=== PATIENT | female | born 1965 | race Caucasian/White ===

== ENCOUNTER → 2020-07-25 15:30 | Outpatient (BNVA) | payer OTHER, SELFPAY | PROVIDERS: PCP Internal Medicine Medical Oncology; Visit Provider Surgery | DX: Z76.89 Persons encountering health services in other specified circumstances (principal) ==

== ENCOUNTER → 2020-09-28 11:22 | Outpatient (BNVA) | payer OTHER, SELFPAY | PROVIDERS: PCP Internal Medicine Medical Oncology; Visit Provider Surgery | DX: Z76.89 Persons encountering health services in other specified circumstances (principal) ==

== ENCOUNTER 2020-09-30 13:28 | Outpatient (REF) | payer OTHER, SELFPAY ==
--- NOTE | 2020-09-30 13:32 | MM_ITS ---
EXAMINATION: MM SCREENING DIGITAL BREAST TOMOSYNTHESIS, LEFT CLINICAL INFORMATION: History contralateral breast cancer status post lumpectomy 03/15/2020. Request for imaging limited to left side. COMPARISON: Mammography: 04/16/2019, 03/27/2018, 02/24/2017 TECHNIQUE: Digital breast tomosynthesis is performed in both the craniocaudal and mediolateral oblique views along with computer-aided detection (CAD). Synthesized 2D images are generated from the tomosynthesis. FINDINGS: There are scattered areas of fibroglandular density (ACR BI-RADS breast composition Category b). There are no significant masses, abnormal calcifications, or other abnormalities. There is a stable intramammary node mid 3:00 position. The axilla and skin contours are unremarkable. MM/MM tomosynthesis screening LT IMPRESSION: No mammographic evidence of malignancy. ASSESSMENT: BI-RADS 2: Benign RECOMMENDATION: Routine annual mammography screening. This patient's information was entered into a reminder system with a target due date for their next mammogram.
== END 2020-09-30 13:29 | disposition home or self-care (01) ==
LOC: HO.MAMMO 13:28
PROVIDERS: PCP Internal Medicine Medical Oncology; Visit Provider Surgery
DX: Z12.31 Encounter for screening mammogram for malignant neoplasm of breast (principal)
CPT/HCPCS: 77063; 77067

== ENCOUNTER → 2020-12-25 08:43 | Outpatient (BNVA) | payer OTHER, SELFPAY | PROVIDERS: PCP Internal Medicine Medical Oncology; Visit Provider Surgery ==

== ENCOUNTER 2021-04-18 12:11 | Outpatient (REF) | payer BC, SELFPAY ==
--- NOTE | ~2021-04-18 | MM_ITS ---
EXAMINATION: MM DIAGNOSTIC DIGITAL BREAST TOMOSYNTHESIS, BILATERAL CLINICAL INFORMATION: Status post lumpectomy right breast March 15, 2020 COMPARISON: Mammography: September 30, 2020 and studies dating back to January 03, 2014 TECHNIQUE: Digital breast tomosynthesis is performed in both the craniocaudal and mediolateral oblique views along with computer-aided detection (CAD). Synthesized 2D images are generated from the tomosynthesis. Spot magnification views of the right breast in craniocaudal and 90 degree mediolateral views. FINDINGS: The breasts are almost entirely fatty (ACR BI-RADS breast composition Category a). Postsurgical and postradiation change is again seen within the right breast. No suspicious abnormality of the left breast is identified. Results are provided to the patient at time of visit by the technologist. MM/MM tomosynthesis diagnostic BI IMPRESSION: There are no significant changes from prior study. ASSESSMENT: BI-RADS 2: Benign RECOMMENDATION: Diagnostic mammography at time of next annual exam, due in 12 months. This patient's information was entered into a reminder system with a target due date for their next mammogram.
== END 2021-04-18 12:12 | disposition home or self-care (01) ==
LOC: HO.MAMMO 12:11
PROVIDERS: PCP Internal Medicine Medical Oncology; Visit Provider Surgery
DX: C50.919 Malignant neoplasm of unspecified site of unspecified female breast (principal)
CPT/HCPCS: 77062; 77066

== ENCOUNTER → 2021-05-24 10:34 | Outpatient (BNVA) | payer BC, SELFPAY | PROVIDERS: PCP Internal Medicine Medical Oncology; Visit Provider Surgery ==

== ENCOUNTER → 2021-11-21 09:45 | Outpatient (BNVA) | payer BC, SELFPAY | PROVIDERS: PCP Internal Medicine Medical Oncology; Visit Provider Surgery ==

== ENCOUNTER 2022-04-19 12:18 | Outpatient (REF) | payer OTHER, SELFPAY ==
--- NOTE | ~2022-04-19 | MM_ITS ---
EXAMINATION: MM DIAGNOSTIC DIGITAL BREAST TOMOSYNTHESIS, BILATERAL CLINICAL INFORMATION: Status post right breast lumpectomy March 15, 2020 COMPARISON: Mammography: April 18, 2021 and studies dating back to January 03, 2014 TECHNIQUE: Digital breast tomosynthesis is performed in both the craniocaudal and mediolateral oblique views along with computer-aided detection (CAD). Synthesized 2D images are generated from the tomosynthesis. Additional spot magnification views of the right breast in craniocaudal and 90 degree mediolateral views performed. FINDINGS: The breasts are almost entirely fatty (ACR BI-RADS breast composition Category a). There are no significant masses, abnormal calcifications, or other abnormalities. Postsurgical change again seen within the right breast. Results are provided to the patient at time of visit by the technologist. MM/MM tomosynthesis diagnostic BI IMPRESSION: There are no significant changes from prior study. ASSESSMENT: BI-RADS 2: Benign RECOMMENDATION: Routine annual mammography screening due in 12 months. This patient's information was entered into a reminder system with a target due date for their next mammogram.
== END 2022-04-19 12:19 | disposition home or self-care (01) ==
LOC: HO.MAMMO 12:18
PROVIDERS: Absent Provider Obstetrics & Gynecology; PCP Internal Medicine Medical Oncology; Visit Provider Surgery
DX: C50.911 Malignant neoplasm of unspecified site of right female breast (principal)
CPT/HCPCS: 77062; 77066

== ENCOUNTER → 2022-10-30 09:44 | Outpatient (BNVA) | payer OTHER, SELFPAY | PROVIDERS: PCP Internal Medicine Medical Oncology; Visit Provider Surgery | DX: Z85.3 Personal history of malignant neoplasm of breast (principal) ==

== ENCOUNTER 2023-04-24 12:41 | Outpatient (REF) | payer OTHER, SELFPAY ==
--- NOTE | ~2023-04-24 | MM_ITS ---
EXAMINATION: MM DIAGNOSTIC DIGITAL BREAST TOMOSYNTHESIS, BILATERAL CLINICAL INFORMATION: Year 3 follow-up status post right breast lumpectomy 03/15/2020. COMPARISON: Mammography: 04/19/2022, and dating back to 2014. TECHNIQUE: Digital breast tomosynthesis is performed in both the craniocaudal and mediolateral oblique views along with computer-aided detection (CAD). Synthesized 2D images are generated from the tomosynthesis. In addition, right CC and MLO spot magnification views were also performed. FINDINGS: There are scattered areas of fibroglandular density (ACR BI-RADS breast composition Category b). There are no significant masses, abnormal calcifications, or other abnormalities. Incidental intramammary node again seen 3:00 mid left breast. There are no significant changes from prior study. Results are provided to the patient at time of visit by the technologist. MM/MM tomosynthesis diagnostic BI IMPRESSION: No mammographic evidence of malignancy. ASSESSMENT: BI-RADS BI-RADS 2 - Benign Findings RECOMMENDATION: 1 year F/U This patient's information was entered into a reminder system with a target due date for their next mammogram.
== END 2023-04-24 12:42 | disposition home or self-care (01) ==
LOC: HO.MAMMO 12:41
PROVIDERS: PCP Internal Medicine Medical Oncology; Visit Provider Surgery
DX: Z85.3 Personal history of malignant neoplasm of breast (principal)
CPT/HCPCS: 77062; 77066

== ENCOUNTER → 2023-04-24 13:00 | Outpatient (BNV) | payer OTHER, SELFPAY | PROVIDERS: PCP Internal Medicine Medical Oncology; Visit Provider Radiology Diagnostic Radiology | DX: Z85.3 Personal history of malignant neoplasm of breast (principal) | CPT/HCPCS: 77062; 77066 ==

== ENCOUNTER 2023-05-07 09:39 | Outpatient (AMB) | payer OTHER, SELFPAY ==
[2023-05-07 09:40] VITALS: BMI 29.2
--- NOTE | 2023-05-07 09:40 | A.OFFVIS_ITS ---
Intake Vital Signs 05/07/23 09:40 Height 5 ft 8 in Weight 192 lb BMI 29.2 Intake Visit Reasons: 6 month follow up, breast exam Intake Note: This patient presents for a six month follow-up breast examination assessment. Patient c/o; reports no breast complaints at this time. [facility] Registered Nurse Rn Required: No Accompanied by: Self / Same As Patient Allergies codeine [CODEINE] Allergy (Severe, Verified 05/07/23 09:46) AGITATION, mentally unstable amoxicillin [AMOXICILLIN] Allergy (Intermediate, Verified 05/07/23 09:46) RASH latex [LATEX] Allergy (Intermediate, Verified 05/07/23 09:46) RASH latex Allergy (Unknown, Uncoded 05/07/23 09:46) rash seasonal Allergy (Unknown, Uncoded 05/07/23 09:46) Unknown SEASONAL ALLERGIES Allergy (Unknown, Uncoded 05/07/23 09:46) WHEEZING Codeine Phosphate Adverse Reaction (Unknown, Uncoded 05/07/23 09:46) mentally unstable Medication List - Last Reconciled 05/07/23 by Kyrie Doyle MD anastrozole 1 mg PO DAILY antiarthritic combination no.2 (glucosamine-chondroitin) 750 mg PO PRN atorvastatin 10 mg PO DAILY calcium carbonate-vitamin D3 600 mg-12.5 mcg (500 unit) (Calcium 600 with Vitamin D3) caps PO citalopram 10 mg PO DAILY loratadine (Claritin) 10 mg PO DAILY melatonin 10 mg PO BEDTIME PRN multivitamin 1 tab PO DAILY naproxen sodium (Aleve) 220 mg PO BID PRN omeprazole 20 mg PO DAILY ocdzquk-wsrq-mzolo-oreg-capryl 100 mg-150 mg- 50 mg-150 mg caps PO HPI 6 month follow up, breast exam HPI Details She is here for follow-up for her history of right breast invasive ductal carcinoma. The had a T2 N0 cancer in 2019 treated with lumpectomy and radiation. She is currently on anastrozole She denies any palpable masses. She says she feels well overall. She does state that she still has pain on the lumpectomy site as well as the sentinel node biopsy site. [facility] Medical History Depression History of breast cancer Hypercholesterolemia Mitral valve prolapse Surgical History History of colonoscopy History of lumpectomy of right breast Family History Mother Breast cancer, Onset Age: 75 Maternal Grandmother Breast cancer Father Throat cancer Mouth cancer Social History Alcohol intake: current Review of Systems Const Denies chills and Denies fever(s) Card Denies chest pain, Denies dyspnea and Denies dyspnea on exertion Resp Denies cough, Denies dyspnea and Denies dyspnea on exertion GI Denies hematochezia and Denies change in bowel habits Denies hematuria Musc Denies back pain and Denies limited range of motion Neuro Details: Vertigo Denies focal weakness and Denies convulsions Psych Denies depression and Denies mood swings Physical Exam Vital Signs: BMI result Body Mass Index 29.2 Const General: comfortable and no acute distress Orientation/consciousness: patient oriented x3 Neck Neck: Yes no lymphadenopathy Chest Other: No palpable breast masses, no nipple or skin changes, no axillary lymphadenopathy Resp Auscultation: clear to auscultation bilaterally Cardio Rhythm: regular rhythm GI Palpation (GI): Soft to palpation, nontender and no guarding Neuro General: patient oriented x3 Assessment & Plan Assessment & Plan (1) History of breast cancer: Code(s): Z85.3 - Personal history of malignant neoplasm of breast Plan: I have reviewed her mammogram from 2 weeks ago. This shows very benign findings. She is recommended to undergo another mammogram in 1 year. I do not appreciate any palpable breast masses or axillary lymphadenopathy. I therefore told her that I will see her again in the office next year after her mammogram. I did advise her to do self breast exam and to see him in the office if he has any concerns. She is comfortable with the plan. She also continues to follow-up with Dr. Willingham of Oncology Coding Level of Care Code Est Pt Level 3 (42096) Diagnoses History of breast cancer Z85.3
== END 2023-05-07 09:58 | disposition home or self-care (01) ==
PROVIDERS: PCP Internal Medicine Medical Oncology; Visit Provider Surgery
DX: Z85.3 Personal history of malignant neoplasm of breast (principal)
CPT/HCPCS: 99213

== ENCOUNTER → 2023-05-07 09:39 | Outpatient (BNVA) | payer OTHER, SELFPAY | PROVIDERS: PCP Internal Medicine Medical Oncology; Visit Provider Surgery | DX: Z85.3 Personal history of malignant neoplasm of breast (principal) ==

== ENCOUNTER 2024-01-16 09:10 | Outpatient (AMB) | payer BC, SELFPAY ==
--- NOTE | 2024-01-16 07:45 | MHC.OFFVIS ---
Intake Visit Reasons: Current Smoker Allergies codeine [CODEINE] Allergy (Severe, Verified 05/07/23 09:46) AGITATION, mentally unstable amoxicillin [AMOXICILLIN] Allergy (Intermediate, Verified 05/07/23 09:46) RASH latex [LATEX] Allergy (Intermediate, Verified 05/07/23 09:46) RASH latex Allergy (Unknown, Uncoded 05/07/23 09:46) rash seasonal Allergy (Unknown, Uncoded 05/07/23 09:46) Unknown SEASONAL ALLERGIES Allergy (Unknown, Uncoded 05/07/23 09:46) WHEEZING Codeine Phosphate Adverse Reaction (Unknown, Uncoded 05/07/23 09:46) mentally unstable HPI HPI Current Smoker: Details: Initial visit for this 58yo smoker with a 20PYH. Patient has been smoking since age 17 for 41 years at 1/2ppd. . Denies marijuana use. Notes social second hand smoke exposure. Father growing up. Denies exposure to chemicals or substances like asbestos. . Denies known family history of lung cancer. Reportspersonal history of cancers right Breast cancer in 2019 Invasive ductal carcinoma - s/p lumpectomy and radiation. In remission. Denies chest CT in last year. . Denies recent travel outside the [place]. Gone to [place] several times. Denies recent respiratory illness or recent hospitalization for respiratory issues. Denies testing positive for COVID. Admits receiving COVID Vaccine. . Denies fever, chills, new/worsening cough, hemoptysis, hoarseness or dysphagia. Denies significant chest pain, significant dyspnea or unintentional weight loss. Patient Lung Cancer Screening Questionnaire reviewed with patient by provider. . Shared Decision Making Completed. Patient meets criteria. Discussed in detail with patient, the risk vs benefit of LDCT screening. Patient consents to proceed with scan. Discussed smoking cessation. [facility] Medical History (Updated 01/16/24 @ 09:39 by Nimco Dickerson PA-C) History of breast cancer (~2019) Mitral valve prolapse Hypercholesterolemia GERD (gastroesophageal reflux disease) Nicotine dependence, cigarettes, uncomplicated Depression Surgical History (Updated 01/06/24 @ 07:56 by Nimco Dickerson PA-C) History of lumpectomy of right breast History of colonoscopy Family History Mother Breast cancer, Onset Age: 75 Maternal Grandmother Breast cancer Father Throat cancer Mouth cancer Social History (Updated 01/16/24 @ 09:40 by Nimco Dickerson PA-C) Alcohol intake: current Alcohol intake frequency: 0-2 drinks per day Alcohol type: wine Patient Tobacco Use Status: Current everyday Tobacco user Years Smoked: onset 17yo, 1/2ppd x 41yrs - 20PYH Assessment & Plan Assessment & Plan (1) Nicotine dependence, cigarettes, uncomplicated: Comment: (current smoker, onset 17yo, 1/2ppd x 41yrs - 20PYH) Code(s): F17.210 - Nicotine dependence, cigarettes, uncomplicated Category: Medical Plan: - SDM visit completed today in office. - Patient meets criteria for LDCT for lung cancer screening purposes and is asymptomatic. - Smoking cessation counseling offered. Patients can always call [phone]. - Will arrange for a LDCT scan of the chest for screening purposes at [facility]. - Risks, benefits, and alternatives were discussed in detail and the patient agrees to proceed. - Risks discussed include but are not limited to: radiation exposure, anxiety during testing and while awaiting results, false negatives, false positives and possibility of additional intervention such as further imaging or surgical procedures for benign disease. - Benefits are obviously detection of lung cancer at an early stage which can lead to improved outcomes. - Discussed the importance of screening program compliance with adherence to yearly LDCT scan as scheduled - or sooner interval scans for personalized screening regimen. - Discussed follow up plan. Our office will send a letter discussing results and if needed set up phone call and office visit based on CT findings. - Patient educated on results categorization and the management decisions for suspicious findings potentially found on the screening LDCT scan. Any patient with a Lung RADS score of 3 or 4 will be reviewed by a multidisciplinary team at [facility] to form a plan of action in regards to scan findings. - If further work up is warranted for a suspicious lung finding this will be followed by the Lung Cancer Screening program in conjunction with the Thoracic Surgery Department at [facility]. - A copy of the office note and LDCT will be sent to the patient's PCP - as well as documentation on any associated further plans of care. - Incidental findings on LDCT are the PCP's responsibility. These findings are indicated with an S finding on the LDCT Assessment. A note discussing the findings will be sent to the PCP who is then responsible for further management. - All questions answered.? Coding Level of Care Code Lung Cancer Screening G0296 Diagnoses Nicotine dependence, cigarettes, uncomplicated F17.210
== END 2024-01-16 10:07 | disposition home or self-care (01) ==
PROVIDERS: PCP Internal Medicine Medical Oncology; Referring Provider Internal Medicine Medical Oncology; Visit Provider Physician Assistant Medical
DX: F17.210 Nicotine dependence, cigarettes, uncomplicated (principal)
CPT/HCPCS: G0296

== ENCOUNTER 2024-01-16 09:39 | Outpatient (REF) | payer BC, SELFPAY ==
--- NOTE | ~2024-01-16 | CT_ITS ---
EXAMINATION: CT CHEST SCREENING CLINICAL INFORMATION: Nicotine dependence, cigarettes, uncomplicated. COMPARISON: X-ray chest 12/14/2014. TECHNIQUE: Multidetector volumetric CT imaging of the chest is performed on a Siemens SOMATOM Definition scanner without contrast using low dose technique. Additional 2D coronal and sagittal reformatted images and axial 3D maximum intensity projection (MIP) images are generated on the CT workstation. This CT examination was performed using dose optimization techniques as appropriate, variously including the following: *Automated exposure control. *Adjustment of mA and/or kV according to patient size (this includes techniques or standardized protocols for targeted exams where dose is matched to indication/reason for exam; i.e. extremities or head). *Use of iterative reconstruction technique. DLP: 51 mGy-cm FINDINGS: PULMONARY NODULES: There is a lobular 9.0 x 7.0 x 6.0 mm right lower lobe pulmonary nodule (5:282). There is a 6 x 3 x 3 mm density seen in the right upper lobe (5:165). LUNGS: Mild emphysematous changes are present. Bronchial thickening is noted. MEDIASTINUM: Heart size normal. There is a preaortic 1 cm lymph node present. No gross mediastinal or hilar lymphadenopathy. CORONARY ARTERY CALCIFICATION: Mild. PLEURA: There is no pleural effusion. No pleural mass or thickening. AXILLA: No lymphadenopathy. UPPER ABDOMEN: Unremarkable. OSSEOUS STRUCTURES: Unremarkable. CT/CT lung screening IMPRESSION: There is a 9 mm and 6 mm pulmonary nodule present. ASSESSMENT: Lung-RADS category 4A: Suspicious. RECOMMENDATION: Short interval 3 month follow up low-dose CT chest. Immediate chest CT could also be considered.
== END 2024-01-16 09:40 | disposition home or self-care (01) ==
LOC: HO.CT 09:39
PROVIDERS: PCP Internal Medicine Medical Oncology; Visit Provider Physician Assistant Medical
DX: Z12.2 Encounter for screening for malignant neoplasm of respiratory organs (principal); F17.210 Nicotine dependence, cigarettes, uncomplicated
CPT/HCPCS: 71271; G0296

== ENCOUNTER 2024-04-21 08:45 | Outpatient (REF) | payer BC, SELFPAY ==
--- NOTE | ~2024-04-21 | CT_ITS ---
EXAMINATION: CT LOW-DOSE SCREENING CHEST WITHOUT CONTRAST CLINICAL INFORMATION: Solitary pulmonary nodule. Three-month repeat moderate underlying emphysema.. Nicotine dependence. The patient is a current smoker with a 41 pack-year history of smoking. COMPARISON: CT chest January 16, 2024. X-ray chest December 14, 2014. TECHNIQUE: Multidetector volumetric CT imaging of the chest is performed on a Siemens SOMATOM Definition scanner without contrast using low dose technique. Additional 2D coronal and sagittal reformatted images and axial 3D maximum intensity projection (MIP) images are generated on the CT workstation. This CT examination was performed using dose optimization techniques as appropriate, variously including the following: *Automated exposure control *Adjustment of mA and/or kV according to patient size (this includes techniques or standardized protocols for targeted exams where dose is matched to indication/reason for exam; i.e. extremities or head) *Use of iterative reconstruction technique TOTAL EXAM DLP: 50 mGy-cm. CTDIvol: 1.53 mGy. FINDINGS: PULMONARY NODULES: 8 mm well-defined right lower lobe pulmonary nodule noncalcified. Stable. The right upper lobe lesion is not reproducible and may be a summation of normal structures. LUNGS: Mild to moderate emphysematous changes again noted consistent with COPD. MEDIASTINUM: No mediastinal, hilar or axillary adenopathy or free fluid collection. CORONARY ARTERY CALCIFICATION: None visualized on this study. THYROID GLAND: Unremarkable to the extent seen. CARDIOVASCULAR STRUCTURES: Aortic and heart size normal. No pericardial effusion. CHEST WALL/AXILLA: Unremarkable. UPPER ABDOMEN: Included portions of the solid organs in the upper abdomen unremarkable on noncontrast imaging. OSSEOUS STRUCTURES: No suspicious focal findings. CT/CT lung screen follow up IMPRESSION: Stable 8 mm right lower lobe pulmonary nodule. ASSESSMENT: 1. Lung-RADS Category 4A: Suspicious findings. 2. Lung-RADS Category S: Positive. There are clinically significant or potentially clinically significant findings not related to the lungs requiring further workup. RECOMMENDATION: A 3-month follow up low-dose lung CT scan is recommended. An order for CT LUNG CANCER SCREENING SHORT INTERVAL FOLLOWUP ([id number]) can be placed. Electronically signed by: Joe Nam MD 05/28/2024 03:07 PM EDT
== END 2024-04-21 08:46 | disposition home or self-care (01) ==
LOC: HO.CT 08:45
PROVIDERS: PCP Internal Medicine Medical Oncology; Visit Provider Physician Assistant Medical
DX: R91.1 Solitary pulmonary nodule (principal); F17.210 Nicotine dependence, cigarettes, uncomplicated
CPT/HCPCS: 71250

== ENCOUNTER 2024-06-01 15:42 | Outpatient (REF) | payer BC, SELFPAY ==
--- NOTE | ~2024-06-01 | MM_ITS ---
EXAMINATION: MM SCREENING DIGITAL BREAST TOMOSYNTHESIS, BILATERAL CLINICAL INFORMATION: Screening. Asymptomatic. COMPARISON: Mammography: Comparison is made with available prior examinations. TECHNIQUE: Digital breast tomosynthesis is performed in both the craniocaudal and mediolateral oblique views along with computer-aided detection (CAD). Synthesized 2D images are generated from the tomosynthesis. FINDINGS: There are scattered areas of fibroglandular density (ACR BI-RADS breast composition Category b). There are no significant masses, abnormal calcifications, or other abnormalities. MM/MM tomosynthesis screening BI IMPRESSION: No mammographic evidence of malignancy. ASSESSMENT: BI-RADS BI-RADS 1 - Negative RECOMMENDATION: Routine annual mammography screening. 1 year F/U This examination should not preclude the clinical evaluation of a suspicious palpable abnormality. This patient's information was entered into a reminder system with a target due date for their next mammogram. Electronically signed by: Lara Fritz DO 06/03/2024 06:09 PM EDT
== END 2024-06-01 15:43 | disposition home or self-care (01) ==
LOC: HO.MAMMO 15:42
PROVIDERS: PCP Internal Medicine Medical Oncology; Visit Provider Internal Medicine Medical Oncology
DX: Z12.31 Encounter for screening mammogram for malignant neoplasm of breast (principal)
CPT/HCPCS: 77063; 77067

== ENCOUNTER → 2024-06-01 16:15 | Outpatient (BNV) | payer BC, SELFPAY | PROVIDERS: PCP Internal Medicine Medical Oncology; Visit Provider Internal Medicine | DX: Z12.31 Encounter for screening mammogram for malignant neoplasm of breast (principal) | CPT/HCPCS: 77063; 77067 ==

== ENCOUNTER 2024-06-14 15:22 | Outpatient (AMB) | payer BC, SELFPAY ==
--- NOTE | 2024-06-14 15:33 | A.OFFVIS_ITS ---
Vital Signs 06/14/24 15:40 Height 5 ft 8 in Weight 181 lb BMI 27.5 BP 164/109 H Blood Pressure Location Lt radial Position Sitting Pulse 87 Intake Visit Reasons: Breast exam, 1 year follow up Intake Note: This patient presents for yearly breast examination assessment. Pt c/o; reports no breast complaints at this time. 06/01/2024-MM Screening Student Development Specialist Required: No Accompanied by: Self / Same As Patient Allergies codeine [CODEINE] Allergy (Severe, Verified 06/14/24 15:41) AGITATION, mentally unstable amoxicillin [AMOXICILLIN] Allergy (Intermediate, Verified 06/14/24 15:41) RASH latex [LATEX] Allergy (Intermediate, Verified 06/14/24 15:41) RASH latex Allergy (Unknown, Uncoded 06/14/24 15:41) rash seasonal Allergy (Unknown, Uncoded 06/14/24 15:41) Unknown SEASONAL ALLERGIES Allergy (Unknown, Uncoded 06/14/24 15:41) WHEEZING Codeine Phosphate Adverse Reaction (Unknown, Uncoded 06/14/24 15:41) mentally unstable Medication List - Last Reconciled 06/14/24 by Kyrie Doyle MD anastrozole 1 mg PO DAILY antiarthritic combination no.2 (glucosamine-chondroitin) 750 mg PO PRN atorvastatin 10 mg PO DAILY calcium carbonate-vitamin D3 600 mg-12.5 mcg (500 unit) (Calcium 600 with Vitamin D3) caps PO citalopram 10 mg PO DAILY loratadine (Claritin) 10 mg PO DAILY melatonin 10 mg PO BEDTIME PRN multivitamin 1 tab PO DAILY naproxen sodium (Aleve) 220 mg PO BID PRN omeprazole 20 mg PO DAILY prlpeviy-tlli-yktit-oreg-capry 100 mg-150 mg- 50 mg-150 mg caps PO HPI HPI Breast exam, 1 year follow up: Details: She is here for follow-up for her history of right breast invasive ductal carcinoma. The had a T2 N0 cancer in 2019 treated with lumpectomy and radiation. She is currently on anastrozole. She had her mammogram 2 weeks ago and this was unremarkable She had left humeral fracture in 04/03/2024. She was on an immobilizing splint at that for several weeks. She denies any palpable masses. She says she feels well overall. She does complain of pain on the fracture site on the left humerus. [facility] Medical History History of breast cancer (~2019) Mitral valve prolapse Hypercholesterolemia GERD (gastroesophageal reflux disease) Nicotine dependence, cigarettes, uncomplicated Depression Surgical History History of lumpectomy of right breast History of colonoscopy Family History Mother Breast cancer, Onset Age: 75 Maternal Grandmother Breast cancer Father Throat cancer Mouth cancer Social History Alcohol intake: current Alcohol intake frequency: 0-2 drinks per day Alcohol type: wine Patient Tobacco Use Status: Current everyday Tobacco user Years Smoked: onset 17yo, 1/2ppd x 41yrs - 20PYH Review of Systems Const Denies chills and Denies fever(s) Card Denies chest pain, Denies dyspnea and Denies dyspnea on exertion Resp Denies cough, Denies dyspnea and Denies dyspnea on exertion GI Denies hematochezia and Denies change in bowel habits Denies hematuria Musc Denies back pain and Denies limited range of motion Neuro Denies focal weakness and Denies convulsions Psych Denies depression and Denies mood swings Physical Exam Vital Signs: Last Vital Signs Pulse 87 06/14/24 15:40 BP 164/109 H 06/14/24 15:40 BMI result Body Mass Index 27.5 Const General: comfortable and no acute distress Orientation/consciousness: patient oriented x3 Neck Neck: Yes no lymphadenopathy Resp Other: No palpable breast masses, lymphadenopathy, nipple or skin changes, Auscultation: clear to auscultation bilaterally Cardio Rhythm: regular rhythm GI Palpation (GI): Soft to palpation, nontender and no guarding Neuro General: patient oriented x3 Assessment & Plan Assessment & Plan (1) History of breast cancer: Onset Date: ~2019 Comment: (Invasive Ductal Carcinoma of Right Breast - T2N0 - s/p Lumpectomy - 03/2020 + Radiation 06/2020) Code(s): Z85.3 - Personal history of malignant neoplasm of breast Category: Medical Plan: She continues to do well. Her mammogram from 2 weeks ago was unremarkable. She was reminded any with her regular screening mammograms. Current physical exam does not reveal any suggestion of any breast mass or any axillary lymphadenopathy She is to continue to follow-up with oncologist as she remains on anastrozole. I will see her in the office in about 6 months. Coding Level of Care Code Est Pt Level 3 (23279) Diagnoses History of breast cancer Z85.3
[2024-06-14 15:40] VITALS: BP 164/109; PULSE 87; BMI 27.5
== END 2024-06-14 16:06 | disposition home or self-care (01) ==
PROVIDERS: PCP Internal Medicine Medical Oncology; Visit Provider Surgery
DX: Z85.3 Personal history of malignant neoplasm of breast (principal)
CPT/HCPCS: 99213

== ENCOUNTER → 2024-06-14 15:22 | Outpatient (BNVA) | payer BC, SELFPAY | PROVIDERS: PCP Internal Medicine Medical Oncology; Visit Provider Surgery ==

== ENCOUNTER 2024-09-08 08:31 | Emergency (ER) | payer BC, SELFPAY ==
--- NOTE | ~2024-09-08 | XR_ITS ---
EXAMINATION: XR HAND, RIGHT CLINICAL INFORMATION: injury middle finger COMPARISON: None available. TECHNIQUE: PA, lateral, and oblique views of the right hand. FINDINGS: There is a comminuted, oblique fracture involving the diaphysis of the right third proximal phalanx. Fracture fragments override approximately 0.2 cm. The distal fragment is displaced medially approximately 1/5 bone shaft's width relative to the main proximal fragment. No significant angulation is appreciated. Fracture planes do not appear to extend to the joint spaces. Associated soft tissue swelling. No other fracture or dislocation is appreciated. Bony mineralization appears preserved. No lytic or sclerotic bony lesion is noted. No radiopaque foreign body is identified. XR/XR hand RT min 3V IMPRESSION: Fracture of the right third proximal phalanx. Electronically signed by: Jed East MD 09/08/2024 08:55 AM SCOTT LEMON
[2024-09-08 08:33] VITALS: BP 155/107; PULSE 87; RESP 20; TEMP 36.6; O2SAT 98; BMI 26.1
--- NOTE | 2024-09-08 09:18 | ED.EXTPRO ---
HPI - Extremity Problem General Chief complaint: Extremity Problem Stated complaint: finger inj Time Seen by Provider: 09/08/24 09:02 Source: patient, RN notes reviewed and old records reviewed Mode of arrival: ambulatory History of Present Illness ED Provider: Nighat Aaron PA-C HPI Narrative: 59-year-old female with a past medical history breast CA, MVP, HLD, GERD, depression, presenting to the ED complaining of right middle finger injury/ pain and swelling s/p dog pulling on leash this morning and yanking finger in wrong direction. Denies fall to ground, head trauma or LOC. Reports associated paresthesias. Right-hand dominant. Denies injury to other area Related Data Home Medications ?Medication ?Instructions ?Recorded ?Confirmed anastrozole 1 mg tablet 1 mg PO DAILY 07/25/20 06/14/24 calcium 600 mg (as cap PO 07/25/20 06/14/24 carbonate)-vitamin D3 12.5 mcg (500 unit) capsule (Calcium with Vit D3) loratadine 10 mg tablet (Claritin) 10 mg PO DAILY 07/25/20 06/14/24 multivitamin 1 tab PO DAILY 07/25/20 06/14/24 omeprazole 20 mg capsule,delayed 20 mg PO DAILY 09/28/20 06/14/24 release melatonin 10 mg tablet 10 mg PO BEDTIME PRN 12/25/20 06/14/24 antiarthritic combination no.2 900 750 mg PO PRN 05/24/21 06/14/24 mg tablet (glucosamine-chondroitin) citalopram 10 mg tablet 10 mg PO DAILY 05/24/21 06/14/24 naproxen sodium 220 mg tablet 220 mg PO BID PRN 05/24/21 06/14/24 (Aleve) turmeric 100 mg-dixie 150 cap PO 05/24/21 06/14/24 mg-olive 50 mg-oreg 150 mg-capryl capsule atorvastatin 10 mg tablet 10 mg PO DAILY 10/30/22 06/14/24 Allergies Allergy/AdvReac Type Severity Reaction Status Date / Time codeine [CODEINE] Allergy Severe AGITATION, Verified 09/08/24 08:35 mentally unstable amoxicillin [AMOXICILLIN] Allergy Intermediate RASH Verified 09/08/24 08:35 latex [LATEX] Allergy Intermediate RASH Verified 09/08/24 08:35 latex Allergy Unknown rash Uncoded 09/08/24 08:35 seasonal Allergy Unknown Unknown Uncoded 09/08/24 08:35 SEASONAL ALLERGIES Allergy Unknown WHEEZING Uncoded 09/08/24 08:35 Codeine Phosphate AdvReac Unknown mentally Uncoded 09/08/24 08:35 unstable Review of Systems Review of Systems: Yes all other systems are reviewed and are negative Constitutional: Constitutional: Reports as per [facility] Past Medical History Attestation statement: The following information was validated with the patient. Source: old records reviewed Medical History History of breast cancer (~2019) Mitral valve prolapse Hypercholesterolemia GERD (gastroesophageal reflux disease) Nicotine dependence, cigarettes, uncomplicated Depression Surgical History History of lumpectomy of right breast History of colonoscopy Family History Family History Mother Breast cancer, Onset Age: 75 Maternal Grandmother Breast cancer Father Throat cancer Mouth cancer Social History Social History Alcohol intake: current Alcohol intake frequency: 0-2 drinks per day Alcohol type: wine Patient Tobacco Use Status: Current everyday Tobacco user Years Smoked: onset 17yo, 1/2ppd x 42yrs - 20PYH Advance Directives: No Advance Directives Information Provided: Yes Do you have a plan to hurt others: No Plan Physical Exam Vital Signs: Vital Signs: Last Vital Signs Temp 97.9 F 09/08/24 08:33 Pulse 87 09/08/24 08:33 Resp 20 09/08/24 08:33 BP 155/107 H 09/08/24 08:33 Pulse Ox 98 09/08/24 08:33 O2 Del Method Room Air 09/08/24 08:33 BMI result Body Mass Index 26.1 Const: General: cooperative, healthy appearing and no acute distress Orientation/consciousness: patient oriented x3 Limitations: no limitations HEENT: Head: Yes normal to inspection and Yes atraumatic Ears: hearing grossly normal bilaterally General nose exam: Normal external nose present Face and sinus: Yes normal facial exam Eyes: General: appearance normal, both eyes and all related structures EOM: EOMs intact bilaterally Neck: Neck: Yes normal visual inspection and Yes no meningeal signs Resp: Effort & Inspection: normal respiratory effort and no respiratory distress Cardio: Rate: regular rate Skin: Rashes: no rashes Wounds: no wounds Neuro: General: patient oriented x3, tone normal and no meningeal signs Cranial nerves: Yes CN's II-XII intact bilaterally Gait exam (Neuro): Normal gait present Extrem: Other: right 3rd digit with appreciable swelling and slight angulation. Diffusely tender to palpation. Limited ROM. Sensation intact to light touch. Neurovascularly intact. Course Course Course Narrative: XR hand RT min 3V IMPRESSION: Fracture of the right third proximal phalanx. >Finger splint and derek tape applied. Orthopedic RICHIE Quiroz contacted to ensure patient follow-up Results discussed with patient including worrisome signs and symptoms and strict return precautions, and when to return to the emergency department. They verbalized understanding and feel safe for discharge at this time. Medical Decision Making Medical Decision Making MDM Narrative: 59-year-old female with a past medical history breast CA, MVP, HLD, GERD, depression, presenting to the ED complaining of right middle finger injury/ pain and swelling s/p dog pulling on leash this morning and yanking finger in wrong direction. On exam hypertensive likely from pain, NAD, nontoxic appearing, physical exam as noted above. Concern for fracture vs dislocation. No evidence of septic joint / arthritis Plan: X-rays. Offered pain control however patient declined Please refer to course for remaining clinical decision making, interpretation of labs/imaging results, and discussions with consultants and/or family members. Differential Diagnosis Differential Diagnoses: The differential diagnosis associated with the presentation includes As above Independent Interpretation I performed an independent interpretation of an: Plain X-Ray ( my interpretation: agree with radiologist reading of proximal 3rd phalanx fracture) Radiology Impression Discussion of test interpretation with radiology: I have reviewed the radiologist's reading. External Record Review External record reviewed: Inpatient record, Office record, Outpatient record, Prior outpatient labs, Prior outpatient radiology, Primary care record and Outside ED record Tests considered The following testing was considered but not selected: As above Prescription Management I considered prescription management with: Pain Medication Chronic Conditions Patient?s care impacted by: Cancer and Other Procedures Orthopedic Splinting/Casting Injury #1: Side: right Upper Extremity Immobilizer: finger (other) Discharge Plan Discharge Clinical Impression: Fracture of proximal phalanx of digit of right hand Patient Disposition: Home, Self-Care Instructions: Finger Fracture (ED) Additional Instructions: you have a fracture of her middle finger. Please keep splint on, dry and clean Take Tylenol and ibuprofen for pain Ice Call payroll specialist tomorrow to make neck soonest appointment If pain becomes unbearable, finger becomes numb/discolored return to the emergency department Prescriptions: No Action anastrozole 1 mg tablet 1 mg PO DAILY loratadine [Claritin] 10 mg tablet 10 mg PO DAILY multivitamin Tablet 1 tab PO DAILY calcium carbonate-vitamin D3 [Calcium 600 with Vitamin D3] 600 mg(1,500mg) -500 unit capsule PO melatonin 10 mg tablet 10 mg PO BEDTIME PRN naproxen sodium [Aleve] 220 mg tablet 220 mg PO BID PRN citalopram 10 mg tablet 10 mg PO DAILY holujkdm-abmh-jrdfc-oreg-capry 100 mg-150 mg- 50 mg-150 mg capsule PO glucosamine-chondroitin 900 mg tablet 750 mg PO PRN omeprazole 20 mg capsule,delayed release(DR/EC) 20 mg PO DAILY atorvastatin 10 mg tablet 10 mg PO DAILY Referrals: [facility] [place] Orthopedic Surgeons [Provider Group] - 5 days Print Language: Portuguese
--- NOTE | 2024-09-08 09:42 | PC.NURSE ---
leandro performed, provider splinted rt finger
[2024-09-08 09:43] VITALS: BP 195/98; PULSE 88; RESP 18; TEMP 36.2; O2SAT 98
== END 2024-09-08 09:44 | disposition home or self-care (01) ==
PROVIDERS: Emergency Provider Emergency Medicine; PCP Internal Medicine Medical Oncology
DX: S62.612A Displaced fracture of proximal phalanx of right middle finger, initial encounter for closed fracture (principal); M79.641 Pain in right hand; X50.9XXA Other and unspecified overexertion or strenuous movements or postures, initial encounter; Y93.K1 Activity, walking an animal; Y92.480 Sidewalk as the place of occurrence of the external cause; Y99.8 Other external cause status; F17.210 Nicotine dependence, cigarettes, uncomplicated
CPT/HCPCS: 29130; 73130; 99282; 99283; 99284

== ENCOUNTER 2024-09-10 12:56 | Outpatient (AMB) | payer BC, SELFPAY ==
--- OUTSIDE RECORDS SUMMARY | 2024-09-10 12:59 | XMS_ITS ---
Author Organization Natalio Willingham III, MD Address [address] [place] [address] Care Team Providers Care Outbound Sales Executive Name Role Phone Natalio Willingham Primary Care Provider [phone] REASON FOR VISIT Needs call back from Social History Sex Assigned At : Social History Observation Description Sex Assigned At Female Encounters Encounter Location Date Provider Diagnosis Natalio Willingham III, MD [address] [place] [address] [place] [address] 09/01/2024 Natalio Willingham Plan Of Treatment Next Appt Details Provider Name:Natalio Willingham, 10/08/2024 04:00:00 PM, [address] [place] [address] [place], [address], Provider Name:Natalio Willingham, 05/10/2025 03:00:00 PM, [address] [place] [address] [place], [address], Progress Notes * Zackary ESPINO EDOB:[birth year] (59 yo F)Acc No.[id number]:09/01/2024 Patient:HowieZackary ESPINO :1965???Age:59 Y???Sex:Female Address:[address], [place] [address] * true * Date:? Generated for Tati ennis/So/Waqaritting on:?09/10/2024 12:59 PM EST
--- OUTSIDE RECORDS SUMMARY | 2024-09-10 13:00 | XMS_ITS | Patient Health Record ---
Author Organization Natalio Willingham III, MD Address [address] [place] [address] Care Team Providers Care Title Vehicle Service Attendant Name Role Phone Natalio Willingham Primary Care Provider [phone] Allergies Allergen (clinical drug ingredient) Drug/Non Drug [...] date:06/14/2024 05:59:01 AM Interpretation: Performing Lab: Notes/Report: [address] [address] [address] Scan Report Signed Patient: Ayah Tillman MR#: [id number] 8 : 1965 Acct:[id number] Age/Sex: 58 / F ADM Date: 01/16/24 Loc: HO.CT Attending Dr: Nimco Dickerson PA-C Ordering Physician: Nimco Dickerson PA-C Date of Service: 01/16/24 Procedure(s): CT lung screening Accession Number(s): [id number] cc: Natalio Willingham MD; Nimco Dickerson PA-C [...] in OV> 01/21/24 0103 DD/ 1005 TD/TT: Nutrition Aide: [address] [address] [address] Scan Report Signed Patient: Cristhian Tillman MR#: [id number] 8 : 1965 Acct:[id number] Age/Sex: 58 / F ADM Date: 01/16/24 Loc: HO.CT Attending Dr: Nimco Dickerson PA-C Ordering Physician: Nimco Dickerson PA-C Date of Service: 01/16/24 Procedure(s): CT lung screening Accession Number(s): [id number] cc: Natalio Willingham MD; Nimco Dickerson PA-C [...] in OV> 01/21/24 0103 DD/ 1005 TD/TT: Nutrition Aide: TERRY CT lung screen follow up Reviewed date:06/14/2024 05:59:01 AM Interpretation: Performing Lab: Notes/Report: [address] [address] [address] Scan Report Signed Patient: Ayah Tillman MR#: [id number] 8 : 1965 Acct:[id number] Age/Sex: 59 / F ADM Date: 04/21/24 Loc: HO.CT Attending Dr: Nimco Dickerson PA-C Ordering Physician: Nimco Dickerson PA-C Date of Service: 04/21/24 Procedure(s): CT lung screen follow up Accession Number(s): [id number] cc: Natalio Willingham MD; Nimco Dickerson PA-C [...] CT LUNG CANCER SCREENING SHORT INTERVAL FOLLOWUP ([id number]) can be placed. Electronically signed by: Joe Nam MD 05/28/2024 03:07 PM EDT RP Dictated By: Joe Nam MD Signed By: <Electronically signed by Joe Nam MD in OV> 05/28/24 1507 DD/ 0853 TD/TT: 04/21/24 0900 Nutrition Aide: [place] [address] [address] Scan Report Signed Patient: Cristhian Tillman MR#: [id number] 8 : 1965 Acct:[id number] Age/Sex: 59 / F ADM Date: 04/21/24 Loc: .CT Attending Dr: Nimco Dickerson PA-C Ordering Physician: Nimco Dickerson PA-C Date of Service: 04/21/24 Procedure(s): CT olegario g screen follow up Accession Number(s): [id number] cc: Natalio Willingham MD; Nimco Dickerson PA-C [...] LUNG CANCER JEANNE ROSSG SHORT INTERVAL FOLLOWUP ([id number]) can be placed. Electronically rios d by: Joe Nam MD 05/28/2024 03:07 PM EDT Dictated By: Joe Nam MD Signed By: <Electron ically signed by Joe Nam MD in OV> 05/28/24 1507 DD/ 0853 TD/TT: 04/21/24 0900 Nutrition Aide: WERO MM tomosynthesis screening B I Reviewed date:06/14/2024 05:59:01 AM Interpretation: Performing Lab: Notes/Report: [address] [place] [address] Mammography Report Signed Patient: Ayah Tillman MR#: [id number] 8 : 1965 Acct:[id number] Age/Sex: 59 / F ADM Date: 06/01/24 Loc: HO.MAMMO Attending Dr: Natalio Willingham MD Ordering Physician: Natalio Willingham MD Results: 1Negativ e Date of Service: 06/01/24 Follow Up: 1 Year From Orig inal Mammogram Procedure(s): MM tomosynthesis screening BI Accession Number(s): [id number] cc: Natalio Willingham MD EXAMINATION: MM SCREENING [...] 06/03/24 1809 DD/ 1545 TD/TT: 06/01/24 1600 Nutrition Aide: [address] [place] [address] Mammography Report Signed Patient: Cristhian Tillman MR#: [id number] 8 : 1965 Acct:[id number] Age/Sex: 59 / F ADM Date: 06/01/24 Loc: HO.MAMMO Attending Dr: Natalio Willingham MD Ordering Physician: Natalio Willingham MD Results: 1Negativ e Date of Service: Follow Up: 1 Year From Orig inal Mammogram Procedure(s): MM eliana osynthesis screening BI Accession Number(s): [id number] cc: Natalio Willingham MD EXAMINATION: MM SCREENING [...] 06/03/24 1809 DD/ 1545 TD/TT: 06/01/24 1600 Nutrition Aide: BOUCHRA ho RT min 3V Reviewed date:09/08/2024 09:49:44 AM Interpretation: Performing Lab: Notes/Report: [address] [address] XRay Report Signed Patient: Ayah Tillman MR#: [id number] 8 : 1965 Acct:[id number] Age/Sex: 59 / F ADM Date: 09/08/24 Loc: HO.ED Attending Dr: Ordering Physician: Generic ED Physician Date of Service: 09/08/24 Procedure(s): XR hand RT min 3V Accession Number(s): [id number] cc: Natalio Willingham MD; Generic ED Physician [...] by: Jed East MD 09/08/2024 08:55 AM [facility] Dictated By: Jed East Signed By: <Electronically signed by Jed East in OV> 09/08/24 0855 DD/ 0840 TD/TT: 09/08/24 0845 Nutrition Aide: [place] [address] XRay Report Signed Patient: Cristhian Tillman MR#: [id number] 8 : 1965 Acct:[id number] Age/Sex: 59 / F ADM Date: 09/08/24 Loc: HO.ED Attending Dr: Ordering Physician: Generic ED Physician Date of Service: 09/08/24 Procedure(s): XR hand RT min 3V Accession Number(s): [id number] cc: Natalio iWllingham MD; Generic ED Physician EXAMINATION: XR HAND, [...] MD 09/08/2024 08:55 AM EST RP Workstation: [employer] TV Dictated By: Jed East Signed By: <Electron ically signed by Jed East in OV> 09/08/24 0855 DD/ 0840 TD/TT: 09/08/24 0845 Nutrition Aide: Reason For Referral Reason Consult and Treat Diagnosis 1 Tobacco use disorder (Z72.0) Diagnosis 2 Tobacco dependence ( F17.200) Referral Organization Natalio Willingham III, MD Referring Provider First Name Natalio Referring Provider Last Name Tarsha Referring Provider Speciality Internal M edicine Referred Provider [facility] er, Thoracic Surgeons Referred Provider Specialty Thoracic [...] Problem Status W/U Status Risk Notes Problem 781704694 Overweight (BMI 25.0-29.9) (E66.3) Active confirmed Her body mass index is 28 and her weight is stable. We have discussed diet and nutrition. We reviewed [facility] weight loss strategy. Problem 34243501 Hyperlipidemia (E78.5) Active confirmed Comprehensive blood work with a fasting lipid profile was ordered prior to her next visit. She continues her efforts at weight loss and consumption of a healthy diet. Problem 909807180 Pulmonary nodules (R91.8) Active confirmed The 2 nodule s in the right lung are large enough to be worrisome. A repeat CT scan has been scheduled for April 2024. Problem 829802557 Malignant neoplasm of lower-outer quadrant of right [...] the left which is not tender. Problem 857120016 Gastro-esophage al reflux disease without esophagitis (K21.9) Active confirmed Her esophageal reflux is well controlled with dptt-whx-immzk er medications. Problem 38169222 Tobacco dependence (F17.200) Active confirmed We have had another discussion of all the health consequences of smoking. She wants very much to stop smoking, but is concerned about gaining weight. I recommended she try the nicotine patches. She did not want to try anything else. Problem 411175991 Pulmonary nodule (R91.1) Active confirmed The right [...] diagnosis of early breast cancer. Problem Osteoporosis (61906387) Osteoporosis (M81.0) Active confirmed She is going to consider the use of alendronate. She will continue on vitamin D and calcium tablets. A repeat bone density will be done. She has 12 more months to go on her adjuvant endocrine anastrozole. Problem 74366236 Depressive disorder, not elsewhere classified (F32.9) Active confirmed She has slowly been tapering the citalopram. Her depression is in remission and was not evident today. Problem 51828242318808077 Cellulitis of left leg (L03.116) Active confirmed Problem 293783321 BRCA1 negative (Z13.71) Active confirmed Vital Signs Heart Rate 79 /min 07/07/2024 Temperature 97.2 degrees Fahrenheit 07/07/2024 Blood pressure diastolic 78 mm Hg 07/07/2024 Height 68 in 07/07/2024 Blood pressure systolic 135 mm Hg 07/07/2024 Weight 182 lbs 07/07/2024 BMI 27.67 kg/m2 07/07/2024 Encounters Encounter Location Date Provider Diagnosis Natalio Willingham III, MD [address] [place] [address] [place] [address] 11/05/2023 Natalio Willingham Hyperlipidemia E78.5 ; Overweight (BMI 25.0-29.9) E66.3 ; Depressive disorder, not elsewhere classified F32.9 ; Gastro-esophageal reflux disease without esophagitis K21.9 ; Tobacco dependence F17.200 ; Osteoporosis M81.0 and Malignant neoplasm of lower-outer quadrant of right female breast C50.511 Natalio Willingham III, MD [address] [place] [address] [place] [address] 03/05/2024 Natalio Willingham Depressive disorder, not elsewhere classified F32.9 ; Tobacco dependence F17.200 ; Gastro-esophageal reflux disease without esophagitis K21.9 ; Hyperlipidemia E78.5 ; Overweight E66.3 ; Malignant neoplasm of lower-outer quadrant of right female breast C50.511 ; Osteoporosis M81.0 and Pulmonary nodules R91.8 Natalio Willingham III, MD [address] [place] [address] [place] [address] 2024 Natalio Willingham Insect bite without infection W57.XXXA ; Depressive disorder, not elsewhere classified F32.9 ; Gastro-esophageal reflux disease without esophagitis K21.9 ; Hyperlipidemia E78.5 ; Tobacco dependence F17.200 and Osteoporosis M81.0 Natalio Willingham III, MD [address] [place] [address] [place] [address] 05/07/2024 Natalio Willingham Osteoporosis M81.0 ; Depressive disorder, not elsewhere classified F32.9 ; Gastro-esophageal reflux disease without esophagitis K21.9 ; Hyperlipidemia E78.5 ; Tobacco dependence F17.200 ; Malignant neoplasm of lower-outer quadrant of right female breast C50.511 and Labyrinthitis of both ears H83.03 Natalio Willingham III, MD [address] [place] [address] [place] [address] 06/11/2024 Natalio Willingham Encounter for immunization Z23 ; Depressive disorder, not elsewhere classified F32.9 ; Gastro-esophageal reflux disease without esophagitis K21.9 ; Hyperlipidemia E78.5 ; Tobacco dependence F17.200 ; Overweight (BMI 25.0-29.9) E66.3 and Pulmonary nodule R91.1 Natalio Willingham III, MD [address] [place] [address] [place] [address] 07/07/2024 Natalio Willingham Hyperlipidemia E78.5 ; Malignant neoplasm of lower-outer quadrant of right female breast C50.511 ; Overweight (BMI 25.0-29.9) E66.3 ; Depressive disorder, not elsewhere classified F32.9 ; Gastro-esophageal reflux disease without esophagitis K21.9 ; Tobacco dependence F17.200 ; Osteoporosis M81.0 and Pulmonary nodule R91.1 Natalio Willingham III, MD [address] [place] [address] [place] [address] 03/22/2024 Natalio Willingham III, MD [address] [place] [address] [place] [address] 03/26/2024 Natalio Willingham III, MD [address] [place] [address] [place] [address] 03/26/2024 Natalio Willingham III, MD [address] [place] [address] [place] [address] 08/24/2024 Natalio Willingham III, MD [address] [place] [address] [place] [address] 09/01/2024 Natalio Willingham Assessments Encounter Date Diagnosis [...] Her esophageal reflux is well controlled with fbwx-qkl-zcokgtv medications. 2024 Gastro-esophageal reflux disease without esophagitis (ICD-10 - K21.9) Her esophageal reflux is well controlled with wohw-hfr-vjkejgq medications. 05/07/2024 Gastro-esophageal reflux disease without esophagitis (ICD-10 - K21.9) Her esophageal reflux is well controlled with ehbu-wbo-uvvcvkm medications. 06/11/2024 Gastro-esophageal reflux disease without esophagitis (ICD-10 - K21.9) Her esophageal reflux is well controlled with ttbt-dwu-jvpvlhl medications. 07/07/2024 Overweight (BMI 25.0-29.9) (ICD-10 - E66.3) Her body mass index is 28 and her weight is stable. We have discussed diet and nutrition. We reviewed [facility] weight loss strategy. 11/05/2023 Gastro-esophageal reflux disease without esophagitis (ICD-10 - K21.9) Her esophageal reflux is well controlled with wjle-jbg-hvimupe medications. 03/05/2024 Hyperlipidemia (ICD-10 - E78.5) Her [...] Her esophageal reflux is well controlled with wlcd-vaj-sxuegqv medications. 11/05/2023 Osteoporosis (ICD-10 - M81.0) She [...] Details Provider Name:Natalio Willingham, 10/08/2024 04:00:00 PM, [address] [place] [address] [address], [place], [address], Provider Name:Natalio Willingham, 05/10/2025 03:00:00 PM, [address] [place] [address] [address], [place], [address], Insurance Providers Payer Name Payer Address Payer Phone Subscriber Number Group Number Insured Name Patient Relationship to Insured Coverage Start Date Coverage End Date [facility] [address] [place], [place] [id number] [phone] [id number] Ayah Tillman Self - patient is the insured Medical (General) History Medical History History ICD Code anxiety/depression/PTSD lumbar spine disc disease 1995 overweight gerd occasional right uper extremities tremor s ? mitral valve prolapse abnormal mammograms tobacco dependence disorder 3 cm ER + CA+ Her2 - invasive right sina st cancer February 2020 Surgical History Surgery Date(Month/Year) Right breast Lumpectomy 2020-03-15 Start of radiation 06/06/20 No history Hospitalization History Reason Date(Month/Year) No history
--- OUTSIDE RECORDS SUMMARY | 2024-09-10 13:00 | XMS_ITS ---
Author Organization Natalio Willingham III, MD Address [address] [place] [address] Care Team Providers Care Class C Driver Name Role Phone Natalio Willingham Primary Care [...] Date Provider Diagnosis Natalio Willingham III, MD [address] [place] [address] [place] [address] 07/07/2024 Natalio Willingham Hyperlipidemia E78.5 ; Malignant [...] have discussed diet and nutrition. We reviewed [facility] weight loss strategy. 07/07/2024 Depressive disorder, not elsewhere classified (ICD-10 - F32.9) She has slowly been tapering the citalopram. Her depression is in remission and was not evident today. 07/07/2024 Gastro-esophageal reflux disease without esophagitis (ICD-10 - K21.9) Her esophageal reflux is well controlled with pmhf-mpb-ptwpcdg medications. 07/07/2024 Tobacco dependence (ICD-10 - F17.200) [...] Provider Name:Natalio Willingham, 10/08/2024 04:00:00 PM, [address] [address], [place], [address], Provider Name:Natalio Willingham, 05/10/2025 03:00:00 PM, [address] [place] [address] [address], [place], [address], Progress Notes * Zackary ESPINO EDOB:[birth year] (59 yo F)Acc No.[id number]:07/07/2024 Progress Notes Patient:?Zackary ESPINO Provider:?Natalio Willingham MD :1965???Age:59 Y???Sex:Female D ate:07/07/2024 Address:[address] [place] [place] [address], [address], [facility] Subjective: * Chief Complaints: * ???Hypertension. Breast [...] History:? * Surgical History:?Right sina st Lumpectomy 3867-21-90Akntf of radiation 06/06/20No history * Hospitalization/Major Diagno [...] and raising children. She was born in [place], [place]. She has been to [place] for [...] :Her esophageal reflux is well controlled with wvbw-lfg-wqfuodw medications.???6.?Tobacco dependence - F17.200???Notes :We have had [...] Willingham MD Date:?06/16 Generated for Printi ng/So/eTransmitting on:?09/10/2024 12:59 PM EST History and Physical Notes * HPI (History of Present Illness) Category Sub-Category Detail Notes COVID-19 Screening Questions Have you had any new onset fever, chills, cough, congestion, sore throat, shortness of breath, muscle aches?: No Have you been exposed to the virus withi n the last 10 days?: No Have you travelled internationally in [facility] last 10 days?: No Have you [...]
--- OUTSIDE RECORDS SUMMARY | 2024-09-10 13:00 | XMS_ITS ---
Author Organization Natalio Willingham III, MD Address [address] [place] [address] Care Team Providers Care Small Arms Repairer Name Role Phone Natalio Willingham Primary Care Provider [phone] REASON FOR VISIT COVID Positive Social History Sex Assigned At : Social History Observation Description Sex Assigned At Female Encounters Encounter Location Date Provider Diagnosis Natalio Willingham III, MD [address] [place] [address] [place] [address] 08/24/2024 Natalio Willingham Plan Of Treatment Next Appt Details Provider Name:Natalio Willingham, 10/08/2024 04:00:00 PM, [address] [place] [address] [place], [address], Provider Name:Natalio Willingham, 05/10/2025 03:00:00 PM, [address] [place] [address] [place], [address], Progress Notes * Zackary ESPINO EDOB:[birth year] (59 yo F)Acc No.[id number]:08/24/2024 Patient:?Zackary ESPINO :1965???Age:59 Y???Sex:Female Address:[address], [place] [address] * true * Date:? Generated for Tati ennis/So/Waqaritting on:?09/10/2024 12:59 PM EST
--- NOTE | 2024-09-10 13:08 | A.OFFVIS_ITS ---
Vital Signs 09/10/24 13:09 Height 5 ft 8 in Weight 172 lb BMI 26.1 Intake Visit Reasons: FC-proximal phalanx of MF of RT hand-DOI 09/08/24 Intake Note: Ayah 59 yr old right hand dominant female, presents today for a new patient visit s/p ED visit on 09/08/24 for her right middle finger injury. States her dog was pulling on his leash and yanking finger in wrong direction. Seen in ED where xrays were taken and finger was splinted. States her pain is 3/10 and worse if she bumps it. Reports she has little tingling in her middle finger. Allergies codeine [CODEINE] Allergy (Severe, Verified 09/10/24 13:49) AGITATION, mentally unstable amoxicillin [AMOXICILLIN] Allergy (Intermediate, Verified 09/10/24 13:49) RASH latex [LATEX] Allergy (Intermediate, Verified 09/10/24 13:49) RASH latex Allergy (Unknown, Uncoded 09/10/24 13:49) rash seasonal Allergy (Unknown, Uncoded 09/10/24 13:49) Unknown SEASONAL ALLERGIES Allergy (Unknown, Uncoded 09/10/24 13:49) WHEEZING Codeine Phosphate Adverse Reaction (Unknown, Uncoded 09/10/24 13:49) mentally unstable HPI HPI FC-proximal phalanx of MF of RT hand-DOI 09/08/24: Details: Patient is a 59-year-old female who presents for fracture care visit for fracture proximal phalanx of the right middle finger, date of injury 09/08/2024 on that date, the patient reports that she was attempting to grab her dog's harness when her finger got caught and was yanked in the opposite direction with the rest of her hand wound she began to experience immediate discomfort. Patient was evaluated in the emergency department, where x-rays revealed oblique, comminuted fracture of the proximal phalanx of the right middle finger. Today, the patient she has been wearing her splint since previous evaluation, although it was quite uncomfortable. Patient states that she has noticed her pain improved slightly from evaluation in the ED. Denies any numbness or tingling in the right hand. No other acute complaints or concerns at this time. [facility] Medical History History of breast cancer (~2019) Mitral valve prolapse Hypercholesterolemia GERD (gastroesophageal reflux disease) Nicotine dependence, cigarettes, uncomplicated Depression Surgical History History of lumpectomy of right breast History of colonoscopy Family History Mother Breast cancer, Onset Age: 75 Maternal Grandmother Breast cancer Father Throat cancer Mouth cancer Social History (Updated 09/10/24 @ 13:50 by ENRIQUE Aopdaca) Alcohol intake: current Alcohol intake frequency: 0-2 drinks per day Alcohol type: wine Patient Tobacco Use Status: Current everyday Tobacco user Years Smoked: onset 17yo, 1/2ppd x 41yrs - 20PYH Current occupational status: employed 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 Neuro: Normal sensation of the tips of all digits of the right hand at this time Vascular: Cap refill brisk Pain: Tenderness to palpation of the proximal phalanx of the right middle finger ROM: Patient is able to make a closed fist and extend all other digits of the right hand Skin: No lacerations or abrasions. General: No ecchymosis, erythema, or evidence of infection. Psych: Appears grossly normal Affect normal Attitude cooperative Results Reviewed Results Reviewed: X-rays obtained in the office today and independently reviewed by me, Calvin Shelton PA-C, demonstrate displaced, comminuted, oblique fracture of the proximal phalanx of the right middle finger. Assessment & Plan Assessment & Plan (1) Fracture of proximal phalanx of right middle finger: Code(s): S62.612A - Displaced fracture of proximal phalanx of right middle finger, initial encounter for closed fracture Category: Medical Plan One fracture proximal phalanx of right middle finger Date of injury 09/07/2024 I educated the patient about the condition. I discussed both operative and nonoperative treatment options. The patient would like to proceed with surgery. The risks and benefits of operative treatment were discussed with the patient and the patient wishes to proceed with surgery. These risks include, but are not limited to, risk of damage to blood vessels, nerves, tendons, infection, recurrence, incomplete relief of preoperative symptoms, persistent pain, possible need for further surgery, and the risks associated with regional blocks and/or anesthesia. Plan is to take the patient to the operating room at some point in the next few weeks for the following procedures: 1. CRPP versus ORIF of right middle finger under general anesthesia All of the preoperative paperwork including the consent was discussed today. All of the patient's questions were answered in the clinic today. The patient understands that they will be in contact with our office bookkeeper to discuss scheduling their procedure. Patient denies diabetes, blood thinners, asthma, heart issues, lung issues, kidney issues, or current smoking. Orders: Orders XR hand RT min 3V Today M79.641 - Pain in right hand Coding Level of Care Code New Pt Level 4 (99768) Diagnoses Fracture of proximal phalanx of right middle finger S62.614W
[2024-09-10 13:09] VITALS: BMI 26.1
== END 2024-09-10 14:44 | disposition home or self-care (01) ==
PROVIDERS: PCP Internal Medicine Medical Oncology
DX: S62.612A Displaced fracture of proximal phalanx of right middle finger, initial encounter for closed fracture (principal)
CPT/HCPCS: 99204

== ENCOUNTER 2024-09-10 12:56 | Outpatient (REF) | payer BC, SELFPAY ==
--- NOTE | ~2024-09-10 | XR_ITS ---
CLINICAL HISTORY: M79.641 - Pain in right hand Exam: AP, lateral, and oblique views of the right hand. Comparison: None. Findings: Fracture involving the mid to distal diaphysis of the proximal phalanx of the long finger. The dominant fracture line is an obliquely oriented fracture. However, there is some comminution of this fracture. There is 3 mm of ulnar displacement and 2 mm of dorsal displacement of the distal fracture fragment. Fracture does not extend to the articular surfaces. No other fractures identified. Impression: Proximal phalanx long finger fracture as above. This document has been electronically signed by: Orville Ardon MD on 09/14/2024 07:29:42
== END 2024-09-10 12:57 | disposition home or self-care (01) ==
LOC: HO.HOSX 12:56
PROVIDERS: PCP Internal Medicine Medical Oncology
DX: M79.641 Pain in right hand (principal)
CPT/HCPCS: 73130

== ENCOUNTER → 2024-09-10 13:40 | Outpatient (BNV) | payer BC, SELFPAY | PROVIDERS: PCP Internal Medicine Medical Oncology; Visit Provider Radiology Diagnostic Radiology | DX: S62.612A Displaced fracture of proximal phalanx of right middle finger, initial encounter for closed fracture (principal); M79.641 Pain in right hand | CPT/HCPCS: 73130 ==

== ENCOUNTER 2024-09-13 11:42 | Day surgery (SDC) | payer BC, SELFPAY ==
--- OUTSIDE RECORDS SUMMARY | 2024-09-09 13:43 | XMS_ITS ---
Author Organization Natalio Willingham III, MD Address [address] [place] [address] Care Team Providers Care Director Student Union Name Role Phone Natalio Willingham Primary Care Provider REASON FOR VISIT Needs call back from Social History Sex Assigned At : Social History Observation Description Sex Assigned At Female Encounters Encounter Location Date Provider Diagnosis Natalio Willingham III, MD [address] [place] [address] [place] [address] 09/01/2024 Natalio Willingham Plan Of Treatment Next Appt Details Provider Name:Natalio Willingham, 10/08/2024 04:00:00 PM, [address] [place] [address] [place], [address], Provider Name:Natalio Willingham, 05/10/2025 03:00:00 PM, [address] [place] [address] [place], [address], Progress Notes * Zackary ESPINO EDOB:[birth year] (59 yo F)Acc No.[id number]:09/01/2024 Patient:HowieZackary ESPINO :1965???Age:59 Y???Sex:Female Address:[address], [place] [address] * true * Date:? Generated for Tati ennis/So/Waqaritting on:?09/09/2024 01:43 PM EST
--- OUTSIDE RECORDS SUMMARY | 2024-09-09 13:44 | XMS_ITS | Patient Health Record ---
Author Organization Natalio Willingham III, MD Address [address] [place] [address] Care Team Providers Care Parent Educator Name Role Phone Natalio Willingham Primary Care Provider [phone] Allergies Allergen (clinical drug ingredient) Drug/Non Drug Allergy documented on EMR Reaction Allergy Type Onset Date Status Penicillin Unknown Drug Allergy Active Latex Latex Unknown Allergy Active Codeine Phosphate Unknown Drug Allergy Active amoxicillin Amoxicillin Unknown Drug Allergy Act melisa Results Component Value Reference Range Notes URINE DIP STICK Reviewed date:05/07/2024 04:33:15 PM Interpretation: Performing Lab: Notes/Report: SG 1.025 1.005 - 1.025 pH 5.0 5.0 - 9.0 PINO Negative Negative - NIT Negative Negative - PRO 15 Negative - Trace GLU Negative Negative - KET Negative Negative - UBG 0.2 0.1 - 1.8 SHAHRZAD Negative 0.2 - 1.3 BLD ++ Negative - CT lung screening Reviewed date:06/14/2024 05:59:01 AM Interpretation: Performing Lab: Notes/Report: [address] [address] [address] Scan Report Signed Patient: Ayah Tillman MR#: [id number] 8 : 1965 Acct:[id number] Age/Sex: 58 / F ADM Date: 01/16/24 Loc: HO.CT Attending Dr: Nimco Dickerson PA-C Ordering Physician: Nimco Dickerson PA-C Date of Service: 01/16/24 Procedure(s): CT lung screening Accession Number(s): [id number] cc: Natalio Willingham MD; Nimco Dickerson PA-C EXAMINATION: CT CHEST SCREENING CLINICAL INFORMATION: Nicotine dependence, cigarettes, uncomplicated. COMPARISON: X-ray chest 12/14/2014. TECHNIQUE: Multidetector volumetric CT imaging of the chest is performed on a Siemens SOMATOM Definition scanner without contrast using low dose technique. Additional 2D coronal and sagittal reformatted images and axial 3D maximum intensity projection (MIP) images are generated on the CT workstation. This CT examination was performed using dose optimization techniques as appropriate, variously including the following: *Automated exposure control. *Adjustment of mA and/or kV according to patient size (this includes techniques or standardized protocols for targeted exams where dose is matched to indication/reason for exam; i.e. extremities or head). *Use of iterative reconstruction technique. DLP: 51 mGy-cm FINDINGS: PULMONARY NODULES: There is a lobular 9.0 x 7.0 x 6.0 mm right lower lobe pulmonary nodule (5:282). There is a 6 x 3 x 3 mm density seen in the right upper lobe (5:165). LUNGS: Mild emphysematous changes are present. Bronchial thickening is noted. MEDIASTINUM: Heart size normal. There is a preaortic 1 cm lymph node present. No gross mediastinal or hilar lymphadenopathy. CORONARY ARTERY CALCIFICATION: Mild. PLEURA: There is no pleural effusion. No pleural mass or thickening. AXILLA: No lymphadenopathy. UPPER ABDOMEN: Unremarkable. OSSEOUS STRUCTURES: Unremarkable. CT/CT lung screening IMPRESSION: There is a 9 mm and 6 mm pulmonary nodule present. ASSESSMENT: Lung-RADS category 4A: Suspicious. RECOMMENDATION: Short interval 3 month follow up low-dose CT chest. Immediate chest CT could also be considered. Dictated By: Lance Corado MD Signed By: <Electronically signed by Lance Corado MD in OV> 01/21/24 0103 DD/ 1005 TD/TT: Junior Financial Analyst: [address] [address] [address] Scan Report Signed Patient: Cristhian Tillman MR#: [id number] 8 : 1965 Acct:[id number] Age/Sex: 58 / F ADM Date: 01/16/24 Loc: HO.CT Attending Dr: Nimco Dickerson PA-C Ordering Physician: Nimco Dickerson PA-C Date of Service: 01/16/24 Procedure(s): CT lung screening Accession Number(s): [id number] cc: Natalio Willingham MD; Nimco Dickerson PA-C EXAMINATION: CT CHEST SCREENING CLINICAL INFORMATION: Nicotine dependence, cigarettes, uncomplicated. COMPARISON: X-ray chest 12/14/2014. TECHNIQUE: Multidetector volume tric CT imaging of the chest is performed on a Siemens SOMATOM Defi nition scanner without contrast using low dose technique. Additiona l 2D coronal and sagittal reformatted images and axial 3D maximum int ensity projection (MIP) images are generated on the CT workstation. This CT examination was performed using dose optimization techniques as appropriate, various ly including the following: *Automated exposure control. *Adjustment of mA an d/or kV according to patient size (this includes techniques or standa rdized protocols for targeted exams where dose is matched to indicatio n/reason for exam; i.e. extremities or head). *Use of iterative reconstruction technique. DLP: 51 mGy-cm FINDINGS: PULMONARY NODULES: T here is a lobular 9.0 x 7.0 x 6.0 mm right lower lobe pulmonary nodul e (5:282). There is a 6 x 3 x 3 mm density seen in the right upper lobe (5:165). LUNGS: Mild emphysem atous changes are present. Bronchial thickening is noted. MEDIASTINUM: Heart s ize normal. There is a preaortic 1 cm lymph node present. No gross me diastinal or hilar lymphadenopathy. CORONARY ARTERY CALC IFICATION: Mild. PLEURA: There is no pleural effusion. No pleural mass or thickening. AXILLA: No lymphadenopathy. UPPER ABDOMEN: Unremarkable. OSSEOUS STRUCTURES: Unremarkable. C T/CT lung screening IMPRESSION: There is a 9 mm and 6 mm pulmonary nodule present. ASSESSMENT: Lung-RADS category 4 A: Suspicious. RECOMMENDATION: Short interval 3 mon th follow up low-dose CT chest. Immediate chest CT could also be considered. Dictated By: Lance Corado MD Signed By: <Electron vicki signed by Lance Corado MD in OV> 01/21/24 0103 DD/ 1005 TD/TT: Junior Financial Analyst: TERRY CT lung screen follow up Reviewed date:06/14/2024 05:59:01 AM Interpretation: Performing Lab: Notes/Report: [address] [address] [address] Scan Report Signed Patient: Ayah Tillman MR#: [id number] 8 : 1965 Acct:[id number] Age/Sex: 59 / F ADM Date: 04/21/24 Loc: HO.CT Attending Dr: Nimco Dickerson PA-C Ordering Physician: Nimco Dickerson PA-C Date of Service: 04/21/24 Procedure(s): CT lung screen follow up Accession Number(s): [id number] cc: Natalio Willingham MD; Nimco Dickerson PA-C EXAMINATION: CT LOW-DOSE SCREENING CHEST WITHOUT CONTRAST CLINICAL INFORMATION: Solitary pulmonary nodule. Three-month repeat moderate underlying emphysema.. Nicotine dependence. The patient is a current smoker with a 41 pack-year history of smoking. COMPARISON: CT chest January 16, 2024. X-ray chest December 14, 2014. TECHNIQUE: Multidetector volumetric CT imaging of the chest is performed on a Siemens SOMATOM Definition scanner without contrast using low dose technique. Additional 2D coronal and sagittal reformatted images and axial 3D maximum intensity projection (MIP) images are generated on the CT workstation. This CT examination was performed using dose optimization techniques as appropriate, variously including the following: *Automated exposure control *Adjustment of mA and/or kV according to patient size (this includes techniques or standardized protocols for targeted exams where dose is matched to indication/reason for exam; i.e. extremities or head) *Use of iterative reconstruction technique TOTAL EXAM DLP: 50 mGy-cm. CTDIvol: 1.53 mGy. FINDINGS: PULMONARY NODULES: 8 mm well-defined right lower lobe pulmonary nodule noncalcified. Stable. The right upper lobe lesion is not reproducible and may be a summation of normal structures. LUNGS: Mild to moderate emphysematous changes again noted consistent with COPD. MEDIASTINUM: No mediastinal, hilar or axillary adenopathy or free fluid collection. CORONARY ARTERY CALCIFICATION: None visualized on this study. THYROID GLAND: Unremarkable to the extent seen. CARDIOVASCULAR STRUCTURES: Aortic and heart size normal. No pericardial effusion. CHEST WALL/AXILLA: Unremarkable. UPPER ABDOMEN: Included portions of the solid organs in the upper abdomen unremarkable on noncontrast imaging. OSSEOUS STRUCTURES: No suspicious focal findings. CT/CT lung screen follow up IMPRESSION: Stable 8 mm right lower lobe pulmonary nodule. ASSESSMENT: 1. Lung-RADS Category 4A: Suspicious findings. 2. Lung-RADS Category S: Positive. There are clinically significant or potentially clinically significant findings not related to the lungs requiring further workup. RECOMMENDATION: A 3-month follow up low-dose lung CT scan is recommended. An order for CT LUNG CANCER SCREENING SHORT INTERVAL FOLLOWUP ([id number]) can be placed. Electronically signed by: Joe Nam MD 05/28/2024 03:07 PM EDT RP Dictated By: Joe Nam MD Signed By: <Electronically signed by Joe Nam MD in OV> 05/28/24 1507 DD/ 0853 TD/TT: 04/21/24 0900 Junior Financial Analyst: [place] [address] CT Scan Report Signed Patient: Cristhian Tillman MR#: [id number] 8 : 1965 Acct:[id number] Age/Sex: 59 / F ADM Date: 04/21/24 Loc: .CT Attending Dr: Nimco Dickerson PA-C Ordering Physician: Nimco Dickerson PA-C Date of Service: 04/21/24 Procedure(s): CT olegario g screen follow up Accession Number(s): [id number] cc: Natalio Willingham MD; Nimco Dickerson PA-C EXAMINATION: CT LOW-DOSE SCREENIN G CHEST WITHOUT CONTRAST CLINICAL INFORMATION: Solitary pulmonary n odule. Three-month repeat moderate underlying emphysema.. Nicotine dependence. The patient is a current smoker with a 41 pack-year history of smoking. COMPARISON: CT chest January 16, 2024 . X-ray chest December 14, 2014. TECHNIQUE: Multidetector volume tric CT imaging of the chest is performed on a Siemens SOMATOM Defi nition scanner without contrast using low dose technique. Additiona l 2D coronal and sagittal reformatted images and axial 3D maximum int ensity projection (MIP) images are generated on the CT workstation. This CT examination was performed using dose optimization techniques as appropriate, various ly including the following: *Automated exposure control *Adjustment of mA an d/or kV according to patient size (this includes techniques or standa rdized protocols for targeted exams where dose is matched to indicatio n/reason for exam; i.e. extremities or head) *Use of iterative reconstruction technique TOTAL EXAM DLP: 50 mGy-cm. CTDIvol: 1.53 mGy. FINDINGS: PULMONARY NODULES: 8 mm well-defined right lower lobe pulmonary nodule noncalcified. Stable . The right upper lobe lesion is not reproducible and may be a summati on of normal structures. LUNGS: Mild to moder ate emphysematous changes again noted consistent with COPD. MEDIASTINUM: No medi astinal, hilar or axillary adenopathy or free fluid collection. CORONARY ARTERY CALC IFICATION: None visualized on this study. THYROID GLAND: Unrem arkable to the extent seen. CARDIOVASCULAR STRUC TURES: Aortic and heart size normal. No pericardial effusion. CHEST WALL/AXILLA: Unremarkable. UPPER ABDOMEN: Inclu ded portions of the solid organs in the upper abdomen unremarkable on noncontrast imaging. OSSEOUS STRUCTURES: No suspicious focal findings. C T/CT lung screen follow up IMPRESSION: Stable 8 mm right lo wer lobe pulmonary nodule. ASSESSMENT: 1. Lung-RADS Categor y 4A: Suspicious findings. 2. Lung-RADS Categor y S: Positive. There are clinically significant or potentially clinical ly significant findings not related to the lungs requiring further workup. RECOMMENDATION: A 3-month follow up low-dose lung CT scan is recommended. An order for CT LUNG CANCER JEANNE ROSSG SHORT INTERVAL FOLLOWUP ([id number]) can be placed. Electronically rios d by: Joe Nam MD 05/28/2024 03:07 PM EDT Dictated By: Joe Nam MD Signed By: <Electron ically signed by Joe Nam MD in OV> 05/28/24 1507 DD/ 0853 TD/TT: 04/21/24 0900 Junior Financial Analyst: WERO MM tomosynthesis screening B I Reviewed date:06/14/2024 05:59:01 AM Interpretation: Performing Lab: Notes/Report: [address] [place] [address] Mammography Report Signed Patient: Ayah Tillman MR#: [id number] 8 : 1965 Acct:[id number] Age/Sex: 59 / F ADM Date: 06/01/24 Loc: HO.MAMMO Attending Dr: Natalio Willingham MD Ordering Physician: Natalio Willingham MD Results: 1Negativ e Date of Service: 06/01/24 Follow Up: 1 Year From Orig inal Mammogram Procedure(s): MM tomosynthesis screening BI Accession Number(s): [id number] cc: Natalio Willingham MD EXAMINATION: MM SCREENING DIGITAL BREAST TOMOSYNTHESIS, BILATERAL CLINICAL INFORMATION: Screening. Asymptomatic. COMPARISON: Mammography: Comparison is made with available prior examinations. TECHNIQUE: Digital breast tomosynthesis is performed in both the craniocaudal and mediolateral oblique views along with computer-aided detection (CAD). Synthesized 2D images are generated from the tomosynthesis. FINDINGS: There are scattered areas of fibroglandular density (ACR BI-RADS breast composition Category b). There are no significant masses, abnormal calcifications, or other abnormalities. MM/MM tomosynthesis screening BI IMPRESSION: No mammographic evidence of malignancy. ASSESSMENT: BI-RADS BI-RADS 1 - Negative RECOMMENDATION: Routine annual mammography screening. 1 year F/U This examination should not preclude the clinical evaluation of a suspicious palpable abnormality. This patient's information was entered into a reminder system with a target due date for their next mammogram. Electronically signed by: Lara Fritz DO 06/03/2024 06:09 PM EDT Dictated By: Lara Fritz DO Signed By: <Electronically signed by Lara Fritz DO in OV> 06/03/24 1809 DD/ 1545 TD/TT: 06/01/24 1600 Junior Financial Analyst: [address] [place] [address] Mammography Report Signed Patient: Cristhian Tillman MR#: [id number] 8 : 1965 Acct:[id number] Age/Sex: 59 / F ADM Date: 06/01/24 Loc: HO.MAMMO Attending Dr: Natalio Willingham MD Ordering Physician: Natalio Willingham MD Results: 1Negativ e Date of Service: Follow Up: 1 Year From Orig inal Mammogram Procedure(s): MM eliana osynthesis screening BI Accession Number(s): [id number] cc: Natalio Willingham MD EXAMINATION: MM SCREENING DIGITAL BREAST TOMOSYNTHESIS, BILATERAL CLINICAL INFORMATION: Screening. Asymptomatic. COMPARISON: Mammography: Compari son is made with available prior examinations. TECHNIQUE: Digital breast tomos ynthesis is performed in both the craniocaudal and mediolateral oblique views along with computer-aided detection (CAD). Synthesized 2D image s are generated from the tomosynthesis. FINDINGS: There are scattered areas of fibroglandular density (ACR BI-RADS breast composition Category b). There are no signifi cant masses, abnormal calcifications, or other abnormalities. M M/MM tomosynthesis screening BI IMPRESSION: No mammographic evid ence of malignancy. ASSESSMENT: BI-RADS BI-RADS 1 - Negative RECOMMENDATION: Routine annual mammo graphy screening. 1 year F/U This examination radha uld not preclude the clinical evaluation of a suspicious palpable abnormality. This patient's infor mation was entered into a reminder system with a target due date for their next mammogram. Electronically rios d by: Lara Fritz DO 06/03/2024 06:09 PM EDT Dictated By: Lara Davalos i, DO Signed By: <Electron ically signed by Lara Fritz DO in OV> 06/03/24 1809 DD/ 1545 TD/TT: 06/01/24 1600 Junior Financial Analyst: BOUCHRA ho RT min 3V Reviewed date:09/08/2024 09:49:44 AM Interpretation: Performing Lab: Notes/Report: [address] [address] XRay Report Signed Patient: Aayh Tillman MR#: [id number] 8 : 1965 Acct:[id number] Age/Sex: 59 / F ADM Date: 09/08/24 Loc: HO.ED Attending Dr: Ordering Physician: Generic ED Physician Date of Service: 09/08/24 Procedure(s): XR hand RT min 3V Accession Number(s): [id number] cc: Natalio Willingham MD; Generic ED Physician EXAMINATION: XR HAND, RIGHT CLINICAL INFORMATION: injury middle finger COMPARISON: None available. TECHNIQUE: PA, lateral, and oblique views of the right hand. FINDINGS: There is a comminuted, oblique fracture involving the diaphysis of the right third proximal phalanx. Fracture fragments override approximately 0.2 cm. The distal fragment is displaced medially approximately 1/5 bone shaft's width relative to the main proximal fragment. No significant angulation is appreciated. Fracture planes do not appear to extend to the joint spaces. Associated soft tissue swelling. No other fracture or dislocation is appreciated. Bony mineralization appears preserved. No lytic or sclerotic bony lesion is noted. No radiopaque foreign body is identified. XR/XR hand RT min 3V IMPRESSION: Fracture of the right third proximal phalanx. Electronically signed by: Jed East MD 09/08/2024 08:55 AM [facility] Dictated By: Jed East Signed By: <Electronically signed by Jed East in OV> 09/08/24 0855 DD/ 0840 TD/TT: 09/08/24 0845 Junior Financial Analyst: [place] [address] XRay Report Signed Patient: Cristhian Tillman MR#: [id number] 8 : 1965 Acct:[id number] Age/Sex: 59 / F ADM Date: 09/08/24 Loc: HO.ED Attending Dr: Ordering Physician: Generic ED Physician Date of Service: 09/08/24 Procedure(s): XR hand RT min 3V Accession Number(s): [id number] cc: Natalio Willingham MD; Generic ED Physician EXAMINATION: XR HAND, RIGHT CLINICAL INFORMATION: injury middle finger COMPARISON: None available. TECHNIQUE: PA, lateral, and obl ique views of the right hand. FINDINGS: There is a comminute d, oblique fracture involving the diaphysis of the right third proximal phalanx. Fracture fragments override approximately 0.2 cm. The distal f ragment is displaced medially approximately 1/5 bone shaft's width r elative to the main proximal fragment. No significant angulati on is appreciated. Fracture planes do not appear to extend to the joint spaces. Associated soft tissue swelling. No other fracture or dislocation is appreciated. Bony mineralization appears preserved. N o lytic or sclerotic bony lesion is noted. No radiopaque foreign b maria victoria is identified. X R/XR hand RT min 3V IMPRESSION: Fracture of the righ t third proximal phalanx. Electronically rios d by: Jed East MD 09/08/2024 08:55 AM EST RP Workstation: [id number] Dictated By: Jed East Signed By: <Electron ically signed by Jed East in OV> 09/08/24 0855 DD/ 0840 TD/TT: 09/08/24 0845 Junior Financial Analyst: Reason For Referral Reason Consult and Treat Diagnosis 1 Tobacco use disorder (Z72.0) Diagnosis 2 Tobacco dependence ( F17.200) Referral Organization Natalio Willingham III, MD Referring Provider First Name Natalio Referring Provider Last Name Tarsha Referring Provider Speciality Internal M edicine Referred Provider [facility], Thoracic Surgeons Referred Provider Specialty Thoracic Diane jez General Notes Livier Kiser 2023 03:09:11 PM EST > faxed with cover sheet, referral and progress notesRashel Amber 11/18/2023 11:01:14 AM EST > Office has the referral patient is not scheduled at this time.Office will be contacting patient Referral Priority Routine Referral Appointment Date 01/16/2024 Medications Medication SIG (Take, Route, Frequency, Duration) Notes Start Date End Date Status Atorvastatin Calcium 10 MG TAKE 1 TABLET BY MOUTH EVERY DAY for 90 Active Citalopram Hydrobromide 10 MG TAKE 1 TABLET BY MOUTH EVERY DAY for 90 Active Loratadine 10 MG TAKE 1 TABLET BY BRANDIE TH EVERY DAY Active Clindamycin Phosphate 1 % External Active Anastrozole 1 MG TAKE 1 TABLET BY BRANDIE TH EVERY DAY for 90 Active ProAir HFA 108 (90 Base) MCG/ACT 2 puffs as needed Inhalation every 4 hrs 03/16/2021 Active Immunizations Vaccine Route Administration Date Status Comme nts Influenza Unknown 05/31/2014 Administered Influenza Unknown 07/29/2015 Administered Influenza Unknown 07/17/2016 Administered Td (adult) IM Intramuscular 02/26/2017 Administered Influenza no Preserv 3 and > Unknown 07/03/2019 Administered COVID- 19 Vaccine Unknown 10/06/2020 Administered COVID- 19 Vaccine Unknown 10/27/2020 Administered COVID- 19 Vaccine Unknown 06/30/2021 Administered BOOST ER Influenza, quad Unknown 06/23/2021 Administered COVID PFIZER Unknown 03/08/2022 Administered COVID 19 Pfizer Unknown 09/03/2022 Administered SHINGRIX Unknown 05/12/2023 Administered PCV20 Unknown 06/25/2023 Administered COVID-19 Moderna SPIKEVAX Unknown 07/26/2023 Administer ed Influenza, quad Unknown 07/26/2023 Administered SHINGRIX Unknown 11/01/2023 Administered Influenza Vaccine Afluria IM Intramuscular 06/11/2024 Admi nistered COVID-19 Moderna SPIKEVAX Unknown 07/26/2023 Administer ed COVID PFIZER Unknown 06/30/2021 Administered COVID PFIZER Unknown 10/27/2020 Administered COVID PFIZER Unknown 10/06/2020 Administered COVID Pfizer Bivalent Unknown 09/03/2022 Administered Influenza, quad Unknown 07/03/2019 Administered Influenza, quad Unknown 08/02/2022 Administered Social History Tobacco Use: Social History Observation Description Date Details (start date - stop date) Current Smoker NA - NA Sex Assigned At : Social History Observation Description Sex Assigned At Female Tobacco Use/Smoking Question Answer Notes Patient is a current smoker Alcohol Screen Question Answer Notes Did you have a drink contain ing alcohol in the past year? Yes How often did you have a dri nk containing alcohol in the past year? 4 or more times a week (4 points) How many drinks did you have on a typical day when you were drinking in the past year? 1 or 2 drinks (0 point) How often did you have 6 or more drinks on one occasion in the past year? Never (0 point) Points 4 Interpretation Positive Problems Problem Type SNOMED Code ICD Code Onset Dates Problem Status W/U Status Risk Notes Problem 699771681 Overweight (BMI 25.0-29.9) (E66.3) Active confirmed Her body mass index is 28 and her weight is stable. We have discussed diet and nutrition. We reviewed [facility] weight loss strategy. Problem 85002711 Hyperlipidemia (E78.5) Active confirmed Comprehensive blood work with a fasting lipid profile was ordered prior to her next visit. She continues her efforts at weight loss and consumption of a healthy diet. Problem 804361342 Pulmonary nodules (R91.8) Active confirmed The 2 nodule s in the right lung are large enough to be worrisome. A repeat CT scan has been scheduled for April 2024. Problem 046345293 Malignant neoplasm of lower-outer quadrant of right female breast (C50.511) Active confirmed There is no sign of breast cancer in either breast at this time. There is no sign of a new primary or recurrence. Right axillas. Appearance is unchanged. There is a palpable muscle mass in the center of the axilla, but it is symmetrical with the left which is not tender. Problem 622861254 Gastro-esophage al reflux disease without esophagitis (K21.9) Active confirmed Her esophageal reflux is well controlled with ocim-cwy-ljboy er medications. Problem 18480000 Tobacco dependence (F17.200) Active confirmed We have had another discussion of all the health consequences of smoking. She wants very much to stop smoking, but is concerned about gaining weight. I recommended she try the nicotine patches. She did not want to try anything else. Problem 905891526 Pulmonary nodule (R91.1) Active confirmed The right lower lobe pulmonary nodule is thought to be stable and noncalcified measuring [address] scan of the chest has been ordered for July of this year. It has been stable since that was detected in January 2024. She has a long history of cigarette smoking as well as a recent diagnosis of early breast cancer. Problem Osteoporosis (16025453) Osteoporosis (M81.0) Active confirmed She is going to consider the use of alendronate. She will continue on vitamin D and calcium tablets. A repeat bone density will be done. She has 12 more months to go on her adjuvant endocrine anastrozole. Problem 74717084 Depressive disorder, not elsewhere classified (F32.9) Active confirmed She has slowly been tapering the citalopram. Her depression is in remission and was not evident today. Problem 06187230807271937 Cellulitis of left leg (L03.116) Active confirmed Problem 916517241 BRCA1 negative (Z13.71) Active confirmed Vital Signs Heart Rate 79 /min 07/07/2024 Temperature 97.2 degrees Fahrenheit 07/07/2024 Blood pressure diastolic 78 mm Hg 07/07/2024 Height 68 in 07/07/2024 Blood pressure systolic 135 mm Hg 07/07/2024 Weight 182 lbs 07/07/2024 BMI 27.67 kg/m2 07/07/2024 Encounters Encounter Location Date Provider Diagnosis Natalio Willingham III, MD [address] [place] [address] [place] [id number] 11/05/2023 Natalio Willingham Hyperlipidemia E78.5 ; Overweight (BMI 25.0-29.9) E66.3 ; Depressive disorder, not elsewhere classified F32.9 ; Gastro-esophageal reflux disease without esophagitis K21.9 ; Tobacco dependence F17.200 ; Osteoporosis M81.0 and Malignant neoplasm of lower-outer quadrant of right female breast C50.511 Natalio Willingham III, MD [address] [place] [address] [place] [id number] 03/05/2024 Natalio Willingham Depressive disorder, not elsewhere classified F32.9 ; Tobacco dependence F17.200 ; Gastro-esophageal reflux disease without esophagitis K21.9 ; Hyperlipidemia E78.5 ; Overweight E66.3 ; Malignant neoplasm of lower-outer quadrant of right female breast C50.511 ; Osteoporosis M81.0 and Pulmonary nodules R91.8 Natalio Willingham III, MD [address] [place] [address] [place] [id number] 2024 Natalio Willingham Insect bite without infection W57.XXXA ; Depressive disorder, not elsewhere classified F32.9 ; Gastro-esophageal reflux disease without esophagitis K21.9 ; Hyperlipidemia E78.5 ; Tobacco dependence F17.200 and Osteoporosis M81.0 Natalio Willingham III, MD [address] [place] [address] [place] [phone] 05/07/2024 Natalio Willingham Osteoporosis M81.0 ; Depressive disorder, not elsewhere classified F32.9 ; Gastro-esophageal reflux disease without esophagitis K21.9 ; Hyperlipidemia E78.5 ; Tobacco dependence F17.200 ; Malignant neoplasm of lower-outer quadrant of right female breast C50.511 and Labyrinthitis of both ears H83.03 Natalio Willingham III, MD [address] [place] [address] [place] [phone] 06/11/2024 Natalio Willingham Encounter for immunization Z23 ; Depressive disorder, not elsewhere classified F32.9 ; Gastro-esophageal reflux disease without esophagitis K21.9 ; Hyperlipidemia E78.5 ; Tobacco dependence F17.200 ; Overweight (BMI 25.0-29.9) E66.3 and Pulmonary nodule R91.1 Natalio Willingham III, MD [address] [place] [address] [place] [id number] 07/07/2024 Natalio Willingham Hyperlipidemia E78.5 ; Malignant neoplasm of lower-outer quadrant of right female breast C50.511 ; Overweight (BMI 25.0-29.9) E66.3 ; Depressive disorder, not elsewhere classified F32.9 ; Gastro-esophageal reflux disease without esophagitis K21.9 ; Tobacco dependence F17.200 ; Osteoporosis M81.0 and Pulmonary nodule R91.1 Natalio Willingham III, MD [address] [place] [address] [place] [phone] 03/22/2024 Natalio Willingham III, MD [address] [place] [address] [place] [id number] 03/26/2024 Natalio Willingham III, MD [address] [place] [address] [place] [phone] 03/26/2024 Natalio Willingham III, MD [address] [place] [address] [place] [id number] 08/24/2024 Natalio Willingham III, MD [address] [place] [address] [place] [phone] 09/01/2024 Natalio Willingham Assessments Encounter Date Diagnosis (ICD Code) Assessment Notes Treat ment Notes Treatment Clinical Notes 11/05/2023 Overweight (BMI 25.0-29.9) (ICD-10 - E66.3) Her body mass index has been stable at 28. We have discussed diet and nutrition. We made a plan to lose weight at a rate of one half of a pound per week. 11/05/2023 Hyperlipidemia (ICD-10 - E78.5) Her lipids have been stable. Comprehensive blood work with a fasting lipid profile has been ordered. 03/05/2024 Tobacco dependence (ICD-10 - F17.200) We have had another discussion of all the health consequences of smoking. She wants very much to stop smoking, but is concerned about gaining weight. I recommended she try the nicotine patches. She did not want to try anything else. 03/05/2024 Depressive disorder, not elsewhere classified (ICD-10 - F32.9) She has slowly been tapering the citalopram. Her depression is in remission and was not evident today. 2024 Depressive disorder, not elsewhere classified (ICD-10 - F32.9) She has slowly been tapering the citalopram. Her depression is in remission and was not evident today. 2024 Insect bite without infection (ICD-10 - W57.XXXA) Will be observed closely without an antibiotic. She will use topical hydrocortisone. 05/07/2024 Osteoporosis (ICD-10 - M81.0) She is going to consider the use of alendronate. She will continue on vitamin D and calcium tablets. A repeat bone density will be done. She has 12 more months to go on her adjuvant endocrine anastrozole. 05/07/2024 Depressive disorder, not elsewhere classified (ICD-10 - F32.9) She has slowly been tapering the citalopram. Her depression is in remission and was not evident today. 06/11/2024 Encounter for immunization (ICD-10 - Z23) She was given her annual influenza vaccine today. 06/11/2024 Depressive disorder, not elsewhere classified (ICD-10 - F32.9) She has slowly been tapering the citalopram. Her depression is in remission and was not evident today. 07/07/2024 Hyperlipidemia (ICD-10 - E78.5) Comprehensive blood work with a fasting lipid profile was ordered prior to her next visit. She continues her efforts at weight loss and consumption of a healthy diet. 07/07/2024 Malignant neoplasm o f lower-outer quadrant of right female breast (ICD-10 - C50.511) There is no sign of breast cancer in either breast at this time. There is no sign of a new primary or recurrence. Right axillas. Appearance is unchanged. There is a palpable muscle mass in the center of the axilla, but it is symmetrical with the left which is not tender. 11/05/2023 Depressive disorder, not elsewhere classified (ICD-10 - F32.9) She has slowly been tapering the citalopram. Her depression is in remission and was not evident today. 03/05/2024 Gastro-esophageal reflux disease without esophagitis (ICD-10 - K21.9) Her esophageal reflux is well controlled with yipc-jwk-blwfkly medications. 2024 Gastro-esophageal reflux disease without esophagitis (ICD-10 - K21.9) Her esophageal reflux is well controlled with mfls-bki-alianzj medications. 05/07/2024 Gastro-esophageal reflux disease without esophagitis (ICD-10 - K21.9) Her esophageal reflux is well controlled with qsxr-sal-warxpof medications. 06/11/2024 Gastro-esophageal reflux disease without esophagitis (ICD-10 - K21.9) Her esophageal reflux is well controlled with ahcv-nlo-vjwwxfh medications. 07/07/2024 Overweight (BMI 25.0-29.9) (ICD-10 - E66.3) Her body mass index is 28 and her weight is stable. We have discussed diet and nutrition. We reviewed [facility] weight loss strategy. 11/05/2023 Gastro-esophageal reflux disease without esophagitis (ICD-10 - K21.9) Her esophageal reflux is well controlled with zjry-zqm-sodrebl medications. 03/05/2024 Hyperlipidemia (ICD-10 - E78.5) Her lipids have been stable. Comprehensive blood work with a fasting lipid profile has been ordered. 2024 Hyperlipidemia (ICD-10 - E78.5) Her lipids have been stable. Comprehensive blood work with a fasting lipid profile has been ordered. 05/07/2024 Hyperlipidemia (ICD-10 - E78.5) Her lipids have been stable. Comprehensive blood work with a fasting lipid profile has been ordered. 06/11/2024 Hyperlipidemia (ICD-10 - E78.5) Her lipids have been stable. Comprehensive blood work with a fasting lipid profile has been ordered. 07/07/2024 Depressive disorder, not elsewhere classified (ICD-10 - F32.9) She has slowly been tapering the citalopram. Her depression is in remission and was not evident today. 11/05/2023 Tobacco dependence (ICD-10 - F17.200) We have had another discussion of all the health consequences of smoking. She wants very much to stop smoking, but is concerned about gaining weight. I recommended she try the nicotine patches. She did not want to try anything else. 03/05/2024 Overweight (ICD-10 - E66.3) Her body mass index is 29 and she has lost weight. I've encouraged her to continue exercising and eating a healthy diet. 2024 Tobacco dependence (ICD-10 - F17.200) We have had another discussion of all the health consequences of smoking. She wants very much to stop smoking, but is concerned about gaining weight. I recommended she try the nicotine patches. She did not want to try anything else. 05/07/2024 Tobacco dependence (ICD-10 - F17.200) We have had another discussion of all the health consequences of smoking. She wants very much to stop smoking, but is concerned about gaining weight. I recommended she try the nicotine patches. She did not want to try anything else. 06/11/2024 Tobacco dependence (ICD-10 - F17.200) We have had another discussion of all the health consequences of smoking. She wants very much to stop smoking, but is concerned about gaining weight. I recommended she try the nicotine patches. She did not want to try anything else. 07/07/2024 Gastro-esophageal reflux disease without esophagitis (ICD-10 - K21.9) Her esophageal reflux is well controlled with pfub-nns-chwxgrg medications. 11/05/2023 Osteoporosis (ICD-10 - M81.0) She was continued on her vitamin D and calcium and referred back to gynecology for definitive treatment. 03/05/2024 Malignant neoplasm o f lower-outer quadrant of right female breast (ICD-10 - C50.511) There is no sign of breast cancer in either breast at this time. There is no sign of a new primary or recurrence. Right axillas. Appearance is unchanged. There is a palpable muscle mass in the center of the axilla, but it is symmetrical with the left which is not tender. 2024 Osteoporosis (ICD-10 - M81.0) She was continued on her vitamin D and calcium and referred back to gynecology for definitive treatment. 05/07/2024 Malignant neoplasm o f lower-outer quadrant of right female breast (ICD-10 - C50.511) There is no sign of breast cancer in either breast at this time. There is no sign of a new primary or recurrence. Right axillas. Appearance is unchanged. There is a palpable muscle mass in the center of the axilla, but it is symmetrical with the left which is not tender. 06/11/2024 Overweight (BMI 25.0-29.9) (ICD-10 - E66.3) Her body mass index has been stable at 28. We have discussed diet and nutrition. We made a plan to lose weight at a rate of one half of a pound per week. 07/07/2024 Tobacco dependence (ICD-10 - F17.200) We have had another discussion of all the health consequences of smoking. She wants very much to stop smoking, but is concerned about gaining weight. I recommended she try the nicotine patches. She did not want to try anything else. 11/05/2023 Malignant neoplasm o f lower-outer quadrant of right female breast (ICD-10 - C50.511) There is no sign of breast cancer in either breast at this time. There is no sign of a new primary or recurrence. Right axillas. Appearance is unchanged. There is a palpable muscle mass in the center of the axilla, but it is symmetrical with the left which is not tender. 03/05/2024 Osteoporosis (ICD-10 - M81.0) She was continued on her vitamin D and calcium and referred back to gynecology for definitive treatment. 05/07/2024 Labyrinthitis of bot h ears (ICD-10 - H83.03) I explained the nature of the abnormality, and showed her images of the anatomy. Her symptoms are not severe enough for meclizine. She is going to keep me informed as to her progress. 06/11/2024 Pulmonary nodule (ICD-10 - R91.1) The right lower lobe pulmonary nodule is thought to be stable and noncalcified measuring [address] scan of the chest has been ordered for July of this year. It has been stable since that was detected in January 2024. She has a long history of cigarette smoking as well as a recent diagnosis of early breast cancer. 07/07/2024 Osteoporosis (ICD-10 - M81.0) She is going to consider the use of alendronate. She will continue on vitamin D and calcium tablets. A repeat bone density will be done. She has 12 more months to go on her adjuvant endocrine anastrozole. 03/05/2024 Pulmonary nodules (ICD-10 - R91.8) The 2 nodules in the right lung are large enough to be worrisome. A repeat CT scan has been scheduled for April 2024. 07/07/2024 Pulmonary nodule (ICD-10 - R91.1) The right lower lobe pulmonary nodule is thought to be stable and noncalcified measuring [address] scan of the chest has been ordered for July of this year. It has been stable since that was detected in January 2024. She has a long history of cigarette smoking as well as a recent diagnosis of early breast cancer. Plan Of Treatment Pending Test Test Name Order Date PROFILE, FASTING (COMPREHENSIVE METABOLI C) 05/05/2023 PROFILE, FASTING (COMPREHENSIVE METABOLI C) 07/07/2024 PROFILE, FASTING (COMPREHENSIVE METABOLI C) 02/03/2023 PROFILE, FASTING (COMPREHENSIVE METABOLI C) 11/05/2023 LIPID PANEL 05/05/2023 LIPID PANEL 02/03/2023 CBC w DIFF 05/05/2023 CBC w DIFF 02/03/2023 BONE DENSITY DEXA 05/07/2024 CBC WITH AUTO DIFF 07/07/2024 CBC WITH AUTO DIFF 11/05/2023 Lipid Panel 11/05/2023 Lipid Panel 07/07/2024 XR wrist RT min 3V 05/03/2022 Next Appt Details Provider Name:Natalio Willingham, 10/08/2024 04:00:00 PM, [address] [place] [address] [address], [place], [phone], Provider Name:Natalio Willingham, 05/10/2025 03:00:00 PM, [address] [place] [address] [address], [place], [id number], Insurance Providers Payer Name Payer Address Payer Phone Subscriber Number Group Number Insured Name Patient Relationship to Insured Coverage Start Date Coverage End Date [facility] [address] [place], [place] [id number] Ayah Tillman Self - patient is the insured Medical (General) History Medical History History ICD Code anxiety/depression/PTSD lumbar spine disc disease 1995 overweight gerd occasional right uper extremities tremor s ? mitral valve prolapse abnormal mammograms tobacco dependence disorder 3 cm ER + SD+ Her2 - invasive right [facility] cancer February 2020 Surgical History Surgery Date(Month/Year) Right breast Lumpectomy 2020-03-15 Start of radiation 06/06/20 No history Hospitalization History Reason Date(Month/Year) No history
--- OUTSIDE RECORDS SUMMARY | 2024-09-09 13:44 | XMS_ITS ---
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 Breast cancer in remission, Depression, GERD, Hyperlipidemia, Tobacco dependence, Osteoporosis, Pulmonary nodule Medications Medication SIG (Take, Route, Frequency, Duration) Notes Start Date End Date Status Atorvastatin Calcium 10 MG TAKE 1 TABLET BY MOUTH EVERY DAY FOR 90 DAYS Active Citalopram Hydrobromide 10 MG TAKE 1 TABLET BY MOUTH EVERY DAY Active Loratadine 10 MG TAKE 1 TABLET BY BRANDIE TH EVERY DAY Active Clindamycin Phosphate 1 % External Active ProAir HFA 108 (90 Base) MCG/ACT 2 puffs as needed Inhalation every 4 hrs 03/16/2021 Active Anastrozole 1 MG TAKE 1 TABLET BY BRANDIE TH EVERY DAY Active Social History Tobacco Use: Social History Observation [...] Never (0 point) Points 4 Interpretation Positive Vital Signs Temperature 97.2 degrees Fahrenheit 07/07/20 24 Blood pressure systolic 135 mm Hg 07/07/20 24 Blood pressure diastolic 78 mm Hg 024 Heart Rate 79 /min 07/07/2024 Height 68 in 07/07/2024 Weight 182 lbs 07/07/2024 BMI 27.67 kg/m2 07/07/2024 Encounters Encounter Location Date Provider Diagnosis Natalio Willingham III, MD [address] [place] [address] [place] [address] 07/07/2024 Natalio Willingham Hyperlipidemia E78.5 ; Malignant neoplasm of lower-outer quadrant of right female breast C50.511 ; Overweight (BMI 25.0-29.9) E66.3 ; Depressive disorder, not elsewhere classified F32.9 ; Gastro-esophageal reflux disease without esophagitis K21.9 ; Tobacco dependence F17.200 ; Osteoporosis M81.0 and Pulmonary nodule R91.1 Assessments Encounter Date Diagnosis (ICD Code) Assessment Notes Treat ment Notes Treatment Clinical Notes 07/07/2024 Hyperlipidemia (ICD-10 - E78.5) Comprehensive blood [...] with the left which is not tender. 07/07/2024 Overweight (BMI 25.0-29.9) (ICD-10 - E66.3) Her body mass index is 28 and her weight is stable. We have discussed diet and nutrition. We reviewed [facility] weight loss strategy. 07/07/2024 Depressive disorder, not elsewhere classified (ICD-10 - F32.9) She has slowly been tapering the citalopram. Her depression is in remission and was not evident today. 07/07/2024 Gastro-esophageal reflux disease without esophagitis (ICD-10 - K21.9) Her esophageal reflux is well controlled with [id number] medications. 07/07/2024 Tobacco dependence (ICD-10 - F17.200) We have had another discussion of all the health consequences of smoking. She wants very much to stop smoking, but is concerned about gaining weight. I recommended she try the nicotine patches. She did not want to try anything else. 07/07/2024 Osteoporosis (ICD-10 - M81.0) She is going to consider the use of alendronate. She will continue on vitamin D and calcium tablets. A repeat bone density will be done. She has 12 more months to go on her adjuvant endocrine anastrozole. 07/07/2024 Pulmonary nodule (ICD-10 - R91.1) The [...] of early breast cancer. Plan Of Treatment Medication Medication Name Sig Start Date Stop Date Notes Atorvastatin Calcium 10 MG TAKE 1 TABLET BY MOUTH EVERY DAY FOR 90 DAYS Citalopram Hydrobromide 10 MG TAKE 1 TAB LET BY MOUTH EVERY DAY Loratadine 10 MG TAKE 1 TABLET BY BRANDIE TH EVERY DAY Clindamycin Phosphate 1 % External ProAir HFA 108 (90 Base) MCG/ACT 2 puffs as needed Inhalation every 4 hrs 03/16/2021 Anastrozole 1 MG TAKE 1 TABLET BY BRANDIE TH EVERY DAY Pending Test Test Name Order Date PROFILE, FASTING (COMPREHENSIVE METABOLI C) 07/07/2024 CBC WITH AUTO DIFF 07/07/2024 Lipid Panel 07/07/2024 Next Appt Details Follow Up: 3 MonthsSeptember , Reason: OV, Routine Checkup Provider Name:Natalio Willingham, 10/08/2024 04:00:00 PM, [address] [place] [address], [place], [address], Provider Name:Natalio Willingham, 05/10/2025 03:00:00 PM, [address] [place] [address] [address], [place], [address], Progress Notes * Zackary ESPINO EDOB:[birth year] (59 yo F)Acc No.[id number]:07/07/2024 Progress Notes Patient:?Zackary ESPINO Provider:?Natalio Willingham MD :1965???Age:59 Y???Sex:Female D ate:07/07/2024 Address:[address] [place] [address], [address], [facility] Subjective: * Chief Complaints: * ???Hypertension. Breast canc er in remissionDepressionGERDHyperlipidemiaTobacco dependenceOsteoporosisPulmonary nodule * HPI: ???COVID-19 Screening:?Questions?Have you experienced fever, chills, cough, sore throat, shortness of breath, difficulty breathing, muscle aches, loss of taste or smell??No ?Have you been exposed to the virus within the last 10 days??No ?Have you travelled internationally in the last 10 days??No ?Have you been exposed to COVID-19 in the past??No ???:?The patient, Zackary Sheth, a 59-year-old female, presented with a complaint of high blood pressure. She reported a reading of 156/64 taken the previous day. However, the doctor found her blood pressure to be 136/84 during the visit. The patient also reported feeling dizzy after a recent bone density test, which the doctor attributed to vertigo rather than blood pressure. The patient also mentioned a recent mammogram and a CT scan of her lung due to an 8mm right lower lobe nodule. The mammogram showed no evidence of malignancy, and the CT scan is scheduled to be repeated in three months. The patient also reported having heartburn, for which she is taking omeprazole. She is a smoker, currently smoking around 12 cigarettes a day. Upon examination today the dizziness was reproduce faithfully by movement of the head, a positive Barany maneuver.There was no hypotension on today's examination with a change in posture.? This is likely continued vertigo and labyrinthitis.? She was continued on meclizine. * ROS:?General/Constitutional:?pain?only normal aches and pains.?Chills?denies.?Fatigue?admits.?Fever?denies.?ENT:?Decreased hearing?denies.?Respiratory:?Cough?denies.?Cardiovascular:?Chest pain with exertion?denies.?Dyspnea on exertion?denies.?Shortness of breath?denies.?Gastrointestinal:?Constipation?occasional.?Decreased appetite?denies.?Diarrhea?denies.?Admits?Heartburn,?denies.?Nausea?denies.?Recta l bleeding?denies.?Vomiting?denies.?Hematology:?bruising?denies.?petechiae?denies.?Swollen glands?none have been noted.?Genitourinary:?Frequent urination?at night.?Musculoskeletal:?Muscle aches?denies.?Painful joints?denies.?Sciatica?denies.?Weakness?denies.?Skin:?Itching?denies.?Rash?denies.?Skin lesion(s)?denies.?Neurologic:?Difficulty speaking?denies.?Dizziness?denies.?Headache?denies.?Low back pain?denies.?Psychiatric:?Depressed mood?which is mild.? * Medical History:? * Surgical History:?Right sina st Lumpectomy [id number] of radiation 06/06/20No history * Hospitalization/Major Diagno stic Procedure:?No history * Family History:?Father: dece ased 60 yrs, mouth cancer, diagnosed with Cancer.?Mother: alive 67 yrs, type II diabetes, hypertension, hyperlipidemia, arthritis, diagnosed with HTN, Hyperlipidemia.?Spouse: alive.?1 sister(s) . 1 son(s) , 1 daughter(s) - healthy. .? Her maternal grandmother has a history of breast cancer. She is not aware of any family history of mental illness, substance use disorder or addiction. She has a personal history of depression and tobacco use disorder. * Social History:?Tobacco Use:?Tobacco Use/Smoking?Patient is a?current smoker ???Drugs/Alcohol:?Drugs?Have you used drugs other than those for medical reasons in the past 12 months??No ?Alcohol Screen?Did you have a drink containing alcohol in the past year??Yes ?How often did you have a drink containing alcohol in the past year??4 or more times a week (4 points) ?How many drinks did you have on a typical day when you were drinking in the past year??1 or 2 drinks (0 point) ?How often did you have 6 or more drinks on one occasion in the past year??Never (0 point) ?Points?4 ?Interpretation?Positive ???She is and working and raising children. She was born in [place], [place]. She has been to [place] for 20 years. Thery have 2 children. Smoking: The patient is a smoker, currently smoking around 12 cigarettes a day. * Medications:?TakingAtorvasta tin Calcium 10 MG Tablet TAKE 1 TABLET BY MOUTH EVERY DAY FOR 90 DAYS Citalopram Hydrobromide 10 MG Tablet TAKE 1 TABLET BY MOUTH EVERY DAY Anastrozole 1 MG Tablet TAKE 1 TABLET BY MOUTH EVERY DAY ProAir HFA 108 (90 Base) MCG/ACT Aerosol Solution 2 puffs as needed Inhalation every 4 hrs Loratadine 10 MG Tablet TAKE 1 TABLET BY MOUTH EVERY DAY Clindamycin Phosphate 1 % Gel External Medication List reviewed and reconciled with the patientTaking Atorvastatin Calcium 10 MG Tablet TAKE 1 TABLET BY MOUTH EVERY DAY FOR 90 DAYS Taking Citalopram Hydrobromide 10 MG Tablet TAKE 1 TABLET BY MOUTH EVERY DAY Taking Anastrozole 1 MG Tablet TAKE 1 TABLET BY MOUTH EVERY DAY Taking ProAir HFA 108 (90 Base) MCG/ACT Aerosol Solution 2 puffs as needed Inhalation every 4 hrs Taking Loratadine 10 MG Tablet TAKE 1 TABLET BY MOUTH EVERY DAY Taking Clindamycin Phosphate 1 % Gel External Medication List reviewed and reconciled with the patient * Allergies:?AmoxicillinCodein e PhosphateLatexPenicillinno[Allergies Verified] Objective: * Vitals:?Ht: 68, Wt: 182, BMI :27.67, BP: 135/78, HR: 79, Temp: 97.2, Wt-k.55. * ???Past Orders: ???Imaging:CT lung screen fo llow up (Order Date - 04/21/2024) (Performed Date - 04/21/2024) ???Imaging:MM tomosynthesis screening BI (Order Date - 06/01/2024) (Performed Date - 06/01/2024) Lab:URINE DIP STICK * Collection Date 05/07/2024 05/05/2023 05/03/2022 Order Date 05/07/2024 05/05/2023 05/03/2022 SG 1.025 (Ref Range: 1.005 - 1.025) 1.020 (Ref Range: 1.005 - 1.025) 1.030 pH 5.0 (Ref Range: 5.0 - 9.0) 6.0 (Ref Range: 5.0 - 9.0) 5 PINO Negative (Ref Range: Negative -) Negative (Ref Range: Negative -) neg NIT Negative (Ref Range: Negative -) Negative (Ref Range: Negative -) neg PRO 15 (Ref Range: Negative - Trace) 15 (Ref Range: Negative - Trace) trace GLU Negative (Ref Range: Negative -) Negative (Ref Range: Negative -) normal KET Negative (Ref Range: Negative -) Negative (Ref Range: Negative -) neg UBG 0.2 (Ref Range: 0.1 - 1.8) 0.2 (Ref Range: 0.1 - 1.8) normal SHAHRZAD Negative (Ref Range: 0.2 - 1.3) Negative (Ref Range: 0.2 - 1.3) neg BLD ++ (Ref Range: Negative -) Positive (Ref Range: Negative -) neg Menstrating NR NR no * Examination: ???General Examination: ?GENERAL APPEARANCE:?pleasant, well nourished, well developed, in no acute distress, calm and relaxed, overweight, woman, overweight, woman.?HEAD:?atraumatic, normocephalic.?EYES:?eomi, perrla, anicteric, conjugate.?EARS:?normal.?NOSE:?septum intact.?ORAL CAVITY:?normal, unremarkable.?NECK/THYROID:?no jugular venous distention, no carotid bruit, thyroid normal.?LYMPH NODES:?no enlarged lymph nodes,spleen normal.?SKIN:?no suspicious lesions, anicteric.?HEART:?no clicks, gallops, murmurs, or rubs, regular rhythm, S1, S2 normal, no s3, or vascular bruits.?LUNGS:?clear to auscultation .?BREASTS:??no masses palpable bilaterally, All scars he'll, radiation tattoos.?ABDOMEN:?bowel sounds normal, no ascites, no organomegaly, no mass, overweight, overweight.?RECTAL EXAM:?not examined.?MUSCULOSKELETAL:?extremities unremarkable, no clubbing, cyanosis or edema.?PERIPHERAL PULSES:?normal.?NEUROLOGIC:?alert and oriented, cranial nerves 2-12 grossly intact, deep tendon reflexes 2+ symmetrical, motor strength normal upper and lower extremities, sensory exam intact.?PSYCH:?alert, oriented, mood depressed, mood depressed.? Assessment: * Assessment: 1.?Malignant neoplasm of low er-outer quadrant of right female breast - C50.511 (Primary)???Notes :There is no sign of breast cancer in either breast at this time. There is no sign of a new primary or recurrence. Right axillas. Appearance is unchanged. There is a palpable muscle mass in the center of the axilla, but it is symmetrical with the left which is not tender.???2.?Hyperlipidemia - E78.5???Notes :Comprehensive blood work with a fasting lipid profile was ordered prior to her next visit.? She continues her efforts at weight loss and consumption of a healthy diet.???3.?Overweight (BMI 25.0-29.9) - E66.3???Notes :Her body mass index is 28 and her weight is stable.? We have discussed diet and nutrition.? We reviewed hh weight loss strategy.???4.?Depressive disorder, not elsewhere classified - F32.9???Notes :She has slowly been tapering the citalopram. Her depression is in remission and was not evident today.???5.?Gastro-esophageal reflux disease without esophagitis - K21.9???Notes :Her esophageal reflux is well controlled with [id number] medications.???6.?Tobacco dependence - F17.200???Notes :We have had another discussion of all the health consequences of smoking. She wants very much to stop smoking, but is concerned about gaining weight. I recommended she try the nicotine patches. She did not want to try anything else.???7.?Osteoporosis - M81.0???Notes :She is going to consider the use of alendronate. She will continue on vitamin D and calcium tablets. A repeat bone density will be done. She has 12 more months to go on her adjuvant endocrine anastrozole.???8.?Pulmonary nodule - R91.1???Notes :The right lower lobe pulmonary nodule is thought to be stable and noncalcified measuring [address] scan of the chest has been ordered for July of this year. It has been stable since that was detected in January 2024. She has a long history of cigarette smoking as well as a recent diagnosis of early breast cancer.??? Plan: * Treatment: 2.?Overweight (BMI 25.0-29.9 )?LAB: PROFILE, FASTING (COMPREHENSIVE METABOLIC) ?LAB: CBC WITH AUTO DIFF ?LAB: Lipid Panel 3.?Others? Continue Atorvastatin Calcium Tablet, 10 MG, TAKE 1 TABLET BY MOUTH EVERY DAY FOR 90 DAYS;?Continue Citalopram Hydrobromide Tablet, 10 MG, TAKE 1 TABLET BY MOUTH EVERY DAY;?Continue Anastrozole Tablet, 1 MG, TAKE 1 TABLET BY MOUTH EVERY DAY;?Continue ProAir HFA Aerosol Solution, 108 (90 Base) MCG/ACT, 2 puffs as needed, Inhalation, every 4 hrs;?Continue Loratadine Tablet, 10 MG, TAKE 1 TABLET BY MOUTH EVERY DAY;?Continue Clindamycin Phosphate Gel, 1 %, External.?? * Procedure Codes:? * Preventive Medicine:? ??Counseling:?Care goal follow-up plan:?Counseling for abnormal BMI given?Yes ?Above Normal BMI Follow-up?Dietary management education, guidance, and counseling, Dietary needs education, Exercise promotion: strength training, Exercise promotion: stretching, Feeding regime, Giving encouragement to exercise, Lifestyle education regarding diet, Nutrition / feeding management, Nutrition therapy, Prescribed activity/exercise education, Prescribed diet education, Prescribed dietary intake, Special diet education, Weight monitoring , Intervention, Order not done: Medical or Other reason not done ?Smoking/Tobacco Use?Patient counseled on the dangers of tobacco use and urged to quit.?07/07/2024 ?Patient Lifestyle Goals?Patient wants to quit ?Treatment Goals?Set a quit date, Cut down by 1 cigarette a week ?Barriers?Stress ?Self-Management Plan?Make a plan to cut down number of cigarettes over time and set a date to work towards quitting * Follow Up:?3 Months, September (Reason: OV, Routine Checkup) * Images: * Sign off status: Completed true * Provider:?Natalio Willingham MD Date:?06/16 Generated for Printi ng/So/eTransmitting on:?09/09/2024 01:43 PM EST History and Physical Notes * HPI (History of Present Illness) Category Sub-Category Detail Notes COVID-19 Screening Questions Have you had any new onset fever, chills, cough, congestion, sore throat, shortness of breath, muscle aches?: No Have you been exposed to the virus withi n the last 10 days?: No Have you travelled internationally in [facility] last 10 days?: No Have you been exposed to COVID-19 in the past?: No Examination Category Sub-Category Detail Notes General Examination GENERAL APPEARANCE: pleasant , well nourished, well developed, in no acute distress, calm and relaxed, overweight, woman, overweight, woman HEAD: atraumatic, normocep halic EYES: eomi, perrla, anicte william, conjugate EARS: normal NOSE: septum intact NECK/THYROID: no jugular venous di stention, no carotid bruit, thyroid normal HEART: no clicks, gallops, murmurs, or rubs, regular rhythm, S1, S2 normal, no s3, or vascular bruits LUNGS: clear to auscultatio n ABDOMEN: bowel sounds normal, no ascites, no organomegaly, no mass, overweight, overweight NEUROLOGIC: alert and oriented, cranial nerves 2-12 grossly intact, deep tendon reflexes 2+ symmetrical, motor strength normal upper and lower extremities, sensory exam intact SKIN: no suspicious lesion s, anicteric PERIPHERAL PULSES: normal BREASTS: no masses palpable b ilaterally, All scars he'll, radiation tattoos MUSCULOSKELETAL: extremities unremark able, no clubbing, cyanosis or edema LYMPH NODES: no enlarged lymph no shelby,spleen normal RECTAL EXAM: not examined PSYCH: alert, oriented, moo d depressed, mood depressed ORAL CAVITY: normal, unremarkable
--- OUTSIDE RECORDS SUMMARY | 2024-09-09 13:44 | XMS_ITS ---
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 Name Role Phone aNtalio Willingham Primary Care Provider [phone] REASON FOR VISIT COVID Positive Social History Sex Assigned At : Social History Observation Description Sex Assigned At Female Encounters Encounter Location Date Provider Diagnosis Natalio Willingham III, MD [address] [place] [address] [place] [address] 08/24/2024 Natalio Willingham Plan Of Treatment Next Appt Details Provider Name:Natalio Willingham, 10/08/2024 04:00:00 PM, [address] [place] [address] [place], [address], Provider Name:Natalio Willingham, 05/10/2025 03:00:00 PM, [address] [place] [address] [place], [address], Progress Notes * Zackary ESPINO EDOB:[birth year] (59 yo F)Acc No.[id number]:08/24/2024 Patient:?Zackary ESPINO :1965???Age:59 Y???Sex:Female Address:[address], [place] [address] * true * Date:? Generated for Tati ennis/So/Waqaritting on:?09/09/2024 01:43 PM EST
--- NOTE | 2024-09-13 11:14 | W.PM.OPN ---
Operative Note Operative Note Date of Service: 09/13/24 Narrative: Operative Note Narrative: Preop diagnosis: 1. Right middle finger proximal phalanx shaft fracture Postop diagnosis: Same Procedure: 1. Right middle finger proximal phalanx closed reduction percutaneous pinning Surgeon: Li Olson MD Electric Fork Operator: None Anesthesia: General Anesthesia Findings: Right middle finger proximal phalanx fracture Implants: 0.045 K-wires x2, 0.035 K-wires x2 Tourniquet time: 0 minutes EBL: 5.0 ml Specimen: None Drains: None Complications: None Disposition: Brought to the recovery room in stable condition Plan: Follow-up in 10-14 days for wound check, and pre clinic radiographs. Anticipate placement in a short-arm finger spica cast, and K-wire removal at between 4 and 5 weeks postop depending on radiographic healing. Indications: The patient is a 59 year old woman with a right middle finger proximal phalanx shaft fracture that occurred after her finger got caught in her dog's collar. . The risks and benefits of operative treatment, including but not limited to risk of damage to blood vessels, nerves, tendons, infection, recurrence, persistent pain or numbness, incomplete resolution of preoperative symptoms, or need for further surgery were discussed with the patient and they wished to proceed with surgery. Procedure: Once consent was obtained patient was brought back to the operating suite and placed in the operating table in a supine position. . Perioperative antibiotics and anesthesia was administered by the anesthesia team. A tourniquet was applied to the proximal aspect of the right upper extremity and the limb was prepped and draped in a standard surgical fashion. The tourniquet was not inflated during the case. The mini C-arm was used throughout the case to assess our fracture reduction and placement of all implants. I performed a gentle closed reduction of our right middle finger proximal phalanx fracture. I then placed 2 X 0.045 K-wires across the fracture site. I then placed 2 X 0.035 K-wires across the fracture site. I was very satisfied with our fracture reduction and placement of all implants. Clinical alignment also appeared to be satisfactory. The pins were cut bent and had pin caps applied. Final radiographs were applied. A digital block was performed with some 1% lidocaine with epinephrine for postop pain control and a sterile dressing and volar splint was applied. The patient appears to have tolerated the procedure well and with no complications. All digits were well vascularized conclusion of the case.
--- OUTSIDE RECORDS SUMMARY | 2024-09-13 11:45 | XMS_ITS ---
Author Organization Natalio Willingham III, MD Address [address] [place] [address] Care Team Providers Care Lineworker Name Role Phone Natalio Willingham Primary Care Provider [phone] Allergies Allergen (clinical drug ingredient) Drug/Non Drug Allergy documented on EMR Reaction Allergy Type Onset Date Status Penicillin Unknown Drug Allergy Active Latex Latex Unknown Allergy Active Codeine Phosphate Unknown Drug Allergy Active amoxicillin Amoxicillin Unknown Drug Allergy Act melisa REASON FOR VISIT Hypertension Medications Medication SIG (Take, Route, Frequency, Duration) [...] Answer Notes Patient is a current smoker Vital Signs Temperature 96.9 degrees Fahrenheit 09/13/20 24 Blood pressure systolic 144 mm Hg 09/13/20 24 Blood pressure diastolic 99 mm Hg 024 Heart Rate 91 /min 09/13/2024 Height 68 in 09/13/2024 Weight 179 lbs 09/13/2024 BMI 27.21 kg/m2 09/13/2024 Encounters Encounter Location Date Provider Diagnosis Natalio Willingham III, MD [address] [place] [address] [place] [address] 09/13/2024 Natalio Willingham Plan Of Treatment Medication Medication Name Sig [...] every 4 hrs 03/16/2021 Next Appt Details Provider Name:Natalio Willingham, 10/08/2024 04:00:00 PM, [address] [place] [address] [address], [place], [address], Provider Name:Natalio Willingham, 05/10/2025 03:00:00 PM, [address] [place] [address] [address], [place], [address], Progress Notes * Zackary ESPINO EDOB:[birth year] (59 yo F)Acc No.[id number]:09/13/2024 Progress Notes Patient:?Zackary ESPINO Provider:?Natalio Willingham MD :1965???Age:59 Y???Sex:Female D ate:09/13/2024 Address:[address] [place], [place] [address], [place] Subjective: * Chief Complaints: * ???1. Hypertension. * HPI: ???COVID-19 Screening:?Questions?Have you had any new onset fever, chills, cough, congestion, sore throat, shortness of breath, muscle aches??No * ROS:?General/Constitutional:?pain?only normal aches and pains.?Chills?denies.?Fatigue?admits.?Fever?denies.?ENT:?Decreased hearing?denies.?Respiratory:?Cough?denies.?Cardiovascular:?Chest pain with exertion?denies.?Dyspnea on exertion?denies.?Shortness of breath?denies.?Gastrointestinal:?Constipation?denies.?Decreased appetite?denies.?Diarrhea?denies.?Heartburn?denies.?Nausea?denies.?Rectal bleeding?denies.?Vomiting?denies.?Hematology:?bruising?denies.?petechiae?denies.?Swollen glands?none have been noted.?Genitourinary:?Frequent urination?denies.?Musculoskeletal:?Muscle aches?denies.?Painful joints?denies.?Sciatica?denies.?Weakness?denies.?Skin:?Itching?denies.?Rash?denies.?Skin lesion(s)?denies.?Neurologic:?Difficulty speaking?denies.?Dizziness?denies.?Headache?denies.?Low back pain?denies.?Psychiatric:?Depressed mood?denies.? * Medical History:?anxiety/dep ression/PTSD, Lumbar spine disc disease 1995, Overweight, Gerd, Occasional right uper extremities tremors, ? mitral valve prolapse, Abnormal mammograms, Tobacco dependence disorder, 3 cm ER + AL+ Her2 - invasive right breast cancer February 2020. * Surgical History:?Right sina st Lumpectomy 2020-03-15, Start of radiation 06/06/20, No history . * Hospitalization/Major Diagno stic Procedure:?No history . * Family History:?Father: dece ased 60 yrs, [...] Social History:?Tobacco Use:?Tobacco Use/Smoking?Patient is a?current smoker ???She is and working and raising children. She was born in [place], [place]. She has been to [place] for 20 years. Thery have 2 children. Smoking: The patient is a smoker, currently smoking around 12 cigarettes a day. * Medications:?Taking ProAir H FA 108 (90 Base) MCG/ACT Aerosol Solution 2 puffs as needed Inhalation every 4 hrs , Taking Loratadine 10 MG Tablet TAKE 1 TABLET BY MOUTH EVERY DAY , Taking Clindamycin Phosphate 1 % Gel External , Taking Anastrozole 1 MG Tablet TAKE 1 TABLET BY MOUTH EVERY DAY , Taking Citalopram Hydrobromide 10 MG Tablet TAKE 1 TABLET BY MOUTH EVERY DAY , Taking Atorvastatin Calcium 10 MG Tablet TAKE 1 TABLET BY MOUTH EVERY DAY , Medication List reviewed and reconciled with the patient * Allergies:?Amoxicillin, Code ine Phosphate, Latex, Penicillin. Objective: * Vitals:?Ht: 68, Wt: 179, BMI :27.21, BP: 144/99, HR: 91, Temp: 96.9, Wt-k.19. * ???Past Orders: ???Imaging:XR hand RT min 3V (Order Date - 09/08/2024) (Performed Date - 09/08/2024) * Examination: ???General Examination: ?GENERAL APPEARANCE:?pleasant, well nourished, well developed, in no acute distress, calm and relaxed.?HEAD:?atraumatic, normocephalic.?EYES:?eomi, perrla, anicteric, conjugate.?EARS:?normal.?NOSE:?septum intact.?ORAL CAVITY:?normal, unremarkable.?NECK/THYROID:?no jugular venous distention, no carotid bruit, thyroid normal.?LYMPH NODES:?no enlarged lymph nodes,spleen normal.?SKIN:?no suspicious lesions, anicteric.?HEART:?no clicks, gallops, murmurs, or rubs, regular rhythm, S1, S2 normal, no s3, or vascular bruits.?LUNGS:?clear to auscultation .?BREASTS:??no masses palpable bilaterally.?ABDOMEN:?bowel sounds normal, no ascites, no organomegaly, no mass.?RECTAL EXAM:?not examined.?MUSCULOSKELETAL:?extremities unremarkable, no clubbing, cyanosis or edema.?PERIPHERAL PULSES:?normal.?NEUROLOGIC:?alert and oriented, cranial nerves 2-12 grossly intact, deep tendon reflexes 2+ symmetrical, motor strength normal upper and lower extremities, sensory exam intact.?PSYCH:?alert, oriented.? Assessment: Plan: * Treatment: * Images: * The named appointment provid er may or may not be the originator of this progress note, and it is not deemed complete until electronically signed by the appointment provider. Sign off status: Pending * Provider:?Natalio Willingham MD Date:?08/17 Generated for Tati ennis/So/eTransmitting on:?09/13/2024 11:45 AM EST History and Physical Notes * HPI (History of Present Illness) Category Sub-Category Detail Notes COVID-19 Screening Questions Have you had any new onset fever, chills, cough, congestion, sore throat, shortness of breath, muscle aches?: No Examination Category Sub-Category Detail Notes General Examination GENERAL APPEARANCE: pleasant , well nourished, well developed, in no acute distress, calm and relaxed HEAD: atraumatic, normocep halic EYES: eomi, perrla, anicte william, conjugate EARS: normal NOSE: septum intact NECK/THYROID: no jugular venous di stention, no carotid bruit, thyroid normal HEART: no clicks, gallops, murmurs, or rubs, regular rhythm, S1, S2 normal, no s3, or vascular bruits LUNGS: clear to auscultatio n ABDOMEN: bowel sounds normal, no ascites, no organomegaly, no mass NEUROLOGIC: alert and oriented, cranial nerves 2-12 grossly intact, deep tendon reflexes 2+ symmetrical, motor strength normal upper and lower extremities, sensory exam intact SKIN: no suspicious lesion s, anicteric PERIPHERAL PULSES: normal BREASTS: no masses palpable b ilaterally MUSCULOSKELETAL: extremities unremark able, no clubbing, cyanosis or edema LYMPH NODES: no enlarged lymph no shelby,spleen normal RECTAL EXAM: not examined PSYCH: alert, oriented ORAL CAVITY: normal, unremarkable
--- OUTSIDE RECORDS SUMMARY | 2024-09-13 11:46 | XMS_ITS ---
Author Organization Natalio Willingahm III, MD Address [address] [place] [address] Care Team Providers Care Build And Release Manager Name Role Phone Natalio Willingham Primary Care Provider REASON FOR VISIT Needs call back from Social History Sex Assigned At : Social History Observation Description Sex Assigned At Female Encounters Encounter Location Date Provider Diagnosis Natlaio Willingham III, MD [address] [place] [address] [place] [address] 09/01/2024 Natalio Willingham Plan Of Treatment Next Appt Details Provider Name:Natalio Willingham, 10/08/2024 04:00:00 PM, [address] [place] [address] [place], [address], Provider Name:Natalio Willingham, 05/10/2025 03:00:00 PM, [address] [place] [address] [place], [address], Progress Notes * Zackary ESPINO EDOB:[birth year] (59 yo F)Acc No.[id number]:09/01/2024 Patient:HowieZackary ESPINO :1965???Age:59 Y???Sex:Female Address:[address], [place] [address] * true * Date:? Generated for Tati ennis/So/Waqaritting on:?09/13/2024 11:45 AM EST
--- OUTSIDE RECORDS SUMMARY | 2024-09-13 11:46 | XMS_ITS | Patient Health Record ---
Author Organization Natalio Willingham III, MD Address [address] [place] [address] Care Team Providers Care Towel Sewer Name Role Phone Natalio Willingham Primary Care [...] date:06/14/2024 05:59:01 AM Interpretation: Performing Lab: Notes/Report: [address] [address] [address] Scan Report Signed Patient: Ayah Tillman MR#: [id number] 8 : 1965 Acct:[id number] Age/Sex: 58 / F ADM Date: 01/16/24 Loc: HO.CT Attending Dr: Nimco Dickerson PA-C Ordering Physician: Nimco Dickerson PA-C Date of Service: 01/16/24 Procedure(s): CT lung screening Accession Number(s): [id number] cc: Natalio Willingham MD; Nimco Dickerson PA-C [...] in OV> 01/21/24 0103 DD/ 1005 TD/TT: Petroleum Refinery Operator: [address] [address] [address] Scan Report Signed Patient: Cristhian Tillman MR#: [id number] 8 : 1965 Acct:[id number] Age/Sex: 58 / F ADM Date: 01/16/24 Loc: HO.CT Attending Dr: Nimco Dickerson PA-C Ordering Physician: Nimco Dickerson PA-C Date of Service: 01/16/24 Procedure(s): CT lung screening Accession Number(s): [id number] cc: Natalio Willingham MD; Nimco Dickerson PA-C [...] in OV> 01/21/24 0103 DD/ 1005 TD/TT: Petroleum Refinery Operator: TERRY CT lung screen follow up Reviewed date:06/14/2024 05:59:01 AM Interpretation: Performing Lab: Notes/Report: [address] [address] [address] Scan Report Signed Patient: Ayah Tillman MR#: [id number] 8 : 1965 Acct:[id number] Age/Sex: 59 / F ADM Date: 04/21/24 Loc: HO.CT Attending Dr: Nimco Dickerson PA-C Ordering Physician: Nimco Dickerson PA-C Date of Service: 04/21/24 Procedure(s): CT lung screen follow up Accession Number(s): [id number] cc: Natalio Willingham MD; Nimco Dickerson PA-C [...] CT LUNG CANCER SCREENING SHORT INTERVAL FOLLOWUP ([id number]) can be placed. Electronically signed by: Joe Nam MD 05/28/2024 03:07 PM EDT RP Dictated By: Joe Nam MD Signed By: <Electronically signed by Joe Nam MD in OV> 05/28/24 1507 DD/ 0853 TD/TT: 04/21/24 0900 Petroleum Refinery Operator: [place] [address] CT Scan Report Signed Patient: Cristhian Tillman MR#: [id number] 8 : 1965 Acct:[id number] Age/Sex: 59 / F ADM Date: 04/21/24 Loc: .CT Attending Dr: Nimco Dickerson PA-C Ordering Physician: Nimco Dickerson PA-C Date of Service: 04/21/24 Procedure(s): CT olegario g screen follow up Accession Number(s): [id number] cc: Natalio Willingham MD; Nimco Dickerson PA-C [...] LUNG CANCER JEANNE ROSSG SHORT INTERVAL FOLLOWUP ([id number]) can be placed. Electronically rios d by: Joe Nam MD 05/28/2024 03:07 PM EDT Dictated By: Joe Nam MD Signed By: <Electron ically signed by Joe Nam MD in OV> 05/28/24 1507 DD/ 0853 TD/TT: 04/21/24 0900 Petroleum Refinery Operator: WERO MM tomosynthesis screening B I Reviewed date:06/14/2024 05:59:01 AM Interpretation: Performing Lab: Notes/Report: [address] [place] [address] Mammography Report Signed Patient: Ayah Tillman MR#: [id number] 8 : 1965 Acct:[id number] Age/Sex: 59 / F ADM Date: 06/01/24 Loc: HO.MAMMO Attending Dr: Natalio Willingham MD Ordering Physician: Natalio Willingham MD Results: 1Negativ e Date of Service: 06/01/24 Follow Up: 1 Year From Orig inal Mammogram Procedure(s): MM tomosynthesis screening BI Accession Number(s): [id number] cc: Natalio Willingham MD EXAMINATION: MM SCREENING [...] 06/03/24 1809 DD/ 1545 TD/TT: 06/01/24 1600 Petroleum Refinery Operator: [address] [place] [address] Mammography Report Signed Patient: Cristhian Tillman MR#: [id number] 8 : 1965 Acct:[id number] Age/Sex: 59 / F ADM Date: 06/01/24 Loc: HO.MAMMO Attending Dr: Natalio Willingham MD Ordering Physician: Natalio Willingham MD Results: 1Negativ e Date of Service: Follow Up: 1 Year From Orig inal Mammogram Procedure(s): MM elaina osynthesis screening BI Accession Number(s): [id number] cc: Natalio Willingham MD EXAMINATION: MM SCREENING [...] DO Signed By: <Electron ically signed by Laar Fritz DO in OV> 06/03/24 1809 DD/ 1545 TD/TT: 06/01/24 1600 Petroleum Refinery Operator: BOUCHRA ho RT min 3V Reviewed date:09/08/2024 09:49:44 AM Interpretation: Performing Lab: Notes/Report: [address] [address] XRay Report Signed Patient: Ayah Tillman MR#: [id number] 8 : 1965 Acct:[id number] Age/Sex: 59 / F ADM Date: 09/08/24 Loc: HO.ED Attending Dr: Ordering Physician: Generic ED Physician Date of Service: 09/08/24 Procedure(s): XR hand RT min 3V Accession Number(s): [id number] cc: Natalio Willingham MD; Generic ED Physician [...] by: Jed East MD 09/08/2024 08:55 AM [facility] [place] [place] Dictated By: Jed East Signed By: <Electronically signed by Jed East in OV> 09/08/24 0855 DD/ 0840 TD/TT: 09/08/24 0845 Petroleum Refinery Operator: [place] [address] XRay Report Signed Patient: Cristhian Tillman MR#: [id number] 8 : 1965 Acct:[id number] Age/Sex: 59 / F ADM Date: 09/08/24 Loc: HO.ED Attending Dr: Ordering Physician: Generic ED Physician Date of Service: 09/08/24 Procedure(s): XR hand RT min 3V Accession Number(s): [id number] cc: Natalio Willingham MD; Generic ED Physician [...] MD 09/08/2024 08:55 AM EST RP Workstation: [employer] Dictated By: Jed East Signed By: <Electron ically signed by Jed East in OV> 09/08/24 0855 DD/ 0840 TD/TT: 09/08/24 0845 Petroleum Refinery Operator: Reason For Referral Reason Consult and Treat Diagnosis 1 Tobacco use disorder (Z72.0) Diagnosis 2 Tobacco dependence ( F17.200) Referral Organization Natalio Willingham III, MD Referring Provider First Name Natalio Referring Provider Last Name Tarsha Referring Provider Speciality Internal M edicine Referred Provider [facility] er, Thoracic Surgeons Referred Provider Specialty [...] 1 TABLET BY MOUTH EVERY DAY Active ProAir HFA 108 (90 Base) MCG/ACT 2 puffs as needed Inhalation every 4 hrs 03/16/2021 Active Anastrozole 1 MG TAKE 1 TABLET BY BRANDIE TH EVERY DAY Active Clindamycin Phosphate 1 % External Active Loratadine 10 MG TAKE 1 TABLET BY BRANDIE TH EVERY DAY Active Immunizations Vaccine Route Administration Date Status [...] Problem Status W/U Status Risk Notes Problem 300754899 Overweight (BMI 25.0-29.9) (E66.3) Active confirmed Her body mass index is 28 and her weight is stable. We have discussed diet and nutrition. We reviewed [facility] weight loss strategy. Problem 90659434 Hyperlipidemia (E78.5) Active confirmed Comprehensive blood work with a fasting lipid profile was ordered prior to her next visit. She continues her efforts at weight loss and consumption of a healthy diet. Problem 824659976 Pulmonary nodules (R91.8) Active confirmed The 2 nodule s in the right lung are large enough to be worrisome. A repeat CT scan has been scheduled for April 2024. Problem 765007765 Malignant neoplasm of lower-outer quadrant of right [...] the left which is not tender. Problem 660445659 Gastro-esophage al reflux disease without esophagitis (K21.9) Active confirmed Her esophageal reflux is well controlled with fejb-gwq-tqfbm er medications. Problem 23827169 Tobacco dependence (F17.200) Active confirmed We have had another discussion of all the health consequences of smoking. She wants very much to stop smoking, but is concerned about gaining weight. I recommended she try the nicotine patches. She did not want to try anything else. Problem 932981228 Pulmonary nodule (R91.1) Active confirmed The right [...] diagnosis of early breast cancer. Problem Osteoporosis (32338933) Osteoporosis (M81.0) Active confirmed She is going to consider the use of alendronate. She will continue on vitamin D and calcium tablets. A repeat bone density will be done. She has 12 more months to go on her adjuvant endocrine anastrozole. Problem 14909281 Depressive disorder, not elsewhere classified (F32.9) Active confirmed She has slowly been tapering the citalopram. Her depression is in remission and was not evident today. Problem 42345087631431673 Cellulitis of left leg (L03.116) Active confirmed Problem 541400363 BRCA1 negative (Z13.71) Active confirmed Vital Signs Heart Rate 91 /min 09/13/2024 Temperature 96.9 degrees Fahrenheit 09/13/2024 Blood pressure diastolic 99 mm Hg 09/13/2024 Height 68 in 09/13/2024 Blood pressure systolic 144 mm Hg 09/13/2024 Weight 179 lbs 09/13/2024 BMI 27.21 kg/m2 09/13/2024 Encounters Encounter Location Date Provider Diagnosis Natalio Willingham III, MD [address] [place] [address] [place] [address] 09/13/2024 Natalio Willingham III, MD [address] [place] [address] [place] [address] 11/05/2023 Natalio Willingham Hyperlipidemia E78.5 ; Overweight (BMI 25.0-29.9) E66.3 ; Depressive disorder, not elsewhere classified F32.9 ; Gastro-esophageal reflux disease without esophagitis K21.9 ; Tobacco dependence F17.200 ; Osteoporosis M81.0 and Malignant neoplasm of lower-outer quadrant of right female breast C50.511 Natalio Willingham III, MD [address] [place] [address] [place] [address] 03/05/2024 Natalio Willingham Depressive disorder, not elsewhere classified F32.9 ; Tobacco dependence F17.200 ; Gastro-esophageal reflux disease without esophagitis K21.9 ; Hyperlipidemia E78.5 ; Overweight E66.3 ; Malignant neoplasm of lower-outer quadrant of right female breast C50.511 ; Osteoporosis M81.0 and Pulmonary nodules R91.8 Natalio Willingham III, MD [address] [place] [address] [place] [address] 2024 Natalio Willingham Insect bite without infection W57.XXXA ; Depressive disorder, not elsewhere classified F32.9 ; Gastro-esophageal reflux disease without esophagitis K21.9 ; Hyperlipidemia E78.5 ; Tobacco dependence F17.200 and Osteoporosis M81.0 Natalio Willingham III, MD [address] [place] [address] [place] [address] 05/07/2024 Natalio Willingham Osteoporosis M81.0 ; Depressive disorder, not elsewhere classified F32.9 ; Gastro-esophageal reflux disease without esophagitis K21.9 ; Hyperlipidemia E78.5 ; Tobacco dependence F17.200 ; Malignant neoplasm of lower-outer quadrant of right female breast C50.511 and Labyrinthitis of both ears H83.03 Natalio Willingham III, MD [address] [place] [address] [place] [address] 06/11/2024 Natalio Willingham Encounter for immunization Z23 ; Depressive disorder, not elsewhere classified F32.9 ; Gastro-esophageal reflux disease without esophagitis K21.9 ; Hyperlipidemia E78.5 ; Tobacco dependence F17.200 ; Overweight (BMI 25.0-29.9) E66.3 and Pulmonary nodule R91.1 Natalio Willingham III, MD [address] [place] [address] [place] [address] 07/07/2024 Natalio Willingham Hyperlipidemia E78.5 ; Malignant neoplasm of lower-outer quadrant of right female breast C50.511 ; Overweight (BMI 25.0-29.9) E66.3 ; Depressive disorder, not elsewhere classified F32.9 ; Gastro-esophageal reflux disease without esophagitis K21.9 ; Tobacco dependence F17.200 ; Osteoporosis M81.0 and Pulmonary nodule R91.1 Natalio Willingham III, MD [address] [place] [address] [place] [address] 03/22/2024 Natalio Willingham III, MD [address] [place] [address] [place] [address] 03/26/2024 Natalio Willingham III, MD [address] [place] [address] [place] [address] 03/26/2024 Natalio Willingham III, MD [address] [place] [address] [place] [address] 08/24/2024 Natalio Willingham III, MD [address] [place] [address] [place] [address] 09/01/2024 Natalio Willingham Assessments Encounter Date Diagnosis [...] Her esophageal reflux is well controlled with jzon-gsd-vosyjwb medications. 2024 Gastro-esophageal reflux disease without esophagitis (ICD-10 - K21.9) Her esophageal reflux is well controlled with dtib-cjn-wfabvek medications. 05/07/2024 Gastro-esophageal reflux disease without esophagitis (ICD-10 - K21.9) Her esophageal reflux is well controlled with ptya-jyt-zlmjsnp medications. 06/11/2024 Gastro-esophageal reflux disease without esophagitis (ICD-10 - K21.9) Her esophageal reflux is well controlled with jcwb-rzj-jbepbrg medications. 07/07/2024 Overweight (BMI 25.0-29.9) (ICD-10 - E66.3) Her body mass index is 28 and her weight is stable. We have discussed diet and nutrition. We reviewed [facility] weight loss strategy. 11/05/2023 Gastro-esophageal reflux disease without esophagitis (ICD-10 - K21.9) Her esophageal reflux is well controlled with mwoh-txm-yqsijjt medications. 03/05/2024 Hyperlipidemia (ICD-10 - E78.5) Her [...] Her esophageal reflux is well controlled with weoq-xjg-zrdsqeu medications. 11/05/2023 Osteoporosis (ICD-10 - M81.0) She [...] Details Provider Name:Natalio Willingham, 10/08/2024 04:00:00 PM, [address] [place] [address] [address], [place], [address], Provider Name:Natalio Willingham, 05/10/2025 03:00:00 PM, [facility] [address], [place], [address], Insurance Providers Payer Name Payer Address Payer Phone Subscriber Number Group Number Insured Name Patient Relationship to Insured Coverage Start Date Coverage End Date [facility] [address] [place], [place] [id number] Ayah Tillman Self - patient is the insured Medical (General) History Medical History History ICD Code anxiety/depression/PTSD lumbar spine disc disease 1995 overweight gerd occasional right uper extremities tremor s ? mitral valve prolapse abnormal mammograms tobacco dependence disorder 3 cm ER + NM+ Her2 - invasive right sina st cancer February 2020 Surgical History Surgery Date(Month/Year) No history Start of radiation 06/06/20 Right breast Lumpectomy 2020-03-15 Hospitalization History Reason Date(Month/Year) No history
--- OUTSIDE RECORDS SUMMARY | 2024-09-13 11:46 | XMS_ITS ---
Author Organization Natalio Willingham III, MD Address [address] [place] [address] Care Team Providers Care Director Of Quantitative Research Name Role Phone Natalio Willingham Primary Care Provider REASON FOR VISIT COVID Positive Social History Sex Assigned At : Social History Observation Description Sex Assigned At Female Encounters Encounter Location Date Provider Diagnosis Natalio Willingham III, MD [address] [place] [address] [place] [address] 08/24/2024 Natalio Willingham Plan Of Treatment Next Appt Details Provider Name:Natalio Willingham, 10/08/2024 04:00:00 PM, [address] [place] [address] [place], [address], Provider Name:Natalio Willingham, 05/10/2025 03:00:00 PM, [address] [place] [address] [place], [address], Progress Notes * Zackary ESPINO EDOB:[birth year] (59 yo F)Acc No.[id number]:08/24/2024 Patient:?Zackary ESPINO :1965???Age:59 Y???Sex:Female Address:[address], [place] [address] * true * Date:? Generated for Tati ennis/So/Waqaritting on:?09/13/2024 11:45 AM EST
[2024-09-13 12:31] VITALS: BMI 27.2
[2024-09-13 13:01] VITALS: BP 170/84; PULSE 77; RESP 18; TEMP 36.7; O2SAT 97
[2024-09-13] MEDS: Lactated Ringers 1,000 ML 80 ML IVCONT (13:30)
--- NOTE | 2024-09-13 13:56 | PC.NURSE ---
report given to maurice ferguson rn. aware of three areas to sign on preop record once completed and need for antibiotic order.
--- NOTE | 2024-09-13 14:19 | MHC.SHP ---
Pre-Procedural Eval Section A - 24 Hr Update-Section A only Date of Service: 09/13/24 The patient is an INPATIENT: No Changes since office visit: No Cold of Flu in the past 2 weeks, No New Medical Problems, No Changes in Medication and No Patient answered all questions The patient has been examined within 24 hours of the surgical procedure. The History & Physical has been completed within 30 days and I have reviewed it.: Yes Section B - Complete if H&P > 30 days Chief Complaint: Displaced fracture of proximal phalanx of right Allergies: Allergies Allergy/AdvReac Type Severity Reaction Status Date / Time codeine [CODEINE] Allergy Severe AGITATION, Verified 09/13/24 12:45 mentally unstable amoxicillin [AMOXICILLIN] Allergy Intermediate RASH Verified 09/13/24 12:45 latex [LATEX] Allergy Intermediate RASH Verified 09/13/24 12:45 seasonal Allergy Unknown Unknown Uncoded 09/13/24 12:45 SEASONAL ALLERGIES Allergy Unknown WHEEZING Uncoded 09/13/24 12:45 Plan Diagnosis/Plan: Unchanged I have reviewed the history and physical and performed a pertinent physical examination on my patient. No changes have occurred unless specified. Time Spent With Patient Time: Total time managing care of this patient today ____ minutes.
--- NOTE | 2024-09-13 14:33 | HO.ANESPROP2 ---
ON LICENSE OF [facility] Active Problems Active Problems: All Active Problems Fracture of proximal phalanx of right middle finger (Acute) Nodule of lower lobe of right lung (Acute) Nicotine dependence, cigarettes, uncomplicated (Acute) History of breast cancer (Acute ~2020) Infiltrating ductal carcinoma of breast (Acute) Past Medical History Medical History History of breast cancer (~2020) Mitral valve prolapse Hypercholesterolemia GERD (gastroesophageal reflux disease) Nicotine dependence, cigarettes, uncomplicated Depression Family History Family History Mother Breast cancer, Onset Age: 75 Maternal Grandmother Breast cancer Father Throat cancer Mouth cancer Surgical History Surgical History History of lumpectomy of right breast History of colonoscopy History of Problems with Anesthesia: No Social History Social History Are you a primary health care social worker to a significant other at home: No Do you presently have visiting nurse or other home services: No Alcohol intake: current Alcohol intake frequency: 0-2 drinks per day Alcohol type: wine Patient Tobacco Use Status: Current someday Tobacco user Tobacco use type: Cigarette Years Smoked: onset 17yo, 1/2ppd x 41yrs - 20PYH Smoked in Last 30 Days: Yes Patient Interested in Nicotine Replacement: No Have you been hit, kicked, punched, or otherwise hurt by someone within the past year? 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 Meds Allergies Allergy/AdvReac Type Severity Reaction Status Date / Time codeine [CODEINE] Allergy Severe AGITATION, Verified 09/13/24 12:45 mentally unstable amoxicillin [AMOXICILLIN] Allergy Intermediate RASH Verified 09/13/24 12:45 latex [LATEX] Allergy Intermediate RASH Verified 09/13/24 12:45 seasonal Allergy Unknown Unknown Uncoded 09/13/24 12:45 SEASONAL ALLERGIES Allergy Unknown WHEEZING Uncoded 09/13/24 12:45 Active Medications: Current Medications Lactated Ringer's (Lr) 1,000 mls @ 80 mls/hr IVCONT .[id number] CHRIS Last Admin: 09/13/24 13:30 Dose: 80 mls/hr Home Medications ?Medication ?Instructions ?Recorded ?Confirmed ?Last Taken ?Type anastrozole 1 mg tablet 1 mg PO DAILY 07/25/20 09/13/24 Unknown History calcium 600 mg (as cap PO 07/25/20 06/14/24 Unknown History carbonate)-vitamin D3 12.5 mcg (500 unit) capsule (Calcium with Vit D3) loratadine 10 mg tablet (Claritin) 10 mg PO DAILY 07/25/20 09/13/24 Unknown History multivitamin 1 tab PO DAILY 07/25/20 09/13/24 Unknown History omeprazole 20 mg capsule,delayed 20 mg PO DAILY 09/28/20 09/13/24 Unknown History release melatonin 10 mg tablet 10 mg PO BEDTIME PRN Insomnia 12/25/20 09/13/24 Unknown History antiarthritic combination no.2 900 750 mg PO PRN Pain (Scale Score 05/24/21 06/14/24 Unknown History mg tablet (glucosamine-chondroitin) 1-3) citalopram 10 mg tablet 10 mg PO DAILY 05/24/21 09/13/24 Unknown History naproxen sodium 220 mg tablet 220 mg PO BID PRN Pain, Mild 05/24/21 09/13/24 Unknown History (Aleve) turmeric 100 mg-dixie 150 cap PO 05/24/21 06/14/24 Unknown History mg-olive 50 mg-oreg 150 mg-capryl capsule atorvastatin 10 mg tablet 10 mg PO DAILY 10/30/22 09/13/24 Unknown History Exam Height,Weight and Vital Signs: Height 5 ft 8 in Weight 81.193 kg Last Vital Signs Temp 98.1 F 09/13/24 13:01 Pulse 77 09/13/24 13:01 Resp 18 09/13/24 13:01 BP 170/84 H 09/13/24 13:01 Pulse Ox 97 09/13/24 13:01 O2 Del Method Room Air 09/13/24 13:01 Airway Mallampati Class: II TM Dist: >3cm Neck ROM: Full Loose/Missing/Broken Teeth: Yes and Upper Heart: RRR Lungs: CTA Assessment and Plan Assessment Anesthesia Assessment: Anesthesia Plan Discussed and Chart Reviewed Final Anesthetic Review History of Problems with Anesthesia: No NPO: Yes ASA Class: II Final Preanesthetic Review: Meds/Allgs Chart Reviewed, Consent Obtained/Reviewed and Anes Risks/Benef Reviewed Patient Risk: Low Procedure Risk: Low Anesthetic Plan Anesthetic Plan: GA Disposition: Standard PACU
--- NOTE | 2024-09-13 14:39 | P.CONAN_ITS ---
HPI - Anesthesia Eval Consult details Narrative: right middle finger fracture finger PMFSH Active Problems Active Problems: All Active Problems Fracture of proximal phalanx of right middle finger (Acute) Nodule of lower lobe of right lung (Acute) Nicotine dependence, cigarettes, uncomplicated (Acute) History of breast cancer (Acute ~2020) Infiltrating ductal carcinoma of breast (Acute) Past Medical History Medical History History of breast cancer (~2020) Mitral valve prolapse Hypercholesterolemia GERD (gastroesophageal reflux disease) Nicotine dependence, cigarettes, uncomplicated Depression Family History Family History Mother Breast cancer, Onset Age: 75 Maternal Grandmother Breast cancer Father Throat cancer Mouth cancer Family history of problems with anesthesia: No Surgical History Surgical History History of lumpectomy of right breast History of colonoscopy History of Problems with Anesthesia: No Social History Social History Are you a primary child day care provider to a significant other at home: No Do you presently have visiting nurse or other home services: No Alcohol intake: current Alcohol intake frequency: 0-2 drinks per day Alcohol type: wine Patient Tobacco Use Status: Current someday Tobacco user Tobacco use type: Cigarette Years Smoked: onset 17yo, 1/2ppd x 41yrs - 20PYH Smoked in Last 30 Days: Yes Patient Interested in Nicotine Replacement: No Have you been hit, kicked, punched, or otherwise hurt by someone within the past year? 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 Meds Allergies Allergy/AdvReac Type Severity Reaction Status Date / Time codeine [CODEINE] Allergy Severe AGITATION, Verified 09/13/24 12:45 mentally unstable amoxicillin [AMOXICILLIN] Allergy Intermediate RASH Verified 09/13/24 12:45 latex [LATEX] Allergy Intermediate RASH Verified 09/13/24 12:45 seasonal Allergy Unknown Unknown Uncoded 09/13/24 12:45 SEASONAL ALLERGIES Allergy Unknown WHEEZING Uncoded 09/13/24 12:45 Active Medications: Current Medications Lactated Ringer's (Lr) 1,000 mls @ 80 mls/hr IVCONT .[id number] CHRIS Last Admin: 09/13/24 13:30 Dose: 80 mls/hr Home Medications ?Medication ?Instructions ?Recorded ?Confirmed ?Last Taken ?Type anastrozole 1 mg tablet 1 mg PO DAILY 07/25/20 09/13/24 Unknown History calcium 600 mg (as cap PO 07/25/20 06/14/24 Unknown History carbonate)-vitamin D3 12.5 mcg (500 unit) capsule (Calcium with Vit D3) loratadine 10 mg tablet (Claritin) 10 mg PO DAILY 07/25/20 09/13/24 Unknown History multivitamin 1 tab PO DAILY 07/25/20 09/13/24 Unknown History omeprazole 20 mg capsule,delayed 20 mg PO DAILY 09/28/20 09/13/24 Unknown History release melatonin 10 mg tablet 10 mg PO BEDTIME PRN Insomnia 12/25/20 09/13/24 Unknown History antiarthritic combination no.2 900 750 mg PO PRN Pain (Scale Score 05/24/21 06/14/24 Unknown History mg tablet (glucosamine-chondroitin) 1-3) citalopram 10 mg tablet 10 mg PO DAILY 05/24/21 09/13/24 Unknown History naproxen sodium 220 mg tablet 220 mg PO BID PRN Pain, Mild 05/24/21 09/13/24 Unknown History (Aleve) turmeric 100 mg-dixie 150 cap PO 05/24/21 06/14/24 Unknown History mg-olive 50 mg-oreg 150 mg-capryl capsule atorvastatin 10 mg tablet 10 mg PO DAILY 10/30/22 09/13/24 Unknown History Exam Height,Weight and Vital Signs: Height 5 ft 8 in Weight 81.193 kg Last Vital Signs Temp 98.1 F 09/13/24 13:01 Pulse 77 09/13/24 13:01 Resp 18 09/13/24 13:01 BP 170/84 H 09/13/24 13:01 Pulse Ox 97 09/13/24 13:01 O2 Del Method Room Air 09/13/24 13:01 Airway Mallampati Class: II TM Dist: >3cm Neck ROM: Full Heart: rrr Lungs: cta Assessment and Plan Assessment Anesthesia Assessment: Anesthesia Plan Discussed Final Anesthetic Review Family History of Problems with Anesthesia: No History of Problems with Anesthesia: No NPO: Yes ASA Class: III Final Preanesthetic Review: No Changes in Pt Med Stat, Meds/Allgs Chart Reviewed, Consent Obtained/Reviewed and Anes Risks/Benef Reviewed Patient Risk: Intermediate Procedure Risk: Low Anesthetic Plan Anesthetic Plan: GA and MAC: Disposition: Standard PACU
[2024-09-13 17:15] VITALS: BP 158/91; PULSE 92; RESP 18; TEMP 36.4; O2SAT 99
[2024-09-13 17:20] VITALS: BP 170/99; PULSE 85; RESP 18; O2SAT 94
[2024-09-13 17:25] VITALS: BP 179/106; PULSE 84; RESP 18; O2SAT 93
[2024-09-13] MEDS: Acetaminophen 1,000 MG/100 ML PIGGYBACK 400 MG IV (17:27)
[2024-09-13 17:30] VITALS: BP 179/107; PULSE 82; RESP 18; O2SAT 93
[2024-09-13] MEDS: oxyCODONE HCl Immed Release 5 MG TABLET PO (17:34)
[2024-09-13 17:45] VITALS: BP 149/73; PULSE 78; RESP 20; TEMP 36.9; O2SAT 94
== END 2024-09-13 18:05 | disposition home or self-care (01) ==
PROVIDERS: PCP Internal Medicine Medical Oncology; Visit Provider Orthopaedic Surgery
PROC: (CPT 26727; principal; 2024-09-13 15:00)
DX: S62.612A Displaced fracture of proximal phalanx of right middle finger, initial encounter for closed fracture (principal); M79.641 Pain in right hand; W23.1XXA Caught, crushed, jammed, or pinched between stationary objects, initial encounter; Y93.K1 Activity, walking an animal; Y92.9 Unspecified place or not applicable; Y99.9 Unspecified external cause status; R20.2 Paresthesia of skin; I34.1 Nonrheumatic mitral (valve) prolapse; E78.00 Pure hypercholesterolemia, unspecified; F32.A Depression, unspecified; C50.911 Malignant neoplasm of unspecified site of right female breast; Z79.811 Long term (current) use of aromatase inhibitors; Z79.1 Long term (current) use of non-steroidal anti-inflammatories (NSAID); Z79.899 Other long term (current) drug therapy; Z88.1 Allergy status to other antibiotic agents; Z88.5 Allergy status to narcotic agent; Z91.040 Latex allergy status; F17.210 Nicotine dependence, cigarettes, uncomplicated; Z98.890 Other specified postprocedural states
CPT/HCPCS: 26727; J0131; J0690; J2003; J2004; J2250; J2704; J2795; J3010

== ENCOUNTER → 2024-09-13 11:42 | Outpatient (BNV) | payer BC, SELFPAY | PROVIDERS: PCP Internal Medicine Medical Oncology; Visit Provider Orthopaedic Surgery | DX: S62.612A Displaced fracture of proximal phalanx of right middle finger, initial encounter for closed fracture (principal) | CPT/HCPCS: 26727 ==

== ENCOUNTER 2024-09-23 12:36 | Outpatient (AMB) | payer BC, SELFPAY ==
--- NOTE | 2024-09-23 12:48 | A.OFFVIS_ITS ---
Vital Signs 09/23/24 12:52 Height 5 ft 7.5 in Weight 175 lb BMI 27.0 Handedness Right Intake Visit Reasons: PO RT MF CRPP vs ORIF 09/13/24 AR-Splint change Intake Note: Sofia is a 59 year old right hand dominant female who presents today post operatively status post right middle finger proximal phalanx CRPP DOS: 09/13/2024 w/ Dr Olson. Patient presents today for a splint change. She expresses her post operative appointment is next week however she does not think her splint will hold up until then. Denies any pain. Allergies codeine [CODEINE] Allergy (Severe, Verified 09/23/24 12:53) AGITATION, mentally unstable amoxicillin [AMOXICILLIN] Allergy (Intermediate, Verified 09/23/24 12:53) RASH latex [LATEX] Allergy (Intermediate, Verified 09/23/24 12:53) RASH seasonal Allergy (Unknown, Uncoded 09/23/24 12:53) Unknown SEASONAL ALLERGIES Allergy (Unknown, Uncoded 09/23/24 12:53) WHEEZING Medication List - Last Reconciled 09/23/24 by Leti Bhakta PA-C anastrozole 1 mg PO DAILY antiarthritic combination no.2 (glucosamine-chondroitin) 750 mg PO PRN atorvastatin 10 mg PO DAILY calcium carbonate-vitamin D3 600 mg-12.5 mcg (500 unit) (Calcium with Vit D3) caps PO citalopram 10 mg PO DAILY loratadine (Claritin) 10 mg PO DAILY melatonin 10 mg PO BEDTIME PRN multivitamin 1 tab PO DAILY naproxen sodium (Aleve) 220 mg PO BID PRN omeprazole 20 mg PO DAILY oxycodone-acetaminophen 5-325 mg 1 tab PO Q6H PRN kcfafyub-zofx-gwrvq-oreg-capry 100 mg-150 mg- 50 mg-150 mg caps PO HPI HPI PO RT MF CRPP vs ORIF 09/13/24 AR-Splint change: Details: 59-year-old female who presents to the office today for a splint change of her right hand. She is status post CRPP right middle finger on 09/[address] Olson[address] [facility] Medical History History of breast cancer (~2019) Mitral valve prolapse Hypercholesterolemia GERD (gastroesophageal reflux disease) Nicotine dependence, cigarettes, uncomplicated Depression Surgical History History of lumpectomy of right breast History of colonoscopy Family History Mother Breast cancer, Onset Age: 75 Maternal Grandmother Breast cancer Father Throat cancer Mouth cancer Social History Are you a primary medicare specialist to a significant other at home: No Do you presently have visiting nurse or other home services: No Alcohol intake: current Alcohol intake frequency: 0-2 drinks per day Alcohol type: wine Comment: medicated Patient Tobacco Use Status: Current someday Tobacco user Tobacco use type: Cigarette Years Smoked: onset 17yo, 1/2ppd x 41yrs - 20PYH Current occupational status: employed 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 No surrounding erythema or drainage. Office Procedures Casting/Splints Other Splint (hAnd splint) Procedure code (CPT) selection complete Assessment & Plan Assessment & Plan (1) Fracture of proximal phalanx of right middle finger: Code(s): S62.612A - Displaced fracture of proximal phalanx of right middle finger, initial encounter for closed fracture Category: Medical Plan: Pin sites are clean dry and intact. They were cleaned and redressed. Patient was placed in a volar splint in the position of safety. She will keep this clean dry and intact. No lifting with the right hand until seen by Dr. Olson on 09/29 for her routine postop appointment. She will contact us sooner if needed. Coding Level of Care Code Global (80306) Diagnoses Fracture of proximal phalanx of right middle finger S62.612A
[2024-09-23 12:52] VITALS: BMI 27.0
--- OUTSIDE RECORDS SUMMARY | 2024-09-23 13:43 | XMS_ITS ---
Author Organization Natalio Willingham III, MD Address [address] [place] [place] [address] Care Team Providers Care Ophthalmic Medical Assistant Name Role Phone Natalio Willingham Primary Care Provider [phone] REASON FOR VISIT Needs call back from Social History Sex Assigned At : Social History Observation Description Sex Assigned At Female Encounters Encounter Location Date Provider Diagnosis Natalio Willingham III, MD [address] [place] [address] [place] [address] 09/01/2024 Natalio Willingham Plan Of Treatment Next Appt Details Provider Name:Natalio Willingham, 10/08/2024 04:00:00 PM, [address] [place] [address] [place], [address], Provider Name:Natalio Willingham, 05/10/2025 03:00:00 PM, [address] [place] [address] [place], [address], Progress Notes * Zackary ESPINO EDOB:[birth year] (59 yo F)Acc No.[id number]:09/01/2024 Patient:HowieZackary ESPINO :1965???Age:59 Y???Sex:Female Address:[address] [place] [address] * true * Date:? Generated for Tati ennis/So/Waqaritting on:?09/23/2024 01:43 PM EST
--- OUTSIDE RECORDS SUMMARY | 2024-09-23 13:43 | XMS_ITS ---
Author Organization Natalio Willingham III, MD Address [address] [place] [address] Care Team Providers Care Pulper Operator Name Role Phone Natalio Willingham Primary Care Provider [phone] Allergies Allergen (clinical drug ingredient) Drug/Non Drug [...] Problem Status W/U Status Risk Notes Problem [id number] Closed displaced fracture of proximal phalanx of right middle finger, initial encounter (S62.612A) Active confirmed She will proceed to surgery this afternoon with medical clearance for general anesthesia. Follow-up visit was arranged. Vital Signs Temperature 96.9 degrees Fahrenheit 09/13/20 24 Blood pressure systolic 135 mm Hg 09/13/20 24 Blood pressure diastolic 80 mm Hg 024 Heart Rate 91 /min 09/13/2024 Height 68 in 09/13/2024 Weight 179 lbs 09/13/2024 BMI 27.21 kg/m2 09/13/2024 Encounters Encounter Location Date Provider Diagnosis Natalio Willingham III, MD [address] [place] [address] [address], [place] [address] 09/13/2024 Natalio Willingham Elevated blood press ure [...] Her esophageal reflux is well controlled with fujl-brr-jefwdsq medications. 09/13/2024 Hyperlipidemia (ICD-10 - E78.5) Comprehensive [...] 2 Weeks, Reason: Office visit Provider Name:Natalio Willingham, 10/08/2024 04:00:00 PM, [address] [place] [address] [address], [place], [address], Provider Name:Natalio Willingham, 05/10/2025 03:00:00 PM, [address] [place] [address] [address], [place], [address], Progress Notes * Ayah ESPINO EDOB:[birth year] (59 yo F)Acc No.[id number]:09/13/2024 Progress Notes Patient:?Ayah ESPINO Provider:?Natalio Willingham MD :1965???Age:59 Y???Sex:Female D ate:09/13/2024 Address:[address], [place], [place]-[id number] Subjective: * Chief Complaints: * ???Recent elevation of blood pressureRecent displaced fracture right third finger proximal phalanxPreoperative medical clearanceHistory of depressionTobacco dependenceCarcinoma right breastOsteoporosis * HPI: ???COVID-19 Screening:? On September 08, 2024 she was walking her dog on a leash when there was a forceful pull twisting her hand and causing a displaced fracture of the right third finger proximal phalanx.? She went to the emergency room in [facility] where was splinted.? She is scheduled for orthopedic surgery in the near future with Dr. Jefferson, hand surgery at [facility].? In the emergency room her blood pressure was 200/120.? She is quite concerned that she will not be able to have surgery if this is still her blood pressure.? She came in today for a general medical check and clearance as well as blood pressure evaluation.? Her blood pressure was within the normal range lying down today.? She will proceed this afternoon to have hannd surgery under general anesthesia with normal Ris.? She is medically cleared for the procedure. ?Questions?Have you had any new onset fever, chills, cough, congestion, sore throat, shortness of breath, muscle aches??No * ROS:?General/Constitutional:?pain?Right hand third finger.?Chills?denies.?Fatigue?admits.?Fever?denies.?ENT:?Decreased hearing?denies.?Respiratory:?Cough?non-productive.?Cardiovascular:?Chest pain with exertion?denies.?Dyspnea on exertion?denies.?Shortness of breath?denies.?Gastrointestinal:?Constipation?denies.?Decreased appetite?that is not associated with weight loss.?Diarrhea?denies.?Heartburn?denies.?Nausea?denies.?Rectal bleeding?denies.?Vomiting?denies.?Hematology:?bruising?denies.?petechiae?denies.?Swollen glands?none have been noted.?Genitourinary:?Frequent urination?denies.?Musculoskeletal:?Muscle aches?denies.?Painful joints?Right third finger DIP and MCP joints.?Sciatica?denies.?Weakness?denies.?Skin:?Itching?denies.?Rash?denies.?Skin lesion(s)?denies.?Neurologic:?Difficulty speaking?denies.?Dizziness?denies.?Headache?denies.?Low back pain?denies.?Psychiatric:?Depressed mood?which is mild.? * Medical History:? * Surgical History:?Right [address] st Lumpectomy [id number] of radiation 06/06/20No history * Hospitalization/Major Diagno [...] and raising children. She was born in [place], [place]. She has been to [place] for 20 years. Thery have 2 children. Smoking: The patient is a smoker, currently smoking around 12 cigarettes a day. * Medications:?TakingProAir HF A 108 (90 Base) MCG/ACT Aerosol Solution 2 [...] PhosphateLatexPenicillinno[Allergies Verified] Objective: * Vitals:?Ht: 68, Wt: 179, BMI :27.21, BP: 135/80, HR: 91, Temp: 96.9, Wt-k.19. * ???Past Orders: ???Imaging:XR hand RT min 3V (Order Date - 09/08/2024) (Performed Date - 09/08/2024) * Examination: ???General Examination: ?GENERAL APPEARANCE:?pleasant, well nourished, well developed, in no acute distress, calm and relaxed, overweight, woman.?HEAD:?atraumatic, normocephalic.?EYES:?eomi, perrla, anicteric, conjugate.?EARS:?normal.?NOSE:?septum intact.?ORAL CAVITY:?normal, unremarkable.?NECK/THYROID:?no jugular venous distention, no carotid bruit, thyroid normal.?LYMPH NODES:?no enlarged lymph nodes,spleen normal.?SKIN:?no suspicious lesions, anicteric.?HEART:?no clicks, gallops, murmurs, or rubs, regular rhythm, S1, S2 normal, no s3, or vascular bruits.?LUNGS:?clear to auscultation .?BREASTS:?no dimpling, no discharge, no drainage, no masses palpable bilaterally.?ABDOMEN:?bowel sounds normal, no ascites, no organomegaly, no mass, overweight.?RECTAL EXAM:?not examined.?MUSCULOSKELETAL:?extremities unremarkable, no clubbing, cyanosis or edema.?PERIPHERAL PULSES:?normal.?NEUROLOGIC:?alert and oriented, cranial nerves 2-12 grossly intact, deep tendon reflexes 2+ symmetrical, motor strength normal upper and lower extremities, sensory exam intact.?PSYCH:?alert, oriented, mood depressed.? Assessment: * Assessment: 1.?Closed displaced fracture of proximal phalanx of right middle finger, initial encounter - R02.212A (Primary)???Notes :She will proceed to surgery this afternoon with medical clearance for general anesthesia.? Follow-up visit was arranged.???2.?Elevated blood pressure reading - R03.0???Notes :Her blood pressure todday was within normal limits and no change in her regimen was necessary.? The elevated blood pressure and recent emergency room visit was likely due to the fracture.???3.?Depressive disorder, not elsewhere classified - F32.9???Notes :She has slowly been tapering the citalopram. Her depression is in remission and was not evident today.???4.?Tobacco dependence - F17.200???Notes :We have had another discussion of all the health consequences of smoking. She wants very much to stop smoking, but is concerned about gaining weight. I recommended she try the nicotine patches. She did not want to try anything else.???5.?Gastro-esophageal reflux disease without esophagitis - K21.9???Notes :Her esophageal reflux is well controlled with nzxq-ddv-msiqfnh medications.???6.?Hyperlipidemia - E78.5???Notes :Comprehensive blood work with a fasting lipid profile was ordered prior to her next visit. She continues her efforts at weight loss and consumption of a healthy diet.???7.?Overweight - E66.3???Notes :Her body mass index is 29 and she has lost weight. I've encouraged her to continue exercising and eating a healthy diet.???8.?Malignant neoplasm of lower-outer quadrant of right female breast - C50.511???Notes :There is no sign of breast cancer in either breast at this time. There is no sign of a new primary or recurrence. Right axillas. Appearance is unchanged. There is a palpable muscle mass in the center of the axilla, but it is symmetrical with the left which is not tender.??? Plan: * Treatment: * Procedure Codes:? * Preventive Medicine:? ??Counseling:?Care [...] dangers of tobacco use and urged to quit.?09/13/2024 ?Patient Lifestyle Goals?Patient wants to quit ?Treatment Goals?Set a quit date, Cut down by 1 cigarette a week ?Barriers?Social smoker, Stress ?Self-Management Plan?Make a plan to cut down number of cigarettes over time and set a date to work towards quitting * Follow Up:?2 Weeks (Reason: Office visit) * Images: * Sign off status: Completed true * Provider:?Natalio Willingham MD Date:?08/17 Generated for Tati ennis/So/eTransmitting on:?09/23/2024 01:43 PM EST History and Physical Notes [...]
--- OUTSIDE RECORDS SUMMARY | 2024-09-23 13:44 | XMS_ITS | Patient Health Record ---
Author Organization Natalio Willingham III, MD Address [address] [place] [address] Care Team Providers Care Rn Endoscopy Name Role Phone Natalio Willingham Primary Care [...] date:06/14/2024 05:59:01 AM Interpretation: Performing Lab: Notes/Report: [address] [address] [address] Scan Report Signed Patient: Ayah Tillman MR#: [id number] 8 : 1965 Acct:[id number] Age/Sex: 58 / F ADM Date: 01/16/24 Loc: HO.CT Attending Dr: Nimco Dickerson PA-C Ordering Physician: Nimco Dickerson PA-C Date of Service: 01/16/24 Procedure(s): CT lung screening Accession Number(s): [id number] cc: Natalio Willingham MD; Nimco Dikcerson PA-C EXAMINATION: CT CHEST SCREENING CLINICAL INFORMATION: [...] in OV> 01/21/24 0103 DD/ 1005 TD/TT: Car Unloader: [address] [address] [address] Scan Report Signed Patient: Cristhian Tillman MR#: [id number] 8 : 1965 Acct:[id number] Age/Sex: 58 / F ADM Date: 01/16/24 Loc: HO.CT Attending Dr: Nimco Dickerson PA-C Ordering Physician: Nimco Dickerson PA-C Date of Service: 01/16/24 Procedure(s): CT lung screening Accession Number(s): [id number] cc: Natalio Willingham MD; Nimco Dickerson PA-C [...] in OV> 01/21/24 0103 DD/ 1005 TD/TT: Car Unloader: TERRY CT lung screen follow up Reviewed date:06/14/2024 05:59:01 AM Interpretation: Performing Lab: Notes/Report: [address] [address] [address] Scan Report Signed Patient: Ayah Tillman MR#: [id number] 8 : 1965 Acct:[id number] Age/Sex: 59 / F ADM Date: 04/21/24 Loc: HO.CT Attending Dr: Nimco Dickerson PA-C Ordering Physician: Nimco Dickerson PA-C Date of Service: 04/21/24 Procedure(s): CT lung screen follow up Accession Number(s): [id number] cc: Natalio Willingham MD; Nimco Dickerson PA-C [...] CT LUNG CANCER SCREENING SHORT INTERVAL FOLLOWUP ([id number]) can be placed. Electronically signed by: Joe Nam MD 05/28/2024 03:07 PM EDT RP Dictated By: Joe Nam MD Signed By: <Electronically signed by Joe Nam MD in OV> 05/28/24 1507 DD/ 0853 TD/TT: 04/21/24 0900 Car Unloader: [place] [address] [address] Scan Report Signed Patient: Cristhian Tillman MR#: [id number] 8 : 1965 Acct:[id number] Age/Sex: 59 / F ADM Date: 04/21/24 Loc: .CT Attending Dr: Nimco Dickerson PA-C Ordering Physician: Nimco Dickerson PA-C Date of Service: 04/21/24 Procedure(s): CT olegario g screen follow up Accession Number(s): [id number] cc: Natalio Willingham MD; Nimco Dickerson PA-C [...] LUNG CANCER JEANNE ROSSG SHORT INTERVAL FOLLOWUP ([id number]) can be placed. Electronically rios d by: Joe Nam MD 05/28/2024 03:07 PM EDT Dictated By: Joe Nam MD Signed By: <Electron ically signed by Joe Nam MD in OV> 05/28/24 1507 DD/ 0853 TD/TT: 04/21/24 0900 Car Unloader: WERO MM tomosynthesis screening B I Reviewed date:06/14/2024 05:59:01 AM Interpretation: Performing Lab: Notes/Report: [address] [place] [address] Mammography Report Signed Patient: Ayah Tillman MR#: [id number] 8 : 1965 Acct:[id number] Age/Sex: 59 / F ADM Date: 06/01/24 Loc: HO.MAMMO Attending Dr: Natalio Willingham MD Ordering Physician: Natalio Willingham MD Results: 1Negativ e Date of Service: 06/01/24 Follow Up: 1 Year From Orig inal Mammogram Procedure(s): MM tomosynthesis screening BI Accession Number(s): [id number] cc: Natalio Willingham MD EXAMINATION: MM SCREENING [...] 06/03/24 1809 DD/ 1545 TD/TT: 06/01/24 1600 Car Unloader: [address] [place] [address] Mammography Report Signed Patient: Cristhian Tillman MR#: [id number] 8 : 1965 Acct:[id number] Age/Sex: 59 / F ADM Date: 06/01/24 Loc: HO.MAMMO Attending Dr: Natalio Willingham MD Ordering Physician: Natalio Willingham MD Results: 1Negativ e Date of Service: Follow Up: 1 Year From Orig inal Mammogram Procedure(s): MM eliana osynthesis screening BI Accession Number(s): [id number] cc: Natalio Willingham MD EXAMINATION: MM SCREENING [...] 06/03/24 1809 DD/ 1545 TD/TT: 06/01/24 1600 Car Unloader: BOUCHRA ho RT min 3V Reviewed date:09/08/2024 09:49:44 AM Interpretation: Performing Lab: Notes/Report: [address] [address] XRay Report Signed Patient: Ayah Tillman MR#: [id number] 8 : 1965 Acct:[id number] Age/Sex: 59 / F ADM Date: 09/08/24 Loc: HO.ED Attending Dr: Ordering Physician: Generic ED Physician Date of Service: 09/08/24 Procedure(s): XR hand RT min 3V Accession Number(s): [id number] cc: Natalio Willingham MD; Generic ED Physician [...] by: Jed East MD 09/08/2024 08:[address] [facility] Dictated By: Jed East Signed By: <Electronically signed by Jed East in OV> 09/08/24 0855 DD/ 0840 TD/TT: 09/08/24 0845 Car Unloader: [place] [address] XRay Report Signed Patient: Cristhian Tillman MR#: [id number] 8 : 1965 Acct:[id number] Age/Sex: 59 / F ADM Date: 09/08/24 Loc: HO.ED Attending Dr: Ordering Physician: Generic ED Physician Date of Service: 09/08/24 Procedure(s): XR hand RT min 3V Accession Number(s): [id number] cc: Natalio Willingham MD; Generic ED Physician [...] Jed East MD 09/08/2024 08:55 AM EST Dictated By: Jed East Signed By: <Electron ically signed by Jed East in OV> 09/08/24 0855 DD/ 0840 TD/TT: 09/08/24 0845 Car Unloader: XR hand RT min 3V Reviewed date:09/14/2024 11:39:13 AM Interpretation: Performing Lab: Notes/Report: [facility] [address] [place] [address] [address] [place] [address] XRay Report Signed Patient: Ayah Tillman MR#: [id number] 8 : 1965 Acct:[id number] Age/Sex: 59 / F ADM Date: 09/10/24 Loc: HO.HOSX Attending Dr: Calvin QUIROZ Ordering Physician: Calvin Shelton Date of Service: 09/10/24 Procedure(s): XR hand RT min 3V Accession Number(s): [id number] cc: Calvin Shelton; Natalio Willingham MD CLINICAL HISTORY: M79.641 - Pain in right hand Exam: AP, lateral, and oblique views of the right hand. Comparison: None. Findings: Fracture involving the mid to distal diaphysis of the proximal phalanx of the long finger. The dominant fracture line is an obliquely oriented fracture. However, there is some comminution of this fracture. There is 3 mm of ulnar displacement and 2 mm of dorsal displacement of the distal fracture fragment. Fracture does not extend to the articular surfaces. No other fractures identified. Impression: Proximal phalanx long finger fracture as above. This document has been electronically signed by: Orville Ardon MD on 09/14/2024 07:29:42 Dictated By: Orville Ardon MD Signed By: <Electronically signed by Orville Ardon MD in OV> 09/14/24729 DD/ 8 TD/TT: 09/14/24728 Car Unloader: [facility] [address] [place] [address] [address] [place] [address] XRay Report Signed Patient: Cristhian Tillman MR#: [id number] 8 : 1965 Acct:[id number] Age/Sex: 59 / F ADM Date: 09/10/24 [facility] Att[facility] Dr: Calvin QUIROZ Ordering Physician: Calvin Shelton Date of Service: 09/10/24 Procedure(s): XR hand RT min 3V Accession Number(s): [id number] cc: Calvin Shelton ; Natalio Willingham MD CLINICAL HISTORY: M7 9.641 - Pain in right hand Exam: AP, lateral, a nd oblique views of the right hand. Comparison: None. Findings: Fracture involving t he mid to distal diaphysis of the proximal phalanx of the long finger. The dominant fracture line is an obliquely oriented fracture. However, t here is some comminution of this fracture. There is 3 mm of uln ar displacement and 2 mm of dorsal displacement of the distal fracture fragment. Fracture does not ex tend to the articular surfaces. No other fractures identified. Impression: Proximal phalanx tristian g finger fracture as above. This document has be en electronically signed by: Orville Ardon MD on 09/14/2024 07:29:42 Dictated By: Orville Ardon MD Signed By: <Sujata cohen signed by Orville Ardon MD in OV> 09/14/24729 DD/ 8 TD/TT: 09/14/24728 Car Unloader: Reason For Referral Reason Consult and Treat Diagnosis 1 Tobacco use disorder (Z72.0) Diagnosis 2 Tobacco dependence ( F17.200) Referral Organization Natalio Willingham III, MD Referring Provider First Name Natalio Referring Provider Last Name Tarsha Referring Provider Speciality Internal M edicine Referred Provider [facility] er, Thoracic Surgeons Referred Provider Specialty Thoracic Diane jez General Notes Livier Kiser 2023 03:09:11 PM EST > faxed with cover sheet, referral and progress notes, Livier Kiser 11/18/2023 11:01:14 AM EST > Office has [...] Problem Status W/U Status Risk Notes Problem 104923651 Overweight (BMI 25.0-29.9) (E66.3) Active confirmed Her body mass index is 28 and her weight is stable. We have discussed diet and nutrition. We [facility] strategy. Problem 14832408 Hyperlipidemia (E78.5) Active confirmed Comprehensive blood work with a fasting lipid profile was ordered prior to her next visit. She continues her efforts at weight loss and consumption of a healthy diet. Problem 780029108 Pulmonary nodules (R91.8) Active confirmed The 2 nodule s in the right lung are large enough to be worrisome. A repeat CT scan has been scheduled for April 2024. Problem 026209511 Malignant neoplasm of lower-outer quadrant of right [...] the left which is not tender. Problem 933426621 Gastro-esophagea l reflux disease without esophagitis (K21.9) Active confirmed Her esophageal reflux is well controlled with fygq-mml-cuncz er medications. Problem 97020899 Tobacco dependence (F17.200) Active confirmed We have had another discussion of all the health consequences of smoking. She wants very much to stop smoking, but is concerned about gaining weight. I recommended she try the nicotine patches. She did not want to try anything else. Problem 141881624 Pulmonary nodule (R91.1) Active confirmed The right [...] diagnosis of early breast cancer. Problem Osteoporosis (11155465) Osteoporosis (M81.0) Active confirmed She is going to consider the use of alendronate. She will continue on vitamin D and calcium tablets. A repeat bone density will be done. She has 12 more months to go on her adjuvant endocrine anastrozole. Problem 78950759 Depressive disorder, not elsewhere classified (F32.9) Active confirmed She has slowly been tapering the citalopram. Her depression is in remission and was not evident today. Problem 023870141 BRCA1 negative (Z13.71) Active confirmed Problem 275648239 Closed displaced fracture of proximal phalanx of right middle finger, initial encounter (N72.547Z) Active confirmed She will proceed to surgery this afternoon with medical clearance for general anesthesia. Follow-up visit was arranged. Vital Signs Heart Rate 91 /min 09/13/2024 Temperature 96.9 degrees Fahrenheit 09/13/2024 Blood pressure diastolic 80 mm Hg 09/13/2024 Height 68 in 09/13/2024 Blood pressure systolic 135 mm Hg 09/13/2024 Weight 179 lbs 09/13/2024 BMI 27.21 kg/m2 09/13/2024 Encounters Encounter Location Date Provider Diagnosis Natalio Willingham III, MD [address] [place] [address] [place] [address] 11/05/2023 Natalio Willingham Hyperlipidemia E78.5 ; Overweight (BMI 25.0-29.9) E66.3 ; Depressive disorder, not elsewhere classified F32.9 ; Gastro-esophageal reflux disease without esophagitis K21.9 ; Tobacco dependence F17.200 ; Osteoporosis M81.0 and Malignant neoplasm of lower-outer quadrant of right female breast C50.511 Natalio Willingham III, MD [address] [place] [address] [place] [address] 03/05/2024 Natalio Willingham Depressive disorder, not elsewhere classified F32.9 ; Tobacco dependence F17.200 ; Gastro-esophageal reflux disease without esophagitis K21.9 ; Hyperlipidemia E78.5 ; Overweight E66.3 ; Malignant neoplasm of lower-outer quadrant of right female breast C50.511 ; Osteoporosis M81.0 and Pulmonary nodules R91.8 Natalio Willingham III, MD [address] [place] [address] [place] [address] 2024 Natalio Willingham Insect bite without infection W57.XXXA ; Depressive disorder, not elsewhere classified F32.9 ; Gastro-esophageal reflux disease without esophagitis K21.9 ; Hyperlipidemia E78.5 ; Tobacco dependence F17.200 and Osteoporosis M81.0 Natalio Willingham III, MD [address] [place] [address] [place] [address] 05/07/2024 Natalio Willingham Osteoporosis M81.0 ; Depressive disorder, not elsewhere classified F32.9 ; Gastro-esophageal reflux disease without esophagitis K21.9 ; Hyperlipidemia E78.5 ; Tobacco dependence F17.200 ; Malignant neoplasm of lower-outer quadrant of right female breast C50.511 and Labyrinthitis of both ears H83.03 Natalio Willingham III, MD [address] [place] [address] [place] [address] 06/11/2024 Natalio Willingham Encounter for immunization Z23 ; Depressive disorder, not elsewhere classified F32.9 ; Gastro-esophageal reflux disease without esophagitis K21.9 ; Hyperlipidemia E78.5 ; Tobacco dependence F17.200 ; Overweight (BMI 25.0-29.9) E66.3 and Pulmonary nodule R91.1 Natalio Willingham III, MD [address] [place] [address] [place] [address] 07/07/2024 Natalio Willingham Hyperlipidemia E78.5 ; Malignant neoplasm of lower-outer quadrant of right female breast C50.511 ; Overweight (BMI 25.0-29.9) E66.3 ; Depressive disorder, not elsewhere classified F32.9 ; Gastro-esophageal reflux disease without esophagitis K21.9 ; Tobacco dependence F17.200 ; Osteoporosis M81.0 and Pulmonary nodule R91.1 Natalio Willingham III, MD [address] [place] [address] [place] [address] 09/13/2024 Natalio Willingham [facility] blood press ure reading R03.0 ; Closed displaced fracture of proximal phalanx of right middle finger, initial encounter S62.612A ; Depressive disorder, not elsewhere classified F32.9 ; Tobacco dependence F17.200 ; Gastro-esophageal reflux disease without esophagitis K21.9 ; Hyperlipidemia E78.5 ; Overweight E66.3 and Malignant neoplasm of lower-outer quadrant of right female breast C50.511 Natalio Willingham III, MD [address] [place] [address] [place] [address] 03/22/2024 Natalio Willingham III, MD [address] [place] [address] [place] [address] 03/26/2024 Natalio Willingham III, MD [address] [place] [address] [place] [address] 03/26/2024 Natalio Willingham III, MD [address] [place] [address] [place] [address] 08/24/2024 Natalio Willingham III, MD [address] [place] [address] [place] [address] 09/01/2024 Natalio Willingham Assessments Encounter Date Diagnosis [...] with the left which is not tender. 09/13/2024 Elevated blood pressure reading (ICD-10 - [...] for general anesthesia. Follow-up visit was arranged. 11/05/2023 Depressive disorder, not elsewhere classified (ICD-10 - F32.9) She has slowly been tapering the citalopram. Her depression is in remission and was not evident today. 03/05/2024 Gastro-esophageal reflux disease without esophagitis (ICD-10 - K21.9) Her esophageal reflux is well controlled with lyvc-qfi-uxqwrjx medications. 2024 Gastro-esophageal reflux disease without esophagitis (ICD-10 - K21.9) Her esophageal reflux is well controlled with elrv-uoc-rbgwrue medications. 05/07/2024 Gastro-esophageal reflux disease without esophagitis (ICD-10 - K21.9) Her esophageal reflux is well controlled with elxd-ndn-crthxsf medications. 06/11/2024 Gastro-esophageal reflux disease without esophagitis (ICD-10 - K21.9) Her esophageal reflux is well controlled with tlzl-qqz-rajhpno medications. 07/07/2024 Overweight (BMI 25.0-29.9) (ICD-10 - E66.3) Her body mass index is 28 and her weight is stable. We have discussed diet and nutrition. [facility]. 09/13/2024 Depressive disorder, not elsewhere classified (ICD-10 - F32.9) She has slowly been tapering the citalopram. Her depression is in remission and was not evident today. 11/05/2023 Gastro-esophageal reflux disease without esophagitis (ICD-10 - K21.9) Her esophageal reflux is well controlled with adbz-bqj-qrrcsgt medications. 03/05/2024 Hyperlipidemia (ICD-10 - E78.5) Her [...] not want to try anything else. 11/05/2023 Tobacco dependence (ICD-10 - F17.200) We [...] Her esophageal reflux is well controlled with cffa-dwh-mbvagfa medications. 09/13/2024 Gastro-esophageal reflux disease without esophagitis (ICD-10 - K21.9) Her esophageal reflux is well controlled with mxuw-tpr-xvzwaap medications. 11/05/2023 Osteoporosis (ICD-10 - M81.0) She [...] not want to try anything else. 09/13/2024 Hyperlipidemia (ICD-10 - E78.5) Comprehensive blood work with a fasting lipid profile was ordered prior to her next visit. She continues her efforts at weight loss and consumption of a healthy diet. 11/05/2023 Malignant neoplasm o f lower-outer quadrant [...] to go on her adjuvant endocrine anastrozole. 09/13/2024 Overweight (ICD-10 - E66.3) Her body mass index is 29 and she has lost weight. I've encouraged her to continue exercising and eating a healthy diet. 03/05/2024 Pulmonary nodules (ICD-10 - R91.8) The 2 nodules in the right lung are large enough to be worrisome. A repeat CT scan has been scheduled for April 2024. 07/07/2024 Pulmonary nodule (ICD-10 - R91.1) The right lower lobe pulmonary nodule is thought to be stable and noncalcified measuring [address] scan of the chest has been ordered for July this year. It has been stable since that was detected in January 2024. She has a long history of cigarette smoking as well as a recent diagnosis of early breast cancer. 09/13/2024 Malignant neoplasm o f lower-outer quadrant [...] which is not tender. Plan Of Treatment Pending Test Test Name [...] Details Provider Name:Natalio Willingham, 10/08/2024 04:00:00 PM, [address] [place] [address] [address], [place], [address], Provider Name:Natalio Willingham, 05/10/2025 03:00:00 PM, [address] [place] [address] [address], [place], [address], Insurance Providers Payer Name Payer Address Payer Phone Subscriber Number Group Number Insured Name Patient Relationship to Insured Coverage Start Date Coverage End Date [facility] [address] [place], [place] [id number] Ayah Tillman Self - patient is the insured Medical (General) History Medical History History ICD Code anxiety/depression/PTSD lumbar spine disc disease 1995 overweight gerd occasional right uper extremities tremor s ? mitral valve prolapse abnormal mammograms tobacco dependence disorder 3 cm ER + AL+ Her2 - invasive right sina st cancer February 2020 Surgical History Surgery Date(Month/Year) No history Start of radiation 06/06/20 Right breast Lumpectomy 2020-03-15 Hospitalization History Reason Date(Month/Year) No history
--- OUTSIDE RECORDS SUMMARY | 2024-09-23 13:44 | XMS_ITS ---
Author Organization Natalio Willingham III, MD Address [address] [place] [address] Care Team Providers Care [employer] Team Member Name Role Phone Natalio Willingham Primary Care Provider REASON FOR VISIT COVID Positive Social History Sex Assigned At : Social History Observation Description Sex Assigned At Female Encounters Encounter Location Date Provider Diagnosis Natalio Willingham III, MD [address] [place] [address] [place] [address] 08/24/2024 Natalio Willingham Plan Of Treatment Next Appt Details Provider Name:Natalio Willingham, 10/08/2024 04:00:00 PM, [address] [place] [address] [place], [address], Provider Name:Natalio Willingham, 05/10/2025 03:00:00 PM, [address] [place] [address] [place], [address], Progress Notes * Zackary ESPINO EDOB:[birth year] (59 yo F)Acc No.[id number]:08/24/2024 Patient:?Zackary ESPINO :1965???Age:59 Y???Sex:Female Address:[address] [place] [address] * true * Date:? Generated for Tati ennis/So/Waqaritting on:?09/23/2024 01:43 PM EST
== END 2024-09-23 13:54 | disposition home or self-care (01) ==
PROVIDERS: PCP Internal Medicine Medical Oncology; Visit Provider Physician Assistant
DX: S62.612A Displaced fracture of proximal phalanx of right middle finger, initial encounter for closed fracture (principal)
CPT/HCPCS: 99024

== ENCOUNTER → 2024-09-23 12:36 | Outpatient (BNVA) | payer BC, SELFPAY | PROVIDERS: PCP Internal Medicine Medical Oncology; Visit Provider Physician Assistant ==

== ENCOUNTER 2024-09-29 10:25 | Outpatient (REF) | payer BC, SELFPAY ==
--- NOTE | ~2024-09-29 | XR_ITS ---
EXAMINATION: XR HAND 3 OR MORE VIEWS RIGHT HISTORY: M79.641 - Pain in right hand COMPARISON: Comparison is made with the prior examination dated 09/10/2024. FINDINGS: Three views of the right hand are submitted. Osseous mineralization is normal. The patient is status post internal fixation of the previously seen oblique fracture of the 3rd proximal phalanx with 4 K wires. The fracture line remains visible. No additional fractures seen. The joint spaces are preserved. The soft tissues are unremarkable. XR/XR hand RT min 3V IMPRESSION: Internal fixation of the previously seen oblique fracture of the 3rd proximal phalanx as described. Electronically signed by: Natalio Lam MD 09/30/2024 02:12 PM EST
== END 2024-09-29 10:26 | disposition home or self-care (01) ==
LOC: HO.HOSX 10:25
PROVIDERS: Visit Provider Orthopaedic Surgery
DX: M79.641 Pain in right hand (principal)
CPT/HCPCS: 73130

== ENCOUNTER 2024-09-29 11:50 | Outpatient (AMB) | payer BC, SELFPAY ==
--- NOTE | 2024-09-29 11:58 | A.OFFVIS_ITS ---
Intake Visit Reasons: PO RT MF CRPP vs ORIF 09/13/24 AR Allergies codeine [CODEINE] Allergy (Severe, Verified 09/23/24 12:53) AGITATION, mentally unstable amoxicillin [AMOXICILLIN] Allergy (Intermediate, Verified 09/23/24 12:53) RASH latex [LATEX] Allergy (Intermediate, Verified 09/23/24 12:53) RASH seasonal Allergy (Unknown, Uncoded 09/23/24 12:53) Unknown SEASONAL ALLERGIES Allergy (Unknown, Uncoded 09/23/24 12:53) WHEEZING HPI HPI PO RT MF CRPP vs ORIF 09/13/24 AR: Details: Ayah is a 59 year old right hand dominant woman who presents S/P right middle finger CRPP, DOS: 09/13/24. She was seen by RICHIE Landeros earlier than her typical 1st postop, on 09/23/24 for a splint change, saying her post-op splint came loose . The patient reports that she was using her right hand to write, which caused her fingertips including the middle fingertip to repeatedly strike the table. She was then placed in a new splint and is following up today. She had a right middle finger proximal phalanx fracture from an injury while walking her dog, DOI: 09/08/24 She says she is doing well and denies any pain. She is a smoker, and she says she might have been doing too much following her surgery which loosened her splint. She does say she was writing and was consistently striking her fingertips against the table surface. [facility] Medical History History of breast cancer (~2019) Mitral valve prolapse Hypercholesterolemia GERD (gastroesophageal reflux disease) Nicotine dependence, cigarettes, uncomplicated Depression Surgical History History of lumpectomy of right breast History of colonoscopy Family History Mother Breast cancer, Onset Age: 75 Maternal Grandmother Breast cancer Father Throat cancer Mouth cancer Social History Are you a primary adult day care worker to a significant other at home: No Do you presently have visiting nurse or other home services: No Alcohol intake: current Alcohol intake frequency: 0-2 drinks per day Alcohol type: wine Comment: medicated Patient Tobacco Use Status: Current someday Tobacco user Tobacco use type: Cigarette Years Smoked: onset 17yo, 1/2ppd x 41yrs - 20PYH Current occupational status: employed 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 Sutures removed and Steri-Strips applied There is some increased ulnar deviation of the middle finger at the fracture site. No cross-over of the middle finger Mild tenderness over the proximal phalanx. The pins are clean dry and intact with no drainage. Clinically there position appears acceptable. Sensation is intact Cap refill is brisk Radiographs: 3 views of the right hand, with attention to the middle finger, were taken and viewed by me today in clinic. They show a middle finger proximal phalanx shaft fracture with ~1 to 1.4 mm of displacement at the fracture site when compared with intraoperative radiographs., 2 of the K-wires appear to have backed out a couple millimetres, there is still some fixation in bone however. So, there has been a small amount of displacement compared with intraoperative radiographs, however if the fracture were to heal in the position it is today it appears to be satisfactory. Psych Appearance: grossly normal Affect: normal affect Attitude: cooperative Assessment & Plan Assessment & Plan (1) Fracture of proximal phalanx of right middle finger: Code(s): S62.612A - Displaced fracture of proximal phalanx of right middle finger, initial encounter for closed fracture Category: Medical (2) Nicotine dependence, cigarettes, uncomplicated: Comment: (current smoker, onset 17yo, 1/2ppd x 41yrs - 20PYH) Code(s): F17.210 - Nicotine dependence, cigarettes, uncomplicated Category: Medical Plan Assessment & Plan: 1. Right middle finger proximal phalanx shaft fracture, S/P CRPP DOI: 09/08/24 DOS: 09/13/24 The patient appears to be doing well , but has had a small amount of displacement at the fracture site since surgery. She has some mild displacement of the fracture site, and the post=op bandage was disturbed and required a splint change on 09/23/24 due to her fingertips striking the table surface while writing I showed the patient her new radiographs, and educated her about the post- operative course. We discussed operative vs non-operative management of her fracture given the small amount of displacement. She understandably would very much like to try to avoid surgery. We will try to manage this non-operatively and she is in agreement She was placed in a short arm finger spica cast with all 4 fingers placed in the safe position. Follow up with me in 2 weeks with new radiographs. I explained the signs and symptoms of infection, if the patient develops any new or worsening erythema, drainage, pain, or warmth they should contact the clinic or attend the ED. I discussed activity modifications I explained the effects of smoking on wound/bone healing, and recommend they stop smoking while healing. They expressed understanding She will follow up in 2 weeks with X-rays, 3V R hand attn MF. She will be 4 weeks postop at that time, however now with some displacement at the fracture site and a history of smoking. She understands that it is still possible that she may require repeat operative intervention. Scribed for Li Olson MD by Itz Ybarra, medical claims manager, on 09/29/24 at 12:10 PM, EST. Orders: Orders XR hand RT min 3V Today M79.641 - Pain in right hand Coding Level of Care Code Global (72535) Diagnoses Fracture of proximal phalanx of right middle finger S62.612A Nicotine dependence, cigarettes, uncomplicated F17.210
== END 2024-09-29 13:02 | disposition home or self-care (01) ==
PROVIDERS: PCP Internal Medicine Medical Oncology; Visit Provider Orthopaedic Surgery
DX: S62.612A Displaced fracture of proximal phalanx of right middle finger, initial encounter for closed fracture (principal); F17.210 Nicotine dependence, cigarettes, uncomplicated
CPT/HCPCS: 99024

== ENCOUNTER 2024-10-13 09:37 | Outpatient (REF) | payer BC, SELFPAY ==
--- NOTE | ~2024-10-13 | XR_ITS ---
EXAMINATION: XR HAND 3 OR MORE VIEWS RIGHT HISTORY: M79.641 - Pain in right hand COMPARISON: Comparison is made with the prior examination dated 09/29/2024. FINDINGS: Three views of the right hand are submitted. Osseous mineralization is normal. The patient is again noted to be status post internal fixation of an oblique fracture of the proximal phalanx of the middle finger with 4 K wires fracture line remains visible. No significant callus formation is noted. The joint spaces are preserved. The soft tissues are unremarkable. XR/XR hand RT min 3V IMPRESSION: Internally fixed oblique fracture of the proximal phalanx of the 3rd finger without significant change. Electronically signed by: Natalio Lam MD 10/14/2024 07:49 AM EST
--- OUTSIDE RECORDS SUMMARY | 2024-10-13 11:14 | XMS_ITS ---
Author Organization Natalio Willingham III, MD Address [address] [facility] [place] [address] Care Team Providers Care Psychologist Military Personnel Name Role Phone Natalio Willingham Primary Care Provider REASON FOR VISIT Needs call back from Social History Sex Assigned At : Social History Observation Description Sex Assigned At Female Encounters Encounter Location Date Provider Diagnosis Natalio Willingham III, MD [address] [place] [address] [place] [address] 09/01/2024 Natalio Willingham Plan Of Treatment Next Appt Details Provider Name:Natalio Willingham, 10/29/2024 11:30:00 AM, [address] [place] [address] [place], [address], Provider Name:Natalio Willingham, 05/10/2025 03:00:00 PM, [address] [place] [address] [place], [phone], Progress Notes * Zackary ESPINO EDOB:[birth year] (59 yo F)Acc No.[id number]:09/01/2024 Patient:HowieZackary ESPINO :1965???Age:59 Y???Sex:Female Address:[address], [place] [address] * true * Date:? Generated for Tati ennis/So/Waqaritting on:?10/13/2024 11:14 AM EST
--- OUTSIDE RECORDS SUMMARY | 2024-10-13 11:15 | XMS_ITS ---
Author Organization Natalio Willingham III, MD Address [address] [place] [address] Care Team Providers Care Checkman Name Role Phone Natalio Willingham Primary Care Provider [phone] Allergies Allergen (clinical drug ingredient) Drug/Non Drug [...] Problem Status W/U Status Risk Notes Problem [id number] Closed displaced fracture of proximal phalanx of [...] Date Provider Diagnosis Natalio Willingham III, MD [address] [place] [address] [address] [place], [place] [address] 09/13/2024 Natalio Willingham Elevated blood press ure [...] Her esophageal reflux is well controlled with lxfl-wiy-sjuocln medications. 09/13/2024 Hyperlipidemia (ICD-10 - E78.5) Comprehensive [...] Weeks, Reason: Office visit Provider Name:Natalio Willingham, 10/29/2024 11:30:00 AM, [address] [place] [address] [address], [place], [id number], Provider Name:Natalio Willingham, 05/10/2025 03:00:00 PM, [address] [place] [address] [place], [address], Progress Notes * Ayah ESPINO EDOB:[birth year] (59 yo F)Acc No.[id number]:09/13/2024 Progress Notes Patient:?Ayah ESPINO Provider:?Natalio Willingham MD :1965???Age:59 Y???Sex:Female D ate:09/13/2024 Address:[address], [place], [place]-[id number] Subjective: * Chief Complaints: * ???Recent [...] She went to the emergency room in [facility] where was splinted.? She is scheduled for orthopedic surgery in the near future with Dr. Jefferson, hand surgery at [facility].? In the emergency room her blood pressure [...] History:? * Surgical History:?Right sina st Lumpectomy [id number] of radiation 06/06/20No history * Hospitalization/Major Diagno [...] and raising children. She was born in [place], [place]. She has been to [place] for [...] of right middle finger, initial encounter - Q02.522A (Primary)???Notes :She will proceed to surgery this [...] :Her esophageal reflux is well controlled with ympy-lwv-wgsfhhx medications.???6.?Hyperlipidemia - E78.5???Notes :Comprehensive blood work with [...] Willingham MD Date:?08/17 Generated for Tati ennis/So/eTransmitting on:?10/13/2024 11:14 AM EST History and Physical Notes * [...]
--- OUTSIDE RECORDS SUMMARY | 2024-10-13 11:16 | XMS_ITS ---
Author Organization Natalio Willingham III, MD Address [address] [place] [address] Care Team Providers Care Power Electronics Engineer Name Role Phone Natalio Willingham Primary Care [...] Problem Status W/U Status Risk Notes Problem [id number] Essential hypertension (I10) Active confirmed She began metoprolol tartrate 25 mg twice a day today. Vital Signs Temperature 97.8 degrees Fahrenheit 10/08/19 25 Blood pressure systolic 150 mm Hg 10/08/19 25 Blood pressure diastolic 88 mm Hg 025 Heart Rate 78 /min 10/08/2024 Height 68 in 10/08/2024 Weight 176 lbs 10/08/2024 BMI 26.76 kg/m2 10/08/2024 Encounters Encounter Location Date Provider Diagnosis Natalio Willingham III, MD [address] [place] [address] [place] [address] 10/08/2024 Natalio Willingham Essential hypertensi on I10 [...] have discussed diet and nutrition. We reviewed [facility] weight loss strategy. 10/08/2024 Osteoporosis (ICD-10 - [...] Her esophageal reflux is well controlled with pgws-dwx-mbxmlcn medications. Plan Of Treatment Medication Medication Name [...] Up: 3 Weeks, Reason: OV Provider Name:Natalio Willingham, 10/29/2024 11:30:00 AM, [address] [place] [address] [address], [place], [address], Provider Name:Natalio Willingham, 05/10/2025 03:00:00 PM, [address] [place] [address] [address], [place], [address], Progress Notes * Zackary ESPINO EDOB:[birth year] (59 yo F)Acc No.[id number]:10/08/2024 Progress Notes Patient:?Zackary ESPINO Provider:?Natalio Willingham MD :1965???Age:59 Y???Sex:Female D ate:10/08/2024 Address:[address] [place] [address], [address], [place], [id number] Subjective: * Chief Complaints: * ???Fractured right third fin gerHypertensionDepressionGERDHyperlipidemiaTobacco dependenceRight breast cancerOsteoporosis * HPI: ???COVID-19 Screening:? She has recently undergone surgery to repair a displaced fracture of the right third phalanx.? She has a cast on her right upper extremity from mid forearm to the tip of her fingers.? Visible capillary refilling is intact.? She denies any pain.? She has been completing breast self-examination regularly with no new findings.? She has no pain or lump in the right breast.? The left breast is unremarkable.? He notices most cigarettes but is trying to cut down or stop.? At the time of surgery she had an elevated systolic blood pressure 174.? This was repeated today and was much lower at 150.? Her systolic has been at the upper range of normal and is now elevated.? She was given a prescription for metoprolol tartrate 5 mg twice a day if possible this will be stopped or converted to a once a day extended release dose. ?Questions?Have you had any new onset fever, chills, cough, congestion, sore throat, shortness of breath, muscle aches??No * ROS:?General/Constitutional:?pain?Right third finger.?Chills?denies.?Fatigue?admits.?Fever?denies.?ENT:?Decreased hearing?denies.?Respiratory:?Cough?non-productive.?Cardiovascular:?Chest pain with exertion?denies.?Dyspnea on exertion?denies.?Shortness of breath?denies.?Gastrointestinal:?Constipation?occasional.?Decreased appetite?denies.?Diarrhea?denies.?Heartburn?denies.?Nausea?denies.?Rectal bleeding?denies.?Vomiting?denies.?Hematology:?bruising?denies.?petechiae?denies.?Swollen glands?none have been noted.?Genitourinary:?Frequent urination?denies.?Musculoskeletal:?Muscle aches?denies.?Painful joints?denies.?Sciatica?denies.?Weakness?denies.?Skin:?Itching?denies.?Rash?denies.?Skin lesion(s)?denies.?Neurologic:?Difficulty speaking?denies.?Dizziness?denies.?Headache?denies.?Low back pain?denies.?Psychiatric:?Depressed mood?which is mild.? * Medical History:? * Surgical History:?Right sina st Lumpectomy [id number] of radiation 06/06/20Repair complicated fracture right third finger September 2024 * Hospitalization/Major Diagno stic Procedure:?No history * [...] and raising children. She was born in [place], [place]. She has been to [place] for [...] PhosphateLatexPenicillinno[Allergies Verified] Objective: * Vitals:?Ht: 68, Wt: 176, BMI :26.76, BP: 150/88, HR: 78, Temp: 97.8, Wt-k.83. * ???Past Orders: Imaging:XR hand RT min 3V * Performed Date 09/14/2024 09/08/2024 07:29 AM 08:40 AM Order Date 09/14/2024 09/08/2024 ???Imaging:FL guidance in OR (Order Date - 09/13/2024) (Performed Date - 09/13/2024) * Examination: ???General Examination: ?GENERAL APPEARANCE:?pleasant, well nourished, well developed, in no acute distress, calm and relaxed, overweight, man.?HEAD:?atraumatic, normocephalic.?EYES:?eomi, perrla, anicteric, conjugate.?EARS:?normal.?NOSE:?septum intact.?ORAL CAVITY:?normal, unremarkable.?NECK/THYROID:?no jugular venous distention, no carotid bruit, thyroid normal.?LYMPH NODES:?no enlarged lymph nodes,spleen normal.?SKIN:?no suspicious lesions, anicteric.?HEART:?no clicks, gallops, murmurs, or rubs, regular rhythm, S1, S2 normal, no s3, or vascular bruits.?LUNGS:?, diminished breath sounds throughout.?BREASTS:??no masses palpable bilaterally, Lumpectomy scar well-healed.?ABDOMEN:?bowel sounds normal, no ascites, no organomegaly, no mass.?RECTAL EXAM:?not examined.?MUSCULOSKELETAL:?Fiberglas cast right upper extremity midforearm to fingertips.?PERIPHERAL PULSES:?normal.?NEUROLOGIC:?alert and oriented, cranial nerves 2-12 grossly intact, deep tendon reflexes 2+ symmetrical, motor strength normal upper and lower extremities, sensory exam intact.?PSYCH:?alert, oriented.? Assessment: * Assessment: 1.?Essential hypertension - I10 (Primary)???Notes :She began metoprolol tartrate 25 mg twice a day today.???2.?Closed displaced fracture of proximal phalanx of right middle finger, initial encounter - S62.342A???Notes :Her surgery was successful and she is now recovering.? She will follow up with orthopedics as well as myself frequently.???3.?Overweight (BMI 25.0-29.9) - E66.3???Notes :Her body mass index is 28 and her weight is stable. We have discussed diet and nutrition. We reviewed [facility] weight loss strategy.???4.?Osteoporosis - M81.0???Notes :She is going to consider the use of alendronate. She will continue on vitamin D and calcium tablets. A repeat bone density will be done. She has 12 more months to go on her adjuvant endocrine anastrozole.???5.?Tobacco dependence - F17.200???Notes :We have had another discussion of all the health consequences of smoking. She wants very much to stop smoking, but is concerned about gaining weight. I recommended she try the nicotine patches. She did not want to try anything else.???6.?Hyperlipidemia - E78.5???Notes :Comprehensive blood work with a fasting lipid profile was ordered prior to her next visit. She continues her efforts at weight loss and consumption of a healthy diet.???7.?Depressive disorder, not elsewhere classified - F32.9???Notes :She has slowly been tapering the citalopram. Her depression is in remission and was not evident today.???8.?Gastro-esophageal reflux disease without esophagitis - K21.9???Notes :Her esophageal reflux is well controlled with jwkl-dre-npwjhxz medications.??? Plan: * Treatment: * Procedure Codes:? * Preventive Medicine:? ??Counseling:?Care goal follow-up plan:?Counseling for abnormal BMI given?Yes ?Above Normal BMI Follow-up?Dietary management education, guidance, and counseling, Dietary needs education ?Smoking/Tobacco Use?Patient counseled on the dangers of tobacco use and urged to quit.?10/08/2024 ?Patient Lifestyle Goals?Patient wants to quit ?Treatment Goals?Set a quit date, Cut down by 1 cigarette a week ?Barriers?Social smoker, Stress ?Self-Management Plan?Make a plan to cut down number of cigarettes over time and set a date to work towards quitting * Follow Up:?3 Weeks (Reason: OV) * Images: * Sign off status: Completed true * Provider:?Natalio Willingham MD Date:?09/16 Generated for Tati ennis/So/Waqaritting on:?10/13/2024 11:15 AM EST History and Physical Notes * [...]
== END 2024-10-13 09:38 | disposition home or self-care (01) ==
LOC: HO.HOSX 09:37
PROVIDERS: Visit Provider Orthopaedic Surgery
DX: M79.641 Pain in right hand (principal); S62.612A Displaced fracture of proximal phalanx of right middle finger, initial encounter for closed fracture; X50.1XXA Overexertion from prolonged static or awkward postures, initial encounter; Y93.K1 Activity, walking an animal; Y92.9 Unspecified place or not applicable; Y99.9 Unspecified external cause status
CPT/HCPCS: 73130

== ENCOUNTER 2024-10-13 11:54 | Outpatient (AMB) | payer BC, SELFPAY ==
[2024-10-13 12:50] VITALS: BMI 27.0
--- NOTE | 2024-10-13 12:50 | A.OFFVIS_ITS ---
Vital Signs 10/13/24 12:50 Height 5 ft 7.5 in Weight 175 lb BMI 27.0 Intake Visit Reasons: PO RT MF CRPP vs ORIF 09/13/24 AR Intake Note: Ayah is a 59 year old right hand dominant woman who presents S/P right middle finger CRPP, DOS: 09/13/24. Cast removed and xrays updated in office. Allergies codeine [CODEINE] Allergy (Severe, Verified 10/13/24 12:51) AGITATION, mentally unstable amoxicillin [AMOXICILLIN] Allergy (Intermediate, Verified 10/13/24 12:51) RASH latex [LATEX] Allergy (Intermediate, Verified 10/13/24 12:51) RASH seasonal Allergy (Unknown, Uncoded 10/13/24 12:51) Unknown SEASONAL ALLERGIES Allergy (Unknown, Uncoded 10/13/24 12:51) WHEEZING HPI HPI PO RT MF CRPP vs ORIF 09/13/24 AR: Details: Ayah is a 59 year old right hand dominant woman who presents S/P right middle finger CRPP, DOS: 09/13/24. She says this last cast was much more comfortable and did not allow her fingertips to get banged on the table. She has no pain. At her last visit we noted small amount of displacement at the fracture site, and the patient apparently had been striking the tips of her fingers on the table when she was trying to write in a cast. 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 She had a right middle finger proximal phalanx fracture from an injury while walking her dog, DOI: 09/08/24 She says she is doing well and denies any pain. She says she has been trying to cut back on her activities to avoid worsening her fracture. She is a smoker, and says she smokes ~1/2 a pack daily, after she has cut back. At her last appointment she said she was writing and was consistently striking her fingertips against the table surface, which caused her splint to loosen prior to her last appointment. 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 [facility] Medical History History of breast cancer (~2019) Mitral valve prolapse Hypercholesterolemia GERD (gastroesophageal reflux disease) Nicotine dependence, cigarettes, uncomplicated Depression Surgical History History of lumpectomy of right breast History of colonoscopy Family History Mother Breast cancer, Onset Age: 75 Maternal Grandmother Breast cancer Father Throat cancer Mouth cancer Social History Are you a primary career development director to a significant other at home: No Do you presently have visiting nurse or other home services: No Alcohol intake: current Alcohol intake frequency: 0-2 drinks per day Alcohol type: wine Comment: medicated Patient Tobacco Use Status: Current someday Tobacco user Tobacco use type: Cigarette Years Smoked: onset 17yo, 1/2ppd x 41yrs - 20PYH Current occupational status: employed Current occupation: social staff worker / rt hand Physical Exam Vital Signs: BMI result Body Mass Index 27.0 Const General: no acute distress and alert Orientation/consciousness: patient oriented x3 Neuro General: patient oriented x3 Extrem Other: The patient was alert oriented and in no acute distress The pins are clean dry and intact with no drainage. Clinically there position appears acceptable. No clinical change in alignment since last visit. She still has the same amount of slight ulnar deviation of the middle finger at the fracture site. No cross-over of the middle finger Mild tenderness over the fracture site Sensation is intact Cap refill is brisk Radiographs: 3 views of the right hand, with attention to the middle finger, were taken, viewed, and compared to radiographs from 09/29/24, by me today in clinic. They show a middle finger proximal phalanx shaft fracture with ~1 to 1.4 mm of displacement at the fracture site, unchanged from prior., 2 of the K-wires appear to have backed out a couple millimetres, unchanged from prior. So, there has been a small amount of displacement compared with intraoperative radiographs, however if the fracture were to heal in the position it is today it appears to be satisfactory. There does appear to be some evidence of interval bony healing Psych Appearance: grossly normal Affect: normal affect Attitude: cooperative Assessment & Plan Assessment & Plan (1) Fracture of proximal phalanx of right middle finger: Code(s): S62.612A - Displaced fracture of proximal phalanx of right middle finger, initial encounter for closed fracture Category: Medical (2) Nicotine dependence, cigarettes, uncomplicated: Comment: (current smoker, onset 17yo, 1/2ppd x 41yrs - 20PYH) Code(s): F17.210 - Nicotine dependence, cigarettes, uncomplicated Category: Medical Plan Assessment & Plan: 1. Right middle finger proximal phalanx shaft fracture, S/P CRPP DOI: 09/08/24 DOS: 09/13/24 The patient appears to be doing well , but had had a small amount of displacement at the fracture site at her 1st postop.. No further displacement today. Again she is a half a pack per day smoker. We also did note displacement of the fracture at her 2 week visit. For all these reasons, we are going to approach with caution and place her back in a short-arm finger spica cast for 2 additional weeks of healing at the fracture site. I explained the signs and symptoms of infection and she knows to call our office or see the ED should this happen. I discussed activity modifications, she is to lift nothing heavier than a cellphone for the next 4 weeks I explained the effects of smoking on wound/bone healing, and recommend they stop smoking while healing. 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 She was given a note for work saying she can continue to work light duty, with a 1lb weight limit for her RUE for the next 4 weeks. She will be slower with writing & typing activities. She will follow up in 2 weeks with X-rays, 3V R hand attn MF. Anticipate K-wire removal at that appointment. Scribed for Li Olson MD by Itz Ybarra, medical claims processor, on 10/13/24 at 1:10 PM, EST. Orders: Orders XR hand RT min 3V Today M79.641 - Pain in right hand Coding Level of Care Code Global (03537) Diagnoses Fracture of proximal phalanx of right middle finger S62.612A Nicotine dependence, cigarettes, uncomplicated F17.210
--- OUTSIDE RECORDS SUMMARY | 2024-10-13 14:21 | XMS_ITS | Patient Health Record ---
Author Organization Natalio Willingham III, MD Address [address] [place] [address] Care Team Providers Care Drywall Contractor Name Role Phone Natalio Willingham Primary Care [...] date:06/14/2024 05:59:01 AM Interpretation: Performing Lab: Notes/Report: [address] [address] [address] Scan Report Signed Patient: Ayah Tillman MR#: [id number] 8 : 1965 Acct:[id number] Age/Sex: 58 / F ADM Date: 01/16/24 Loc: HO.CT Attending Dr: Nimco Dickerson PA-C Ordering Physician: Nimco Dickerson PA-C Date of Service: 01/16/24 Procedure(s): CT lung screening Accession Number(s): [id number] cc: Natalio Willingham MD; Nimco Dickerson PA-C [...] in OV> 01/21/24 0103 DD/ 1005 TD/TT: Tax Compliance Officer: [address] [address] [address] Scan Report Signed Patient: Cristhian Tillman MR#: [id number] 8 : 1965 Acct:[id number] Age/Sex: 58 / F ADM Date: 01/16/24 Loc: HO.CT Attending Dr: Nimco Dickerson PA-C Ordering Physician: Nimco Dickerson PA-C Date of Service: 01/16/24 Procedure(s): CT lung screening Accession Number(s): [id number] cc: Natalio Willingham MD; Nimco Dickerson PA-C [...] in OV> 01/21/24 0103 DD/ 1005 TD/TT: Tax Compliance Officer: TERRY CT lung screen follow up Reviewed date:06/14/2024 05:59:01 AM Interpretation: Performing Lab: Notes/Report: [address] [address] [address] Scan Report Signed Patient: Ayah Tillman MR#: [id number] 8 : 1965 Acct:[id number] Age/Sex: 59 / F ADM Date: 04/21/24 Loc: HO.CT Attending Dr: Nimco Dickerson PA-C Ordering Physician: Nimco Dickerson PA-C Date of Service: 04/21/24 Procedure(s): CT lung screen follow up Accession Number(s): [id number] cc: Natalio Willingham MD; Nimco Dickerson PA-C [...] CT LUNG CANCER SCREENING SHORT INTERVAL FOLLOWUP ([id number]) can be placed. Electronically signed by: Joe Nam MD 05/28/2024 03:07 PM EDT RP Dictated By: Joe Nam MD Signed By: <Electronically signed by Joe Nam MD in OV> 05/28/24 1507 DD/ 0853 TD/TT: 04/21/24 0900 Tax Compliance Officer: [place] [address] CT Scan Report Signed Patient: Cristhian Tillman MR#: [id number] 8 : 1965 Acct:[id number] Age/Sex: 59 / F ADM Date: 04/21/24 Loc: .CT Attending Dr: Nimco Dickerson PA-C Ordering Physician: Nimco Dickerson PA-C Date of Service: 04/21/24 Procedure(s): CT olegario g screen follow up Accession Number(s): [id number] cc: Natalio Willingham MD; Nimco Dickerson PA-C [...] LUNG CANCER JEANNE ROSSG SHORT INTERVAL FOLLOWUP ([id number]) can be placed. Electronically rios d by: Joe Nam MD 05/28/2024 03:07 PM EDT Dictated By: Joe Nam MD Signed By: <Electron ically signed by Joe Nam MD in OV> 05/28/24 1507 DD/ 0853 TD/TT: 04/21/24 0900 Tax Compliance Officer: WERO MM tomosynthesis screening B I Reviewed date:06/14/2024 05:59:01 AM Interpretation: Performing Lab: Notes/Report: [address] [place] [address] Mammography Report Signed Patient: Ayah Tillman MR#: [id number] 8 : 1965 Acct:[id number] Age/Sex: 59 / F ADM Date: 06/01/24 Loc: HO.MAMMO Attending Dr: Natalio Willingham MD Ordering Physician: Natalio Willingham MD Results: 1Negativ e Date of Service: 06/01/24 Follow Up: 1 Year From Orig inal Mammogram Procedure(s): MM tomosynthesis screening BI Accession Number(s): [id number] cc: Natalio Willingham MD EXAMINATION: MM SCREENING [...] 06/03/24 1809 DD/ 1545 TD/TT: 06/01/24 1600 Tax Compliance Officer: [address] [place] [address] Mammography Report Signed Patient: Cristhian Tillman MR#: [id number] 8 : 1965 Acct:[id number] Age/Sex: 59 / F ADM Date: 06/01/24 Loc: HO.MAMMO Attending Dr: Natalio Willingham MD Ordering Physician: Natalio Willingham MD Results: 1Negativ e Date of Service: Follow Up: 1 Year From Orig inal Mammogram Procedure(s): MM eliana osynthesis screening BI Accession Number(s): [id number] cc: Natalio Willingham MD EXAMINATION: MM SCREENING [...] 06/03/24 1809 DD/ 1545 TD/TT: 06/01/24 1600 Tax Compliance Officer: MAMMOGRAM DIGITAL BILATERAL SCREEN Reviewed date:10/13/2024 10:51:36 AM Interpretation:undefined Performing Lab: Notes/Report: undefined XR hand RT min 3V Reviewed date:09/08/2024 09:49:44 AM Interpretation: Performing Lab: Notes/Report: [facility] [address] [place] [address] XRay Report Signed Patient: Ayah Tillman MR#: [id number] 8 : 1965 Acct:[id number] Age/Sex: 59 / F ADM Date: 09/08/24 Loc: HO.ED Attending Dr: Ordering Physician: Generic ED Physician Date of Service: 09/08/24 Procedure(s): XR hand RT min 3V Accession Number(s): [id number] cc: Natalio Willingham MD; Generic ED Physician [...] 09/08/2024 08:55 AM [facility] Workstation: [place] [id number] Dictated By: Jed East Signed By: <Electronically signed by Jed East in OV> 09/08/24 0855 DD/ 0840 TD/TT: 09/08/24 0845 Tax Compliance Officer: [address] [address] XRay Report Signed Patient: Cristhian Tillman MR#: [id number] 8 : 1965 Acct:[id number] Age/Sex: 59 / F ADM Date: 09/08/24 Loc: HO.ED Attending Dr: Ordering Physician: Generic ED Physician Date of Service: 09/08/24 Procedure(s): XR hand RT min 3V Accession Number(s): [id number] cc: Natalio Willingham MD; Generic ED Physician [...] 09/08/2024 08:55 AM [facility] Dictated By: Jed East Signed By: <Electron icallantoinette signed by Jed East in OV> 09/08/24 0855 DD/ 0840 TD/TT: 09/08/24 0845 Tax Compliance Officer: FL guidance in OR Reviewed date:09/30/2024 08:59:36 AM Interpretation: Performing Lab: Notes/Report: [address] [address] Fluoroscopy Report Signed Patient: Ayah Tillman MR#: [id number] 8 : 1965 Acct:[id number] Age/Sex: 59 / F ADM Date: 09/13/24 Loc: HO.[facility] Attending Dr: Li Olson MD Ordering Physician: Li Olson MD Date of Service: 09/13/24 Procedure(s): FL guidance in OR Accession Number(s): [id number] cc: Natalio Willingham MD; Li Olson MD EXAMINATION: FLUOROSCOPY GUIDANCE FOR NEEDLE PLACEMENT CLINICAL INFORMATION: right SF CRPP vs ORIF COMPARISON: Right hand 09/10/2024 TECHNIQUE: fluoroscopy guidance was provided to referring physician during surgery. No radiologist present. FINDINGS: There is an oblique mid to distal diaphyseal fracture proximal phalanx third digit stabilized with at least 4 angled pins. The fracture fragments appears in alignment. No other fractures seen. FLUOROSCOPY TIME: 46.3 seconds DOSE AREA PRODUCT: 0.0611 uGy-m2 (microgray-meter squared) FL/FL guidance in OR IMPRESSION: Stabilized oblique fracture distal mid and distal proximal phalanx third digit in alignment. Electronically signed by: Abdirizak Hummel MD 09/27/2024 08:32 AM EST RP Dictated By: Abdirizak Hummel MD Signed By: <Electronically signed by Abdirizak Hummel MD in OV> 09/27/24 0832 DD/ 1510 TD/TT: 09/13/24 1700 Tax Compliance Officer: [place] [address] Fluoroscopy Report Signed Patient: Cristhian Tillman MR#: [id number] 8 : 1965 Acct:[id number] Age/Sex: 59 / F ADM Date: 09/13/24 Loc: HO.[facility] Attending Dr: Lucinda Olson MD Ordering Physician: Li Olson MD Date of Service: 09/13/24 Procedure(s): FL guidance in OR Accession Number(s): [id number] cc: Natalio Willingham MD; Li Olson MD EXAMINATION: FLUOROSCOPY GUIDANCE FOR NEEDLE PLACEMENT CLINICAL INFORMATION: right SF CRPP vs ORIF COMPARISON: Right hand 09/10/2024 TECHNIQUE: fluoroscopy guidance was provided to referring physician during surgery. No radiolog ist present. FINDINGS: There is an oblique mid to distal diaphyseal fracture proximal phalanx third digit stabiliz ed with at least 4 angled pins. The fracture fragments appears in alignment. No other fractures seen. FLUOROSCOPY TIME: 46.3 seconds DOSE AREA PRODUCT: 0.0611 uGy-m2 (micro michael-meter squared) F L/FL guidance in OR IMPRESSION: Stabilized oblique f racture distal mid and distal proximal phalanx third digit in alignment. Electronically rios d by: Abdirizak Hummel MD 09/27/2024 08:32 AM EST RP Dictated By: Abdirizak Hummel MD Signed By: <Sujata cohen signed by Abdirizak Hummel MD in OV> 09/27/24 0832 DD/ 1510 TD/TT: 09/13/24 1700 Tax Compliance Officer: SVITLANA XR hand RT min 3V Reviewed date:09/14/2024 11:39:13 AM Interpretation: Performing Lab: Notes/Report: [facility] [address] [place] [address] Drive [address] [place] [address] XRay Report Signed Patient: [place] Tillman MR#: [id number] 8 : 1965 Acct:[id number] Age/Sex: 59 / F ADM Date: 09/10/24 Loc: HO[facility] Attending Dr: Calvin QUIROZ Ordering Physician: Calvin Shelton Date of Service: 09/10/24 Procedure(s): XR hand RT min 3V Accession Number(s): [id number] cc: Calvin Shelton; Natalio Willingham MD CLINICAL [...] MD in OV> 09/14/24729 DD/ 8 TD/TT: 09/14/24 07 Tax Compliance Officer: [facility] [address] [place] [address] XRay Report Signed Patient: Cristhian Tillman MR#: [id number] 8 : 1965 Acct:[id number] Age/Sex: 59 / F ADM Date: 09/10/24 Loc: HO.HOSX Attending Dr: Calvin QUIROZ Ordering Physician: Calvin Shelton Date of Service: 09/10/24 Procedure(s): XR hand RT min 3V Accession Number(s): [id number] cc: Calvin Shelton ; Natalio Willingham MD [...] in OV> 09/14/24729 DD/ 8 TD/TT: 09/14/24728 Tax Compliance Officer: Reason For Referral Reason Consult and Treat Diagnosis 1 Tobacco use disorder (Z72.0) Diagnosis 2 Tobacco dependence ( F17.200) Referral Organization Natalio Willingham III, MD Referring Provider First Name Natalio Referring Provider Last Name Tarsha Referring Provider Speciality Internal M edicine Referred Provider [facility] er, Thoracic Surgeons Referred Provider Specialty Thoracic [...] needed Inhalation every 4 hrs 03/16/2021 Active Atorvastatin Calcium 10 MG TAKE 1 [...] Problem Status W/U Status Risk Notes Problem 681483995 Overweight (BMI 25.0-29.9) (E66.3) Active confirmed Her body mass index is 28 and her weight is stable. We have discussed diet and nutrition. We reviewed [facility] weight loss strategy. Problem 06703271 Hyperlipidemia (E78.5) Active confirmed Comprehensive blood work with a fasting lipid profile was ordered prior to her next visit. She continues her efforts at weight loss and consumption of a healthy diet. Problem 532884651 Pulmonary nodules (R91.8) Active confirmed The 2 nodule s in the right lung are large enough to be worrisome. A repeat CT scan has been scheduled for April 2024. Problem 063981196 Malignant neoplasm of lower-outer quadrant of right [...] the left which is not tender. Problem 561462217 Gastro-esophagea l reflux disease without esophagitis (K21.9) Active confirmed Her esophageal reflux is well controlled with vdoq-xck-omxbz er medications. Problem 27208859 Essential hypertension (I10) Active confirmed She began metoprolol tartrate 25 mg twice a day today. Problem 50318429 Tobacco dependence (F17.200) Active confirmed We have had another discussion of all the health consequences of smoking. She wants very much to stop smoking, but is concerned about gaining weight. I recommended she try the nicotine patches. She did not want to try anything else. Problem 778721399 Pulmonary nodule (R91.1) Active confirmed The right [...] diagnosis of early breast cancer. Problem Osteoporosis (01892586) Osteoporosis (M81.0) Active confirmed She is going to consider the use of alendronate. She will continue on vitamin D and calcium tablets. A repeat bone density will be done. She has 12 more months to go on her adjuvant endocrine anastrozole. Problem 93618001 Depressive disorder, not elsewhere classified (F32.9) Active confirmed She has slowly been tapering the citalopram. Her depression is in remission and was not evident today. Problem 972937598 BRCA1 negative (Z13.71) Active confirmed Problem 624935727 Closed displaced fracture of proximal phalanx of right middle finger, initial encounter (K32.513N) Active confirmed Her surgery was successful and she is now recovering. She will follow up with orthopedics as well as myself frequently. Vital Signs Heart Rate 78 /min 10/08/2024 Temperature 97.8 degrees Fahrenheit 10/08/2024 Blood pressure diastolic 88 mm Hg 10/08/2024 Height 68 in 10/08/2024 Blood pressure systolic 150 mm Hg 10/08/2024 Weight 176 lbs 10/08/2024 BMI 26.76 kg/m2 10/08/2024 Encounters Encounter Location Date Provider Diagnosis Natalio Willingham III, MD [address] [place] [address] [place] [address] 11/05/2023 Natalio Willingham Hyperlipidemia E78.5 ; Overweight (BMI 25.0-29.9) E66.3 ; Depressive disorder, not elsewhere classified F32.9 ; Gastro-esophageal reflux disease without esophagitis K21.9 ; Tobacco dependence F17.200 ; Osteoporosis M81.0 and Malignant neoplasm of lower-outer quadrant of right female breast C50.511 Natalio Willingham III, MD [address] [place] [address] [place] [address] 03/05/2024 Natalio Willingham Depressive disorder, not elsewhere classified F32.9 ; Tobacco dependence F17.200 ; Gastro-esophageal reflux disease without esophagitis K21.9 ; Hyperlipidemia E78.5 ; Overweight E66.3 ; Malignant neoplasm of lower-outer quadrant of right female breast C50.511 ; Osteoporosis M81.0 and Pulmonary nodules R91.8 Natalio Willingham III, MD [address] [place] [address] [place] [address] 2024 Natalio Willingham Insect bite without infection W57.XXXA ; Depressive disorder, not elsewhere classified F32.9 ; Gastro-esophageal reflux disease without esophagitis K21.9 ; Hyperlipidemia E78.5 ; Tobacco dependence F17.200 and Osteoporosis M81.0 Natalio Willingham III, MD [address] [place] [address] [place] [address] 05/07/2024 Natalio Willingham Osteoporosis M81.0 ; Depressive disorder, not elsewhere classified F32.9 ; Gastro-esophageal reflux disease without esophagitis K21.9 ; Hyperlipidemia E78.5 ; Tobacco dependence F17.200 ; Malignant neoplasm of lower-outer quadrant of right female breast C50.511 and Labyrinthitis of both ears H83.03 Natalio Willingham III, MD [address] [place] [address] [place] [address] 06/11/2024 Natalio Willingham Encounter for immunization Z23 ; Depressive disorder, not elsewhere classified F32.9 ; Gastro-esophageal reflux disease without esophagitis K21.9 ; Hyperlipidemia E78.5 ; Tobacco dependence F17.200 ; Overweight (BMI 25.0-29.9) E66.3 and Pulmonary nodule R91.1 Natalio Willingham III, MD [address] [place] [address] [place] [address] 07/07/2024 Natalio Willingham Hyperlipidemia E78.5 ; Malignant neoplasm of lower-outer quadrant of right female breast C50.511 ; Overweight (BMI 25.0-29.9) E66.3 ; Depressive disorder, not elsewhere classified F32.9 ; Gastro-esophageal reflux disease without esophagitis K21.9 ; Tobacco dependence F17.200 ; Osteoporosis M81.0 and Pulmonary nodule R91.1 Natalio Willingham III, MD [address] [place] [address] [place] [address] 09/13/2024 Natalio Willingham [facility] blood press ure reading R03.0 ; Closed displaced fracture of proximal phalanx of right middle finger, initial encounter S62.612A ; Depressive disorder, not elsewhere classified F32.9 ; Tobacco dependence F17.200 ; Gastro-esophageal reflux disease without esophagitis K21.9 ; Hyperlipidemia E78.5 ; Overweight E66.3 and Malignant neoplasm of lower-outer quadrant of right female breast C50.511 Natalio Willingham III, MD [address] [place] [address] [place] [address] 10/08/2024 Natalio Willingham Essential hypertensi on I10 ; Closed displaced fracture of proximal phalanx of right middle finger, initial encounter S62.612A ; Overweight (BMI 25.0-29.9) E66.3 ; Osteoporosis M81.0 ; Tobacco dependence F17.200 ; Hyperlipidemia E78.5 ; Depressive disorder, not elsewhere classified F32.9 and Gastro-esophageal reflux disease without esophagitis K21.9 Natalio Willingham III, MD [address] [place] [address] [address] [place] [address] 03/22/2024 Natalio Willingham III, MD [address] [place] [address] [address] [place] [address] 03/26/2024 Natalio Willingham III, MD [address] [place] [address] [address] [place] [address] 03/26/2024 Natalio Willingham III, MD [address] [place] [address] [place] [address] 08/24/2024 Natalio Willingham III, MD [address] [place] [address] [address] [place] [address] 09/01/2024 Natalio Willingham Assessments Encounter Date Diagnosis [...] for general anesthesia. Follow-up visit was arranged. 10/08/2024 Essential hypertension (ICD-10 - I10) She began metoprolol tartrate 25 mg twice a day today. 10/08/2024 Closed displaced fracture of proximal phalanx of right middle finger, initial encounter (ICD-10 - S62.612A) Her surgery was successful and she is now recovering. She will follow up with orthopedics as well as myself frequently. 11/05/2023 Depressive disorder, not elsewhere classified (ICD-10 - F32.9) She has slowly been tapering the citalopram. Her depression is in remission and was not evident today. 03/05/2024 Gastro-esophageal reflux disease without esophagitis (ICD-10 - K21.9) Her esophageal reflux is well controlled with wyrr-oag-jcqmfli medications. 2024 Gastro-esophageal reflux disease without esophagitis (ICD-10 - K21.9) Her esophageal reflux is well controlled with ukgo-wsa-lfflnwa medications. 05/07/2024 Gastro-esophageal reflux disease without esophagitis (ICD-10 - K21.9) Her esophageal reflux is well controlled with odrx-uhf-oomhohk medications. 06/11/2024 Gastro-esophageal reflux disease without esophagitis (ICD-10 - K21.9) Her esophageal reflux is well controlled with ezwb-bll-ixgevni medications. 07/07/2024 Overweight (BMI 25.0-29.9) (ICD-10 - E66.3) Her body mass index is 28 and her weight is stable. We have discussed diet and nutrition. We reviewed [facility] weight loss strategy. 09/13/2024 Depressive disorder, not elsewhere classified (ICD-10 - F32.9) She has slowly been tapering the citalopram. Her depression is in remission and was not evident today. 10/08/2024 Overweight (BMI 25.0-29.9) (ICD-10 - E66.3) Her body mass index is 28 and her weight is stable. We have discussed diet and nutrition. We reviewed [facility] weight loss strategy. 11/05/2023 Gastro-esophageal reflux disease without esophagitis (ICD-10 - K21.9) Her esophageal reflux is well controlled with exik-fup-xhhtilf medications. 03/05/2024 Hyperlipidemia (ICD-10 - E78.5) Her [...] not want to try anything else. 10/08/2024 Osteoporosis (ICD-10 - M81.0) She is going to consider the use of alendronate. She will continue on vitamin D and calcium tablets. A repeat bone density will be done. She has 12 more months to go on her adjuvant endocrine anastrozole. 11/05/2023 Tobacco dependence (ICD-10 - F17.200) We [...] Her esophageal reflux is well controlled with cjqt-mit-gqbpcxv medications. 09/13/2024 Gastro-esophageal reflux disease without esophagitis (ICD-10 - K21.9) Her esophageal reflux is well controlled with bibi-lmh-oyegacu medications. 10/08/2024 Tobacco dependence (ICD-10 - F17.200) We have had another discussion of all the health consequences of smoking. She wants very much to stop smoking, but is concerned about gaining weight. I recommended she try the nicotine patches. She did not want to try anything else. 11/05/2023 Osteoporosis (ICD-10 - M81.0) She was [...] and consumption of a healthy diet. 10/08/2024 Hyperlipidemia (ICD-10 - E78.5) Comprehensive blood [...] continue exercising and eating a healthy diet. 10/08/2024 Depressive disorder, not elsewhere classified (ICD-10 - F32.9) She has slowly been tapering the citalopram. Her depression is in remission and was not evident today. 03/05/2024 Pulmonary nodules (ICD-10 - R91.8) The [...] with the left which is not tender. 10/08/2024 Gastro-esophageal reflux disease without esophagitis (ICD-10 - K21.9) Her esophageal reflux is well controlled with pccy-ott-kaosgrj medications. Plan Of Treatment Pending Test Test Name [...] 05/03/2022 Next Appt Details Provider Name:Natalio Willingham, 10/29/2024 11:30:00 AM, [address] [place] [address] [address], [place], [address], Provider Name:Natalio Willingham, 05/10/2025 03:00:00 PM, [address] [place] [address] [address], [place], [address], Insurance Providers Payer Name Payer Address Payer Phone Subscriber Number Group Number Insured Name Patient Relationship to Insured Coverage Start Date Coverage End Date [facility] [address] [place], [place] [id number] Ayah Tillman Self - patient is the insured Medical (General) History Medical History History ICD Code anxiety/depression/PTSD lumbar spine disc disease 1995 overweight gerd occasional right uper extremities tremor s ? 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
== END 2024-10-13 13:46 | disposition home or self-care (01) ==
PROVIDERS: PCP Internal Medicine Medical Oncology; Visit Provider Orthopaedic Surgery
DX: S62.612A Displaced fracture of proximal phalanx of right middle finger, initial encounter for closed fracture (principal); F17.210 Nicotine dependence, cigarettes, uncomplicated
CPT/HCPCS: 99024

== ENCOUNTER → 2024-10-13 12:11 | Outpatient (BNV) | payer BC, SELFPAY | PROVIDERS: Visit Provider Radiology Diagnostic Radiology | DX: S62.612A Displaced fracture of proximal phalanx of right middle finger, initial encounter for closed fracture (principal) | CPT/HCPCS: 73130 ==

== ENCOUNTER 2024-10-27 08:21 | Outpatient (REF) | payer BC, SELFPAY ==
--- NOTE | ~2024-10-27 | XR_ITS ---
EXAMINATION: XR HAND, RIGHT CLINICAL INFORMATION: M79.641 - Pain in right hand COMPARISON: None available. TECHNIQUE: PA, lateral, and oblique views of the right hand. FINDINGS: The patient is again noted to be status post internal fixation of an oblique fracture of the proximal phalanx of the middle finger with 4 K wires fixating. Wires are intact and well seated. Fracture line has become slightly more blunted, with sclerosis and subtle periosteal new bone formation. These indicate healing. The joint spaces are preserved. The soft tissues are unremarkable. XR/XR hand RT min 3V IMPRESSION: Fixated and healing oblique fracture involving the proximal phalanx third digit, with no change in alignment. Electronically signed by: Nathan Garcia MD 10/27/2024 01:16 PM [facility]
--- OUTSIDE RECORDS SUMMARY | 2024-10-27 08:54 | XMS_ITS ---
Author Organization Natalio Willingham III, MD Address [address] [place] [address] Care Team Providers Care Licensed Life And Health Agent Name Role Phone Natalio Willingham Primary Care [...] Problem Status W/U Status Risk Notes Problem 297181292 Closed displaced fracture of proximal phalanx of [...] Date Provider Diagnosis Natalio Willingham III, MD [address] [place] [address] [address] [place], [place] [address] 09/13/2024 Natalio Willingham Elevated blood press ure [...] Her esophageal reflux is well controlled with lzfq-ddi-rmmkrqi medications. 09/13/2024 Hyperlipidemia (ICD-10 - E78.5) Comprehensive [...] visit Provider Name:Natalio Willingham, 10/29/2024 11:30:00 AM, [address] [place] [address] [address], [place], [address], Provider Name:Natalio Willingham, 05/10/2025 03:00:00 PM, [address] [place] [address] [place], [address], Progress Notes * Ayah ESPINO EDOB:[birth year] (59 yo F)Acc No.[id number]:09/13/2024 Progress Notes Patient:?Ayah ESPINO Provider:?Natalio Willingham MD :1965???Age:59 Y???Sex:Female D ate:09/13/2024 Address:[address], [place], [place]-[phone] Subjective: * Chief Complaints: * ???Recent [...] She went to the emergency room in [facility] where was splinted.? She is scheduled for orthopedic surgery in the near future with Dr. Jefferson, hand surgery at [facility].? In the emergency room her blood pressure [...] History:? * Surgical History:?Right sina st Lumpectomy 4577-46-75Symom of radiation 06/06/20No history * Hospitalization/Major Diagno [...] and raising children. She was born in [place], [place]. She has been to [place] for [...] of right middle finger, initial encounter - R22.292A (Primary)???Notes :She will proceed to surgery this [...] :Her esophageal reflux is well controlled with vvwk-lfj-wfzovji medications.???6.?Hyperlipidemia - E78.5???Notes :Comprehensive blood work with [...] * Provider:?Natalio Willingham MD Date:?08/17 Generated for Silviai loli/So/eTakismitting on:?10/27/2024 08:54 AM EST History and Physical Notes * [...]
--- OUTSIDE RECORDS SUMMARY | 2024-10-27 08:54 | XMS_ITS ---
Author Organization Natalio Willingham III, MD Address [address] [place] [place] [address] Care Team Providers Care Biological Technician Name Role Phone Natalio Willingham Primary Care Provider REASON FOR VISIT Needs call back from Social History Sex Assigned At : Social History Observation Description Sex Assigned At Female Encounters Encounter Location Date Provider Diagnosis Natalio Willingham III, MD [address] [place] [address] [place] [address] 09/01/2024 Natalio Willingham Plan Of Treatment Next Appt Details Provider Name:Natalio Willingham, 10/29/2024 11:30:00 AM, [address] [place] [address] [place], [address], Provider Name:Natalio Willingham, 05/10/2025 03:00:00 PM, [address] [place] [address] [place], [address], Progress Notes * Zackary ESPINO EDOB:[birth year] (59 yo F)Acc No.[id number]:09/01/2024 Patient:HowieZackary ESPINO :1965???Age:59 Y???Sex:Female Address:[address], [place] [address] * true * Date:? Generated for Tati ennis/So/Waqaritting on:?10/27/2024 08:54 AM EST
--- OUTSIDE RECORDS SUMMARY | 2024-10-27 08:55 | XMS_ITS ---
Author Organization Natalio Willingham III, MD Address [address] [place] [address] Care Team Providers Care Quantitative Manager Name Role Phone Natalio Willingham Primary [...] Problem Status W/U Status Risk Notes Problem [id number] Essential hypertension (I10) Active confirmed She began [...] Date Provider Diagnosis Natalio Willingham III, MD [address] [place] [address] [place] [address] 10/08/2024 Natalio Willingham Essential hypertensi on I10 [...] have discussed diet and nutrition. We reviewed [facility] weight loss strategy. 10/08/2024 Osteoporosis (ICD-10 - [...] Her esophageal reflux is well controlled with [id number] medications. Plan Of Treatment Medication Medication Name [...] OV Provider Name:Natalio Willingham, 10/29/2024 11:30:00 AM, [address] [place] [address] [address], [place], [address], Provider Name:Natalio Willingham, 05/10/2025 03:00:00 PM, [address] [place] [address] [address], [place], [address], Progress Notes * Zackary ESPINO EDOB:[birth year] (59 yo F)Acc No.[id number]:10/08/2024 Progress Notes Patient:?Zackary ESPINO Provider:?Natalio Willingham MD :1965???Age:59 Y???Sex:Female D ate:10/08/2024 Address:[address] [place] [address], [address], [place], [place]-[id number] Subjective: * Chief Complaints: * ???Fractured [...] History:? * Surgical History:?Right sina st Lumpectomy [id number] of radiation 06/06/20Repair complicated fracture right third [...] and raising children. She was born in [place], [place]. She has been to [facility] for [...] of right middle finger, initial encounter - S62.982A???Notes :Her surgery was successful and she is now recovering.? She will follow up with orthopedics as well as myself frequently.???3.?Overweight (BMI 25.0-29.9) - E66.3???Notes :Her body mass index is 28 and her weight is stable. We have discussed diet and nutrition. We reviewed [facility] weight loss strategy.???4.?Osteoporosis - M81.0???Notes :She is [...] :Her esophageal reflux is well controlled with rtbz-nfu-nohqpxp medications.??? Plan: * Treatment: * Procedure Codes:? [...] Willingham MD Date:?09/16 Generated for Tati ennis/So/Waqaritting on:?10/27/2024 08:55 AM EST History and Physical Notes * [...]
== END 2024-10-27 08:22 | disposition home or self-care (01) ==
LOC: HO.HOSX 08:21
PROVIDERS: Visit Provider Orthopaedic Surgery
DX: S62.612D Displaced fracture of proximal phalanx of right middle finger, subsequent encounter for fracture with routine healing (principal); F17.210 Nicotine dependence, cigarettes, uncomplicated; Z71.6 Tobacco abuse counseling
CPT/HCPCS: 73130

== ENCOUNTER 2024-10-27 12:32 | Outpatient (AMB) | payer BC, SELFPAY ==
[2024-10-27 13:08] VITALS: BMI 27.0
--- NOTE | 2024-10-27 13:08 | A.OFFVIS_ITS ---
Vital Signs 10/27/24 13:08 Height 5 ft 7.5 in Weight 175 lb BMI 27.0 Intake Visit Reasons: PO RT MF CRPP vs ORIF 09/13/24 AR Intake Note: Ayah is a 59 year old right hand dominant woman who presents S/P right middle finger CRPP, DOS: 09/13/24. Cast removed and xrays updated in office. Allergies codeine [CODEINE] Allergy (Severe, Verified 10/27/24 13:09) AGITATION, mentally unstable amoxicillin [AMOXICILLIN] Allergy (Intermediate, Verified 10/27/24 13:09) RASH latex [LATEX] Allergy (Intermediate, Verified 10/27/24 13:09) RASH seasonal Allergy (Unknown, Uncoded 10/27/24 13:09) Unknown SEASONAL ALLERGIES Allergy (Unknown, Uncoded 10/27/24 13:09) WHEEZING HPI HPI PO RT MF CRPP vs ORIF 09/13/24 AR: Details: Ayah is a 59 year old right hand dominant woman who presents S/P right middle finger proximal phalanx CRPP, DOS: 09/13/24. She says she is doing well and denies any pain. At her first post-op visit, we noted small amount of displacement at the fracture site, and the patient apparently had been striking the tips of her fingers on the table when she was trying to write in a cast. 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 She had a right middle finger proximal phalanx fracture from an injury while walking her dog, DOI: 09/08/24 She is a smoker, and says she smokes ~1/2 a pack daily, after she has cut back. [facility] Medical History History of breast cancer (~2019) Mitral valve prolapse Hypercholesterolemia GERD (gastroesophageal reflux disease) Nicotine dependence, cigarettes, uncomplicated Depression Surgical History History of lumpectomy of right breast History of colonoscopy Family History Mother Breast cancer, Onset Age: 75 Maternal Grandmother Breast cancer Father Throat cancer Mouth cancer Social History Are you a primary critical care nurse specialist to a significant other at home: No Do you presently have visiting nurse or other home services: No Alcohol intake: current Alcohol intake frequency: 0-2 drinks per day Alcohol type: wine Comment: medicated Patient Tobacco Use Status: Current someday Tobacco user Tobacco use type: Cigarette Years Smoked: onset 17yo, 1/2ppd x 41yrs - 20PYH Current occupational status: employed 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 Clinically there position appears acceptable. No tenderness at the fracture site Some stiffness of the fingers, which is understandable All 4 K-wires removed today in clinic, which she tolerated well No clinical change in alignment since last visit. She still has the same amount of slight ulnar deviation of the middle finger at the fracture site. No cross-over of the middle finger We worked on ROM exercises for more than 15 minutes today in clinic Small and index finger down to her palm Ring finger PIP joint flexed to 90 degrees Middle finger PIP joint flexed to ~45-50 degrees All of the MCP joints could flex to 90 degrees, and she could get her hands flat on the table Sensation is intact Cap refill is brisk Radiographs: 3 views of the right hand, with attention to the middle finger, were taken, viewed, and compared to radiographs from 10/13/24, by me today in clinic. They show unchanged and satisfactory fracture alignment with good evidence of interval bony healing Psych Appearance: grossly normal Affect: normal affect Attitude: cooperative Office Procedures AMB Fracture Care Details: No fracture, manual therapy on the fingers of her hand for greater than 15 minutes [id number] Fracture Billing Code: Fracture Billing Code Assessment & Plan Assessment & Plan (1) Fracture of proximal phalanx of right middle finger: Code(s): S62.612A - Displaced fracture of proximal phalanx of right middle finger, initial encounter for closed fracture Category: Medical (2) Nicotine dependence, cigarettes, uncomplicated: Comment: (current smoker, onset 17yo, 1/2ppd x 41yrs - 20PYH) Code(s): F17.210 - Nicotine dependence, cigarettes, uncomplicated Category: Medical Plan Assessment & Plan: 1. Right middle finger proximal phalanx shaft fracture, S/P CRPP DOI: 09/08/24 DOS: 09/13/24 Some displacement the fracture site noted at her 1st postop visit. K-wires removed 10/27/24 The patient appears to be doing well . No further displacement today. All 4 K-wires were removed today, and we worked on finger range of motion exercises. Again she is a half a pack per day smoker. Her middle & ring fingers were Gilbert-taped today I explained the signs and symptoms of infection and she knows to call our office or see the ED should this happen. 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 She was given a note for work saying she can continue to work light duty, with a 1lb weight limit for her RUE for the next 4 weeks. I ordered OT hand therapy to work on gentle ROM, and normalizing hand functin She will follow up in 4 weeks for cqcze-bz-tlngtt check. No radiographs are needed unless there are concerns. Please note that greater than 25 minutes was spent with this patient going over the history, evaluating the patient and radiographs, formulating possible treatment options, discussing them with the patient, and documenting the visit. Scribed for Li Olson MD by Itz Ybarra, clinical specialist medical device, on 10/27/24 at 1:35 PM, EST. Orders: Orders XR hand RT min 3V Today M79.641 - Pain in right hand OT Evaluation and Treatment Today S62.612A - Displaced fracture of proximal phalanx of right middle finger, initial encounter for closed fracture Coding Level of Care Code Global (40161) Diagnoses Fracture of proximal phalanx of right middle finger S62.612A Nicotine dependence, cigarettes, uncomplicated F17.210 CPT Codes Fracture Care - Fracture Billing Code: Fracture Billing Code ([id number])
--- OUTSIDE RECORDS SUMMARY | 2024-10-27 14:00 | XMS_ITS | Patient Health Record ---
Author Organization Natalio Willingham III, MD Address [address] [place] [address] Care Team Providers Care House Registry Rn Name Role Phone Natalio Willingham Primary Care [...] date:06/14/2024 05:59:01 AM Interpretation: Performing Lab: Notes/Report: [address] [address] [address] Scan Report Signed Patient: Ayah Tillman MR#: [id number] 8 : 1965 Acct:[id number] Age/Sex: 58 / F ADM Date: 01/16/24 Loc: HO.CT Attending Dr: Nimco Dickerson PA-C Ordering Physician: Nimco Dickerson PA-C Date of Service: 01/16/24 Procedure(s): CT lung screening Accession Number(s): [id number] cc: Natalio Willingham MD; Nimco Dickerson PA-C [...] in OV> 01/21/24 0103 DD/ 1005 TD/TT: Brake Reliner: [address] [address] [address] Scan Report Signed Patient: Cristhian Tillman MR#: [id number] 8 : 1965 Acct:[id number] Age/Sex: 58 / F ADM Date: 01/16/24 Loc: HO.CT Attending Dr: Nimco Dickerson PA-C Ordering Physician: Nimco Dickerson PA-C Date of Service: 01/16/24 Procedure(s): CT lung screening Accession Number(s): [id number] cc: Natalio Willingham MD; Nimco Dickerson PA-C [...] in OV> 01/21/24 0103 DD/ 1005 TD/TT: Brake Reliner: TERRY CT lung screen follow up Reviewed date:06/14/2024 05:59:01 AM Interpretation: Performing Lab: Notes/Report: [address] [address] [address] Scan Report Signed Patient: Ayah Tillman MR#: [id number] 8 : 1965 Acct:[id number] Age/Sex: 59 / F ADM Date: 04/21/24 Loc: HO.CT Attending Dr: Nimco Dickerson PA-C Ordering Physician: Nimco Dickerson PA-C Date of Service: 04/21/24 Procedure(s): CT lung screen follow up Accession Number(s): [id number] cc: Natalio Willingham MD; Nimco Dickerson PA-C [...] CT LUNG CANCER SCREENING SHORT INTERVAL FOLLOWUP ([id number]) can be placed. Electronically signed by: Joe Nam MD 05/28/2024 03:07 PM EDT RP Dictated By: Joe Nam MD Signed By: <Electronically signed by Joe Nam MD in OV> 05/28/24 1507 DD/ 0853 TD/TT: 04/21/24 0900 Brake Reliner: [place] [address] [address] Scan Report Signed Patient: Cristhian Tillman MR#: [id number] 8 : 1965 Acct:[id number] Age/Sex: 59 / F ADM Date: 04/21/24 Loc: .CT Attending Dr: Nimco Dickerson PA-C Ordering Physician: Nimco Dickerson PA-C Date of Service: 04/21/24 Procedure(s): CT olegario g screen follow up Accession Number(s): [id number] cc: Natalio Willingham MD; Nimco Dickerson PA-C [...] LUNG CANCER JEANNE ROSSG SHORT INTERVAL FOLLOWUP ([id number]) can be placed. Electronically rios d by: Joe Nam MD 05/28/2024 03:07 PM EDT Dictated By: Joe Nam MD Signed By: <Electron ically signed by Joe Nam MD in OV> 05/28/24 1507 DD/ 0853 TD/TT: 04/21/24 0900 Brake Reliner: WERO MM tomosynthesis screening B I Reviewed date:06/14/2024 05:59:01 AM Interpretation: Performing Lab: Notes/Report: [address] [place] [address] Mammography Report Signed Patient: Ayah Tillman MR#: [id number] 8 : 1965 Acct:[id number] Age/Sex: 59 / F ADM Date: 06/01/24 Loc: HO.MAMMO Attending Dr: Natalio Willingham MD Ordering Physician: Natalio Willingham MD Results: 1Negativ e Date of Service: 06/01/24 Follow Up: 1 Year From Orig inal Mammogram Procedure(s): MM tomosynthesis screening BI Accession Number(s): [id number] cc: Natalio Willingham MD EXAMINATION: MM SCREENING [...] 06/03/24 1809 DD/ 1545 TD/TT: 06/01/24 1600 Brake Reliner: [address] [place] [address] Mammography Report Signed Patient: Cristhian Tillman MR#: [id number] 8 : 1965 Acct:[id number] Age/Sex: 59 / F ADM Date: 06/01/24 Loc: HO.MAMMO Attending Dr: Natalio Willingham MD Ordering Physician: Natalio Willingham MD Results: 1Negativ e Date of Service: Follow Up: 1 Year From Orig inal Mammogram Procedure(s): MM eliana osynthesis screening BI Accession Number(s): [id number] cc: Natalio Willingham MD EXAMINATION: MM SCREENING [...] 06/03/24 1809 DD/ 1545 TD/TT: 06/01/24 1600 Brake Reliner: MAMMOGRAM DIGITAL BILATERAL SCREEN Reviewed date:10/13/2024 10:51:36 AM Interpretation:undefined Performing Lab: Notes/Report: undefined XR hand RT min 3V Reviewed date:09/08/2024 09:49:44 AM Interpretation: Performing Lab: Notes/Report: [facility] [address] [place] [address] XRay Report Signed Patient: Ayah Tillman MR#: [id number] 8 : 1965 Acct:[id number] Age/Sex: 59 / F ADM Date: 09/08/24 Loc: HO.ED Attending Dr: Ordering Physician: Generic ED Physician Date of Service: 09/08/24 Procedure(s): XR hand RT min 3V Accession Number(s): [id number] cc: Natalio Willingham MD; Generic ED Physician [...] MD 09/08/2024 08:55 AM [facility] Workstation: [place] [id number] Dictated By: Jed East Signed By: <Electronically signed by Jed East in OV> 09/08/24 0855 DD/ 0840 TD/TT: 09/08/24 0845 Brake Reliner: [address] [address] XRay Report Signed Patient: Cristhian Tillman MR#: [id number] 8 : 1965 Acct:[id number] Age/Sex: 59 / F ADM Date: 09/08/24 Loc: HO.ED Attending Dr: Ordering Physician: Generic ED Physician Date of Service: 09/08/24 Procedure(s): XR hand RT min 3V Accession Number(s): [id number] cc: Natalio Willingham MD; Generic ED Physician [...] MD 09/08/2024 08:55 AM [facility] Dictated By: Jed aEst Signed By: <Electron icallantoinette signed by Jed East in OV> 09/08/24 0855 DD/ 0840 TD/TT: 09/08/24 0845 Brake Reliner: FL guidance in OR Reviewed date:09/30/2024 08:59:36 AM Interpretation: Performing Lab: Notes/Report: [address] [address] Fluoroscopy Report Signed Patient: Ayah Tillman MR#: [id number] 8 : 1965 Acct:[id number] Age/Sex: 59 / F ADM Date: 09/13/24 Loc: HO.[facility] Attending Dr: Li Olson MD Ordering Physician: Li Olson MD Date of Service: 09/13/24 Procedure(s): FL guidance in OR Accession Number(s): [id number] cc: Natalio Willingham MD; Li Olson MD [...] 09/27/24 0832 DD/ 1510 TD/TT: 09/13/24 1700 Brake Reliner: [place] [address] Fluoroscopy Report Signed Patient: Cristhian Tillman MR#: [id number] 8 : 1965 Acct:[id number] Age/Sex: 59 / F ADM Date: 09/13/24 Loc: HO.[facility] Attending Dr: Lucinda Olson MD Ordering Physician: Li Olson MD Date of Service: 09/13/24 Procedure(s): FL guidance in OR Accession Number(s): [id number] cc: Natalio Willingham MD; Li Olson MD [...] 09/27/24 0832 DD/ 1510 TD/TT: 09/13/24 1700 Brake Reliner: SVITLANA XR hand RT min 3V Reviewed date:09/14/2024 11:39:13 AM Interpretation: Performing Lab: Notes/Report: [facility] [address] [place] [address] Drive [address] [place] [address] XRay Report Signed Patient: Ayah Tillman MR#: [id number] 8 : 1965 Acct:[id number] Age/Sex: 59 / F ADM Date: 09/10/24 [facility] Attending Dr: Calvin QUIROZ Ordering Physician: Calvin Shelton Date of Service: 09/10/24 Procedure(s): XR hand RT min 3V Accession Number(s): [id number] cc: Calvin Shelton; Natalio Willingham MD CLINICAL [...] OV> 09/14/24729 DD/ 8 TD/TT: 09/14/24 07 Brake Reliner: [facility] [address] [place] [address] XRay Report Signed Patient: Cristhian Tillman MR#: [id number] 8 : 1965 Acct:[id number] Age/Sex: 59 / F ADM Date: 09/10/24 Loc: HO.HOSX Attending Dr: Calvin QUIROZ Ordering Physician: Calvin Shelton Date of Service: 09/10/24 Procedure(s): XR hand RT min 3V Accession Number(s): [id number] cc: Calvin Shelton ; Natalio Willingham MD [...] in OV> 09/14/24729 DD/ 8 TD/TT: 09/14/24728 Brake Reliner: Reason For Referral Reason Consult and Treat Diagnosis 1 Tobacco use disorder (Z72.0) Diagnosis 2 Tobacco dependence ( F17.200) Referral Organization Natalio Willingham III, MD Referring Provider First Name Natalio Referring Provider Last Name Tarsha Referring Provider Speciality Internal M edicine Referred Provider [facility] er, Thoracic Surgeons Referred Provider Specialty [...] Problem Status W/U Status Risk Notes Problem 897375817 Overweight (BMI 25.0-29.9) (E66.3) Active confirmed Her body mass index is 28 and her weight is stable. We have discussed diet and nutrition. We reviewed formerly [facility] weight loss strategy. Problem 17045378 Hyperlipidemia (E78.5) Active confirmed Comprehensive blood work with a fasting lipid profile was ordered prior to her next visit. She continues her efforts at weight loss and consumption of a healthy diet. Problem 869164311 Pulmonary nodules (R91.8) Active confirmed The 2 nodule s in the right lung are large enough to be worrisome. A repeat CT scan has been scheduled for April 2024. Problem 178857456 Malignant neoplasm of lower-outer quadrant of right [...] the left which is not tender. Problem 150023014 Gastro-esophagea l reflux disease without esophagitis (K21.9) Active confirmed Her esophageal reflux is well controlled with fqon-bol-yiijo er medications. Problem 05628934 Essential hypertension (I10) Active confirmed She began metoprolol tartrate 25 mg twice a day today. Problem 04579172 Tobacco dependence (F17.200) Active confirmed We have had another discussion of all the health consequences of smoking. She wants very much to stop smoking, but is concerned about gaining weight. I recommended she try the nicotine patches. She did not want to try anything else. Problem 754556014 Pulmonary nodule (R91.1) Active confirmed The right [...] diagnosis of early breast cancer. Problem Osteoporosis (88634561) Osteoporosis (M81.0) Active confirmed She is going to consider the use of alendronate. She will continue on vitamin D and calcium tablets. A repeat bone density will be done. She has 12 more months to go on her adjuvant endocrine anastrozole. Problem 00194860 Depressive disorder, not elsewhere classified (F32.9) Active confirmed She has slowly been tapering the citalopram. Her depression is in remission and was not evident today. Problem 639983586 BRCA1 negative (Z13.71) Active confirmed Problem 242195240 Closed displaced fracture of proximal phalanx of right middle finger, initial encounter (U82.498A) Active confirmed Her surgery was successful and [...] Provider Diagnosis Natalio Willingham III, MD [address] [place] [address] [place] [address] 11/05/2023 Natalio Willingham Hyperlipidemia E78.5 ; Overweight (BMI 25.0-29.9) E66.3 ; Depressive disorder, not elsewhere classified F32.9 ; Gastro-esophageal reflux disease without esophagitis K21.9 ; Tobacco dependence F17.200 ; Osteoporosis M81.0 and Malignant neoplasm of lower-outer quadrant of right female breast C50.511 Natalio Willingham III, MD [address] [place] [address] [place] [address] 03/05/2024 Natalio Willingham Depressive disorder, not elsewhere classified F32.9 ; Tobacco dependence F17.200 ; Gastro-esophageal reflux disease without esophagitis K21.9 ; Hyperlipidemia E78.5 ; Overweight E66.3 ; Malignant neoplasm of lower-outer quadrant of right female breast C50.511 ; Osteoporosis M81.0 and Pulmonary nodules R91.8 Natalio Willingham III, MD [address] [place] [address] [place] [address] 2024 Natalio Willingham Insect bite without infection W57.XXXA ; Depressive disorder, not elsewhere classified F32.9 ; Gastro-esophageal reflux disease without esophagitis K21.9 ; Hyperlipidemia E78.5 ; Tobacco dependence F17.200 and Osteoporosis M81.0 Natalio Willingham III, MD [address] [place] [address] [place] [address] 05/07/2024 Natalio Willingham Osteoporosis M81.0 ; Depressive disorder, not elsewhere classified F32.9 ; Gastro-esophageal reflux disease without esophagitis K21.9 ; Hyperlipidemia E78.5 ; Tobacco dependence F17.200 ; Malignant neoplasm of lower-outer quadrant of right female breast C50.511 and Labyrinthitis of both ears H83.03 Natalio Willingham III, MD [address] [place] [address] [place] [address] 06/11/2024 Natalio Willingham Encounter for immunization Z23 ; Depressive disorder, not elsewhere classified F32.9 ; Gastro-esophageal reflux disease without esophagitis K21.9 ; Hyperlipidemia E78.5 ; Tobacco dependence F17.200 ; Overweight (BMI 25.0-29.9) E66.3 and Pulmonary nodule R91.1 Natalio Willingham III, MD [address] [place] [address] [place] [address] 07/07/2024 Natalio Willingham Hyperlipidemia E78.5 ; Malignant neoplasm of lower-outer quadrant of right female breast C50.511 ; Overweight (BMI 25.0-29.9) E66.3 ; Depressive disorder, not elsewhere classified F32.9 ; Gastro-esophageal reflux disease without esophagitis K21.9 ; Tobacco dependence F17.200 ; Osteoporosis M81.0 and Pulmonary nodule R91.1 Natalio Willingham III, MD [address] [place] [address] [place] [address] 09/13/2024 Natalio Willingham [facility] blood press ure reading R03.0 ; Closed displaced fracture of proximal phalanx of right middle finger, initial encounter S62.612A ; Depressive disorder, not elsewhere classified F32.9 ; Tobacco dependence F17.200 ; Gastro-esophageal reflux disease without esophagitis K21.9 ; Hyperlipidemia E78.5 ; Overweight E66.3 and Malignant neoplasm of lower-outer quadrant of right female breast C50.511 Natalio Willingham III, MD [address] [place] [address] [place] [address] 10/08/2024 Natalio Willingham Essential hypertensi on I10 ; Closed displaced fracture of proximal phalanx of right middle finger, initial encounter S62.612A ; Overweight (BMI 25.0-29.9) E66.3 ; Osteoporosis M81.0 ; Tobacco dependence F17.200 ; Hyperlipidemia E78.5 ; Depressive disorder, not elsewhere classified F32.9 and Gastro-esophageal reflux disease without esophagitis K21.9 Natalio Willingham III, MD [address] [place] [address] [address] [place] [address] 03/22/2024 Natalio Willingham III, MD [address] [place] [address] [address] [place] [address] 03/26/2024 Natalio Willingham III, MD [address] [place] [address] [address] [place] [address] 03/26/2024 Natalio Willingham III, MD [address] [place] [address] [place] [address] 08/24/2024 Natalio Willingham III, MD [address] [place] [address] [address] [place] [address] 09/01/2024 Natalio Willingham Assessments Encounter Date Diagnosis [...] Her esophageal reflux is well controlled with wzxl-pjt-vfcgpcs medications. 2024 Gastro-esophageal reflux disease without esophagitis (ICD-10 - K21.9) Her esophageal reflux is well controlled with jidu-fkh-bgwqytc medications. 05/07/2024 Gastro-esophageal reflux disease without esophagitis (ICD-10 - K21.9) Her esophageal reflux is well controlled with cchs-rqf-wxuttey medications. 06/11/2024 Gastro-esophageal reflux disease without esophagitis (ICD-10 - K21.9) Her esophageal reflux is well controlled with qigx-xqb-leypszz medications. 07/07/2024 Overweight (BMI 25.0-29.9) (ICD-10 - E66.3) Her body mass index is 28 and her weight is stable. We have discussed diet and nutrition. We reviewed formerly [facility] weight loss strategy. 09/13/2024 Depressive disorder, not elsewhere classified (ICD-10 - F32.9) She has slowly been tapering the citalopram. Her depression is in remission and was not evident today. 10/08/2024 Overweight (BMI 25.0-29.9) (ICD-10 - E66.3) Her body mass index is 28 and her weight is stable. We have discussed diet and nutrition. We reviewed formerly [facility] weight loss strategy. 11/05/2023 Gastro-esophageal reflux disease without esophagitis (ICD-10 - K21.9) Her esophageal reflux is well controlled with oveh-rfe-pfpiqzq medications. 03/05/2024 Hyperlipidemia (ICD-10 - E78.5) Her [...] Her esophageal reflux is well controlled with kxmb-hsd-tkspzqe medications. 09/13/2024 Gastro-esophageal reflux disease without esophagitis (ICD-10 - K21.9) Her esophageal reflux is well controlled with xpye-ldt-ynndrsm medications. 10/08/2024 Tobacco dependence (ICD-10 - F17.200) [...] Her esophageal reflux is well controlled with pjbb-iia-vdtpjlh medications. Plan Of Treatment Pending Test Test [...] Details Provider Name:Natalio Willingham, 10/29/2024 11:30:00 AM, [address] [place] [address] [address], [place], [address], Provider Name:Natalio Willingham, 05/10/2025 03:00:00 PM, [address] [place] [address] [address], [place], [address], Insurance Providers Payer Name Payer Address Payer Phone Subscriber Number Group Number Insured Name Patient Relationship to Insured Coverage Start Date Coverage End Date [facility] [address] [place], [place] [phone] [id number] Ayah Tillman Self - patient is the insured Medical (General) History Medical History History ICD Code anxiety/depression/PTSD lumbar spine disc disease 1995 overweight gerd occasional right uper extremities tremor s ? 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
== END 2024-10-28 11:12 | disposition home or self-care (01) ==
PROVIDERS: Visit Provider Orthopaedic Surgery
DX: S62.612A Displaced fracture of proximal phalanx of right middle finger, initial encounter for closed fracture (principal); F17.210 Nicotine dependence, cigarettes, uncomplicated
CPT/HCPCS: 99024

== ENCOUNTER → 2024-10-27 12:40 | Outpatient (BNV) | payer BC, SELFPAY | PROVIDERS: Visit Provider Radiology Diagnostic Radiology | DX: M79.641 Pain in right hand (principal); S62.612D Displaced fracture of proximal phalanx of right middle finger, subsequent encounter for fracture with routine healing | CPT/HCPCS: 73130 ==

== ENCOUNTER 2024-11-04 15:32 | Outpatient (REF) | payer BC, SELFPAY ==
--- NOTE | ~2024-11-04 | CT_ITS ---
CLINICAL HISTORY: F17.210 - Nicotine dependence, cigarettes, uncomplicated CT lung cancer screening (LDCT) Comparison: None Technique: Axial CT images of the chest using low-dose technique. Referring provider counseled the patient on shared decision-making for LDCT screening. Additional counseling was provided on smoking cessation. Effective radiation dose total: DLP 37.5 mGycm, CTDIvol 1.1 mGy. Findings: Lung: There is a 0.6 cm solid right lower lobe pulmonary lesion. Coronary artery calcifications: Mild Limited upper abdomen: Unremarkable Other: None Impression: Category 3: Probably benign, six-month CT recommended Category 1: Normal; continue annual screening Category 2: Benign appearance or behavior, continue annual screening Category 3: Probably benign, [address] recommended Category 4A: Suspicious, [address] recommended; may consider PET/CT Category 4B: Suspicious, Additional diagnostics and/or tissue sampling recommended Category 4X: Suspicious, Additional diagnostics and/or tissue sampling recommended Category 0: Recalls (incomplete screen due to Incomplete coverage, Noise, Respiratory motion, Expiration, Obscured by acute abnormality) This document has been electronically signed by: Ned Knox MD on 11/05/2024 08:28:13
--- OUTSIDE RECORDS SUMMARY | 2024-11-04 16:32 | XMS_ITS ---
Author Organization Natalio Willingham III, MD Address [address] [place] [address] Care Team Providers Care Java Architect Name Role Phone Natalio Willingham Primary Care [...] Date Provider Diagnosis Natalio Willingham III, MD [address] [place] [address] [place] [address] 10/29/2024 Natalio Willingham Malignant neoplasm o f [...] Her esophageal reflux is well controlled with rgcn-bvo-jkuapob medications. 10/29/2024 Hyperlipidemia (ICD-10 - E78.5) Comprehensive [...] diet and nutrition. We reviewed [facility] weight loss strategy. 10/29/2024 Pulmonary [...] 3 Weeks, Reason: Office visit Provider Name:Natalio Willingham, 11/30/2024 09:00:00 AM, [address] [place] [address] [address], [place], [address], Provider Name:Natalio Willingham, 05/10/2025 03:00:00 PM, [address] [place] [address] [address], [place], [address], Progress Notes * Zackary ESPINO EDOB:[birth year] (59 yo F)Acc No.[id number]:10/29/2024 Progress Notes Patient:?Zackary ESPINO Provider:?Natalio Willingham MD :1965???Age:59 Y???Sex:Female D ate:10/29/2024 Address:[address] [place] [address] [address], [id number] Subjective: * Chief Complaints: * ???Fracture right third fing erTobacco dependenceHypertensionDepressionGERDHyperlipidemiaCarcinoma right breast * HPI: ???COVID-19 Screening:? She returns for medical management of numerous medical issues.? She has recently undergone surgery on her right third finger where she had a comminuted displaced fracture.? She is seeing the orthopedic surgeon regularly.? The finger is bandaged and splinted but not casted.? Recent x-rays show healing.? She has had no findings on breast self-examination.? Her blood pressure was stable today.? She continues to smoke cigarettes although she is trying to stop.? She is compliant with all of her medication including those for osteoporosis.? She has an upcoming CT scan of the chest to follow a pulmonary nodule. ?Questions?Have you had any new onset fever, chills, cough, congestion, sore throat, shortness of breath, muscle aches??No * ROS:?General/Constitutional:?pain?Fracture right third finger, otherwise only normal aches and pains.?Chills?denies.?Fatigue?admits.?Fever?denies.?ENT:?Decreased hearing?denies.?Respiratory:?Cough?non-productive.?Cardiovascular:?Chest pain with exertion?denies.?Dyspnea on exertion?denies.?Shortness of breath?denies.?Gastrointestinal:?Constipation?occasional.?Decreased appetite?denies.?Diarrhea?denies.?Heartburn?denies.?Nausea?denies.?Rectal bleeding?denies.?Vomiting?denies.?Hematology:?bruising?denies.?petechiae?denies.?Swollen glands?none have been noted.?Genitourinary:?Frequent urination?denies.?Musculoskeletal:?Muscle aches?denies.?Painful joints?denies.?Sciatica?denies.?Weakness?denies.?Skin:?Itching?denies.?Rash?denies.?Skin lesion(s)?denies.?Neurologic:?Difficulty speaking?denies.?Dizziness?denies.?Headache?denies.?Low back pain?denies.?Psychiatric:?Depressed mood?which is moderate.? * Medical History:? * Surgical History:?Right sina st Lumpectomy [id number] of radiation 06/06/20Repair complicated fracture right third finger September 2024 * Hospitalization/Major Diagno stic Procedure:?No history * Family History:?Father: dece ased 60 yrs, mouth cancer, diagnosed with Cancer.?Mother: alive 67 yrs, type II diabetes, hypertension, hyperlipidemia, arthritis, diagnosed with Hyperlipidemia, HTN.?Spouse: alive.?1 sister(s) . 1 son(s) , 1 [...] and raising children. She was born in [place], [place]. She has been to [place] for [...] Vitals:?Ht: 68, Wt: 179, BMI :27.21, BP: 143/81, HR: 69, Temp: 97.7, Wt-k.19. * ???Past Orders: Imaging:XR hand RT min [...] auscultation .?BREASTS:??no masses palpable bilaterally, All scars healed.?ABDOMEN:?bowel sounds normal, no ascites, no organomegaly, no mass, overweight.?RECTAL EXAM:?not examined.?MUSCULOSKELETAL:?extremities unremarkable, no clubbing, cyanosis or edema, Right third finger bandaged and splinted.?PERIPHERAL PULSES:?normal.?NEUROLOGIC:?alert and oriented, cranial nerves 2-12 grossly intact, deep tendon reflexes 2+ symmetrical, motor strength normal upper and lower extremities, sensory exam intact.?PSYCH:?alert, oriented.? Assessment: * Assessment: 1.?Malignant neoplasm of low [...] symmetrical with the left which is not tender.???2.?Depressive disorder, not elsewhere classified - F32.9???Notes :She has slowly been tapering the citalopram. Her depression is in remission and was not evident today.???3.?Gastro-esophageal reflux disease without esophagitis - K21.9???Notes :Her esophageal reflux is well controlled with mwur-chq-ofobmos medications.???4.?Hyperlipidemia - E78.5???Notes :Comprehensive blood work with a fasting lipid profile was ordered prior to her next visit. She continues her efforts at weight loss and consumption of a healthy diet.???5.?Tobacco dependence - F17.200???Notes :We have had another discussion of all the health consequences of smoking. She wants very much to stop smoking, but is concerned about gaining weight. I recommended she try the nicotine patches. She did not want to try anything else.???6.?Overweight (BMI 25.0-29.9) - E66.3???Notes :Her body mass index is 28 and her weight is stable. We have discussed diet and nutrition. We reviewed hher weight loss strategy.???7.?Pulmonary nodule - R91.1???Notes :The right lower lobe pulmonary nodule is thought to be stable and noncalcified measuring [address] scan of the chest has been ordered for July of this year. It has been stable since that was detected in January 2024. She has a long history of cigarette smoking as well as a recent diagnosis of early breast cancer.???8.?Closed displaced fracture of proximal phalanx of right middle finger, initial encounter - O89.482A???Notes :Her surgery was successful and she is now recovering. She will follow up with orthopedics as well as myself frequently.???9.?Essential hypertension - I10???Notes :She began metoprolol tartrate 25 mg twice a day recently. 9.? Today I have added Amlodipine 5 mg.??? Plan: * Treatment: * Procedure Codes:? * [...] dangers of tobacco use and urged to quit.?10/29/2024 ?Patient Lifestyle Goals?Patient wants to quit ?Treatment Goals?Set a quit date, Cut down by 1 cigarette a week ?Barriers?Social smoker, Stress ?Self-Management Plan?Make a plan to cut down number of cigarettes over time and set a date to work towards quitting * Follow Up:?3 Weeks (Reason: Office visit) * Images: * Sign off status: Completed true * Provider:?Natalio Willingham MD Date:?10/16 Generated for Silviai loli/So/eTransmitting on:?11/04/2024 04:32 PM EST History and Physical Notes * [...]
--- OUTSIDE RECORDS SUMMARY | 2024-11-04 16:32 | XMS_ITS ---
Author Organization Natalio Willingham III, MD Address [address] [place] [address] Care Team Providers Care Security Incident Handler Name Role Phone Natalio Willingham Primary Care [...] Problem Status W/U Status Risk Notes Problem [id number] Closed displaced fracture of proximal phalanx of [...] Date Provider Diagnosis Natalio Willingham III, MD [address] [place] [address] [address], [place] [address] 09/13/2024 Natalio Willingham Elevated blood press ure [...] Her esophageal reflux is well controlled with cpwf-hmc-awkeyuu medications. 09/13/2024 Hyperlipidemia (ICD-10 - E78.5) Comprehensive [...] visit Provider Name:Natalio Willingham, 11/30/2024 09:00:00 AM, [address] [place] [address] [address], [place], [address], Provider Name:Natalio Willingham, 05/10/2025 03:00:00 PM, [address] [place] [address] [address], [address], Progress Notes * Ayah ESPINO EDOB:[birth year] (59 yo F)Acc No.[id number]:09/13/2024 Progress Notes Patient:?Ayah ESPINO Provider:?Natalio Willingham MD :1965???Age:59 Y???Sex:Female D ate:09/13/2024 Address:[address], [address], [place], [id number] Subjective: * Chief Complaints: * ???Recent [...] She went to the emergency room in [facility] where was splinted.? She is scheduled for orthopedic surgery in the near future with Dr. Jefferson, hand surgery at [facility].? In the emergency room her blood pressure [...] History:? * Surgical History:?Right sina st Lumpectomy 0928-42-55Ymqbo of radiation 06/06/20No history * Hospitalization/Major Diagno [...] and raising children. She was born in [place], [place]. She has been to [place] for [...] of right middle finger, initial encounter - X52.202A (Primary)???Notes :She will proceed to surgery this [...] :Her esophageal reflux is well controlled with txiy-yem-fwxaesi medications.???6.?Hyperlipidemia - E78.5???Notes :Comprehensive blood work with [...] Willingham MD Date:?08/17 Generated for Tati ennis/So/eTransmitting on:?11/04/2024 04:32 PM EST History and Physical [...]
--- OUTSIDE RECORDS SUMMARY | 2024-11-04 16:33 | XMS_ITS ---
Author Organization Natalio Willingham III, MD Address [address] [place] [address] Care Team Providers Care Section 8 Property Manager Name Role Phone Natalio Willingham Primary [...] Problem Status W/U Status Risk Notes Problem [id number] Essential hypertension (I10) Active confirmed She began metoprolol tartrate 25 mg twice a day recently. 9. Today I have added Amlodipine 5 mg. Vital Signs Temperature 97.8 degrees Fahrenheit 10/08/19 25 Blood pressure systolic 150 mm Hg 10/08/19 25 Blood pressure diastolic 88 mm Hg 025 Heart Rate 78 /min 10/08/2024 Height 68 in 10/08/2024 Weight 176 lbs 10/08/2024 BMI 26.76 kg/m2 10/08/2024 Encounters Encounter Location Date Provider Diagnosis Natalio Willingham III, MD [address] [place] [address] [address], [place] [address] 10/08/2024 Natalio Willingham Essential hypertensi on I10 [...] have discussed diet and nutrition. We reviewed [facility] weight loss strategy. 10/08/2024 Osteoporosis (ICD-10 [...] Her esophageal reflux is well controlled with lhnh-xcb-stmczlr medications. Plan Of Treatment Medication Medication Name [...] 3 Weeks, Reason: OV Provider Name:Natalio Willingham, 11/30/2024 09:00:00 AM, [address] [place] [address] [address], [place], [address], Provider Name:Natalio Willingham, 05/10/2025 03:00:00 PM, [address] [place] [address] [address], [place], [address], Progress Notes * Zackary ESPINO EDOB:[birth year] (59 yo F)Acc No.[id number]:10/08/2024 Progress Notes Patient:?Zackary ESPINO Provider:?Natalio Willingham MD :1965???Age:59 Y???Sex:Female D ate:10/08/2024 Address:[address], [facility] Subjective: * Chief Complaints: * ???Fractured right [...] History:? * Surgical History:?Right sina st Lumpectomy 0763-88-37Twtvf of radiation 06/06/20Repair complicated fracture right third [...] and raising children. She was born in [place], [place]. She has been to [facility] for [...] of right middle finger, initial encounter - J96.247N???Notes :Her surgery was successful and she is now recovering.? She will follow up with orthopedics as well as myself frequently.???3.?Overweight (BMI 25.0-29.9) - E66.3???Notes :Her body mass index is 28 and her weight is stable. We have discussed diet and nutrition. We reviewed [facility] weight loss strategy.???4.?Osteoporosis - M81.0???Notes :She is [...] :Her esophageal reflux is well controlled with qkew-frh-hpvqmtp medications.??? Plan: * Treatment: * Procedure Codes:? [...] Willingham MD Date:?09/16 Generated for Tati ennis/So/Waqaritting on:?11/04/2024 04:32 PM EST History and Physical [...]
== END 2024-11-04 15:33 | disposition home or self-care (01) ==
LOC: HO.CT 15:32
PROVIDERS: Visit Provider Physician Assistant Medical
DX: F17.210 Nicotine dependence, cigarettes, uncomplicated (principal)
CPT/HCPCS: 71250

== ENCOUNTER → 2024-11-04 15:37 | Outpatient (BNV) | payer BC, SELFPAY | PROVIDERS: Visit Provider Specialist | DX: F17.210 Nicotine dependence, cigarettes, uncomplicated (principal) | CPT/HCPCS: 71250 ==

== ENCOUNTER 2024-11-24 10:57 | Outpatient (AMB) | payer BC, SELFPAY ==
[2024-11-24 11:09] VITALS: BMI 27.0
--- NOTE | 2024-11-24 11:09 | A.OFFVIS_ITS ---
Vital Signs 11/24/24 11:09 Height 5 ft 7.5 in Weight 175 lb BMI 27.0 Intake Visit Reasons: PO RT MF CRPP vs ORIF 09/13/24 AR Intake Note: Ayah is a 59 year old right hand dominant woman who presents S/P right middle finger CRPP, DOS: 09/13/24 for a ROM check. States she continues to have stiffness and is not able to make a close fist. Allergies codeine [CODEINE] Allergy (Severe, Verified 11/24/24 11:15) AGITATION, mentally unstable amoxicillin [AMOXICILLIN] Allergy (Intermediate, Verified 11/24/24 11:15) RASH latex [LATEX] Allergy (Intermediate, Verified 11/24/24 11:15) RASH seasonal Allergy (Unknown, Uncoded 11/24/24 11:15) Unknown SEASONAL ALLERGIES Allergy (Unknown, Uncoded 11/24/24 11:15) WHEEZING HPI HPI PO RT MF CRPP vs ORIF 09/13/24 AR: Details: Ayah is a 59 year old right hand dominant woman who returns S/P right middle finger proximal phalanx CRPP, DOS: 09/13/24, from an injury while walking her dog, DOI: 09/08/24. She is here for a ROM check She says she is doing well and denies any pain. She has been attending OT hand therapy. 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 She is a smoker, and says she smokes ~1/2 a pack daily, after she has cut back. [facility] Medical History (Updated 11/24/24 @ 11:47 by Itz Ybarra) History of breast cancer (~2019) Mitral valve prolapse Hypercholesterolemia GERD (gastroesophageal reflux disease) Nicotine dependence, cigarettes, uncomplicated Depression Surgical History History of lumpectomy of right breast History of colonoscopy Family History Mother Breast cancer, Onset Age: 75 Maternal Grandmother Breast cancer Father Throat cancer Mouth cancer Social History Are you a primary care support representative to a significant other at home: No Do you presently have visiting nurse or other home services: No Alcohol intake: current Alcohol intake frequency: 0-2 drinks per day Alcohol type: wine Comment: medicated Patient Tobacco Use Status: Current someday Tobacco user Tobacco use type: Cigarette Years Smoked: onset 17yo, 1/2ppd x 41yrs - 20PYH Current occupational status: employed 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 She still has the same amount of slight ulnar deviation of the middle finger at the fracture site. No cross-over of the middle finger Initially she could only bring her fingertips to ~5cm from her palm, somewhat better for her index finger We worked on ROM exercises for more than 15 minutes today in clinic Before leaving clinic she could: Small and index finger passively down to her palm Ring finger & middle finger ~1cm from her palm ~5 degree flexion contracture of the middle finger PIP joint Sensation is intact Cap refill is brisk Psych Appearance: grossly normal Affect: normal affect Attitude: cooperative Assessment & Plan Assessment & Plan (1) Fracture of proximal phalanx of right middle finger: Code(s): S62.612A - Displaced fracture of proximal phalanx of right middle finger, initial encounter for closed fracture Category: Medical (2) Nicotine dependence, cigarettes, uncomplicated: Comment: (current smoker, onset 17yo, 1/2ppd x 41yrs - 20PYH) Code(s): F17.210 - Nicotine dependence, cigarettes, uncomplicated Category: Medical (3) Stiffness of right hand joint: Code(s): M25.641 - Stiffness of right hand, not elsewhere classified Category: Medical Plan Assessment & Plan: 1. Right middle finger proximal phalanx shaft fracture, S/P CRPP DOI: 09/08/24 DOS: 09/13/24 Some displacement the fracture site noted at her 1st postop visit. K-wires removed 10/27/24 The fracture has gone on to heal well. 2. Right hand stiffness This appears to be her main problem right now Again her fracture has gone on to heal well. I discussed activity modifications, she is to use her hand for more lightweight activities She still has significant stiffness in her fingers We worked on ROM exercises for more than 15 minutes today in clinic I stressed the importance of working on ROM exercises, 20x daily every day if she wants to restore her normal hand function She will continue to work with OT hand therapy on stretching, strengthening, ROM, and normalizing function She will follow up in 3 weeks for ewvak-yl-ykcybr check. No radiographs are needed unless there are concerns. Scribed for Li Olson MD by Itz Ybarra, medical center director, on 11/24/24 at 11:40 AM, EST. Coding Level of Care Code Est Pt Level 3 (79940) Diagnoses Fracture of proximal phalanx of right middle finger S62.612A Nicotine dependence, cigarettes, uncomplicated F17.210 Stiffness of right hand joint M25.641
--- OUTSIDE RECORDS SUMMARY | 2024-11-24 12:49 | XMS_ITS ---
Author Organization Natalio Willingham III, MD Address [address] [place] [address] Care Team Providers Care Software Integrator Name Role Phone Natalio Willingham Primary Care Provider [phone] Allergies Allergen (clinical drug ingredient) Drug/Non Drug [...] Problem Status W/U Status Risk Notes Problem [id number] Essential hypertension (I10) Active confirmed She began [...] Date Provider Diagnosis Natalio Willingham III, MD [address] [place] [address] [address], [place] [address] 10/08/2024 Natalio Willingham Essential hypertensi on I10 [...] have discussed diet and nutrition. We reviewed [facility] weight loss strategy. 10/08/2024 Osteoporosis [...] Her esophageal reflux is well controlled with unhv-uvd-hravccq medications. Plan Of Treatment Medication Medication Name [...] OV Provider Name:Natalio Willingham, 11/30/2024 09:00:00 AM, [address] [place] [address] [address], [place], [address], Provider Name:Natalio Willingham, 05/10/2025 03:00:00 PM, [address] [place] [address] [address], [place], [address], Progress Notes * Zackary ESPINO EDOB:[birth year] (59 yo F)Acc No.[id number]:10/08/2024 Progress Notes Patient:?Zackary ESPINO Provider:?Natalio Willingham MD :1965???Age:59 Y???Sex:Female D ate:10/08/2024 Address:[address], [phone] Subjective: * Chief Complaints: * ???Fractured right [...] History:? * Surgical History:?Right sina st Lumpectomy 4272-13-39Uljol of radiation 06/06/20Repair complicated fracture right third [...] and raising children. She was born in [place], [place]. She has been to [facility] for [...] of right middle finger, initial encounter - J51.584N???Notes :Her surgery was successful and she is now recovering.? She will follow up with orthopedics as well as myself frequently.???3.?Overweight (BMI 25.0-29.9) - E66.3???Notes :Her body mass index is 28 and her weight is stable. We have discussed diet and nutrition. We reviewed [facility] weight loss strategy.???4.?Osteoporosis - M81.0???Notes [...] :Her esophageal reflux is well controlled with veyz-pqa-ajueasj medications.??? Plan: * Treatment: * Procedure Codes:? [...] Willingham MD Date:?09/16 Generated for Tati ennis/So/Waqaritting on:?11/24/2024 12:49 PM EDT History and Physical Notes * [...]
--- OUTSIDE RECORDS SUMMARY | 2024-11-24 12:49 | XMS_ITS ---
Author Organization Natalio Willingham III, MD Address [address] [place] [address] Care Team Providers Care Lot Technician Name Role Phone Natalio Willingham Primary Care Provider [phone] Allergies Allergen (clinical drug ingredient) Drug/Non Drug [...] Provider Diagnosis Natalio Willingham III, MD [address] [place] [address] [place] [address] 10/29/2024 Natalio Willingham Malignant neoplasm o f [...] Her esophageal reflux is well controlled with dpoz-lag-xwrmrkc medications. 10/29/2024 Hyperlipidemia (ICD-10 - E78.5) Comprehensive [...] [facility] weight loss strategy. 10/29/2024 Pulmonary [...] visit Provider Name:Natalio Willingham, 11/30/2024 09:00:00 AM, [address] [place] [address] [address], [place], [address], Provider Name:Natalio Willingham, 05/10/2025 03:00:00 PM, [address] [place] [address] [address], [place], [address], Progress Notes * Zackary ESPINO EDOB:[birth year] (59 yo F)Acc No.[id number]:10/29/2024 Progress Notes Patient:?Zackary ESPINO Provider:?Natalio Willingham MD :1965???Age:59 Y???Sex:Female D ate:10/29/2024 Address:[address] [place] [address] [address], [phone] Subjective: * Chief Complaints: * ???Fracture right [...] History:? * Surgical History:?Right sina st Lumpectomy 1539-80-34Qooad of radiation 06/06/20Repair complicated fracture right third [...] and raising children. She was born in [place], [place]. She has been to [facility] for [...] :Her esophageal reflux is well controlled with ytya-dmp-ynfxhta medications.???4.?Hyperlipidemia - E78.5???Notes :Comprehensive blood work with [...] of right middle finger, initial encounter - C79.782A???Notes :Her surgery was successful and she is [...] Willingham MD Date:?10/16 Generated for Silviai loli/So/eTransmitting on:?11/24/2024 12:49 PM EDT History and Physical [...]
--- OUTSIDE RECORDS SUMMARY | 2024-11-24 12:49 | XMS_ITS ---
Author Organization Natalio Willingham III, MD Address [address] [place] [address] Care Team Providers Care Shadow Graph Weight Operator Name Role Phone Natalio Willingham Primary Care Provider [phone] Allergies Allergen (clinical drug ingredient) Drug/Non Drug [...] Problem Status W/U Status Risk Notes Problem [id number] Closed displaced fracture of proximal phalanx of [...] Provider Diagnosis Natalio Willingham III, MD [address] [place] [address] [address], [place] [address] 09/13/2024 Natalio Willingham Elevated blood press ure [...] Her esophageal reflux is well controlled with gwvv-ofc-qmmmdgy medications. 09/13/2024 Hyperlipidemia (ICD-10 - E78.5) Comprehensive [...] visit Provider Name:Natalio Willingham, 11/30/2024 09:00:00 AM, [address] [place] [address] [address], [place], [address], Provider Name:Natalio Willingham, 05/10/2025 03:00:00 PM, [address] [place] [address] [address], [address], Progress Notes * Ayah ESPINO EDOB:[birth year] (59 yo F)Acc No.[id number]:09/13/2024 Progress Notes Patient:?Ayah ESPINO Provider:?Natalio Willingham MD :1965???Age:59 Y???Sex:Female D ate:09/13/2024 Address:[address], [place], [place]-[address] Subjective: * Chief Complaints: * ???Recent [...] She went to the emergency room in [facility] where was splinted.? She is scheduled for orthopedic surgery in the near future with Dr. Jefferson, hand surgery at [facility].? In the emergency room her blood [...] History:? * Surgical History:?Right sina st Lumpectomy 8194-41-20Laucf of radiation 06/06/20No history * Hospitalization/Major Diagno [...] and raising children. She was born in [place], [place]. She has been to [facility] for [...] of right middle finger, initial encounter - V62.322A (Primary)???Notes :She will proceed to surgery this [...] :Her esophageal reflux is well controlled with pryx-pcl-xkvekzz medications.???6.?Hyperlipidemia - E78.5???Notes :Comprehensive blood work with [...] Provider:?Natalio Willingham MD Date:?08/17 Generated for Silviai loli/So/eTransmitting on:?11/24/2024 12:49 PM [...]
== END 2024-11-24 12:26 | disposition home or self-care (01) ==
LOC: HO.HOS 10:58
PROVIDERS: Visit Provider Orthopaedic Surgery
DX: S62.612A Displaced fracture of proximal phalanx of right middle finger, initial encounter for closed fracture (principal); M25.641 Stiffness of right hand, not elsewhere classified; F17.210 Nicotine dependence, cigarettes, uncomplicated
CPT/HCPCS: 99024

== ENCOUNTER → 2024-11-24 10:57 | Outpatient (BNVA) | payer BC, SELFPAY | PROVIDERS: Visit Provider Orthopaedic Surgery ==

== ENCOUNTER 2024-12-15 12:40 | Outpatient (AMB) | payer BC, SELFPAY ==
--- NOTE | 2024-12-15 12:42 | MHC.OFFVIS ---
Vital Signs 12/15/24 12:43 Height 5 ft 7.5 in Weight 175 lb BMI 27.0 Intake Visit Reasons: OV RT MF CRPP vs ORIF 09/13/24 AR Intake Note: Ayah is a 59 year old right hand dominant woman who presents S/P right middle finger CRPP, DOS: 09/13/24 for a ROM check. States she continues to have stiffness and is not able to make a close fist. States she is also having radiating pain to her arm. Allergies codeine [CODEINE] Allergy (Severe, Verified 12/15/24 12:44) AGITATION, mentally unstable amoxicillin [AMOXICILLIN] Allergy (Intermediate, Verified 12/15/24 12:44) RASH latex [LATEX] Allergy (Intermediate, Verified 12/15/24 12:44) RASH seasonal Allergy (Unknown, Uncoded 12/15/24 12:44) Unknown SEASONAL ALLERGIES Allergy (Unknown, Uncoded 12/15/24 12:44) WHEEZING HPI HPI OV RT MF CRPP vs ORIF 09/13/24 AR: Details: Ayah is a 59 year old right hand dominant woman who returns S/P right middle finger proximal phalanx CRPP, DOS: 09/13/24, from an injury while walking her dog, DOI: 09/08/24. She is here for a ROM check She complains of pain which radiates from her hand into her arm. She says this is 24/7 and no OTC medication is improving her pain. She has been attending OT hand therapy. She says she is still struggling with making a closed fist. She says she is performing ROM exercises every hour and is trying to use her hand for more daily activities. She is frustrated by her pain and limited ROM. 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 She is a smoker, and says she smokes ~1/2 a pack daily, after she has cut back. [facility] Medical History (Updated 11/24/24 @ 11:47 by Itz Ybarra) History of breast cancer (~2019) Mitral valve prolapse Hypercholesterolemia GERD (gastroesophageal reflux disease) Nicotine dependence, cigarettes, uncomplicated Depression Surgical History (Reviewed 12/15/24 @ 12:44 by Susana Hawthorne [facility] [place]) History of lumpectomy of right breast History of colonoscopy Family History Mother Breast cancer, Onset Age: 75 Maternal Grandmother Breast cancer Father Throat cancer Mouth cancer Social History Are you a primary associate director career services to a significant other at home: No Do you presently have visiting nurse or other home services: No Alcohol intake: current Alcohol intake frequency: 0-2 drinks per day Alcohol type: wine Comment: medicated Patient Tobacco Use Status: Current someday Tobacco user Tobacco use type: Cigarette Years Smoked: onset 17yo, 1/2ppd x 41yrs - 20PYH Current occupational status: employed 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 She feels like she has been working hard, but thought she would see more motion Neuro: Median, Ulnar, Radial nerves motor and sensory intact and sensation is normal to the tips of all digits Vascular: Cap refill brisk ROM: No clinical change in alignment since last visit. She still has the same amount of slight ulnar deviation of the middle finger at the fracture site. No cross-over of the middle finger Initially she could actively bring her middle finger ~2cm from her palm, ring finger ~2-3cm from her palm, and small ~2cm from her palm. She can bring her index finger down to touch the thenar mass ~15-20 degree flexion contracture of the middle finger PIP joint We worked on ROM exercises for more than 15 minutes today in clinic Before leaving clinic she could: Passively bring her index, ring, and small fingertips down to her palm, actively ~1cm from her palm Middle finger ~2cm from her palm, and we did not really work on middle finger range of motion today. Sensation is intact Cap refill is brisk Psych Appearance: grossly normal Affect: normal affect Attitude: cooperative Office Procedures AMB Fracture Care Details: No fracture, manual therapy for more than 15 minutes [id number] Fracture Billing Code: Fracture Billing Code Assessment & Plan Assessment & Plan (1) Fracture of proximal phalanx of right middle finger: Code(s): S62.612A - Displaced fracture of proximal phalanx of right middle finger, initial encounter for closed fracture Category: Medical (2) Nicotine dependence, cigarettes, uncomplicated: Comment: (current smoker, onset 17yo, 1/2ppd x 41yrs - 20PYH) Code(s): F17.210 - Nicotine dependence, cigarettes, uncomplicated Category: Medical (3) Stiffness of right hand joint: Code(s): M25.641 - Stiffness of right hand, not elsewhere classified Category: Medical Plan Assessment & Plan: 1. Right middle finger proximal phalanx shaft fracture, S/P CRPP DOI: 09/08/24 DOS: 09/13/24 Some displacement the fracture site noted at her 1st postop visit. K-wires removed 10/27/24 The fracture has gone on to heal well. 2. Right hand stiffness This appears to be her main problem right now I showed her that she has actually made quite a bit of progress in 3 weeks, but she still has lot of work to do. Three weeks ago she can only bring her fingers actively to about 5 cm from her palm and now she can bring them actively to about 2 cm from her palm We worked on ROM exercises for more than 15 minutes today in clinic I stressed the importance of working on ROM exercises, 20x daily every day if she wants to restore her normal hand function. She should focus on active FDP & FDS tendon functions She will continue to work with OT hand therapy on stretching, strengthening, ROM, and normalizing function she will follow up in 4 weeks for a ROM check Scribed for Li Olson MD by Itz Ybarra, bilingual medical receptionist, on 12/15/24 at 12:55 PM, EST. Coding Level of Care Code Est Pt Level 3 (19340) Diagnoses Fracture of proximal phalanx of right middle finger S62.612A Nicotine dependence, cigarettes, uncomplicated F17.210 Stiffness of right hand joint M25.641 CPT Codes Fracture Care - Fracture Billing Code: Fracture Billing Code ([id number])
[2024-12-15 12:43] VITALS: BMI 27.0
--- OUTSIDE RECORDS SUMMARY | 2024-12-15 15:07 | XMS_ITS ---
Author Organization Natalio Willingham III, MD Address [address] [place] [address] Care Team Providers Care Cloth Colorer Name Role Phone Natalio Willingham Primary Care [...] Date Provider Diagnosis Natalio Willingham III, MD [address] [place] [address] [place] [address] 10/29/2024 Natalio Willingham Malignant neoplasm o f [...] Her esophageal reflux is well controlled with vjig-xlw-tcizeuq medications. 10/29/2024 Hyperlipidemia (ICD-10 - E78.5) Comprehensive [...] discussed diet and nutrition. We reviewed [facility] weight [facility] strategy. 10/29/2024 Pulmonary [...] Weeks, Reason: Office visit Provider Name:Natalio Willingham, 03/04/2025 09:15:00 AM, [address] [place] [address] [address], [place], [address], Provider Name:Natalio Willingham, 05/10/2025 03:00:00 PM, [address] [place] [address] [address], [place], [address], Progress Notes * Zackary ESPINO EDOB:[birth year] (59 yo F)Acc No.[id number]:10/29/2024 Progress Notes Patient:?Zackary ESPINO Provider:?Natalio Willingham MD :1965???Age:59 Y???Sex:Female D ate:10/29/2024 Address:[address] [place] [address] [address], [address], [facility] Subjective: * Chief Complaints: * ???Fracture [...] History:? * Surgical History:?Right sina st Lumpectomy 5068-03-01Sifsq of radiation 06/06/20Repair complicated fracture right third [...] and raising children. She was born in [place], [place]. She has been to [place] for [...] :Her esophageal reflux is well controlled with ypag-ikx-pqzbhya medications.???4.?Hyperlipidemia - E78.5???Notes :Comprehensive blood work with [...] of right middle finger, initial encounter - V28.402A???Notes :Her surgery was successful and she is [...] Willingham MD Date:?10/16 Generated for Silviai loli/So/eTransmitting on:?12/15/2024 03:07 PM EDT History and Physical Notes * [...]
--- OUTSIDE RECORDS SUMMARY | 2024-12-15 15:07 | XMS_ITS ---
Author Organization Natalio Willingham III, MD Address [address] [place] [address] Care Team Providers Care Donor Relations Officer Name Role Phone Natalio Willingham Primary Care Provider [phone] Allergies Allergen (clinical drug ingredient) Drug/Non Drug [...] Date Provider Diagnosis Natalio Willingham III, MD [address] [place] [address] [place] [address] 11/30/2024 Natalio Willingham Essential hypertensi on I10 [...] Her esophageal reflux is well controlled with rdii-qjp-tkwocql medications. 11/30/2024 Tobacco dependence (ICD-10 - F17.200) [...] Up: 3 Months, Reason: OV Provider Name:Natalio Willingham, 03/04/2025 09:15:00 AM, [address] [place] [address] [address], [place], [address], Provider Name:Natalio Willingham, 05/10/2025 03:00:00 PM, [address] [place] [address] [address], [place], [address], Progress Notes * Zackary ESPINO EDOB:[birth year] (59 yo F)Acc No.[id number]:11/30/2024 Progress Notes Patient:?Zackary ESPINO Provider:?Natalio Willingham MD :1965???Age:59 Y???Sex:Female D ate:11/30/2024 Address:[address] [place] [address] [address], [facility] Subjective: * Chief Complaints: * ???Ot in prigressOverweightG ERDRight breast cancerHyperlipidemiaTobacco dependenceFractured finger right hand * HPI: ???COVID-19 Screening:? She returns for a scheduled visit to manage her metabolic issues.? She has recently seen the hand surgeon.? She is a fracture of the third finger on her right hand which required surgery.? He has recently had contractures develop of the second fourth finger which the hand surgeon has manipulated.? She continues to smoke 10 cigarettes per day.? Depression is treated and she continues on her antidepressant.? Her esophageal reflux symptoms have resolved.? She has conducting breast self-examination with no findings.? He remains in remission from the breast cancer.? She continues on anastrozole. ?Questions?Have you had any new onset fever, chills, cough, congestion, sore throat, shortness of breath, muscle aches??No * ROS:?General/Constitutional:?pain?Fingers of right hand.?Chills?denies.?Fatigue?admits.?Fever?denies.?ENT:?Decreased hearing?denies.?Respiratory:?Cough?non-productive.?Cardiovascular:?Chest pain with exertion?denies.?Dyspnea on exertion?denies.?Shortness of breath?denies.?Gastrointestinal:?Constipation?occasional.?Decreased appetite?denies.?Diarrhea?denies.?Heartburn?denies.?Nausea?denies.?Rectal bleeding?denies.?Vomiting?denies.?Hematology:?bruising?denies.?petechiae?denies.?Swollen glands?none have been noted.?Genitourinary:?Frequent urination?denies.?Musculoskeletal:?Muscle aches?denies.?Painful joints?Third second and fourth fingers right hand.?Sciatica?denies.?Weakness?denies.?Skin:?Itching?denies.?Rash?denies.?Skin lesion(s)?denies.?Neurologic:?Difficulty speaking?denies.?Dizziness?denies.?Headache?denies.?Low back pain?denies.?Psychiatric:?Depressed mood?which is mild.? * Medical History:? * Surgical History:?Right sina st Lumpectomy [id number] of radiation 06/06/20Repair complicated fracture right third [...] and raising children. She was born in [place], [place]. She has been to [place] for [...] Vitals:?Ht: 68, Wt: 176, BMI :26.76, BP: 139/76, HR: 65, Temp: 98.1, Wt-k.83. * ???Past Orders: Imaging:XR hand RT [...] bruits.?LUNGS:?clear to auscultation .?BREASTS:??no masses palpable bilaterally, Scars right breast well-healed, both axillae within normal limits.?ABDOMEN:?bowel sounds normal, no ascites, no organomegaly, no mass, overweight.?RECTAL EXAM:?not examined.?MUSCULOSKELETAL:?extremities unremarkable, no clubbing, cyanosis or edema.?PERIPHERAL PULSES:?normal.?NEUROLOGIC:?alert and oriented, cranial nerves 2-12 grossly intact, deep tendon reflexes 2+ symmetrical, motor strength normal upper and lower extremities, sensory exam intact.?PSYCH:?alert, oriented.? Assessment: * Assessment: 1.?Essential hypertension - I10 (Primary)???Notes :Her blood pressure is currently stable and no change in her regimen as necessary.? We discussed weight loss and smoking cessation at length today.? I recommended sodium restriction as well.???2.?Hyperlipidemia - E78.5???Notes :Comprehensive lipids are being obtained periodically.? We reviewed her diet in detail today.? No change in her regimen was necessary???3.?Overweight (BMI 25.0-29.9) - E66.3???Notes :Her weight is stable.? We reviewed her diet and nutrition.? We have reviewed her weight loss strategy.? Continue to lose weight at a rate of one half of a pound per week.???4.?Depressive disorder, not elsewhere classified - F32.9???Notes :She has slowly been tapering the citalopram. Her depression is in remission and was not evident today.???5.?Gastro-esophageal reflux disease without esophagitis - K21.9???Notes :Her esophageal reflux is well controlled with tnqh-iql-ugkpngm medications.???6.?Tobacco dependence - F17.200???Notes :We have had another discussion of all the health consequences of smoking. She wants very much to stop smoking, but is concerned about gaining weight. I recommended she try the nicotine patches. She did not want to try anything else.???7.?Malignant neoplasm of lower-outer quadrant of right female [...] which is not tender.??? Plan: * Treatment: 2.?Hyperlipidemia?LAB: PROFILE, FASTING (COMPREHENSIVE METABOLIC) ?LAB: CBC w DIFF ?LAB: Lipid Panel 3.?Overweight (BMI 25.0-29.9 )?LAB: PROFILE, FASTING (COMPREHENSIVE METABOLIC) ?LAB: CBC w DIFF ?LAB: Lipid Panel 4.?Others? Continue ProAir HFA Aerosol Solution, 108 (90 Base) MCG/ACT, 2 puffs as needed, Inhalation, every 4 hrs;?Continue Loratadine Tablet, 10 MG, TAKE 1 TABLET BY MOUTH EVERY DAY;?Continue Anastrozole Tablet, 1 MG, TAKE 1 TABLET BY MOUTH EVERY DAY;?Continue Citalopram Hydrobromide Tablet, 10 MG, TAKE 1 TABLET BY MOUTH EVERY DAY;?Continue Atorvastatin Calcium Tablet, 10 MG, TAKE 1 TABLET BY MOUTH EVERY DAY;?Continue Metoprolol Tartrate Tablet, 25 MG, 1 tablet with food, Orally, Twice a day;?Continue amLODIPine Besylate Tablet, 5 MG, 1 tablet, Orally, Once a day.?? * Procedure Codes:? * Preventive Medicine:? ??Counseling:?Care [...] dangers of tobacco use and urged to quit.?11/29/2024 ?Patient Lifestyle Goals?Patient wants to quit ?Treatment Goals?Cut down by 1 cigarette a week, Set a quit date ?Barriers?Stress, Social smoker ?Self-Management Plan?Make a plan to cut down number of cigarettes over time and set a date to work towards quitting * Follow Up:?3 Months (Reason: OV) * Images: * Sign off status: Completed true * Provider:?Natalio Willingham MD Date:?11/13 Generated for Tati ennis/So/eTransmitting on:?12/15/2024 03:07 PM EDT History and Physical [...]
--- OUTSIDE RECORDS SUMMARY | 2024-12-15 15:08 | XMS_ITS ---
Author Organization Natalio Willingham III, MD Address [address] [place] [address] Care Team Providers Care Rigging Supervisor Name Role Phone Natalio Willingham Primary Care [...] Problem Status W/U Status Risk Notes Problem [id number] Essential hypertension (I10) Active confirmed Her blood [...] Date Provider Diagnosis Natalio Willingham III, MD [address] [place] [address] [address], [place] [address] 10/08/2024 Natalio Willingham Essential hypertensi on I10 [...] discussed diet and nutrition. We reviewed [facility] weight loss strategy. 10/08/2024 Osteoporosis [...] Her esophageal reflux is well controlled with wzhe-zid-fjjlfce medications. Plan Of Treatment Medication Medication Name [...] 3 Weeks, Reason: OV Provider Name:Natalio Willingham, 03/04/2025 09:15:00 AM, [address] [place] [address] [address], [place], [address], Provider Name:Natalio Willingham, 05/10/2025 03:00:00 PM, [address] [place] [address] [address], [place], [address], Progress Notes * Zackary ESPINO EDOB:[birth year] (59 yo F)Acc No.[id number]:10/08/2024 Progress Notes Patient:?Zackary ESPINO Provider:?Natalio Willingham MD :1965???Age:59 Y???Sex:Female D ate:10/08/2024 Address:[address], [facility] Subjective: * Chief Complaints: * ???Fractured right [...] History:? * Surgical History:?Right sina st Lumpectomy 8690-09-15Rymoh of radiation 06/06/20Repair complicated fracture right third [...] and raising children. She was born in [place], [place]. She has been to [place] for [...] of right middle finger, initial encounter - F23.599L???Notes :Her surgery was successful and she is now recovering.? She will follow up with orthopedics as well as myself frequently.???3.?Overweight (BMI 25.0-29.9) - E66.3???Notes :Her body mass index is 28 and her weight is stable. We have discussed diet and nutrition. We reviewed [facility] weight loss strategy.???4.?Osteoporosis - M81.0???Notes [...] :Her esophageal reflux is well controlled with quve-rap-okmmidk medications.??? Plan: * Treatment: * Procedure Codes:? [...] Willingham MD Date:?09/16 Generated for Tati ennis/So/Waqaritting on:?12/15/2024 03:08 PM EDT History and Physical Notes * [...]
== END 2024-12-15 13:13 | disposition home or self-care (01) ==
LOC: HO.HOS 12:41
PROVIDERS: Visit Provider Orthopaedic Surgery
DX: S62.612A Displaced fracture of proximal phalanx of right middle finger, initial encounter for closed fracture (principal); F17.210 Nicotine dependence, cigarettes, uncomplicated; M25.641 Stiffness of right hand, not elsewhere classified
CPT/HCPCS: 99213

== ENCOUNTER → 2024-12-15 12:40 | Outpatient (BNVA) | payer BC, SELFPAY | PROVIDERS: Visit Provider Orthopaedic Surgery | DX: S62.612D Displaced fracture of proximal phalanx of right middle finger, subsequent encounter for fracture with routine healing (principal); M25.641 Stiffness of right hand, not elsewhere classified; F17.210 Nicotine dependence, cigarettes, uncomplicated | CPT/HCPCS: 97140 ==

== ENCOUNTER → 2024-12-30 09:51 | Outpatient (BNVA) | payer BC, SELFPAY | PROVIDERS: Visit Provider Surgery ==

== ENCOUNTER 2025-01-11 10:57 | Outpatient (AMB) | payer BC, SELFPAY ==
--- NOTE | 2025-01-11 11:02 | A.OFFVIS_ITS ---
Vital Signs 01/11/25 11:02 Height 55 ft 7 in Weight 175 lb BMI 0.3 Intake Visit Reasons: OV RT MF CRPP vs ORIF 09/13/24 AR Intake Note: Ayah is a 59 year old right hand dominant woman who presents S/P right middle finger CRPP, DOS: 09/13/24 for a ROM check. States she has good improvement with making a fist. She continues to attend O.T 2x a week . States she still has a little weakness in her hand but is a lot better over all. Allergies codeine [CODEINE] Allergy (Severe, Verified 01/11/25 11:04) AGITATION, mentally unstable amoxicillin [AMOXICILLIN] Allergy (Intermediate, Verified 01/11/25 11:04) RASH latex [LATEX] Allergy (Intermediate, Verified 01/11/25 11:04) RASH seasonal Allergy (Unknown, Uncoded 01/11/25 11:04) Unknown SEASONAL ALLERGIES Allergy (Unknown, Uncoded 01/11/25 11:04) WHEEZING HPI HPI OV RT MF CRPP vs ORIF 09/13/24 AR: Details: Ayah is a 59 year old right hand dominant woman who returns S/P right middle finger proximal phalanx CRPP, DOS: 09/13/24, from an injury while walking her dog, DOI: 09/08/24. Her fracture went on to heal well, but she has had some trouble with stiffness. She is here for a ROM check She says she is improving with her ROM & strength of her right hand with OT hand therapy. She is happy with the improvements she has made, and continues to attend OT 2x weekly. She has some difficulty still with prolonged gripping, such as holding a steering wheel. 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 She is a smoker, and says she smokes ~1/2 a pack daily, after she has cut back. [facility] Medical History History of breast cancer (~2019) Mitral valve prolapse Hypercholesterolemia GERD (gastroesophageal reflux disease) Nicotine dependence, cigarettes, uncomplicated Depression Surgical History History of lumpectomy of right breast History of colonoscopy Family History Mother Breast cancer, Onset Age: 75 Maternal Grandmother Breast cancer Father Throat cancer Mouth cancer Social History Are you a primary attending ambulatory care to a significant other at home: No Do you presently have visiting nurse or other home services: No Alcohol intake: current Alcohol intake frequency: 0-2 drinks per day Alcohol type: wine Comment: medicated Patient Tobacco Use Status: Current someday Tobacco user Tobacco use type: Cigarette Years Smoked: onset 17yo, 1/2ppd x 41yrs - 20PYH Current occupational status: employed 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 She still has the same amount of slight ulnar deviation of the middle finger at the fracture site. No cross-over of the middle finger She was able to actively bring her fingertips to touch her palm She could actively flex her PIP joints to ~90 degrees She could actively flex her DIP joints to ~30-40 degrees ~15 degree flexion contracture of the middle finger PIP joint Sensation is intact Cap refill is brisk Psych Appearance: grossly normal Affect: normal affect Attitude: cooperative Assessment & Plan Assessment & Plan (1) Fracture of proximal phalanx of right middle finger: Code(s): S62.612A - Displaced fracture of proximal phalanx of right middle finger, initial encounter for closed fracture Category: Medical (2) Stiffness of right hand joint: Code(s): M25.641 - Stiffness of right hand, not elsewhere classified Category: Medical (3) Nicotine dependence, cigarettes, uncomplicated: Comment: (current smoker, onset 17yo, 1/2ppd x 41yrs - 20PYH) Code(s): F17.210 - Nicotine dependence, cigarettes, uncomplicated Category: Medical Plan Assessment & Plan: 1. Right middle finger proximal phalanx shaft fracture, S/P CRPP DOI: 09/08/24 DOS: 09/13/24 Some displacement the fracture site noted at her 1st postop visit. K-wires removed 10/27/24 The fracture has gone on to heal well. 2. Right hand stiffness This appears to be her main problem right now She has been improving her ROM & function with OT hand therapy, and she is very happy with her overall improvement She still has some difficulty with stiffness & gripping activities. I stressed the importance of working on ROM exercises, 20x daily every day if she wants to restore her normal hand function. She should focus on active FDP & FDS tendon functions She will continue to work with OT hand therapy on stretching, strengthening, ROM, and normalizing function She may follow up in 6-8 weeks for a ROM check & to see how she is doing. She may cancel this if she is doing well. Scribed for Li Olson MD by Itz Ybarra, certified medical assistant, on 01/11/25 at 11:10 AM, EST. Coding Level of Care Code Est Pt Level 3 (21952) Diagnoses Fracture of proximal phalanx of right middle finger S62.612A Stiffness of right hand joint M25.641 Nicotine dependence, cigarettes, uncomplicated F17.210
== END 2025-01-11 11:25 | disposition home or self-care (01) ==
LOC: HO.HOS 10:58
PROVIDERS: Visit Provider Orthopaedic Surgery
DX: S62.612A Displaced fracture of proximal phalanx of right middle finger, initial encounter for closed fracture (principal); M25.641 Stiffness of right hand, not elsewhere classified; F17.210 Nicotine dependence, cigarettes, uncomplicated
CPT/HCPCS: 99213

== ENCOUNTER → 2025-01-11 10:57 | Outpatient (BNVA) | payer BC, SELFPAY | PROVIDERS: Visit Provider Orthopaedic Surgery ==

== ENCOUNTER 2025-03-04 08:09 | Outpatient (RCR) | payer BC, SELFPAY ==
--- NOTE | 2024-11-11 13:25 | MHC.OT.OEV ---
[address] [phone] F: [phone] Occupational Therapy Evaluation Patient Name: Ayah Tillman Diagnosis: (R)MF CRPP vs ORIF Date of Onset: 09/08/24 Date of Surgery: 09/13/24 Attending Provider: Li Olson Prescribed Treatment: Follow Up Appointment: History of Current Condition: Patient is a 59 y/o (R)handed female with PMHx of Breast CA (will finish medication in March) who was referred to skilled OT after a (R)MF injury resulting in a proximal phalanx fx. Patient reported on she was holding her dogs harness as guest were arriving when the dog moved in the opposite direction of her hand. She was seen in the [facility] ED that day. CRPP ORIF was on 09/13/2024. She did reinjure her finger at work while typing causing 2 pins to become dislodged and was then placed in a cast. 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 She reports PLOF as (I)ADLs/IADLs, has 2 adult children and enjoys reading and walks with her dog. Significant Medical History: History of breast cancer (~2019) Mitral valve prolapse Hypercholesterolemia GERD (gastroesophageal reflux disease) Nicotine dependence, cigarettes, uncomplicated Depression Precautions/Contraindications: Breast CA (on medication until March) Patient Goals: Hand Dominance: Right Observations: QuickDASH Score: 81.8 Prior Level of Function and Occupation Self Care, Employment, Leisure: Works lecturer in computer science (I)ADLs/IADLs Reads, walks with dog Living Situation, Family and/or Social Support: Lives alone has 2 adult children Current Level of Function and Occupation Self Care, Employment, Leisure: Works lecturer in computer science mod (A) ADLS/IADLs Sleep: (I) Driving: (I) Vision: Balance: Pain Assessment Pain Score: 10/10 Pain Scale Used: Numeric (0 - 10) Pain Location and Description: 1/10 at rest - some throbbing 10/10- when hit or with motion Aggravating Factors: Alleviating Factors: Motrin, Aleve, Neproxen, Skin and Soft Tissue Assessment Skin and Soft Tissue: Comments: edema present 4 pin scars on the the medial side of finger Nerve assessment Ulnar Nerve: Median Nerve: Radial Nerve: Comments: Sensory Assessment Temperature: Light Touch: Proprioception: Vibration: Comments: Edema Assessment Upper Extremity: Lower Extremity: Comments: Dexterity Assessment Dexterity: Comments: Special Tests Comments: AROM(PROM) Strength Cervical Cervical Flexion: Cervical Extension: Cervical Lateral Flexion: Cervical Rotation: Comments: Shoulder Flexion: Extension: Abduction: Internal Rotation: External Rotation: Comments: Flexion: Extension: Abduction: Internal Rotation: External Rotation: Comments: Elbow Flexion: Extension: Pronation: Supination: Comments: Flexion: Extension: Pronation: Supination: Comments: Wrist Flexion: 64 Extension: 60 Ulnar Deviation: 27 Radial Deviation: 21 Comments: Flexion: Extension: Ulnar Deviation: Radial Deviation: Comments: Thumb Thumb CMC Flexion: Thumb MCP Flexion: Thumb IP Flexion: Radial Abduction: Palmar Abduction: [place] (Kapandji 0-10): Comments: WFL Digits Index MCP: WFL PIP: 49 DIP: 33 Long MCP: 34/ WFL PIP: 30/55 DIP: 10/20 Ring MCP: 58 PIP: 40 DIP: 0 Small MCP: 58 PIP: 32 DIP: 0 Comments: slight ulnar deviation of the middle finger Gross Grasp: unable Lateral Pinch: 5lbs. Two-Point Pinch: 1lbs. Three-Jaw Robbie: unable Comments: Patient Education Primary Language: Cymro Community Case Manager Required: No Current Knowledge: Understands information with skills for self-management Teaching Method: Demonstration Education Needs Identified on Evaluation: ADL's Disease Information Exercise Pain How did patient/family demonstrate learning? Patient demonstrates Patient verbalizes Barriers to Learning: None Readiness for Learning: Accepting Who was educated? Patient Comments: Plan of Care Assessment: Based on initial OT evaluation patient is 9 weeks s/p CRPP vs ORIF MF who presents with impaired ROM, impaired strength, pain, edema and impaired performance during self care tasks. Quick DASH= 81.8 indicating patients perceived UE impairment during self care tasks. Due to the documented impairments it is recommend that patient received skilled OT intervention in order to achieve her PLOF of (I) during self care tasks. Thank you for your referral. STG Duration: 2 weeks Short Term Goals: Patient will report 8/10 pain during activity in (R)finger Patient will increasing (R)ME flexion by 10* Patient will be (I) with scar management techniques Patient will be (I) with edema management techniques Patient will be able to make a composite fist LTG Duration: 4 weeks Retirement Goals: Patient will report 0/10 pain in (R) MF finger Patient will be (I) with HEP Patient will have decreased Quick DASH score by at least 40% indicating overall improvement of (R)UE Frequency and Duration: The patient will be seen 2x a week for 4 weeks Treatment Plan: Therapeutic Exercise Therapeutic Activity Home Exercise Program Splinting Patient Education Edema Control ADL Training Ultrasound NMES Iontophoresis Paraffin Fluidotherapy MHP Cold Packs Joint Mobilization Soft Tissue Mobilization Kinesiotaping Other (see comments) Skilled OT eval and treat Electronically Signed By: Yuko Gaston OTR/L, CLT Reviewed/agree with student documentation: Therapist: Please sign and return to therapist, Thank you for your referral.
--- NOTE | 2025-01-11 07:46 | MHC.OT.OP ---
[address] [phone] F: [phone] Occupational Therapy Progress Note Patient Name: Ayah Tillman Diagnosis: (R)MF CRPP vs ORIF Date of Surgery: 09/13/24 Date of Evaluation: 11/09/24 Treatments to Date: 14 Cancellations to Date: No Shows to Date: Subjective: She was brutal. Pain Score: 3 Pain Location: (R)MF Objective Measures: AROM 1 cm tip-palm PROM top-palm 2nd finger: 88MCP, 90(100) PIP, 42(52)DIP 3rd finger: 88MCP, 82(86) PIP, 40(52) DIP 4th finger: 84MCP, 82 (90) PIP, 28(34)DIP 5th finger: 90 MCP, 74(80) PIP, 26(34) DIP [employer] strength = R 30lb L 55lb Status: Progressing Assessment: Patient is continuing to make progress towards her goals as her ROM (1cm tip-palm) and strength is increasing ([employer] strength 30lbs.) . She is actively participating in skilled OT and she is compliant with her HEP as well as orthosis wear schedule. At this time she demonstrates the ability to almost bring fingers to palm. She remains motivated. Short Term Goals: Patient will report 8/10 pain during activity in (R)finger Patient will increasing (R)MF flexion by 10* Patient will be (I) with scar management techniques Patient will be (I) with edema management techniques Patient will be able to make a composite fist Program Aide Goals: Patient will report 0/10 pain in (R) MF finger Patient will be (I) with HEP Patient will have decreased Quick DASH score by at least 40% indicating overall improvement of (R)UE Frequency and Duration: The patient will be seen 2x a week for 4 weeks Treatment Plan: Therapeutic Exercise Therapeutic Activity Home Exercise Program Splinting Patient Education Desensitization/Sensory Re-ed Edema Control ADL Training Ultrasound NMES Iontophoresis Paraffin Fluidotherapy MHP Cold Packs Joint Mobilization Soft Tissue Mobilization Kinesiotaping Other (see comments) Skilled OT eval and treat Electronically Signed By: Yuko Gaston, OTR/L, CLT Reviewed/agree with student documentation: Therapist:
--- NOTE | 2025-03-04 09:37 | MHC.OT.DC ---
[address] [phone] F: [phone] Occupational Therapy Discharge Note Patient Name: Ayah Tillman Provider: Dr Li Olson Diagnosis: (R)MF CRPP Date of Surgery: 09/13/24 Date of Evaluation: 11/09/24 Date of Discharge: 03/04/25 Treatments to Date: 26 Discharge Status: Improved Function Independent with HEP Discharge Summary: Ayah has completed course of hand therapy for right middle finger fx w/ CRPP 09/13/25. She has progressed well and has good functional use of right hand and overall good strength and range, but is still lacking end range PIP and DIP flexion with joint stiffness but also decreased hand strength/tendon pull through. She will continue home program continued goal of improving range and strength with all given education, exercises and tools. AROM 0.5 cm tip-palm PROM tip-palm 2nd finger: 98 MCP, 100 PIP, 54 DIP 3rd finger: 92 MCP, 92 PIP, 44 DIP 4th finger: 100 MCP, 84 PIP, 34 DIP 5th finger: 92 MCP, 84 PIP, 44 DIP Network Engineer strength = R 38lb L 52lb Electronically Signed By: Jennifer Mancini OTR/L CHT Reviewed/agree with student documentation: Therapist: Please Sign and return to therapist, thank you for your referral.
== END 2025-03-04 09:39 | disposition home or self-care (01) ==
LOC: HO.OT 08:09
PROVIDERS: PCP Internal Medicine Medical Oncology; Visit Provider Orthopaedic Surgery
DX: S62.612D Displaced fracture of proximal phalanx of right middle finger, subsequent encounter for fracture with routine healing (principal)
CPT/HCPCS: 97110; 97140; 97166; 97530; 97535

== ENCOUNTER 2025-06-07 15:20 | Outpatient (REF) | payer BC, SELFPAY ==
--- OUTSIDE RECORDS SUMMARY | 2025-02-01 05:48 | XMS_ITS ---
Author Organization Natalio Willingham III, MD Address [address] [place] [address] Care Team Providers Care Linter Saw Sharpener Name Role Phone Dr. Natalio Willingham III Primary Care Provider REASON FOR VISIT Rx Request Social History Sex Assigned At : Social History Observation Description Sex Assigned At Female Encounters Encounter Location Date Provider Diagnosis Natalio Willingham III, MD [address] [place] [address] [place] [address] 02/01/2025 Natalio Willingham Plan Of Treatment Next Appt Details Provider Name:Natalio Willingham , 08/09/2025 04:00:00 PM, [address] [place] [address] [place], [address], Provider Name:Natalio Willingham , 05/12/2026 02:30:00 PM, [address] [place] [address] [place], [address], Progress Notes * Zackary ESPINO EDOB:[birth year] (59 yo F)Acc No.[id number]:02/01/2025 Patient: Hang JOSE CARLOSShaanZackary :1965 A ge:59 Y S ex:Female Address:[address], [place] [address] * true * Date: Generated for Tati ennis/So/Francesoc on: 0 06/07/2025 06:15 PM EDT
--- OUTSIDE RECORDS SUMMARY | 2025-02-01 10:27 | XMS_ITS ---
Author Organization Natalio Willingham III, MD Address [address] [place] [address] Care Team Providers Care Customer Sales Advisor Name Role Phone Dr. Natalio Willingham III Primary Care Provider Medications Medication SIG (Take, Route, Frequency, Duration) Notes Start Date End Date Status Sulfamethoxazole-Trimetho prim 800-160 MG 1 tablet Orally twice a day for 10 days 02/01/2025 02/11/2025 Active Social History Sex Assigned At : Social History Observation Description Sex Assigned At Female Encounters Encounter Location Date Provider Diagnosis Natalio Willingham III, MD [address] [place] [address] [place] [address] 02/01/2025 Natalio Willingham Plan Of Treatment Medication Medication Name Sig Start Date Stop Date Notes Sulfamethoxazole-Trimethopri m 800-160 MG 1 tablet Orally twice a day for 10 days 02/01/2025 02/11/2025 Next Appt Details Provider Name:Natalio Willingham , 08/09/2025 04:00:00 PM, [address] [place] [address] [place], [address], Provider Name:Natalio Willingham , 05/12/2026 02:30:00 PM, [address] [place] [address] [place], [address], Progress Notes * Zackary ESPINO EDOB:[birth year] (59 yo F)Acc No.[id number]:02/01/2025 Patient: Zackary SALEH :1965 A ge:59 Y S ex:Female Address:[address] [place] [address], [address], [place] [address] * Refills Start Sulfamethoxazole-Trimethoprim Tablet, 800-160 MG, Orally, 20 Tablet, 1 tablet, twice a day, 10 days, Refills=0 * true * Date: Generated for Tati ennis/So/Alfonsosmitting on: 0 06/07/2025 06:15 PM EDT
--- OUTSIDE RECORDS SUMMARY | 2025-03-04 12:45 | XMS_ITS ---
Author Organization Natalio Willingham III, MD Address [address] [place] [address] Care Team Providers Care Cable Tv Installer Name Role Phone Dr. Natalio Willingham III Primary Care Provider [phone] REASON FOR VISIT Follow up Social History Sex Assigned At : Social History Observation Description Sex Assigned At Female Encounters Encounter Location Date Provider Diagnosis Natalio Willingham III, MD [address] [place] [address] [place] [address] 03/04/2025 Natalio Willingham Plan Of Treatment Next Appt Details Provider Name:Natalio Willingham , 08/09/2025 04:00:00 PM, [address] [place] [address] [place], [address], Provider Name:Natalio Willingham , 05/12/2026 02:30:00 PM, [address] [place] [address] [place], [address], Progress Notes * Zackary ESPINO EDOB:[birth year] (60 yo F)Acc No.[id number]:03/04/2025 Progress Notes Patient: Hang Zackary RODRIGUEZ Provider: Melissa Willingham MD :1965 A ge:59 Y S ex:Female Date:03/04/2025 Address:[address] [place] [address] AVE, [address], [facility] Subjective: * Chief Complaints: * 1 . Follow up. * Medical History: Objective: * Vitals: Assessment: Plan: * Treatment: * Images: * The named appointment provid er may or may not be the originator of this progress note, and it is not deemed complete until electronically signed by the appointment provider. Sign off status: Pending * Provider: Melissa Willingham MD Date: 03/04/2025 Generated for Tati ennis/So/Alfonsosmitting on: 06/07/2025 06:14 PM EDT
--- OUTSIDE RECORDS SUMMARY | 2025-03-09 07:00 | XMS_ITS ---
Author Organization Natalio Willingham III, MD Address [address] [place] [address] Care Team Providers Care Photographer Portrait Name Role Phone Dr. Natalio Willingham III [...] Date Provider Diagnosis Natalio Willingham III, MD [address] [place] [address] [place] [address] 03/09/2025 Natalio Willingham Hyperlipidemia E78.5 ; Malignant [...] Her esophageal reflux is well controlled with jenk-bdy-urnmhuq medications. 03/09/2025 Tobacco dependence (ICD-10 - F17.200) [...] Provider Name:Natalio Willingham , 08/09/2025 04:00:00 PM, [address] [place] [address] [address], [place], [address], Provider Name:Natalio Willingham , 05/12/2026 02:30:00 PM, [address] [place] [address] [place], [address], Progress Notes * Zackary ESPINO EDOB:[birth year] (59 yo F)Acc No.[id number]:03/09/2025 Progress Notes Patient: Zackary SALEH Provider: Melissa Willingham MD :1965 A ge:59 Y S ex:Female Date:03/09/2025 Address:[address], [address], [facility] Subjective: * Chief Complaints: * C [...] * Surgical History: R ight breast Lumpectomy 1065-66-26Mdmoj of radiation 06/06/20Repair complicated fracture right third [...] and raising children. She was born in [place], [place]. She has been to [place] for [...] :Her esophageal reflux is well controlled with qewf-qtq-ucpayuo medications. 6 . T obacco dependence - [...] 0 03/09/2025 Generated for Tati ennis/So/Alfonsosmitting on: 0 06/07/2025 06:14 PM EDT History and Physical Notes * [...]
--- OUTSIDE RECORDS SUMMARY | 2025-05-10 11:00 | XMS_ITS ---
Author Organization Natalio Willingham III, MD Address [address] [place] [address] Care Team Providers Care Manager Database Name Role Phone Dr. Natalio Willingham III Primary Care Provider [phone] Allergies Allergen (clinical drug ingredient) Drug/Non Drug [...] Provider Diagnosis Natalio Willingham III, MD [address] [place] [address] [place] [address] 05/10/2025 Natalio Willingham Hyperlipidemia E78.5 ; Malignant [...] Her esophageal reflux is well controlled with umry-nlj-wumoynq medications. Plan Of Treatment Medication Medication Name [...] Provider Name:Natalio Willingham , 08/09/2025 04:00:00 PM, [address] [place] [address] [address], [place], [address], Provider Name:Natalio Willingham , 05/12/2026 02:30:00 PM, [address] [facility] [address], [place], [address], Progress Notes * Zackary ESPINO EDOB:[birth year] (60 yo F)Acc No.[id number]:05/10/2025 Progress Notes Patient: Zackary SALEH Provider: Melissa Willingham MD :1965 A ge:60 Y S ex:Female Date:05/10/2025 Address:[address], [id number] Subjective: * Chief Complaints: * A nnual [...] * Surgical History: R ight breast Lumpectomy 5320-97-20Paeko of radiation 06/06/20Repair complicated fracture right third [...] and raising children. She was born in [place], [place]. She has been to [place] for [...] :Her esophageal reflux is well controlled with kffa-rlh-mkocqmc medications. Plan: * Treatment: 2. O verweight [...] 0 05/10/2025 Generated for Silviai loli/So/eTransmitting on: 0 06/07/2025 06:14 PM EDT History [...]
--- NOTE | ~2025-06-07 | MM_ITS ---
EXAMINATION: MM SCREENING DIGITAL BREAST TOMOSYNTHESIS, BILATERAL CLINICAL INFORMATION: Screening. Asymptomatic. History of right breast cancer in 2020 status post lumpectomy. COMPARISON: Mammography: Comparison is made with available priors TECHNIQUE: Digital breast mammography with tomosynthesis is performed in both the craniocaudal and mediolateral oblique views along with computer-aided detection (CAD). FINDINGS: There are scattered areas of fibroglandular density (ACR BI-RADS breast composition Category b). Right lumpectomy changes. There are no significant masses, abnormal calcifications, or other abnormalities. MM/MM tomosynthesis screening BI IMPRESSION: No mammographic evidence of malignancy. Patient has right breast palpable lump medial breast near her lumpectomy scar. Recommend diagnostic ultrasound at this time for further evaluation. ASSESSMENT: BI-RADS BI-RADS 0 - Incomplete: Needs additional Imaging. RECOMMENDATION: 1. Additional views of the right breast with ultrasound. 2. Radiology department staff will contact the patient for additional imaging. Additional Imaging required This examination should not preclude the clinical evaluation of a suspicious palpable abnormality. This patient's information was entered into a reminder system with a target due date for their next mammogram. Electronically signed by: Lara Fritz DO 06/07/2025 03:46 PM EDT
--- OUTSIDE RECORDS SUMMARY | 2025-06-07 18:15 | XMS_ITS | Patient Health Record ---
Author Organization Natalio Willingham III, MD Address [address] [place] [address] Care Team Providers Care Fans Clerk Name Role Phone Dr. Natalio Willingham III Primary Care Provider [phone] Allergies Allergen (clinical drug ingredient) Drug/Non Drug Allergy documented on EMR Reaction Allergy Type Onset Date Status Penicillin Unknown Drug Allergy Active No Known Food Allergy Unknown Drug Allergy Active Latex Latex Unknown Allergy Active Codeine Phosphate Unknown Drug Allergy Active amoxicillin Amoxicillin Unknown Drug Allergy Act melisa Results Component Value Reference Range Notes XR hand RT min 3V Reviewed date:09/08/2024 09:49:44 AM Interpretation: Performing Lab: Notes/Report: [address] [address] XRay Report Signed Patient: Ayah Tillman MR#: [id number] 8 : 1965 Acct:[id number] Age/Sex: 59 / F ADM Date: 09/08/24 Loc: HO.ED Attending Dr: Ordering Physician: Generic ED Physician Date of Service: 09/08/24 Procedure(s): XR hand RT min 3V Accession Number(s): [id number] cc: Natalio Willingham MD; Generic ED Physician [...] EST Dictated By: Jed East Signed By: <Electronically signed by Jed East in OV> 09/08/24 0855 DD/ 0840 TD/TT: 09/08/24 0845 Cognos: [place] [address] XRay Report Signed Patient: Cristhian Tillman MR#: [id number] 8 : 1965 Acct:[id number] Age/Sex: 59 / F ADM Date: 09/08/24 Loc: HO.ED Attending Dr: Ordering Physician: Generic ED Physician Date of Service: 09/08/24 Procedure(s): XR hand RT min 3V Accession Number(s): [id number] cc: Natalio Willingham MD; Generic ED Physician [...] East MD 09/08/2024 08:55 AM EST RP Dictated By: Jed East Signed By: <Sujata cohen signed by Jed East in OV> 09/08/24 0855 DD/ 0840 TD/TT: 09/08/24 0845 Cognos: FL guidance in OR Reviewed date:09/30/2024 08:59:36 AM Interpretation: Performing Lab: Notes/Report: [address] [address] Fluoroscopy Report Signed Patient: Ayah Tillman MR#: [id number] 8 : 1965 Acct:[id number] Age/Sex: 59 / F ADM Date: 09/13/24 Loc: .[facility] Attending Dr: Li Olson MD Ordering Physician: Li Olson MD Date of Service: 09/13/24 Procedure(s): FL guidance in OR Accession Number(s): [id number] cc: Natalio Willingham MD; Li Olson MD [...] 09/27/24 0832 DD/ 1510 TD/TT: 09/13/24 1700 Cognos: [address] [address] Fluoroscopy Report Signed Patient: Cristhian Tillman MR#: [id number] 8 : 1965 Acct:[id number] Age/Sex: 59 / F ADM Date: 09/13/24 Loc: HO.SSS Attending Dr: Lucinda Olson MD Ordering Physician: Li Olson MD Date of Service: 09/13/24 Procedure(s): FL guidance in OR Accession Number(s): [id number] cc: Natalio Willingham MD; Li Olson MD [...] by: Abdirizak Hummel MD 09/27/2024 08:32 AM [facility] Dictated By: Abdirizak Hummel MD Signed By: <Electron ically signed by Abdirizak Hummel MD in OV> 09/27/24 0832 DD/ 1510 TD/TT: 09/13/24 1700 Cognos: [facility] XR hand RT min 3V Reviewed date:09/14/2024 11:39:13 AM Interpretation: Performing Lab: Notes/Report: [facility] [address] [place] [address] XRay Report Signed Patient: Ayah Tillman MR#: [id number] 8 : 1965 Acct:[id number] Age/Sex: 59 / F ADM Date: 09/10/24 Loc: HO.HOSX Attending Dr: Calvin QUIROZ Ordering Physician: Calvin Shelton Date of Service: 09/10/24 Procedure(s): XR hand RT min 3V Accession Number(s): [id number] cc: Calvin Shelton; Natalio Willingham MD CLINICAL [...] in OV> 09/14/24729 DD/ 8 TD/TT: 09/14/24728 Cognos: [facility] [address] [place] [address] [address] [place] [address] XRay Report Signed Patient: Cristhian Tillman MR#: [id number] 8 : 1965 Acct:[id number] Age/Sex: 59 / F ADM Date: 09/10/24 [facility]: Calvin QUIROZ Ordering Physician: Calvin Shelton Date of Service: 09/10/24 Procedure(s): XR hand RT min 3V Accession Number(s): [id number] cc: Calvin Shelton ; Natalio Willingham MD [...] in OV> 09/14/24729 DD/ 8 TD/TT: 09/14/24728 Cognos: MM tomosynthesis screening B I (Not yet reviewed by provider) Interpretation: Performing Lab: Notes/Report: [facility]'[address] [place] [address] Mammography Report Signed Patient: Ayah Tillman MR#: [id number] 8 : 1965 Acct:[id number] Age/Sex: 60 / F ADM Date: 06/07/25 Loc: HO.MAMMO Attending Dr: Natalio Willingham MD Ordering Physician: Natalio Willingham MD Results: 0Incompl ete: Needs Additional Imaging Evaluation Date of Service: 06/07/25 Follow Up: Additional Imagi ng Procedure(s): MM tomosynthesis screening BI Accession Number(s): [id number] cc: Natalio Willingham MD Reason For Exam: SCREENING EXAMINATION: MM SCREENING DIGITAL BREAST TOMOSYNTHESIS, BILATERAL CLINICAL INFORMATION: Screening. Asymptomatic. History of right breast cancer in 2020 status post lumpectomy. COMPARISON: Mammography: Comparison is made with available priors TECHNIQUE: Digital breast mammography with tomosynthesis is performed in both the craniocaudal and mediolateral oblique views along with computer-aided detection (CAD). FINDINGS: There are scattered areas of fibroglandular density (ACR BI-RADS breast composition Category b). Right lumpectomy changes. There are no significant masses, abnormal calcifications, or other abnormalities. MM/MM tomosynthesis screening BI IMPRESSION: No mammographic evidence of malignancy. Patient has right breast palpable lump medial breast near her lumpectomy scar. Recommend diagnostic ultrasound at this time for further evaluation. ASSESSMENT: BI-RADS BI-RADS 0 - Incomplete: Needs additional Imaging. RECOMMENDATION: 1. Additional views of the right breast with ultrasound. 2. Radiology department staff will contact the patient for additional imaging. Additional Imaging required This examination should not preclude the clinical evaluation of a suspicious palpable abnormality. This patient's information was entered into a reminder system with a target due date for their next mammogram. Electronically signed by: Lara Fritz DO 06/07/2025 03:46 PM EDT RP Dictated By: Lara Fritz DO Signed By: <Electronically signed by Lara Fritz DO in OV> 06/07/25 1546 DD/ 1521 TD/TT: 06/07/25 1540 [place]ognos: [place] [facility] [address] [place] [id number] Mammography Report Signed Patient: Cristhian Tillman MR#: [id number] 8 : 1965 Acct:[id number] Age/Sex: 60 / F ADM Date: 06/07/25 Loc: HO.MAMMO Attending Dr: aNtalio Willingham MD Ordering Physician: Natalio Willingham MD Results: 0Incompl ete: Needs Additiona l Imaging Evaluation Date of Service: Follow Up: Additional Imagi ng Procedure(s): MM eliana osynthesis screening BI Accession Number(s): [id number] cc: Natalio Willingham MD Reason For Exam: SCREENING EXAMINATION: MM SCREENING DIGITAL BREAST TOMOSYNTHESIS, BILATERAL CLINICAL INFORMATION: Screening. Asymptoma tic. History of right breast cancer in 2020 status post lumpectomy. COMPARISON: Mammography: Compari son is made with available priors TECHNIQUE: Digital breast mammo graphy with tomosynthesis is performed in both the craniocaudal and med iolateral oblique views along with computer-aided detection (CAD). FINDINGS: There are scattered areas of fibroglandular density (ACR BI-RADS breast composition Category b). Right lumpectomy changes. There are no signifi cant masses, abnormal calcifications, or other abnormalities. M M/MM tomosynthesis screening BI IMPRESSION: No mammographic evid ence of malignancy. Patient has right br east palpable lump medial breast near her lumpectomy scar. Recommend diagnostic ultrasound at this time for further evaluation. ASSESSMENT: BI-RADS BI-RADS 0 - Incomplete: Needs additional Imaging. RECOMMENDATION: 1. Additional views of the right breast with ultrasound. 2. Radiology departm ent staff will contact the patient for additional imaging. Additional Imaging required This examination radha uld not preclude the clinical evaluation of a suspicious palpable abnormality. This patient's infor mation was entered into a reminder system with a target due date for their next mammogram. Electronically rios d by: Lara Fritz DO 06/07/2025 03:46 PM EDT RP Dictated By: Lara Davalos i, DO Signed By: <Electron ically signed by Lara Fritz DO in OV> 06/07/25 1546 DD/ 1521 TD/TT: 06/07/25 1540 Cognos: Reason For Referral No Information Medications Medication SIG (Take, Route, Frequency, Duration) Notes Start Date End Date Status Loratadine 10 MG TAKE 1 TABLET BY BRANDIE TH EVERY DAY Active ProAir HFA 108 (90 Base) MCG/ACT 2 puffs as needed Inhalation every 4 hrs 03/16/2021 Active Metoprolol Tartrate 25 MG TAKE 1 TABLET BY MOUTH TWICE A DAY WITH FOOD FOR 30 DAYS Active amLODIPine Besylate 5 MG 1 tablet [...] Problem Status W/U Status Risk Notes Problem 907780375 Overweight (BMI 25.0-29.9) (E66.3) Active confirmed Her weight is stable and the overweight range. We discussed nutrition and diet today. We reviewed her weight loss strategy. Problem 02166811 Hyperlipidemia (E78.5) Active confirmed Her total cholesterol is 178 with an HDL of 72. No change in her regimen was necessary today. Problem 547796922 Pulmonary nodules (R91.8) Active confirmed The 2 nodule s in the right lung are large enough to be worrisome. A repeat CT scan has been scheduled for April 2024. Problem 644019728 Malignant neoplasm of lower-outer quadrant of right female breast (C50.511) Active confirmed She will complete her tamoxifen therapy next week and discontinue that medication. There was no sign of a new primary today. There was no sign of recurrence. Problem 921097074 Gastro-esophagea l reflux disease without esophagitis (K21.9) Active confirmed Her esophageal reflux is well controlled with oqqw-bde-pdfqg er medications. Problem 40582373 Essential hypertension (I10) Active confirmed Her blood pressure is currently stable and no change in her regimen as necessary. We discussed weight loss and smoking cessation at length today. I recommended sodium restriction as well. Problem 16717283 Tobacco dependence (F17.200) Active confirmed We have had another discussion of all the health consequences of smoking. She wants very much to stop smoking, but is concerned about gaining weight. I recommended she try the nicotine patches. She did not want to try anything else. Problem 688287830 Pulmonary nodule (R91.1) Active confirmed The right [...] diagnosis of early breast cancer. Problem Osteoporosis (45149562) Osteoporosis (M81.0) Active confirmed She is going to consider the use of alendronate. She will continue on vitamin D and calcium tablets. A repeat bone density will be done. She has 12 more months to go on her adjuvant endocrine anastrozole. Problem 51032755 Depressive disorder, not elsewhere classified (F32.9) Active confirmed She has slowly been tapering the citalopram. Her depression is in remission and was not evident today. Problem 771468678 BRCA1 negative (Z13.71) Active confirmed Problem 738437377 Closed displaced fracture of proximal phalanx of right middle finger, initial encounter (A96.159V) Active confirmed Her surgery was successful and she is now recovering. She will follow up with orthopedics as well as myself frequently. Vital Signs Heart Rate 71 /min 05/10/2025 Temperature 98.2 degrees Fahrenheit 05/10/2025 Respiratory Rate 15 /min 05/10/2025 Blood pressure diastolic 80 mm Hg 05/10/2025 Height 68 in 05/10/2025 Blood pressure systolic 136 mm Hg 05/10/2025 Weight 179 lbs 05/10/2025 BMI 27.21 kg/m2 05/10/2025 Encounters Encounter Location Date Provider Diagnosis Natalio Willingham III, MD [address] [place] [address] [place] [id number] 06/11/2024 Natalio Willingham Encounter for immunization Z23 ; Depressive disorder, not elsewhere classified F32.9 ; Gastro-esophageal reflux disease without esophagitis K21.9 ; Hyperlipidemia E78.5 ; Tobacco dependence F17.200 ; Overweight (BMI 25.0-29.9) E66.3 and Pulmonary nodule R91.1 Natalio Willingham III, MD [address] [place] [address] [place] [id number] 07/07/2024 Natalio Willingham Hyperlipidemia E78.5 ; Malignant neoplasm of lower-outer quadrant of right female breast C50.511 ; Overweight (BMI 25.0-29.9) E66.3 ; Depressive disorder, not elsewhere classified F32.9 ; Gastro-esophageal reflux disease without esophagitis K21.9 ; Tobacco dependence F17.200 ; Osteoporosis M81.0 and Pulmonary nodule R91.1 Natalio Willingham III, MD [address] [place] [address] [place] [id number] 09/13/2024 Natalio Willingham Elevated blood press ure reading R03.0 ; Closed displaced fracture of proximal phalanx of right middle finger, initial encounter S62.612A ; Depressive disorder, not elsewhere classified F32.9 ; Tobacco dependence F17.200 ; Gastro-esophageal reflux disease without esophagitis K21.9 ; Hyperlipidemia E78.5 ; Overweight E66.3 and Malignant neoplasm of lower-outer quadrant of right female breast C50.511 Natalio Willingham III, MD [address] [place] [address] [place] [id number] 10/08/2024 Natalio Willingham Essential hypertensi on I10 ; Closed displaced fracture of proximal phalanx of right middle finger, initial encounter S62.612A ; Overweight (BMI 25.0-29.9) E66.3 ; Osteoporosis M81.0 ; Tobacco dependence F17.200 ; Hyperlipidemia E78.5 ; Depressive disorder, not elsewhere classified F32.9 and Gastro-esophageal reflux disease without esophagitis K21.9 Natalio Willingham III, MD [address] [place] [address] [address] [place] [id number] 10/29/2024 Natalio Willingham Malignant neoplasm o f lower-outer quadrant of right female breast C50.511 ; Depressive disorder, not elsewhere classified F32.9 ; Gastro-esophageal reflux disease without esophagitis K21.9 ; Hyperlipidemia E78.5 ; Tobacco dependence F17.200 ; Overweight (BMI 25.0-29.9) E66.3 ; Pulmonary nodule R91.1 ; Closed displaced fracture of proximal phalanx of right middle finger, initial encounter S62.612A and Essential hypertension I10 Natalio Willingham III, MD [address] [place] [address] [place] [id number] 11/30/2024 Natalio Willingham Essential hypertensi on I10 ; Hyperlipidemia E78.5 ; Overweight (BMI 25.0-29.9) E66.3 ; Depressive disorder, not elsewhere classified F32.9 ; Gastro-esophageal reflux disease without esophagitis K21.9 ; Tobacco dependence F17.200 and Malignant neoplasm of lower-outer quadrant of right female breast C50.511 Natalio Willingham III, MD [address] [place] [address] [place] [id number] 03/09/2025 Natalio Willingham Hyperlipidemia E78.5 ; Malignant neoplasm of lower-outer quadrant of right female breast C50.511 ; Overweight (BMI 25.0-29.9) E66.3 ; Depressive disorder, not elsewhere classified F32.9 ; Gastro-esophageal reflux disease without esophagitis K21.9 ; Tobacco dependence F17.200 ; Closed displaced fracture of proximal phalanx of right middle finger, initial encounter S62.612A and Essential hypertension I10 Natalio Willingham III, MD [address] [place] [address] [place] [id number] 05/10/2025 Natalio Willingham Hyperlipidemia E78.5 ; Malignant neoplasm of lower-outer quadrant of right female breast C50.511 ; Overweight (BMI 25.0-29.9) E66.3 ; Tobacco dependence F17.200 ; Depressive disorder, not elsewhere classified F32.9 and Gastro-esophageal reflux disease without esophagitis K21.9 Natalio Willingham III, MD [address] [place] [address] [place] [id number] 08/24/2024 Natalio Willingham III, MD [address] [place] [address] [address] [place] [id number] 09/01/2024 Natalio Willingham III, MD [address] [place] [address] [address] [place] [phone] 02/01/2025 Natalio Willingham III, MD [address] [place] [address] [address] [place] [phone] 02/01/2025 Natalio Willingham Assessments Encounter Date Diagnosis (ICD Code) Assessment Notes Treat ment Notes Treatment Clinical Notes 06/11/2024 Encounter for immunization (ICD-10 - Z23) [...] orthopedics as well as myself frequently. 10/29/2024 Malignant neoplasm o f lower-outer quadrant [...] remission and was not evident today. 11/30/2024 Hyperlipidemia (ICD-10 - E78.5) Comprehensive lipids are being obtained periodically. We reviewed her diet in detail today. No change in her regimen was necessary 11/30/2024 Essential hypertension (ICD-10 - I10) Her blood pressure is currently stable and no change in her regimen as necessary. We discussed weight loss and smoking cessation at length today. I recommended sodium restriction as well. 03/09/2025 Hyperlipidemia (ICD-10 - E78.5) Her total [...] with the left which is not tender. 05/10/2025 Hyperlipidemia (ICD-10 - E78.5) Her total [...] today. There was no sign of recurrence. 06/11/2024 Gastro-esophageal reflux disease without esophagitis (ICD-10 - K21.9) Her esophageal reflux is well controlled with pwqh-nps-wxgtbkp medications. 07/07/2024 Overweight (BMI 25.0-29.9) (ICD-10 - E66.3) Her body mass index is 28 and her weight is stable. We have discussed diet and nutrition. We reviewed [facility] weight loss strategy. 09/13/2024 Depressive disorder, not elsewhere classified (ICD-10 - F32.9) She has slowly been tapering the citalopram. Her depression is in remission and was not evident today. 10/08/2024 Overweight (BMI 25.0-29.9) (ICD-10 - E66.3) Her body mass index is 28 and her weight is stable. We have discussed diet and nutrition. We reviewed [facility] weight loss strategy. 10/29/2024 Gastro-esophageal reflux disease without esophagitis (ICD-10 - K21.9) Her esophageal reflux is well controlled with zlji-sam-bfsqkhk medications. 11/30/2024 Overweight (BMI 25.0-29.9) (ICD-10 - E66.3) Her weight is stable. We reviewed her diet and nutrition. We have reviewed her weight loss strategy. Continue to lose weight at a rate of one half of a pound per week. 03/09/2025 Overweight (BMI 25.0-29.9) (ICD-10 - E66.3) Her body mass index is 27. We discussed her weight reduction strategy diet and nutrition. We made a plan to lose weight steadily and regularly until her BMI is normal. 05/10/2025 Overweight (BMI 25.0-29.9) (ICD-10 - E66.3) Her weight is stable and the overweight range. We discussed nutrition and diet today. We reviewed her weight loss strategy. 06/11/2024 Hyperlipidemia (ICD-10 - E78.5) Her lipids [...] to go on her adjuvant endocrine anastrozole. 10/29/2024 Hyperlipidemia (ICD-10 - E78.5) Comprehensive blood work with a fasting lipid profile was ordered prior to her next visit. She continues her efforts at weight loss and consumption of a healthy diet. 11/30/2024 Depressive disorder, not elsewhere classified (ICD-10 - F32.9) She has slowly been tapering the citalopram. Her depression is in remission and was not evident today. 03/09/2025 Depressive disorder, not elsewhere classified (ICD-10 - F32.9) She has slowly been tapering the citalopram. Her depression is in remission and was not evident today. 05/10/2025 Tobacco dependence (ICD-10 - F17.200) We [...] Her esophageal reflux is well controlled with zhdx-ofr-ctndhun medications. 09/13/2024 Gastro-esophageal reflux disease without esophagitis (ICD-10 - K21.9) Her esophageal reflux is well controlled with eahh-jij-xkcenwm medications. 10/08/2024 Tobacco dependence (ICD-10 - F17.200) We have had another discussion of all the health consequences of smoking. She wants very much to stop smoking, but is concerned about gaining weight. I recommended she try the nicotine patches. She did not want to try anything else. 10/29/2024 Tobacco dependence (ICD-10 - F17.200) We have had another discussion of all the health consequences of smoking. She wants very much to stop smoking, but is concerned about gaining weight. I recommended she try the nicotine patches. She did not want to try anything else. 11/30/2024 Gastro-esophageal reflux disease without esophagitis (ICD-10 - K21.9) Her esophageal reflux is well controlled with wwlh-crv-vsdezsf medications. 03/09/2025 Gastro-esophageal reflux disease without esophagitis (ICD-10 - K21.9) Her esophageal reflux is well controlled with orox-ufn-suyngdj medications. 05/10/2025 Depressive disorder, not elsewhere classified (ICD-10 - F32.9) She has slowly been tapering the citalopram. Her depression is in remission and was not evident today. 06/11/2024 Overweight (BMI 25.0-29.9) (ICD-10 - E66.3) [...] and consumption of a healthy diet. 10/29/2024 Overweight (BMI 25.0-29.9) (ICD-10 - E66.3) Her body mass index is 28 and her weight is stable. We have discussed diet and nutrition. We reviewed [facility] weight loss strategy. 11/30/2024 Tobacco dependence (ICD-10 - F17.200) We have had another discussion of all the health consequences of smoking. She wants very much to stop smoking, but is concerned about gaining weight. I recommended she try the nicotine patches. She did not want to try anything else. 03/09/2025 Tobacco dependence (ICD-10 - F17.200) We have had another discussion of all the health consequences of smoking. She wants very much to stop smoking, but is concerned about gaining weight. I recommended she try the nicotine patches. She did not want to try anything else. 05/10/2025 Gastro-esophageal reflux disease without esophagitis (ICD-10 - K21.9) Her esophageal reflux is well controlled with rybk-lpl-aslykni medications. 06/11/2024 Pulmonary nodule (ICD-10 - R91.1) The [...] remission and was not evident today. 10/29/2024 Pulmonary nodule (ICD-10 - R91.1) The [...] a recent diagnosis of early breast cancer. 11/30/2024 Malignant neoplasm o f lower-outer quadrant [...] the left which is not tender. 03/09/2025 Closed displaced fracture of proximal phalanx of right middle finger, initial encounter (ICD-10 - S62.612A) Her surgery was successful and she is now recovering. She will follow up with orthopedics as well as myself frequently. 07/07/2024 Pulmonary nodule (ICD-10 - R91.1) The [...] Her esophageal reflux is well controlled with qjpr-coh-npiartu medications. 10/29/2024 Closed displaced fracture of proximal phalanx [...] today. I recommended sodium restriction as well. 10/29/2024 Essential hypertension (ICD-10 - I10) She began metoprolol tartrate 25 mg twice a day recently. 9. Today I have added Amlodipine 5 mg. Plan Of Treatment Pending Test Test Name Order Date PROFILE, FASTING (COMPREHENSIVE METABOLI C) 07/07/2024 PROFILE, FASTING (COMPREHENSIVE METABOLI C) 02/03/2023 PROFILE, FASTING (COMPREHENSIVE METABOLI C) 03/09/2025 PROFILE, FASTING (COMPREHENSIVE METABOLI C) 11/05/2023 PROFILE, FASTING (COMPREHENSIVE METABOLI C) 11/30/2024 PROFILE, FASTING (COMPREHENSIVE METABOLI C) 05/05/2023 PROFILE, FASTING (COMPREHENSIVE METABOLI C) 05/10/2025 LIPID PANEL 05/05/2023 LIPID PANEL 02/03/2023 CBC w DIFF 11/30/2024 CBC w DIFF 05/10/2025 CBC w DIFF 05/05/2023 CBC w DIFF 03/09/2025 CBC w DIFF 02/03/2023 BONE DENSITY DEXA 05/07/2024 CBC WITH AUTO DIFF 07/07/2024 CBC WITH AUTO DIFF 11/05/2023 Lipid Panel 11/30/2024 Lipid Panel 05/10/2025 Lipid Panel 07/07/2024 Lipid Panel 03/09/2025 Lipid Panel 11/05/2023 MM tomosynthesis screening BI 06/07/2025 XR wrist RT min 3V 05/03/2022 Next Appt Details Provider Name:Natalio Willingham , 08/09/2025 04:00:00 PM, [address] [place] [address] [address], [place], [phone], Provider Name:Natalio Willingham , 05/12/2026 02:30:00 PM, [address] [place] [address] [address], [place], [phone], Insurance Providers Payer Name Payer Address Payer Phone Subscriber Number Group Number Insured Name Patient Relationship to Insured Coverage Start Date Coverage End Date [facility] [address] [place], [place] [id number] Ayah Tillman Self - patient is the insured Medical (General) History Medical History History ICD Code anxiety/depression/PTSD lumbar spine disc disease 1995 overweight gerd occasional right uper extremities tremor s ? mitral valve prolapse abnormal mammograms tobacco dependence disorder 3 cm ER + [place]+ Her2 - invasive right [facility] cancer February 2020 Essential hypertension September 2024 Surgical History Surgery Date(Month/Year) Repair complicated fracture right third finger September 2024 Start of radiation 06/06/20 Right breast Lumpectomy 2020-03-15 Hospitalization History Reason Date(Month/Year) No history
== END 2025-06-07 15:21 | disposition home or self-care (01) ==
LOC: HO.MAMMO 15:20
PROVIDERS: PCP Internal Medicine Medical Oncology; Visit Provider Internal Medicine Medical Oncology
DX: Z12.31 Encounter for screening mammogram for malignant neoplasm of breast (principal)
CPT/HCPCS: 77063; 77067

== ENCOUNTER → 2025-06-07 15:45 | Outpatient (BNV) | payer BC, SELFPAY | PROVIDERS: PCP Internal Medicine Medical Oncology; Visit Provider Internal Medicine | DX: Z12.31 Encounter for screening mammogram for malignant neoplasm of breast (principal) | CPT/HCPCS: 77063; 77067 ==

== ENCOUNTER 2025-07-05 10:37 | Outpatient (REF) | payer BC, SELFPAY ==
--- OUTSIDE RECORDS SUMMARY | 2024-09-01 09:04 | XMS_ITS ---
Author Organization Natalio Willingham III, MD Address [address] [place] [address] Care Team Providers Care Staining Machine Operator Name Role Phone Dr. Natalio Willingham III Primary Care Provider [phone] REASON FOR VISIT Needs call back from Social History Sex Assigned At : Social History Observation Description Sex Assigned At Female Encounters Encounter Location Date Provider Diagnosis Natalio Willingham III, MD [address] [place] [address] [place] [address] 09/01/2024 Natalio Willingham Plan Of Treatment Next Appt Details Provider Name:Natalio Willingham , 08/09/2025 04:00:00 PM, [address] [place] [address] [place], [address], Provider Name:Natalio Willingham , 05/12/2026 02:30:00 PM, [address] [place] [address] [place], [address], Progress Notes * Zackary ESPINO EDOB:[birth year] (59 yo F)Acc No.[id number]:09/01/2024 Patient: Zackary SALEH :1965 A ge:59 Y S ex:Female Address:[address], [place] [address] * true * Date: Generated for Tati ennis/So/Francesco on: 1 12:44 PM EDT
--- OUTSIDE RECORDS SUMMARY | 2024-09-13 06:00 | XMS_ITS ---
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 Natalio Willingham III Primary Care Provider Allergies Allergen (clinical drug ingredient) Drug/Non Drug Allergy documented on EMR Reaction Allergy Type Onset Date Status Penicillin Unknown Drug Allergy Active Latex Latex Unknown Allergy Active Codeine Phosphate Unknown Drug Allergy Active amoxicillin Amoxicillin Unknown Drug Allergy Act melisa REASON FOR VISIT Recent elevation of blood pressure, Recent displaced fracture right third finger proximal phalanx, Preoperative medical clearance, History of depression, Tobacco dependence, Carcinoma right breast, Osteoporosis Medications Medication SIG (Take, Route, Frequency, Duration) Notes Start Date End Date Status Atorvastatin Calcium 10 MG TAKE 1 TABLET BY MOUTH EVERY DAY Active Citalopram Hydrobromide 10 MG TAKE 1 TABLET BY MOUTH EVERY DAY Active Anastrozole 1 MG TAKE 1 TABLET BY BRANDIE TH EVERY DAY Active Clindamycin Phosphate 1 % External Active Loratadine 10 MG TAKE 1 TABLET BY BRANDIE TH EVERY DAY Active ProAir HFA 108 (90 Base) MCG/ACT 2 puffs as needed Inhalation every 4 hrs 03/16/2021 Active Social History Tobacco Use: Social History Observation Description Date Details (start date - stop date) Current Smoker NA - NA Sex Assigned At : Social History Observation Description Sex Assigned At Female Tobacco Use/Smoking Question Answer Notes Patient is a current smoker Problems Problem Type SNOMED Code ICD Code Onset Dates Problem Status W/U Status Risk Notes Problem [id number] Closed displaced fracture of proximal phalanx of right middle finger, initial encounter (S62.612A) Active confirmed Her surgery was successful and she is now recovering. She will follow up with orthopedics as well as myself frequently. Vital Signs Temperature 96.9 degrees Fahrenheit 09/13/20 24 Blood pressure systolic 135 mm Hg 09/13/20 24 Blood pressure diastolic 80 mm Hg 024 Heart Rate 91 /min 09/13/2024 Height 68 in 09/13/2024 Weight 179 lbs 09/13/2024 BMI 27.21 kg/m2 09/13/2024 Encounters Encounter Location Date Provider Diagnosis Natalio Willingham III, MD [address] [place] [address] [address] [place], [place] [phone] 09/13/2024 Natalio Willingham Elevated blood press ure reading R03.0 ; Closed displaced fracture of proximal phalanx of right middle finger, initial encounter S62.612A ; Depressive disorder, not elsewhere classified F32.9 ; Tobacco dependence F17.200 ; Gastro-esophageal reflux disease without esophagitis K21.9 ; Hyperlipidemia E78.5 ; Overweight E66.3 and Malignant neoplasm of lower-outer quadrant of right female breast C50.511 Assessments Encounter Date Diagnosis (ICD Code) Assessment Notes Treat ment Notes Treatment Clinical Notes 09/13/2024 Elevated blood pressure reading (ICD-10 - R03.0) Her blood pressure todday was within normal limits and no change in her regimen was necessary. The elevated blood pressure and recent emergency room visit was likely due to the fracture. 09/13/2024 Closed displaced fracture of proximal phalanx of right middle finger, initial encounter (ICD-10 - S62.612A) She will proceed to surgery this afternoon with medical clearance for general anesthesia. Follow-up visit was arranged. 09/13/2024 Depressive disorder, not elsewhere classified (ICD-10 - F32.9) She has slowly been tapering the citalopram. Her depression is in remission and was not evident today. 09/13/2024 Tobacco dependence (ICD-10 - F17.200) We have had another discussion of all the health consequences of smoking. She wants very much to stop smoking, but is concerned about gaining weight. I recommended she try the nicotine patches. She did not want to try anything else. 09/13/2024 Gastro-esophageal reflux disease without esophagitis (ICD-10 - K21.9) Her esophageal reflux is well controlled with rzqt-qfz-bjotsvg medications. 09/13/2024 Hyperlipidemia (ICD-10 - E78.5) Comprehensive blood work with a fasting lipid profile was ordered prior to her next visit. She continues her efforts at weight loss and consumption of a healthy diet. 09/13/2024 Overweight (ICD-10 - E66.3) Her body mass index is 29 and she has lost weight. I've encouraged her to continue exercising and eating a healthy diet. 09/13/2024 Malignant neoplasm o f lower-outer quadrant of [...] with the left which is not tender. Plan Of Treatment Medication Medication Name Sig Start Date Stop Date Notes Atorvastatin Calcium 10 MG TAKE 1 TABLET BY MOUTH EVERY DAY Citalopram Hydrobromide 10 MG TAKE 1 TAB LET BY MOUTH EVERY DAY Anastrozole 1 MG TAKE 1 TABLET BY BRANDIE TH EVERY DAY Clindamycin Phosphate 1 % External Loratadine 10 MG TAKE 1 TABLET BY BRANDIE TH EVERY DAY ProAir HFA 108 (90 Base) MCG/ACT 2 puffs as needed Inhalation every 4 hrs 03/16/2021 Next Appt Details Follow Up: 2 Weeks, Reason: Office visit Provider Name:Natalio Willingham , 08/09/2025 04:00:00 PM, [address] [place] [address] [address], [place], [phone], Provider Name:Natalio Willingham , 05/12/2026 02:30:00 PM, [address] [place] [address] [place], [phone], Progress Notes * Ayah ESPINO EDOB:[birth year] (59 yo F)Acc No.[id number]:09/13/2024 Progress Notes Patient: Ayah SALEH Provider: Melissa Willingham MD :1965 A ge:59 Y S ex:Female Date:09/13/2024 Address:[address], [id number] Subjective: * Chief Complaints: * R ecent elevation of blood pressureRecent displaced fracture right third finger proximal phalanxPreoperative medical clearanceHistory of depressionTobacco dependenceCarcinoma right breastOsteoporosis * HPI: C OVID-19 Screening: On September 08, 2024 she was walking her dog on a leash when there was a forceful pull twisting her hand and causing a displaced fracture of the right third finger proximal phalanx. She went to the emergency room in [facility] where was splinted. She is scheduled for orthopedic surgery in the near future with Dr. Jefferson, hand surgery at [facility]. In the emergency room her blood pressure was 200/120. She is quite concerned that she will not be able to have surgery if this is still her blood pressure. She came in today for a general medical check and clearance as well as blood pressure evaluation.? Her blood pressure was within the normal range lying down today. She will proceed this afternoon to have hannd surgery under general anesthesia with normal Ris. She is medically cleared for the procedure. Questions H ave you had any new onset fever, chills, cough, congestion, sore throat, shortness of breath, muscle aches? N o * ROS: G eneral/Constitutional: pain R ight hand third finger. C hills d enies.?Fatigue a dmits. F ever d enies. E NT: Decreased hearing d enies. R espiratory: Cough n on-productive. C ardiovascular: Chest pain with exertion d enies. D yspnea on exertion?denies. S hortness of breath d enies. G astrointestinal: Constipation d enies. D ecreased appetite t hat is not associated with weight loss. D iarrhea d enies. H eartburn d enies. N ausea?denies. R ectal bleeding d enies. V omiting d enies. H ematology: bruising d enies. p etechiae d enies. S wollen glands n one have been noted. G enitourinary: Frequent urination d enies. M usculoskeletal: Muscle aches d enies. P ainful joints R ight third finger DIP and MCP joints. S ciatica d enies. W eakness d enies. S kin: Itching d enies. R valarie d enies. S kin lesion(s)?denies. N eurologic: Difficulty speaking d enies. D izziness d enies.?Headache d enies. L ow back pain d enies. P sychiatric: Depressed mood w hich is mild. * Medical History: * Surgical History: R ight breast Lumpectomy [id number] of radiation 06/06/20No history * Hospitalization/Major Diagno stic Procedure: N o history * Family History: F ather: 60 yrs, mouth cancer, diagnosed with Cancer. M other: alive 67 yrs, type II diabetes, hypertension, hyperlipidemia, arthritis, diagnosed with HTN, Hyperlipidemia. S pouse: alive. 1 sister(s) . 1 son(s) , 1 daughter(s) - healthy. . Her maternal grandmother has a history of breast cancer. She is not aware of any family history of mental illness, substance use disorder or addiction. She has a personal history of depression and tobacco use disorder. * Social History: T obacco Use: T obacco Use/Smoking P jose a is a c urrent smoker S he is and working and raising children. She was born in [place], [place]. She has been to [place] for 20 years. Thery have 2 children. Smoking: The patient is a smoker, currently smoking around 12 cigarettes a day. * Medications: T akingProAir HFA 108 (90 Base) MCG/ACT Aerosol Solution 2 puffs as needed Inhalation every 4 hrs Loratadine 10 MG Tablet TAKE 1 TABLET BY MOUTH EVERY DAY Clindamycin Phosphate 1 % Gel External Anastrozole 1 MG Tablet TAKE 1 TABLET BY MOUTH EVERY DAY Citalopram Hydrobromide 10 MG Tablet TAKE 1 TABLET BY MOUTH EVERY DAY Atorvastatin Calcium 10 MG Tablet TAKE 1 TABLET BY MOUTH EVERY DAY Medication List reviewed and reconciled with the patientTaking ProAir HFA 108 (90 Base) MCG/ACT Aerosol Solution 2 puffs as needed Inhalation every 4 hrs Taking Loratadine 10 MG Tablet TAKE 1 TABLET BY MOUTH EVERY DAY Taking Clindamycin Phosphate 1 % Gel External Taking Anastrozole 1 MG Tablet TAKE 1 TABLET BY MOUTH EVERY DAY Taking Citalopram Hydrobromide 10 MG Tablet TAKE 1 TABLET BY MOUTH EVERY DAY Taking Atorvastatin Calcium 10 MG Tablet TAKE 1 TABLET BY MOUTH EVERY DAY Medication List reviewed and reconciled with the patient * Allergies: A moxicillinCodeine PhosphateLatexPenicillinno[Allergies Verified] Objective: * Vitals: H t: 68, Wt: 179, BMI:27.21, BP: 135/80, HR: 91, Temp: 96.9, Wt-k.19. * P ast Orders: I maging:XR hand RT min 3V (Order Date - 09/08/2024) (Performed Date - 09/08/2024) * Examination: G eneral Examination: GENERAL APPEARANCE: p leasant, well nourished, well developed, in no acute distress, calm and relaxed, overweight, woman. HEAD: a traumatic, normocephalic. EYES: e felipe, perrla, anicteric, conjugate. EARS: n ormal. NOSE: s eptum intact. ORAL CAVITY: n ormal, unremarkable. NECK/THYROID: n o jugular venous distention, no carotid bruit, thyroid normal. LYMPH NODES: n o enlarged lymph nodes,spleen normal. SKIN: n o suspicious lesions, anicteric. HEART: n o clicks, gallops, murmurs, or rubs, regular rhythm, S1, S2 normal, no s3, or vascular bruits. LUNGS: c lear to auscultation . BREASTS: n o dimpling, no discharge, no drainage, no masses palpable bilaterally. ABDOMEN: b owel sounds normal, no ascites, no organomegaly, no mass, overweight. RECTAL EXAM: n ot examined. MUSCULOSKELETAL: e xtremities unremarkable, no clubbing, cyanosis or edema. PERIPHERAL PULSES: n ormal. NEUROLOGIC: a lert and oriented, cranial nerves 2-12 grossly intact, deep tendon reflexes 2+ symmetrical, motor strength normal upper and lower extremities, sensory exam intact. PSYCH: a lert, oriented, mood depressed. ? Assessment: * Assessment: 1. C losed displaced fracture of proximal phalanx of right middle finger, initial encounter - B53.547M (Primary) N otes :She will proceed to surgery this afternoon with medical clearance for general anesthesia. Follow-up visit was arranged. 2 . E levated blood pressure reading - R03.0 N otes :Her blood pressure todday was within normal limits and no change in her regimen was necessary. The elevated blood pressure and recent emergency room visit was likely due to the fracture. 3 . D epressive disorder, not elsewhere classified - F32.9 N otes :She has slowly been tapering the citalopram. Her depression is in remission and was not evident today. 4 . T obacco dependence - F17.200 N otes :We have had another discussion of all the health consequences of smoking. She wants very much to stop smoking, but is concerned about gaining weight. I recommended she try the nicotine patches. She did not want to try anything else. 5 . G liz-esophageal reflux disease without esophagitis - K21.9 ?Notes :Her esophageal reflux is well controlled with onsl-jin-cqjspmw medications. 6 . H yperlipidemia - E78.5 N otes :Comprehensive blood work with a fasting lipid profile was ordered prior to her next visit. She continues her efforts at weight loss and consumption of a healthy diet. 7 . O verweight - E66.3 N otes :Her body mass index is 29 and she has lost weight. I've encouraged her to continue exercising and eating a healthy diet. 8 . M alignant neoplasm of lower-outer quadrant of right female breast - C50.511 N otes :There is no sign of breast cancer in either breast at this time. There is no sign of a new primary or recurrence. Right axillas. Appearance is unchanged. There is a palpable muscle mass in the center of the axilla, but it is symmetrical with the left which is not tender. Plan: * Treatment: * Procedure Codes: * Preventive Medicine: Counseling: C are goal follow-up plan: Counseling for abnormal BMI given Y es Above Normal BMI Follow-up D ietary management education, guidance, and counseling, Dietary needs education, Exercise promotion: strength training, Exercise promotion: stretching, Feeding regime, Giving encouragement to exercise, Lifestyle education regarding diet, Nutrition / feeding management, Nutrition therapy, Prescribed activity/exercise education, Prescribed diet education, Prescribed dietary intake, Special diet education, Weight monitoring , Intervention, Order not done: Medical or Other reason not done S moking/Tobacco Use Patient counseled on the dangers of tobacco use and urged to quit. 1 Patient Lifestyle Goals P atient wants to quit Treatment Goals S et a quit date, Cut down by 1 cigarette a week Barriers S ocial smoker, Stress Self-Management Plan M clementine a plan to cut down number of cigarettes over time and set a date to work towards quitting * Follow Up: 2 Weeks (Reason: Office visit) * Images: * Sign off status: Completed true * Provider: Melissa Willingham MD Date: 1 Generated for Printi ng/Faraginig/eTransmitting on: 1 12:45 PM EDT History and Physical Notes * HPI (History of Present Illness) Category Sub-Category Detail Notes COVID-19 Screening Questions Have you had any new onset fever, chills, cough, congestion, sore throat, shortness of breath, muscle aches?: No Examination Category Sub-Category Detail Notes General Examination GENERAL APPEARANCE: pleasant , well nourished, well developed, in no acute distress, calm and relaxed, overweight, woman HEAD: atraumatic, normocep halic EYES: eomi, perrla, anicte william, conjugate EARS: normal NOSE: septum intact NECK/THYROID: no jugular venous di stention, no carotid bruit, thyroid normal HEART: no clicks, gallops, murmurs, or rubs, regular rhythm, S1, S2 normal, no s3, or vascular bruits LUNGS: clear to auscultatio n ABDOMEN: bowel sounds normal, no ascites, no organomegaly, no mass, overweight NEUROLOGIC: alert and oriented, cranial nerves 2-12 grossly intact, deep tendon reflexes 2+ symmetrical, motor strength normal upper and lower extremities, sensory exam intact SKIN: no suspicious lesion s, anicteric PERIPHERAL PULSES: normal BREASTS: no dimpling, no disc harge, no drainage, no masses palpable bilaterally MUSCULOSKELETAL: extremities unremark able, no clubbing, cyanosis or edema LYMPH NODES: no enlarged lymph no shelby,spleen normal RECTAL EXAM: not examined PSYCH: alert, oriented, moo d depressed ORAL CAVITY: normal, unremarkable
--- OUTSIDE RECORDS SUMMARY | 2024-10-08 07:30 | XMS_ITS ---
Author Organization Natalio Willingham III, MD Address [address] [place] [address] Care Team Providers Care Extension Work Director Name Role Phone Dr. Natalio Willingham III [...] Problem Status W/U Status Risk Notes Problem [id number] Essential hypertension (I10) Active confirmed Her blood [...] Date Provider Diagnosis Natalio Willingham III, MD [address] [place] [address] [address] [place], [place] [address] 10/08/2024 Natalio Willingham Essential hypertensi on I10 [...] have discussed diet and nutrition. We reviewed [facility] weight loss strategy. 10/08/2024 Osteoporosis (ICD-10 [...] Her esophageal reflux is well controlled with hxcq-kdm-kjkwbem medications. Plan Of Treatment Medication Medication Name [...] Provider Name:Natalio Willingham , 08/09/2025 04:00:00 PM, [address] [place] [address] [address], [place], [address], Provider Name:Natalio Willingham , 05/12/2026 02:30:00 PM, [address] [place] [address] [address], [place], [address], Progress Notes * Zackary ESPINO EDOB:[birth year] (59 yo F)Acc No.[id number]:10/08/2024 Progress Notes Patient: Shane [place]annie [place] Provider: Melissa Willingham MD :1965 A ge:59 Y S ex:Female Date:10/08/2024 Address:[place] [address], [address], [facility] Subjective: * Chief Complaints: * F ractured [...] * Surgical History: R ight breast Lumpectomy 5437-28-35Aepyc of radiation 06/06/20Repair complicated fracture right third [...] and raising children. She was born in [place], [place]. She has been to [place] for [...] have discussed diet and nutrition. We reviewed [facility] weight loss strategy. 4 . O [...] :Her esophageal reflux is well controlled with xelw-xbz-arkmvhp medications. Plan: * Treatment: * Procedure Codes: [...] 0 10/08/2024 Generated for Tati ennis/So/Francesco on: 12:46 PM EDT History and Physical Notes * [...]
--- OUTSIDE RECORDS SUMMARY | 2024-10-29 07:30 | XMS_ITS ---
Author Organization Natalio Willingham III, MD Address [address] [place] [address] Care Team Providers Care Occup Ther Name Role Phone Dr. Natalio Willingham III Primary Care Provider [phone] Allergies Allergen (clinical drug ingredient) Drug/Non Drug [...] Date Provider Diagnosis Natalio Willingham III, MD [address] [place] [address] [place] [address] 10/29/2024 Natalio Willingham Malignant neoplasm o f [...] Her esophageal reflux is well controlled with lhyc-rzu-baufztg medications. 10/29/2024 Hyperlipidemia (ICD-10 - E78.5) Comprehensive [...] diet and nutrition. We reviewed [facility] weight loss strategy. 10/29/2024 Pulmonary nodule (ICD-10 [...] Provider Name:Natalio Willingham , 08/09/2025 04:00:00 PM, [address] [place] [address] [address], [place], [address], Provider Name:Natalio Willingham , 05/12/2026 02:30:00 PM, [address] [place] [address] [address], [place], [address], Progress Notes * Zackary ESPINO EDOB:[birth year] (59 yo F)Acc No.[id number]:10/29/2024 Progress Notes Patient: Zackary SALEH Provider: Melissa Willingham MD :1965 A ge:59 Y S ex:Female Date:10/29/2024 Address:[address] [place] [address] [address], [address], [place], [id number] Subjective: * Chief Complaints: * F racture [...] * Surgical History: R ight breast Lumpectomy [id number] of radiation 06/06/20Repair complicated fracture right third [...] and raising children. She was born in [place], [place]. She has been to [place] for [...] :Her esophageal reflux is well controlled with efyn-kve-xkkdors medications. 4 . H yperlipidemia - E78.5 [...] diet and nutrition. We reviewed [facility] weight loss strategy. 7 . P ulmonary [...] of right middle finger, initial encounter - S67.643L N otes :Her surgery was successful and [...] Willingham MD Date: 0 10/29/2024 Generated for aTti ennis/So/eTransmitting on: 1 12:45 PM EDT History and [...]
--- OUTSIDE RECORDS SUMMARY | 2024-11-30 05:00 | XMS_ITS ---
Author Organization Natalio Willingham III, MD Address [address] [place] [address] Care Team Providers Care Sharepoint Administrator Name Role Phone Dr. Natalio Willingham III Primary Care Provider Allergies Allergen (clinical drug ingredient) Drug/Non Drug Allergy documented on EMR Reaction Allergy Type Onset Date Status Penicillin Unknown Drug Allergy Active Latex Latex Unknown Allergy Active Codeine Phosphate Unknown Drug Allergy Active amoxicillin Amoxicillin Unknown Drug Allergy Act melisa REASON FOR VISIT ot in prigress, Overweight, GERD, Right breast cancer, Hyperlipidemia, Tobacco dependence, Fractured finger right hand Medications Medication SIG (Take, Route, Frequency, Duration) Notes Start Date End Date Status ProAir HFA 108 (90 Base) MCG/ACT 2 puffs as needed Inhalation every 4 hrs 03/16/2021 Active Loratadine 10 MG TAKE 1 TABLET BY BRANDIE TH EVERY DAY Active Atorvastatin Calcium 10 MG TAKE 1 TABLET BY MOUTH EVERY DAY Active Anastrozole 1 MG TAKE 1 TABLET BY BRANDIE TH EVERY DAY Active Citalopram Hydrobromide 10 MG TAKE 1 TABLET BY MOUTH EVERY DAY Active amLODIPine Besylate 5 MG 1 tablet Orally Once a day 10/29/2024 Active Metoprolol Tartrate 25 MG 1 tablet with food Orally Twice a day 10/08/2024 Active Social History Tobacco Use: Social History Observation Description Date Details (start date - stop date) Current Smoker NA - NA Sex Assigned At : Social History Observation Description Sex Assigned At Female Tobacco Use/Smoking Question Answer Notes Patient is a current smoker Vital Signs Temperature 98.1 degrees Fahrenheit 12/01/19 25 Blood pressure systolic 139 mm Hg 12/01/19 25 Blood pressure diastolic 76 mm Hg 025 Heart Rate 65 /min 11/30/2024 Height 68 in 11/30/2024 Weight 176 lbs 11/30/2024 BMI 26.76 kg/m2 11/30/2024 Encounters Encounter Location Date Provider Diagnosis Natalio Willingham III, MD [address] [place] [address] [place] [address] 11/30/2024 Natalio Willingham Essential hypertensi on I10 ; Hyperlipidemia E78.5 ; Overweight (BMI 25.0-29.9) E66.3 ; Depressive disorder, not elsewhere classified F32.9 ; Gastro-esophageal reflux disease without esophagitis K21.9 ; Tobacco dependence F17.200 and Malignant neoplasm of lower-outer quadrant of right female breast C50.511 Assessments Encounter Date Diagnosis (ICD Code) Assessment Notes Treat ment Notes Treatment Clinical Notes 11/30/2024 Essential hypertension (ICD-10 - I10) Her blood pressure is currently stable and no change in her regimen as necessary. We discussed weight loss and smoking cessation at length today. I recommended sodium restriction as well. 11/30/2024 Hyperlipidemia (ICD-10 - E78.5) Comprehensive lipids are being obtained periodically. We reviewed her diet in detail today. No change in her regimen was necessary 11/30/2024 Overweight (BMI 25.0-29.9) (ICD-10 - E66.3) Her weight is stable. We reviewed her diet and nutrition. We have reviewed her weight loss strategy. Continue to lose weight at a rate of one half of a pound per week. 11/30/2024 Depressive disorder, not elsewhere classified (ICD-10 - F32.9) She has slowly been tapering the citalopram. Her depression is in remission and was not evident today. 11/30/2024 Gastro-esophageal reflux disease without esophagitis (ICD-10 - K21.9) Her esophageal reflux is well controlled with yydl-cpa-ezopiko medications. 11/30/2024 Tobacco dependence (ICD-10 - F17.200) We have had another discussion of all the health consequences of smoking. She wants very much to stop smoking, but is concerned about gaining weight. I recommended she try the nicotine patches. She did not want to try anything else. 11/30/2024 Malignant neoplasm o f lower-outer quadrant of [...] as needed Inhalation every 4 hrs 03/16/2021 Loratadine 10 MG TAKE 1 TABLET BY BRANDIE TH EVERY DAY Atorvastatin Calcium 10 MG TAKE 1 TABLET BY MOUTH EVERY DAY Anastrozole 1 MG TAKE 1 TABLET BY BRANDIE TH EVERY DAY Citalopram Hydrobromide 10 MG TAKE 1 TAB LET BY MOUTH EVERY DAY amLODIPine Besylate 5 MG 1 tablet Orally Once a day 2024 Metoprolol Tartrate 25 MG 1 tablet with food Orally Twice a day 10/08/2024 Pending Test Test Name Order Date PROFILE, FASTING (COMPREHENSIVE METABOLI C) 11/30/2024 CBC w DIFF 11/30/2024 Lipid Panel 11/30/2024 Next Appt Details Follow Up: 3 Months, Reason: OV Provider Name:Natalio Willingham , 08/09/2025 04:00:00 PM, [address] [place] [address] [address], [place], [address], Provider Name:Natalio Willingham , 05/12/2026 02:30:00 PM, [address] [place] [address] [address], [place], [address], Progress Notes * Zackary ESPINO EDOB:[birth year] (59 yo F)Acc No.[id number]:11/30/2024 Progress Notes Patient: Zackary SALEH Provider: Melissa Willingham MD :1965 A ge:59 Y S ex:Female Date:11/30/2024 Address:[address] [place] [address], [address], [place], [place]-[id number] Subjective: * Chief Complaints: * O t in prigressOverweightGERDRight breast cancerHyperlipidemiaTobacco dependenceFractured finger right hand * HPI: C OVID-19 Screening: She returns for a scheduled visit to manage her metabolic issues. She has recently seen the hand surgeon. She is a fracture of the third finger on her right hand which required surgery. He has recently had contractures develop of the second fourth finger which the hand surgeon has manipulated. She continues to smoke 10 cigarettes per day. Depression is treated and she continues on her antidepressant. Her esophageal reflux symptoms have resolved. She has conducting breast self-examination with no findings. He remains in remission from the breast cancer. She continues on anastrozole. Questions H ave you had any new onset fever, chills, cough, congestion, sore throat, shortness of breath, muscle aches? N o * ROS: G eneral/Constitutional: pain F ingers of right hand. C hills d enies. F atigue a [...] Muscle aches d enies. P ainful joints T hird second and fourth fingers right hand. S ciatica d enies. W eakness d enies. ? S kin: Itching d enies. R valarie d enies. S kin lesion(s)?denies. N eurologic: Difficulty speaking d enies. D izziness d enies.?Headache d enies. L ow back pain d enies. P sychiatric: Depressed mood w hich is mild. * Medical History: * Surgical History: R ight breast Lumpectomy 0512-87-32Sfaaz of radiation 06/06/20Repair complicated fracture right third [...] and raising children. She was born in [place], [place]. She has been to [place] for [...] tablet with food Orally Twice a day amLODIPine Besylate 5 MG Tablet 1 tablet Orally Once a day Medication List reviewed and reconciled with the [...] with food Orally Twice a day Taking amLODIPine Besylate 5 MG Tablet 1 tablet Orally Once a day Medication List reviewed and reconciled with the patient * Allergies: A moxicillinCodeine PhosphateLatexPenicillinno[Allergies Verified] Objective: * Vitals: H t: 68, Wt: 176, BMI:26.76, BP: 139/76, HR: 65, Temp: 98.1, Wt-k.83. * P ast Orders: Imaging:XR hand [...] auscultation . BREASTS: no masses palpable bilaterally, Scars right breast well-healed, both axillae within normal limits. ABDOMEN: b owel sounds normal, no ascites, [...] ssential hypertension - I10 (Primary) N otes :Her blood pressure is currently stable and no change in her regimen as necessary. We discussed weight loss and smoking cessation at length today. I recommended sodium restriction as well. 2 . H yperlipidemia - E78.5 N otes :Comprehensive lipids are being obtained periodically. We reviewed her diet in detail today.? No change in her regimen was necessary 3 . O verweight (BMI 25.0-29.9) - E66.3 N otes :Her weight is stable. We reviewed her diet and nutrition. We have reviewed her weight loss strategy. Continue to lose weight at a rate of one half of a pound per week. 4 . D epressive disorder, not elsewhere classified - F32.9 N otes :She has slowly been tapering the citalopram. Her depression is in remission and was not evident today. 5 . G liz-esophageal reflux disease without esophagitis - K21.9 ?Notes :Her esophageal reflux is well controlled with dgzn-oac-esdsjlw medications. 6 . T obacco dependence - F17.200 N otes :We have had another discussion of all the health consequences of smoking. She wants very much to stop smoking, but is concerned about gaining weight. I recommended she try the nicotine patches. She did not want to try anything else. 7 . M alignant neoplasm of lower-outer quadrant [...] which is not tender. Plan: * Treatment: 2. H yperlipidemia L AB: PROFILE, FASTING (COMPREHENSIVE METABOLIC) L AB: CBC w DIFF L AB: Lipid Panel 3. O verweight (BMI 25.0-29.9) L AB: PROFILE, FASTING (COMPREHENSIVE METABOLIC) L AB: CBC w DIFF L AB: Lipid Panel 4. O thers Continue ProAir HFA Aerosol Solution, 108 (90 Base) MCG/ACT, 2 puffs as needed, Inhalation, every 4 hrs; C ontinue Loratadine Tablet, 10 MG, TAKE 1 TABLET BY MOUTH EVERY DAY; C ontinue Anastrozole Tablet, 1 MG, TAKE 1 TABLET BY MOUTH EVERY DAY; C ontinue Citalopram Hydrobromide Tablet, 10 MG, TAKE 1 TABLET BY MOUTH EVERY DAY; C ontinue Atorvastatin Calcium Tablet, 10 MG, TAKE 1 TABLET BY MOUTH EVERY DAY; C ontinue Metoprolol Tartrate Tablet, 25 MG, 1 tablet with food, Orally, Twice a day; C ontinue amLODIPine Besylate Tablet, 5 MG, 1 tablet, Orally, Once a day. ? * Procedure Codes: * Preventive Medicine: Counseling: [...] tobacco use and urged to quit. 0 11/29/2024 Patient Lifestyle Goals P atient wants to quit Treatment Goals C ut down by 1 cigarette a week, Set a quit date Barriers S tress, Social smoker Self-Management Plan M clementine a plan to cut down number of cigarettes over time and set a date to work towards quitting * Follow Up: 3 Months (Reason: OV) * Images: * Sign off status: Completed true * Provider: Melissa Willingham MD Date: 0 11/30/2024 Generated for Tati ennis/So/Francesco on: 1 12:45 PM EDT History and [...] normal BREASTS: no masses palpable b ilaterally, Scars right breast well-healed, both axillae within normal limits MUSCULOSKELETAL: extremities unremark able, no clubbing, cyanosis or edema LYMPH NODES: no enlarged lymph no shelby,spleen normal RECTAL EXAM: not examined PSYCH: alert, oriented ORAL CAVITY: normal, unremarkable
--- OUTSIDE RECORDS SUMMARY | 2025-02-01 05:48 | XMS_ITS ---
Author Organization Natalio Willingham III, MD Address [address] [place] [address] Care Team Providers Care Crabber Name Role Phone Dr. Natalio Willingham III Primary Care Provider [phone] REASON FOR VISIT Rx Request Social History Sex Assigned At : Social History Observation Description Sex Assigned At Female Encounters Encounter Location Date Provider Diagnosis Natalio Willingham III, MD [address] [place] [address] [place] [address] 02/01/2025 Natalio Willingham Plan Of Treatment Next Appt Details Provider Name:Natalio Willingham , 08/09/2025 04:00:00 PM, [address] [place] [address] [place], [address], Provider Name:Natalio Willingham , 05/12/2026 02:30:00 PM, [address] [place] [address] [place], [address], Progress Notes * Zackary ESPINO EDOB:[birth year] (59 yo F)Acc No.[id number]:02/01/2025 Patient: Hang JOSE CARLOSShaanZackary :1965 A ge:59 Y S ex:Female Address:[address], [place] [address] * true * Date: Generated for Ttai ennis/So/Francesco on: 1 12:46 PM EDT
--- OUTSIDE RECORDS SUMMARY | 2025-02-01 10:27 | XMS_ITS ---
Author Organization Natalio Willingham III, MD Address [address] [place] [address] Care Team Providers Care Mixed Crop Farmer Name Role Phone Dr. Natalio Willingham III Primary Care Provider Medications Medication SIG (Take, Route, Frequency, Duration) Notes Start Date End Date Status Sulfamethoxazole-Trimetho prim 800-160 MG 1 tablet Orally twice a day for 10 days 02/01/2025 02/11/2025 Active Social History Sex Assigned At : Social History Observation Description Sex Assigned At Female Encounters Encounter Location Date Provider Diagnosis Natalio Willingham III, MD [address] [place] [address] [place] [address] 02/01/2025 Natalio Willingham Plan Of Treatment Medication Medication Name Sig Start Date Stop Date Notes Sulfamethoxazole-Trimethopri m 800-160 MG 1 tablet Orally twice a day for 10 days 02/01/2025 02/11/2025 Next Appt Details Provider Name:Natalio Willingham , 08/09/2025 04:00:00 PM, [address] [place] [address] [place], [address], Provider Name:Natalio Willingham , 05/12/2026 02:30:00 PM, [address] [place] [address] [place], [address], Progress Notes * Zackary ESPINO EDOB:[birth year] (59 yo F)Acc No.[id number]:02/01/2025 Patient: Zackary SALEH :1965 A ge:59 Y S ex:Female Address:[address] [place] [address], [address], [place] [address] * Refills Start Sulfamethoxazole-Trimethoprim Tablet, 800-160 MG, Orally, 20 Tablet, 1 tablet, twice a day, 10 days, Refills=0 * true * Date: Generated for Tati ennis/So/Alfonsosmitting on: 1 12:46 PM EDT
--- OUTSIDE RECORDS SUMMARY | 2025-03-04 12:45 | XMS_ITS ---
Author Organization Natalio Willingham III, MD Address [address] [address] Care Team Providers Care Relay Man Name Role Phone Dr. Natalio Willingham III Primary Care Provider [phone] REASON FOR VISIT Follow up Social History Sex Assigned At : Social History Observation Description Sex Assigned At Female Encounters Encounter Location Date Provider Diagnosis Natalio Willingham III, MD [address] [place] [address] [place] [address] 03/04/2025 Natalio Willingham Plan Of Treatment Next Appt Details Provider Name:Natalio Willingham , 08/09/2025 04:00:00 PM, [address] [place] [address] [place], [address], Provider Name:Natalio Willingham , 05/12/2026 02:30:00 PM, [address] [place] [address] [place], [address], Progress Notes * Zackary ESPINO EDOB:[birth year] (60 yo F)Acc No.[id number]:03/04/2025 Progress Notes Patient: Hang Zackary RODRIGUEZ Provider: Melissa Willingham MD :1965 A ge:59 Y S ex:Female Date:03/04/2025 Address:[address] [place] [address] AVE, [address], [facility] Subjective: * Chief Complaints: * 1 . [...] MD Date: 0 03/04/2025 Generated for Tati ennis/So/eTransmitting on: 1 12:45 PM EDT
--- OUTSIDE RECORDS SUMMARY | 2025-03-09 07:00 | XMS_ITS ---
Author Organization Natalio Willingham III, MD Address [address] [place] [address] Care Team Providers Care Commodity Buyer Name Role Phone Dr. Natalio Willingham III [...] Date Provider Diagnosis Natalio Willingham III, MD [address] [place] [address] [place] [address] 03/09/2025 Natalio Willingham Hyperlipidemia E78.5 ; Malignant [...] Her esophageal reflux is well controlled with wxyw-ary-jxikjjp medications. 03/09/2025 Tobacco dependence (ICD-10 - F17.200) [...] Provider Name:Natalio Willingham , 08/09/2025 04:00:00 PM, [address] [place] [address] [address], [place], [address], Provider Name:Natalio Willingham , 05/12/2026 02:30:00 PM, [address] [place] [address] [place], [address], Progress Notes * Zackary ESPINO EDOB:[birth year] (59 yo F)Acc No.[id number]:03/09/2025 Progress Notes Patient: Zackary SALEH Provider: Melissa Willingham MD :1965 A ge:59 Y S ex:Female Date:03/09/2025 Address:[address], [address], [facility] Subjective: * Chief Complaints: * C [...] * Surgical History: R ight breast Lumpectomy 6849-24-22Hybvj of radiation 06/06/20Repair complicated fracture right third [...] and raising children. She was born in [place], [place]. She has been to [place] for [...] :Her esophageal reflux is well controlled with lnpc-rbx-jeajoab medications. 6 . T obacco dependence - [...] 03/09/2025 Generated for Tati ennis/So/Alfonsosmitting on: 1 12:45 PM EDT History and [...]
--- OUTSIDE RECORDS SUMMARY | 2025-05-10 11:00 | XMS_ITS ---
Author Organization Natalio Willingham III, MD Address [address] [place] [address] Care Team Providers Care Catapult And Arresting Gear Officer Name Role Phone Dr. Natalio Willingham III Primary Care Provider Allergies Allergen (clinical drug ingredient) Drug/Non Drug Allergy documented on EMR Reaction Allergy Type Onset Date Status Penicillin Unknown Drug Allergy Active No Known Food Allergy Unknown Drug Allergy Active Latex Latex Unknown Allergy Active Codeine Phosphate Unknown Drug Allergy Active amoxicillin Amoxicillin Unknown Drug Allergy Act melisa REASON FOR VISIT Annual Exam Medications Medication SIG (Take, Route, Frequency, Duration) Notes Start Date End Date Status Loratadine 10 MG TAKE 1 TABLET BY BRANDIE TH EVERY DAY Active amLODIPine Besylate 5 MG 1 tablet Orally Once a day 10/29/2024 Active Atorvastatin Calcium 10 MG TAKE 1 TABLET BY MOUTH EVERY DAY Active Citalopram Hydrobromide 10 MG TAKE 1 TABLET BY MOUTH EVERY DAY Active Anastrozole 1 MG TAKE 1 TABLET BY BRANDIE TH EVERY DAY Active ProAir HFA 108 (90 Base) MCG/ACT 2 puffs as needed Inhalation every 4 hrs 03/16/2021 Active Metoprolol Tartrate 25 MG TAKE 1 TABLET BY MOUTH TWICE A DAY WITH FOOD FOR 30 DAYS Active Social History Tobacco Use: Social History Observation Description Date Details (start date - stop date) Current Smoker NA - NA Sex Assigned At : Social History Observation Description Sex Assigned At Female Tobacco Control (Standard) Question Answer Notes Tobacco use: Current smoker How often do you smoke cigarettes? Every day How many cigarettes a day do you smoke? 6-10 How soon after you wake up d o you smoke your first cigarette? 6-30 minutes Are you interested in quitting? Not ready to miranda t Additional Findings: Tobacco user Modera te cigarette smoker (10-19 cigs/day) AUDIT-C (Standard) Question Answer Notes Did you have a drink contain ing alcohol in the past year? Yes How often did you have six o r more drinks on one occasion in the past year? 4 or more times a week (4 points) How many drinks did you have on a typical day when you were drinking in the past year? 1 or 2 drinks (0 point) How often did you have a dri nk containing alcohol in the past year? Never (0 point) Points 4 Interpretation Positive Vital Signs Temperature 98.2 degrees Fahrenheit 05/10/20 25 Blood pressure systolic 136 mm Hg 05/10/20 25 Blood pressure diastolic 80 mm Hg 025 Heart Rate 71 /min 05/10/2025 Respiratory Rate 15 /min 05/10/2025 Height 68 in 05/10/2025 Weight 179 lbs 05/10/2025 BMI 27.21 kg/m2 05/10/2025 Encounters Encounter Location Date Provider Diagnosis Natalio Willingham III, MD [address] [place] [address] [place] [address] 05/10/2025 Natalio Willingham Hyperlipidemia E78.5 ; Malignant neoplasm of lower-outer quadrant of right female breast C50.511 ; Overweight (BMI 25.0-29.9) E66.3 ; Tobacco dependence F17.200 ; Depressive disorder, not elsewhere classified F32.9 and Gastro-esophageal reflux disease without esophagitis K21.9 Assessments Encounter Date Diagnosis (ICD Code) Assessment Notes Treat ment Notes Treatment Clinical Notes 05/10/2025 Hyperlipidemia (ICD-10 - E78.5) Her total cholesterol is 178 with an HDL of 72. No change in her regimen was necessary today. 05/10/2025 Malignant neoplasm o f lower-outer quadrant of right female breast (ICD-10 - C50.511) She will complete her tamoxifen therapy next week and discontinue that medication. There was no sign of a new primary today. There was no sign of recurrence. 05/10/2025 Overweight (BMI 25.0-29.9) (ICD-10 - E66.3) Her weight is stable and the overweight range. We discussed nutrition and diet today. We reviewed her weight loss strategy. 05/10/2025 Tobacco dependence (ICD-10 - F17.200) We have had another discussion of all the health consequences of smoking. She wants very much to stop smoking, but is concerned about gaining weight. I recommended she try the nicotine patches. She did not want to try anything else. 05/10/2025 Depressive disorder, not elsewhere classified (ICD-10 - F32.9) She has slowly been tapering the citalopram. Her depression is in remission and was not evident today. 05/10/2025 Gastro-esophageal reflux disease without esophagitis (ICD-10 - K21.9) Her esophageal reflux is well controlled with yhnc-oot-txtbeti medications. Plan Of Treatment Medication Medication Name Sig Start Date Stop Date Notes Loratadine 10 MG TAKE 1 TABLET BY BRANDIE TH EVERY DAY amLODIPine Besylate 5 MG 1 tablet Orally Once a day 2024 Atorvastatin Calcium 10 MG TAKE 1 TABLET BY MOUTH EVERY DAY Citalopram Hydrobromide 10 MG TAKE 1 TAB LET BY MOUTH EVERY DAY Anastrozole 1 MG TAKE 1 TABLET BY BRANDIE TH EVERY DAY ProAir HFA 108 (90 Base) MCG/ACT 2 puffs as needed Inhalation every 4 hrs 03/16/2021 Metoprolol Tartrate 25 MG TAKE 1 TABLET BY MOUTH TWICE A DAY WITH FOOD FOR 30 DAYS Pending Test Test Name Order Date PROFILE, FASTING (COMPREHENSIVE METABOLI C) 05/10/2025 CBC w DIFF 05/10/2025 Lipid Panel 05/10/2025 Next Appt Details Follow Up: 3 Months, Reason: OV Provider Name:Natalio Willingham , 08/09/2025 04:00:00 PM, [address] [place] [address] [address], [place], [address], Provider Name:Natalio Willingham , 05/12/2026 02:30:00 PM, [address] [facility] [address], [place], [address], Progress Notes * Zackary ESPINO EDOB:[birth year] (60 yo F)Acc No.[id number]:05/10/2025 Progress Notes Patient: Zackary SALEH Provider: Melissa Willingham MD :1965 A ge:60 Y S ex:Female Date:05/10/2025 Address:[address], [facility] Subjective: * Chief Complaints: * A nnual Exam * HPI: D epression Screening: . She returns to the office at the age of 60 for her annual visit. You will finish her 5 years of adjuvant endocrine anastrozole therapy next . Her breast exam today was unremarkable. The right middle finger which was fractured has decent mobility but is still painful and the range of motion is not 100%. She continues physical therapy on that hand. Her weight is stable and she is trying to quit smoking. We discussed smoking cessation and weight reduction at length today. PHQ-9 L ittle interest or pleasure in doing things?Not at all F eeling down, depressed, or hopeless N ot at all T rouble falling or staying asleep, or sleeping too much S everal days F eeling tired or having little energy N ot at all P oor appetite or overeating N ot at all F eeling bad about yourself or that you are a failure, or have let yourself or your family down N ot at all T rouble concentrating on things, such as reading the newspaper or watching television N ot at all M oving or speaking so slowly that other people could have noticed; or the opposite, being so fidgety or restless that you have been moving around a lot more than usual N ot at all T houghts that you would be better off or of hurting yourself in some way N ot at all T otal Score 1 I nterpretation M inimal Depression C OVID-19 Screening: Questions H ave you had any new onset fever, chills, cough, congestion, sore throat, shortness of breath, muscle aches? N o S GABI Questions: SDOH Questions I n the past year have you been worried about losing your housing? N o I n the past year have you or any family members you live with been unable to get any of the following when it was really needed? Check all that apply: N one * ROS: G eneral/Constitutional: pain R ight [...] enies. P ainful joints R ight third finger. S ciatica d enies. W eakness d enies. S kin: Itching d enies. R valarie d enies. S kin lesion(s)?denies. N eurologic: Difficulty speaking d enies. D izziness d enies.?Headache d enies. L ow back pain d enies. P sychiatric: Depressed mood w hich is mild. * Medical History: * Surgical History: R ight breast Lumpectomy [id number] of radiation 06/06/20Repair complicated fracture right third finger September 2024 * Hospitalization/Major Diagno stic Procedure: N o history * Family History: F ather: 60 yrs, mouth cancer, diagnosed with Cancer. M other: alive 67 yrs, type II diabetes, hypertension, hyperlipidemia, arthritis, vertigo, diagnosed with HTN, Hyperlipidemia. Spouse: alive. 1 sister(s) . 1 son(s) , 1 daughter(s) - healthy. . Her maternal grandmother has a history of breast cancer. She is not aware of any family history of mental illness, substance use disorder or addiction. She has a personal history of depression and tobacco use disorder. * Social History: T obacco Use: T obacco Control (Standard) T obacco use: C urrent smoker H ow often do you smoke cigarettes? E very day H ow many cigarettes a day do you smoke? 6 -10 H ow soon after you wake up do you smoke your first cigarette? 6 -30 minutes A re you interested in quitting? N ot ready to quit A dditional Findings: Tobacco user M oderate cigarette smoker (10-19 cigs/day) D rugs/Alcohol: D rugs H ave you used drugs other than those for medical reasons in the past 12 months? N o D rug/Alcohol: A JAMIE-C (Standard) D id you have a drink containing alcohol in the past year? Y es H ow often did you have six or more drinks on one occasion in the past year? 4 or more times a week (4 points) H ow many drinks did you have on a typical day when you were drinking in the past year? 1 or 2 drinks (0 point) H ow often did you have a drink containing alcohol in the past year? N ever (0 point) P oints 4 I nterpretation P ositive S he is and working and raising children. She was born in [place], [place]. She has been to [place] for [...] TAKE 1 TABLET BY MOUTH EVERY DAY amLODIPine Besylate 5 MG Tablet 1 tablet Orally Once a day Metoprolol Tartrate 25 MG Tablet TAKE 1 TABLET BY MOUTH TWICE A DAY WITH FOOD FOR 30 DAYS Taking ProAir HFA 108 (90 Base) MCG/ACT Aerosol Solution 2 puffs as needed Inhalation every 4 hrs Taking Loratadine 10 MG Tablet TAKE 1 TABLET BY MOUTH EVERY DAY Taking Citalopram Hydrobromide 10 MG Tablet TAKE 1 TABLET BY MOUTH EVERY DAY Taking Atorvastatin Calcium 10 MG Tablet TAKE 1 TABLET BY MOUTH EVERY DAY Taking amLODIPine Besylate 5 MG Tablet 1 tablet Orally Once a day Taking Metoprolol Tartrate 25 MG Tablet TAKE 1 TABLET BY MOUTH TWICE A DAY WITH FOOD FOR 30 DAYS DiscontinuedAnastrozole 1 MG Tablet TAKE 1 TABLET BY MOUTH EVERY DAY Clindamycin HCl 150 MG Capsule TAKE 4 CAPSULES BY MOUTH ONCE PRIOR TO DENTAL WORK Medication List reviewed and reconciled with the patientDiscontinued Anastrozole 1 MG Tablet TAKE 1 TABLET BY MOUTH EVERY DAY Discontinued Clindamycin HCl 150 MG Capsule TAKE 4 CAPSULES BY MOUTH ONCE PRIOR TO DENTAL WORK Medication List reviewed and reconciled with the patient * Allergies: A moxicillinCodeine PhosphateLatexPenicillinNo Known Food Allergyno[Allergies Verified] Objective: * Vitals: H t: 68, Wt: 179, BMI:27.21, BP: 136/80, HR: 71, RR: 15, Temp: 98.2, Wt-k.19. * Examination: G eneral Examination: GENERAL APPEARANCE: p leasant, well nourished, well developed, in no acute distress, calm and relaxed: overweight: woman. HEAD: a traumatic, normocephalic. EYES: e [...] normal, no s3, or vascular bruits. LUNGS: : diminished breath sounds throughout: no wheezes, rales, rhonchi: good air movement. BREASTS: n o masses palpable bilaterally: no discharge: no dimpling: no drainage: nontender, Healed scars and radiation changes in tattoos right breast. ABDOMEN: b owel sounds normal, no ascites, no organomegaly, no mass: overweight. RECTAL EXAM: n ot examined. MUSCULOSKELETAL: [...] breast - C50.511 (Primary) ? N otes :She will complete her tamoxifen therapy next week and discontinue that medication. There was no sign of a new primary today. There was no sign of recurrence. 2 . H yperlipidemia - E78.5 N otes :Her total cholesterol is 178 with an HDL of 72. No change in her regimen was necessary today. 3 . O verweight (BMI 25.0-29.9) - E66.3 N otes :Her weight is stable and the overweight range. We discussed nutrition and diet today. We reviewed her weight loss strategy. 4 . T obacco dependence - F17.200 N otes :We have had another discussion of all the health consequences of smoking. She wants very much to stop smoking, but is concerned about gaining weight. I recommended she try the nicotine patches. She did not want to try anything else. 5 . D epressive disorder, not elsewhere classified - F32.9 N otes :She has slowly been tapering the citalopram. Her depression is in remission and was not evident today. 6 . G liz-esophageal reflux disease without esophagitis - K21.9 ?Notes :Her esophageal reflux is well controlled with fore-tyn-dubfftv medications. Plan: * Treatment: 2. O verweight (BMI 25.0-29.9) L AB: PROFILE, FASTING (COMPREHENSIVE METABOLIC) L AB: CBC w DIFF L AB: Lipid Panel 3. O thers Continue Metoprolol Tartrate Tablet, 25 MG, TAKE 1 TABLET BY MOUTH TWICE A DAY WITH FOOD FOR 30 DAYS; C ontinue ProAir HFA Aerosol Solution, 108 (90 Base) [...] MG, 1 tablet, Orally, Once a day. * Procedure Codes: * Preventive Medicine: Counseling: [...] tobacco use and urged to quit. 0 05/10/2025 Patient Lifestyle Goals P atient wants to [...] * Provider: Melissa Willingham MD Date: 0 05/10/2025 Generated for Silviai loli/So/eTransmitting on: 1 12:45 PM EDT History and Physical Notes * HPI (History of Present Illness) Category Sub-Category Detail Notes Depression Screening PHQ-9 Little inte rest or pleasure in doing things: Not at all Feeling down, depressed, or hopeless: No t at all Trouble falling or staying asleep, or sl eeping too much: Several days Feeling tired or having little energy: N ot at all Poor appetite or overeating: Not at all Feeling bad about yourself o r that you are a failure, or have let yourself or your family down: Not at all Trouble concentrating on thi ngs, such as reading the newspaper or watching television: Not at all Moving or speaking so slowly that other people could have noticed; or the opposite, being so fidgety or restless that you have been moving around a lot more than usual: Not at all Thoughts that you would be b quique off or of hurting yourself in some way: Not at all Total Score: 1 Interpretation: Minimal Depression COVID-19 Screening Questions Have you had any new onset fever, chills, cough, congestion, sore throat, shortness of breath, muscle aches?: No SDOH Questions SDOH Questions In the past year have you been worried about losing your housing?: No In the past year have you or any family members you live with been unable to get any of the following when it was really needed? Check all that apply:: None Examination Category Sub-Category Detail Notes General Examination GENERAL APPEARANCE: pleasant , well nourished, well developed, in no acute distress, calm and relaxed: overweight: woman HEAD: atraumatic, normocep halic EYES: eomi, perrla, anicte william, conjugate EARS: normal NOSE: septum intact NECK/THYROID: no jugular venous di stention, no carotid bruit, thyroid normal HEART: no clicks, gallops, murmurs, or rubs, regular rhythm, S1, S2 normal, no s3, or vascular bruits LUNGS: : diminished breath sounds throughout: no wheezes, rales, rhonchi: good air movement ABDOMEN: bowel sounds normal, no ascites, no organomegaly, no mass: overweight NEUROLOGIC: alert and oriented, cranial nerves 2-12 grossly intact, deep tendon reflexes 2+ symmetrical, motor strength normal upper and lower extremities, sensory exam intact SKIN: no suspicious lesion s, anicteric PERIPHERAL PULSES: normal BREASTS: no masses palpable b ilaterally: no discharge: no dimpling: no drainage: nontender, Healed scars and radiation changes in tattoos right breast MUSCULOSKELETAL: extremities unremark able, no clubbing, cyanosis or edema LYMPH NODES: no enlarged lymph no shelby,spleen normal RECTAL EXAM: not examined PSYCH: alert, oriented ORAL CAVITY: normal, unremarkable
--- NOTE | ~2025-07-05 | US_ITS ---
EXAMINATION: US DIAGNOSTIC ULTRASOUND BREAST, RIGHT CLINICAL INFORMATION: Callback from screening given patient's history of palpable lump in the medial breast near her lumpectomy scar. History of right breast lumpectomy for breast cancer in 2019.. COMPARISON: Screening mammogram on June 07, 2025. FINDINGS: Targeted ultrasound of the right breast was performed at the location of the palpable concern as indicated by the patient. The survey performed in the medial breast from 2:00 to 5:00 positions did not reveal suspicious sonographic findings. Results are provided to the patient at time of visit by the technologist. US/US Breast RT Limited Mamm Only IMPRESSION: Right: No suspicious sonographic findings to accounts for patient's palpable concern near the lumpectomy scar. Benign, no evidence of malignancy. Clinical follow-up is recommended. Otherwise, patient may return to routine screening mammogram in 12 months. ASSESSMENT: Category 2: Benign RECOMMENDATION: 1. Patient should be managed based on the clinical impression. 2. Otherwise, routine annual screening mammography. This patient's information was entered into a reminder system with a target due date for their next mammogram. Electronically signed by: Chester Prescott MD 07/05/2025 02:17 PM EDT
--- OUTSIDE RECORDS SUMMARY | 2025-07-05 12:46 | XMS_ITS | Patient Health Record ---
Author Organization Natalio Willingham III, MD Address [address] [place] [address] Care Team Providers Care Research Instructor Name Role Phone Dr. Natalio Willingham III [...] date:09/08/2024 09:49:44 AM Interpretation: Performing Lab: Notes/Report: [address] [address] XRay Report Signed Patient: Ayah Tillman MR#: [id number] 8 : 1965 Acct:[id number] Age/Sex: 59 / F ADM Date: 09/08/24 Loc: HO.ED Attending Dr: Ordering Physician: Generic ED Physician Date of Service: 09/08/24 Procedure(s): XR hand RT min 3V Accession Number(s): [id number] cc: Natalio Willingham MD; Generic ED Physician [...] 09/08/24 0855 DD/ 0840 TD/TT: 09/08/24 0845 Airplane Cleaner: [place] [address] XRay Report Signed Patient: Cristhian Tillman MR#: [id number] 8 : 1965 Acct:[id number] Age/Sex: 59 / F ADM Date: 09/08/24 Loc: HO.ED Attending Dr: Ordering Physician: Generic ED Physician Date of Service: 09/08/24 Procedure(s): XR hand RT min 3V Accession Number(s): [id number] cc: Natalio Willingham MD; Generic ED Physician [...] 09/08/24 0855 DD/ 0840 TD/TT: 09/08/24 0845 Airplane Cleaner: FL guidance in OR Reviewed date:09/30/2024 08:59:36 AM Interpretation: Performing Lab: Notes/Report: [address] [address] Fluoroscopy Report Signed Patient: Ayah Tillman MR#: [id number] 8 : 1965 Acct:[id number] Age/Sex: 59 / F ADM Date: 09/13/24 Loc: .[facility] Attending Dr: Li Olson MD Ordering Physician: Li Olson MD Date of Service: 09/13/24 Procedure(s): FL guidance in OR Accession Number(s): [id number] cc: Natalio Willingham MD; Li Olson MD [...] 09/27/24 0832 DD/ 1510 TD/TT: 09/13/24 1700 Airplane Cleaner: [address] [address] Fluoroscopy Report Signed Patient: Cristhian Tillman MR#: [id number] 8 : 1965 Acct:[id number] Age/Sex: 59 / F ADM Date: 09/13/24 Loc: HO.SSS Attending Dr: Lucinda Olson MD Ordering Physician: Li Olson MD Date of Service: 09/13/24 Procedure(s): FL guidance in OR Accession Number(s): [id number] cc: Natalio Willingham MD; Li Olson MD [...] by: Abdirizak Hummel MD 09/27/2024 08:32 AM [facility] Dictated By: Abdirizak Hummel MD Signed By: <Electron ically signed by Abdirizak Hummel MD in OV> 09/27/24 0832 DD/ 1510 TD/TT: 09/13/24 1700 Airplane Cleaner: [facility] XR hand RT min 3V Reviewed date:09/14/2024 11:39:13 AM Interpretation: Performing Lab: Notes/Report: [facility] [address] [place] [address] XRay Report Signed Patient: Ayah Tillman MR#: [id number] 8 : 1965 Acct:[id number] Age/Sex: 59 / F ADM Date: 09/10/24 Loc: HO.HOSX Attending Dr: Calvin QUIROZ Ordering Physician: Calvin Shelton Date of Service: 09/10/24 Procedure(s): XR hand RT min 3V Accession Number(s): [id number] cc: Calvin Shelton; Natalio Willingham MD CLINICAL [...] in OV> 09/14/24729 DD/ 8 TD/TT: 09/14/24728 Airplane Cleaner: [facility] [address] [place] [address] [address] [place] [address] XRay Report Signed Patient: Cristhian Tillman MR#: [id number] 8 : 1965 Acct:[id number] Age/Sex: 59 / F ADM Date: 09/10/24 [facility] Att[facility] Dr: Calvin QUIROZ Ordering Physician: Calvin Shelton Date of Service: 09/10/24 Procedure(s): XR hand RT min 3V Accession Number(s): [id number] cc: Calvin Shelton ; Natalio Willingham MD [...] in OV> 09/14/24729 DD/ 8 TD/TT: 09/14/24728 Airplane Cleaner: MM tomosynthesis screening B I Reviewed date:06/10/2025 10:34:28 AM Interpretation: Performing Lab: Notes/Report: [facility]'[address] [place] [address] Mammography Report Signed Patient: Ayah Tillman MR#: [id number] 8 : 1965 Acct:[id number] Age/Sex: 60 / F ADM Date: 06/07/25 Loc: HO.MAMMO Attending Dr: Natalio Willingham MD Ordering Physician: Natalio Willingham MD Results: 0Incompl ete: Needs Additional Imaging Evaluation Date of Service: 06/07/25 Follow Up: Additional Imagi ng Procedure(s): MM tomosynthesis screening BI Accession Number(s): [id number] cc: Natalio Willingham MD Reason For Exam: [...] 06/07/25 1546 DD/ 1521 TD/TT: 06/07/25 1540 Airplane Cleaner: [place] [facility]'[address] [place] [address] Mammography Report Signed Patient: Cristhian Tillman MR#: [id number] 8 : 1965 Acct:[id number] Age/Sex: 60 / F ADM Date: 06/07/25 Loc: HO.MAMMO Attending Dr: Natalio Willingham MD Ordering Physician: Natalio Willingham MD Results: 0Incompl ete: Needs Additiona l Imaging Evaluation Date of Service: Follow Up: Additional Imagi ng Procedure(s): MM eliana osynthesis screening BI Accession Number(s): [id number] cc: Natalio Willingham MD Reason For Exam: [...] Lara Fritz DO 06/07/2025 03:46 PM EDT Dictated By: Lara Davalos i, DO Signed By: <Electron ically signed by Lara Fritz DO in OV> 06/07/25 1546 DD/ 1521 TD/TT: 06/07/25 1540 Airplane Cleaner: Reason For Referral No Information Medications Medication [...] Problem Status W/U Status Risk Notes Problem 464689072 Overweight (BMI 25.0-29.9) (E66.3) Active confirmed Her weight is stable and the overweight range. We discussed nutrition and diet today. We reviewed her weight loss strategy. Problem 75591657 Hyperlipidemia (E78.5) Active confirmed Her total cholesterol is 178 with an HDL of 72. No change in her regimen was necessary today. Problem 282926747 Pulmonary nodules (R91.8) Active confirmed The 2 nodule s in the right lung are large enough to be worrisome. A repeat CT scan has been scheduled for April 2024. Problem 916676784 Malignant neoplasm of lower-outer quadrant of right female breast (C50.511) Active confirmed She will complete her tamoxifen therapy next week and discontinue that medication. There was no sign of a new primary today. There was no sign of recurrence. Problem 846137007 Gastro-esophagea l reflux disease without esophagitis (K21.9) Active confirmed Her esophageal reflux is well controlled with pnre-kzx-wguxx er medications. Problem 80968828 Essential hypertension (I10) Active confirmed Her blood pressure is currently stable and no change in her regimen as necessary. We discussed weight loss and smoking cessation at length today. I recommended sodium restriction as well. Problem 99306711 Tobacco dependence (F17.200) Active confirmed We have had another discussion of all the health consequences of smoking. She wants very much to stop smoking, but is concerned about gaining weight. I recommended she try the nicotine patches. She did not want to try anything else. Problem 917363180 Pulmonary nodule (R91.1) Active confirmed The right [...] diagnosis of early breast cancer. Problem Osteoporosis (56589672) Osteoporosis (M81.0) Active confirmed She is going to consider the use of alendronate. She will continue on vitamin D and calcium tablets. A repeat bone density will be done. She has 12 more months to go on her adjuvant endocrine anastrozole. Problem 48572312 Depressive disorder, not elsewhere classified (F32.9) Active confirmed She has slowly been tapering the citalopram. Her depression is in remission and was not evident today. Problem 102064120 BRCA1 negative (Z13.71) Active confirmed Problem 698322596 Closed displaced fracture of proximal phalanx of right middle finger, initial encounter (O19.350W) Active confirmed Her surgery was successful and [...] Provider Diagnosis Natalio Willingham III, MD [address] [place] [address] [place] [address] 07/07/2024 Natalio Willingham Hyperlipidemia E78.5 ; Malignant neoplasm of lower-outer quadrant of right female breast C50.511 ; Overweight (BMI 25.0-29.9) E66.3 ; Depressive disorder, not elsewhere classified F32.9 ; Gastro-esophageal reflux disease without esophagitis K21.9 ; Tobacco dependence F17.200 ; Osteoporosis M81.0 and Pulmonary nodule R91.1 Natalio Willingham III, MD [address] [place] [address] [place] [address] 09/13/2024 Natalio Willingham Elevated blood press ure reading R03.0 ; Closed displaced fracture of proximal phalanx of right middle finger, initial encounter S62.612A ; Depressive disorder, not elsewhere classified F32.9 ; Tobacco dependence F17.200 ; Gastro-esophageal reflux disease without esophagitis K21.9 ; Hyperlipidemia E78.5 ; Overweight E66.3 and Malignant neoplasm of lower-outer quadrant of right female breast C50.511 Natalio Willingham III, MD [address] [place] [address] [place] [address] 10/08/2024 Natalio Willingham Essential hypertensi on I10 ; Closed displaced fracture of proximal phalanx of right middle finger, initial encounter S62.612A ; Overweight (BMI 25.0-29.9) E66.3 ; Osteoporosis M81.0 ; Tobacco dependence F17.200 ; Hyperlipidemia E78.5 ; Depressive disorder, not elsewhere classified F32.9 and Gastro-esophageal reflux disease without esophagitis K21.9 Natalio Willingham III, MD [address] [place] [address] [place] [address] 10/29/2024 Natalio Willingham Malignant neoplasm o f [...] Essential hypertension I10 Natalio Willingham III, MD [address] [place] [address] [place] [address] 11/30/2024 Natalio Willingham Essential hypertensi on I10 ; Hyperlipidemia E78.5 ; Overweight (BMI 25.0-29.9) E66.3 ; Depressive disorder, not elsewhere classified F32.9 ; Gastro-esophageal reflux disease without esophagitis K21.9 ; Tobacco dependence F17.200 and Malignant neoplasm of lower-outer quadrant of right female breast C50.511 Natalio Willingham III, MD [address] [place] [address] [place] [address] 03/09/2025 Natalio Willingham Hyperlipidemia E78.5 ; Malignant neoplasm of lower-outer quadrant of right female breast C50.511 ; Overweight (BMI 25.0-29.9) E66.3 ; Depressive disorder, not elsewhere classified F32.9 ; Gastro-esophageal reflux disease without esophagitis K21.9 ; Tobacco dependence F17.200 ; Closed displaced fracture of proximal phalanx of right middle finger, initial encounter S62.612A and Essential hypertension I10 Natalio Willingham III, MD [address] [place] [address] [place] [address] 05/10/2025 Natalio Willingham Hyperlipidemia E78.5 ; Malignant neoplasm of lower-outer quadrant of right female breast C50.511 ; Overweight (BMI 25.0-29.9) E66.3 ; Tobacco dependence F17.200 ; Depressive disorder, not elsewhere classified F32.9 and Gastro-esophageal reflux disease without esophagitis K21.9 Natalio Willingham III, MD [address] [place] [address] [place] [address] 08/24/2024 Natalio Willingham III, MD [address] [place] [address] [place] [address] 09/01/2024 Natalio Willingham III, MD [address] [place] [address] [place] [address] 02/01/2025 Natalio Willingham III, MD [address] [place] [address] [place] [address] 02/01/2025 Natalio Willingham Assessments Encounter Date Diagnosis [...] today. There was no sign of recurrence. 07/07/2024 Overweight (BMI 25.0-29.9) (ICD-10 - E66.3) Her body mass index is 28 and her weight is stable. We have discussed diet and nutrition. We reviewed [facility] weight loss strategy. 09/13/2024 Depressive disorder, [...] [facility]. 10/29/2024 Gastro-esophageal reflux disease without esophagitis (ICD-10 - K21.9) Her esophageal reflux is well controlled with lgmt-lia-pgumqel medications. 11/30/2024 Overweight (BMI 25.0-29.9) (ICD-10 - [...] today. We reviewed her weight loss strategy. 07/07/2024 Depressive disorder, not [...] Her esophageal reflux is well controlled with maxn-elg-ezltlcf medications. 09/13/2024 Gastro-esophageal reflux disease without esophagitis (ICD-10 - K21.9) Her esophageal reflux is well controlled with vwga-jeo-jwkekqo medications. 10/08/2024 Tobacco dependence (ICD-10 - F17.200) [...] Her esophageal reflux is well controlled with sstm-omu-pceiznx medications. 03/09/2025 Gastro-esophageal reflux disease without esophagitis (ICD-10 - K21.9) Her esophageal reflux is well controlled with bflp-ocn-hmgsnou medications. 05/10/2025 Depressive disorder, not elsewhere classified (ICD-10 - F32.9) She has slowly been tapering the citalopram. Her depression is in remission and was not evident today. 07/07/2024 Tobacco dependence (ICD-10 - F17.200) We [...] [facility]. 11/30/2024 Tobacco dependence [...] Her esophageal reflux is well controlled with fwsm-xex-jnbvjyk medications. 07/07/2024 Osteoporosis (ICD-10 - M81.0) She is [...] Her esophageal reflux is well controlled with mlsh-cti-arffrga medications. 10/29/2024 Closed displaced fracture of proximal [...] 05/05/2023 PROFILE, FASTING (COMPREHENSIVE METABOLI C) 05/10/2025 PROFILE, FASTING (COMPREHENSIVE METABOLI C) 07/07/2024 PROFILE, FASTING (COMPREHENSIVE METABOLI C) 02/03/2023 PROFILE, FASTING (COMPREHENSIVE METABOLI C) 03/09/2025 PROFILE, FASTING (COMPREHENSIVE METABOLI C) 11/05/2023 PROFILE, FASTING (COMPREHENSIVE METABOLI C) 11/30/2024 LIPID PANEL 05/05/2023 LIPID PANEL 02/03/2023 CBC w DIFF 11/30/2024 CBC w DIFF 05/10/2025 CBC w DIFF 05/05/2023 CBC w DIFF 03/09/2025 CBC w DIFF 02/03/2023 BONE DENSITY DEXA 05/07/2024 CBC WITH AUTO DIFF 07/07/2024 CBC WITH AUTO DIFF 11/05/2023 Lipid Panel 11/30/2024 Lipid Panel 05/10/2025 Lipid Panel 07/07/2024 Lipid Panel 03/09/2025 Lipid Panel 11/05/2023 XR wrist RT min 3V 05/03/2022 Next Appt Details Provider Name:Natalio Coronado Tarsha , 08/09/2025 04:00:00 PM, [address] [place] [address] [address], [place], [address], Provider Name:Natalio Cliff Tarsha , 05/12/2026 02:30:00 PM, [address] [place] [address] [address], [place], [address], Insurance Providers Payer Name Payer Address Payer Phone Subscriber Number Group Number Insured Name Patient Relationship to Insured Coverage Start Date Coverage End Date [facility] [address] [place], [place] [id number] Ayah [place] Self - patient is the insured Medical (General) History Medical History History ICD Code anxiety/depression/PTSD lumbar spine disc disease 1995 overweight gerd occasional right uper extremities tremor s ? mitral valve prolapse abnormal mammograms tobacco dependence disorder 3 cm ER + GA+ Her2 - invasive right [facility] cancer February 2020 Essential hypertension September 2024 Surgical History Surgery Date(Month/Year) Repair complicated fracture right third finger September 2024 Start of radiation 06/06/20 Right breast Lumpectomy 2020-03-15 Hospitalization History Reason Date(Month/Year) No history
== END 2025-07-05 10:38 | disposition home or self-care (01) ==
LOC: HO.MAMMO 10:37
PROVIDERS: PCP Internal Medicine Medical Oncology; Visit Provider Internal Medicine Medical Oncology
DX: N63.15 Unspecified lump in the right breast, overlapping quadrants (principal); Z85.3 Personal history of malignant neoplasm of breast
CPT/HCPCS: 76642

== ENCOUNTER → 2025-07-05 11:00 | Outpatient (BNV) | payer BC, SELFPAY | PROVIDERS: PCP Internal Medicine Medical Oncology; Visit Provider Radiology Body Imaging | DX: N63.10 Unspecified lump in the right breast, unspecified quadrant (principal) | CPT/HCPCS: 76642 ==

== ENCOUNTER 2025-07-14 09:36 | Outpatient (AMB) | payer BC, SELFPAY ==
--- OUTSIDE RECORDS SUMMARY | 2024-09-01 09:04 | XMS_ITS ---
Author Organization Natalio Willingham III, MD Address [address] [place] [address] Care Team Providers Care Chair Spring Assembler Name Role Phone Dr. Natalio Willingham III Primary Care Provider REASON FOR VISIT Needs call back from Social History Sex Assigned At : Social History Observation Description Sex Assigned At Female Encounters Encounter Location Date Provider Diagnosis Natalio Willingham III, MD [address] [place] [address] [place] [address] 09/01/2024 Natalio Willingham Plan Of Treatment Next Appt Details Provider Name:Natalio Willingham , 08/09/2025 04:00:00 PM, [address] [place] [address] [place], [address], Provider Name:Natalio Willingham , 05/12/2026 02:30:00 PM, [address] [place] [address] [place], [address], Progress Notes * Zackary ESPINO EDOB:[birth year] (59 yo F)Acc No.[id number]:09/01/2024 Patient: Hang Zackary RODRIGUEZ :1965 A ge:59 Y S ex:Female Address:[address], [place] [address] * true * Date: Generated for Tati ennis/So/Francesco on: 11:05 AM EDT
--- OUTSIDE RECORDS SUMMARY | 2024-09-13 06:00 | XMS_ITS ---
Author Organization Natalio Willingham III, MD Address [address] [place] [address] Care Team Providers Care Phone Engineer Name Role Phone Dr. Natalio Willingham III [...] Problem Status W/U Status Risk Notes Problem [id number] Closed displaced fracture of proximal phalanx of [...] Date Provider Diagnosis Natalio Willingham III, MD [address] [place] [address] [address] [place], [place] [phone] 09/13/2024 Natalio Willingham Elevated blood press ure [...] Her esophageal reflux is well controlled with qosl-myz-gdwyjvz medications. 09/13/2024 Hyperlipidemia (ICD-10 - E78.5) Comprehensive [...] Provider Name:Natalio Willingham , 08/09/2025 04:00:00 PM, [address] [place] [address] [address], [place], [phone], Provider Name:Natalio Willingham , 05/12/2026 02:30:00 PM, [address] [place] [address] [place], [phone], Progress Notes * Ayah ESPINO EDOB:[birth year] (59 yo F)Acc No.[id number]:09/13/2024 Progress Notes Patient: Ayah SALEH Provider: Melissa Willingham MD :1965 A ge:59 Y S ex:Female Date:09/13/2024 Address:[address], [address], [id number] Subjective: * Chief Complaints: * R ecent [...] She went to the emergency room in [facility] where was splinted. She is scheduled for orthopedic surgery in the near future with Dr. Jefferson, hand surgery at [facility]. In the emergency room her blood pressure [...] * Surgical History: R ight breast Lumpectomy [id number] of radiation 06/06/20No history * Hospitalization/Major Diagno [...] and raising children. She was born in [place], [place]. She has been to [place] for [...] of right middle finger, initial encounter - Z60.808S (Primary) N otes :She will proceed to [...] :Her esophageal reflux is well controlled with rnlm-nve-aiuacde medications. 6 . H yperlipidemia - E78.5 [...] true * Provider: Melissa Willingham MD Date: Generated for Printi ng/Faraginig/eTransmitting on: 11:06 AM EDT History and Physical Notes * HPI [...]
--- OUTSIDE RECORDS SUMMARY | 2024-10-08 07:30 | XMS_ITS ---
Author Organization Natalio Willingham III, MD Address [address] [place] [address] Care Team Providers Care Packager Head Name Role Phone Dr. Natalio Willingham III Primary Care Provider Allergies Allergen (clinical drug ingredient) Drug/Non Drug Allergy documented on EMR Reaction Allergy Type Onset Date Status Penicillin Unknown Drug Allergy Active Latex Latex Unknown Allergy Active Codeine Phosphate Unknown Drug Allergy Active amoxicillin Amoxicillin Unknown Drug Allergy Act melisa REASON FOR VISIT Fractured right third finger, Hypertension, Depression, GERD, Hyperlipidemia, Tobacco dependence, Right breast cancer, Osteoporosis Medications Medication SIG (Take, Route, Frequency, Duration) Notes Start Date End Date Status ProAir HFA 108 (90 Base) MCG/ACT 2 puffs as needed Inhalation every 4 hrs 03/16/2021 Active Anastrozole 1 MG TAKE 1 TABLET BY BRANDIE TH EVERY DAY Active Clindamycin Phosphate 1 % External Active Metoprolol Tartrate 25 MG 1 tablet with food Orally Twice a day for 30 days 10/08/2024 Active Loratadine 10 MG TAKE 1 TABLET BY BRANDIE TH EVERY DAY Active Atorvastatin Calcium 10 MG TAKE 1 TABLET BY MOUTH EVERY DAY Active Citalopram Hydrobromide 10 MG TAKE 1 TABLET BY MOUTH EVERY DAY Active Social History Tobacco Use: Social History Observation Description Date Details (start date - stop date) Current Smoker NA - NA Sex Assigned At : Social History Observation Description Sex Assigned At Female Tobacco Use/Smoking Question Answer Notes Patient is a current smoker Problems Problem Type SNOMED Code ICD Code Onset Dates Problem Status W/U Status Risk Notes Problem 41528021 Essential hypertension (I10) Active confirmed Her blood pressure is currently stable and no change in her regimen as necessary. We discussed weight loss and smoking cessation at length today. I recommended sodium restriction as well. Vital Signs Temperature 97.8 degrees Fahrenheit 10/08/19 25 Blood pressure systolic 150 mm Hg 10/08/19 25 Blood pressure diastolic 88 mm Hg 025 Heart Rate 78 /min 10/08/2024 Height 68 in 10/08/2024 Weight 176 lbs 10/08/2024 BMI 26.76 kg/m2 10/08/2024 Encounters Encounter Location Date Provider Diagnosis Natalio Willingham III, MD [address] [place] [address] [address] [place], [place] [address] 10/08/2024 Natalio Willingham Essential hypertensi on I10 ; Closed displaced fracture of proximal phalanx of right middle finger, initial encounter S62.612A ; Overweight (BMI 25.0-29.9) E66.3 ; Osteoporosis M81.0 ; Tobacco dependence F17.200 ; Hyperlipidemia E78.5 ; Depressive disorder, not elsewhere classified F32.9 and Gastro-esophageal reflux disease without esophagitis K21.9 Assessments Encounter Date Diagnosis (ICD Code) Assessment Notes Treat ment Notes Treatment Clinical Notes 10/08/2024 Essential hypertension (ICD-10 - I10) She began metoprolol tartrate 25 mg twice a day today. 10/08/2024 Closed displaced fracture of proximal phalanx of right middle finger, initial encounter (ICD-10 - S62.612A) Her surgery was successful and she is now recovering. She will follow up with orthopedics as well as myself frequently. 10/08/2024 Overweight (BMI 25.0-29.9) (ICD-10 - E66.3) Her body mass index is 28 and her weight is stable. We have discussed diet and nutrition. We reviewed [facility] weight loss strategy. 10/08/2024 Osteoporosis (ICD-10 - M81.0) She is going to consider the use of alendronate. She will continue on vitamin D and calcium tablets. A repeat bone density will be done. She has 12 more months to go on her adjuvant endocrine anastrozole. 10/08/2024 Tobacco dependence (ICD-10 - F17.200) We have had another discussion of all the health consequences of smoking. She wants very much to stop smoking, but is concerned about gaining weight. I recommended she try the nicotine patches. She did not want to try anything else. 10/08/2024 Hyperlipidemia (ICD-10 - E78.5) Comprehensive blood work with a fasting lipid profile was ordered prior to her next visit. She continues her efforts at weight loss and consumption of a healthy diet. 10/08/2024 Depressive disorder, not elsewhere classified (ICD-10 - F32.9) She has slowly been tapering the citalopram. Her depression is in remission and was not evident today. 10/08/2024 Gastro-esophageal reflux disease without esophagitis (ICD-10 - K21.9) Her esophageal reflux is well controlled with ctmv-pkc-qevhxbg medications. Plan Of Treatment Medication Medication Name Sig Start Date Stop Date Notes ProAir HFA 108 (90 Base) MCG/ACT 2 puffs as needed Inhalation every 4 hrs 03/16/2021 Anastrozole 1 MG TAKE 1 TABLET BY BRANDIE TH EVERY DAY Clindamycin Phosphate 1 % External Metoprolol Tartrate 25 MG 1 tablet with food Orally Twice a day for 30 days 10/08/2024 Loratadine 10 MG TAKE 1 TABLET BY BRANDIE TH EVERY DAY Atorvastatin Calcium 10 MG TAKE 1 TABLET BY MOUTH EVERY DAY Citalopram Hydrobromide 10 MG TAKE 1 TAB LET BY MOUTH EVERY DAY Next Appt Details Follow Up: 3 Weeks, Reason: OV Provider Name:Natalio Willingham , 08/09/2025 04:00:00 PM, [address] [place] [address] [address], [place], [address], Provider Name:Natalio Willingham , 05/12/2026 02:30:00 PM, [address] [place] [address] [address], [place], [address], Progress Notes * Zackary ESPINO EDOB:[birth year] (59 yo F)Acc No.[id number]:10/08/2024 Progress Notes Patient: Shane SALEHannie Cliff Provider: Melissa Willingham MD :1965 A ge:59 Y S ex:Female Date:10/08/2024 Address:[place] [address], [address], [facility] Subjective: * Chief Complaints: * F ractured right third fingerHypertensionDepressionGERDHyperlipidemiaTobacco dependenceRight breast cancerOsteoporosis * HPI: C OVID-19 Screening: She has recently undergone surgery to repair a displaced fracture of the right third phalanx. She has a cast on her right upper extremity from mid forearm to the tip of her fingers. Visible capillary refilling is intact. She denies any pain.? She has been completing breast self-examination regularly with no new findings. She has no pain or lump in the right breast. The left breast is unremarkable. He notices most cigarettes but is trying to cut down or stop. At the time of surgery she had an elevated systolic blood pressure 174. This was repeated today and was much lower at 150. Her systolic has been at the upper range of normal and is now elevated. She was given a prescription for metoprolol tartrate 5 mg twice a day if possible this will be stopped or converted to a once a day extended release dose. Questions H ave you had any new onset fever, chills, cough, congestion, sore throat, shortness of breath, muscle aches? N o * ROS: G eneral/Constitutional: pain R ight third finger. C hills d enies. F atigue a dmits. F ever d enies. E NT: Decreased hearing d enies. R espiratory: Cough n on-productive. C ardiovascular: Chest pain with exertion d enies. D yspnea on exertion?denies. S hortness of breath d enies. G astrointestinal: Constipation o ccasional. D ecreased appetite d enies. D iarrhea d enies. H eartburn d enies. N ausea d enies. R ectal bleeding d enies. V omiting d enies. H ematology: bruising d enies. p etechiae d enies. S wollen glands n one have been noted. G enitourinary: Frequent urination d enies. M usculoskeletal: Muscle aches d enies. P ainful joints d enies. S ciatica d enies. W eakness d enies. S kin: Itching d enies. R valarie d enies. S kin lesion(s)?denies. N eurologic: Difficulty speaking d enies. D izziness d enies.?Headache d enies. L ow back pain d enies. P sychiatric: Depressed mood w hich is mild. * Medical History: * Surgical History: R ight breast Lumpectomy 4086-37-19Cwusx of radiation 06/06/20Repair complicated fracture right third finger September 2024 * Hospitalization/Major Diagno stic Procedure: N o [...] and raising children. She was born in [place], [place]. She has been to [place] for [...] Objective: * Vitals: H t: 68, Wt: 176, BMI:26.76, BP: 150/88, HR: 78, Temp: 97.8, Wt-k.83. * P ast Orders: Imaging:XR hand RT min 3V * Performed Date 09/14/2024 09/08/2024 07:29 AM 08:40 AM Order Date 09/14/2024 09/08/2024 ???Imaging:FL guidance in OR (Order Date - 09/13/2024) (Performed Date - 09/13/2024) * Examination: G eneral Examination: GENERAL APPEARANCE: p leasant, well nourished, well developed, in no acute distress, calm and relaxed, overweight, man. HEAD: a traumatic, normocephalic. EYES: e felipe, [...] normal, no s3, or vascular bruits. LUNGS: , diminished breath sounds throughout. BREASTS: no masses palpable bilaterally, Lumpectomy scar well-healed. ABDOMEN: b owel sounds normal, no ascites, no organomegaly, no mass. RECTAL EXAM: n ot examined. MUSCULOSKELETAL: F iberglas cast right upper extremity midforearm to fingertips. PERIPHERAL PULSES: n ormal. NEUROLOGIC: a lert and oriented, cranial nerves 2-12 grossly intact, deep tendon reflexes 2+ symmetrical, motor strength normal upper and lower extremities, sensory exam intact. PSYCH: a lert, oriented. Assessment: * Assessment: 1. E ssential hypertension - I10 (Primary) N otes :She began metoprolol tartrate 25 mg twice a day today. 2 . C losed displaced fracture of proximal phalanx of right middle finger, initial encounter - S62.612A N otes :Her surgery was successful and she is now recovering. She will follow up with orthopedics as well as myself frequently. 3 . O verweight (BMI 25.0-29.9) - E66.3 N otes :Her body mass index is 28 and her weight is stable. We have discussed diet and nutrition. We reviewed [facility] weight loss strategy. 4 . O steoporosis - M81.0 N otes :She is going to consider the use of alendronate. She will continue on vitamin D and calcium tablets. A repeat bone density will be done. She has 12 more months to go on her adjuvant endocrine anastrozole. 5 . T obacco dependence - F17.200 N otes :We have had another discussion of all the health consequences of smoking. She wants very much to stop smoking, but is concerned about gaining weight. I recommended she try the nicotine patches. She did not want to try anything else. 6 . H yperlipidemia - E78.5 N otes :Comprehensive blood work with a fasting lipid profile was ordered prior to her next visit. She continues her efforts at weight loss and consumption of a healthy diet. 7 . D epressive disorder, not elsewhere classified - F32.9 N otes :She has slowly been tapering the citalopram. Her depression is in remission and was not evident today. 8 . G liz-esophageal reflux disease without esophagitis - K21.9 ?Notes :Her esophageal reflux is well controlled with wceh-kvy-qbuaiyn medications. Plan: * Treatment: * Procedure Codes: * Preventive Medicine: Counseling: C are goal follow-up plan: Counseling for abnormal BMI given Y es Above Normal BMI Follow-up D ietary management education, guidance, and counseling, Dietary needs education S moking/Tobacco Use Patient counseled on the dangers of tobacco use and urged to quit. 0 10/08/2024 Patient Lifestyle Goals P atient wants to quit Treatment Goals S et a quit date, Cut down by 1 cigarette a week Barriers S ocial smoker, Stress Self-Management Plan M clemenitne a plan to cut down number of cigarettes over time and set a date to work towards quitting * Follow Up: 3 Weeks (Reason: OV) * Images: * Sign off status: Completed true * Provider: Melissa Willingham MD Date: 0 10/08/2024 Generated for Tati ennis/So/Francesco on: 11:07 AM EDT History and Physical Notes * HPI (History of Present Illness) Category Sub-Category Detail Notes COVID-19 Screening Questions Have you had any new onset fever, chills, cough, congestion, sore throat, shortness of breath, muscle aches?: No Examination Category Sub-Category Detail Notes General Examination GENERAL APPEARANCE: pleasant , well nourished, well developed, in no acute distress, calm and relaxed, overweight, man HEAD: atraumatic, normocep halic EYES: eomi, perrla, anicte william, conjugate EARS: normal NOSE: septum intact NECK/THYROID: no jugular venous di stention, no carotid bruit, thyroid normal HEART: no clicks, gallops, murmurs, or rubs, regular rhythm, S1, S2 normal, no s3, or vascular bruits LUNGS: , diminished breath sounds throughout ABDOMEN: bowel sounds normal, no ascites, no organomegaly, no mass NEUROLOGIC: alert and oriented, cranial nerves 2-12 grossly intact, deep tendon reflexes 2+ symmetrical, motor strength normal upper and lower extremities, sensory exam intact SKIN: no suspicious lesion s, anicteric PERIPHERAL PULSES: normal BREASTS: no masses palpable b ilaterally, Lumpectomy scar well-healed MUSCULOSKELETAL: Fiberglas cast right upper extremity midforearm to fingertips LYMPH NODES: no enlarged lymph no shelby,spleen normal RECTAL EXAM: not examined PSYCH: alert, oriented ORAL CAVITY: normal, unremarkable
--- OUTSIDE RECORDS SUMMARY | 2024-10-29 07:30 | XMS_ITS ---
Author Organization Natalio Willingham III, MD Address [address] [place] [address] Care Team Providers Care Oil Scout Name Role Phone Dr. Natalio Willingham III Primary Care Provider [phone] Allergies Allergen (clinical drug ingredient) Drug/Non Drug Allergy documented on EMR Reaction Allergy Type Onset Date Status Penicillin Unknown Drug Allergy Active Latex Latex Unknown Allergy Active Codeine Phosphate Unknown Drug Allergy Active amoxicillin Amoxicillin Unknown Drug Allergy Act melisa REASON FOR VISIT Fracture right third finger, Tobacco dependence, Hypertension, Depression, GERD, Hyperlipidemia, Carcinoma right breast Medications Medication SIG (Take, Route, Frequency, Duration) Notes Start Date End Date Status Loratadine 10 MG TAKE 1 TABLET BY BRANDIE TH EVERY DAY Active ProAir HFA 108 (90 Base) MCG/ACT 2 puffs as needed Inhalation every 4 hrs 03/16/2021 Active Metoprolol Tartrate 25 MG 1 tablet with food Orally Twice a day 10/08/2024 Active amLODIPine Besylate 5 MG 1 tablet Orally Once a day for 30 days 10/29/2024 Active Anastrozole 1 MG TAKE 1 TABLET [...] is a current smoker Vital Signs Temperature 97.7 degrees Fahrenheit 10/29/19 25 Blood pressure systolic 143 mm Hg 10/29/19 25 Blood pressure diastolic 81 mm Hg 025 Heart Rate 69 /min 10/29/2024 Height 68 in 10/29/2024 Weight 179 lbs 10/29/2024 BMI 27.21 kg/m2 10/29/2024 Encounters Encounter Location Date Provider Diagnosis Natalio Willingham III, MD [address] [place] [address] [place] [address] 10/29/2024 Natalio Willingham Malignant neoplasm o f lower-outer quadrant of right female breast C50.511 ; Depressive disorder, not elsewhere classified F32.9 ; Gastro-esophageal reflux disease without esophagitis K21.9 ; Hyperlipidemia E78.5 ; Tobacco dependence F17.200 ; Overweight (BMI 25.0-29.9) E66.3 ; Pulmonary nodule R91.1 ; Closed displaced fracture of proximal phalanx of right middle finger, initial encounter S62.612A and Essential hypertension I10 Assessments Encounter Date Diagnosis (ICD Code) Assessment Notes Treat ment Notes Treatment Clinical Notes 10/29/2024 Malignant neoplasm o f lower-outer quadrant of [...] with the left which is not tender. 10/29/2024 Depressive disorder, not elsewhere classified (ICD-10 - F32.9) She has slowly been tapering the citalopram. Her depression is in remission and was not evident today. 10/29/2024 Gastro-esophageal reflux disease without esophagitis (ICD-10 - K21.9) Her esophageal reflux is well controlled with wmcm-ptx-ewvghsi medications. 10/29/2024 Hyperlipidemia (ICD-10 - E78.5) Comprehensive blood work with a fasting lipid profile was ordered prior to her next visit. She continues her efforts at weight loss and consumption of a healthy diet. 10/29/2024 Tobacco dependence (ICD-10 - F17.200) We have had another discussion of all the health consequences of smoking. She wants very much to stop smoking, but is concerned about gaining weight. I recommended she try the nicotine patches. She did not want to try anything else. 10/29/2024 Overweight (BMI 25.0-29.9) (ICD-10 - E66.3) Her body mass index is 28 and her weight is stable. We have discussed diet and nutrition. We reviewed [facility] weight loss strategy. 10/29/2024 Pulmonary nodule (ICD-10 - R91.1) The right [...] a recent diagnosis of early breast cancer. 10/29/2024 Closed displaced fracture of proximal phalanx of right middle finger, initial encounter (ICD-10 - S62.612A) Her surgery was successful and she is now recovering. She will follow up with orthopedics as well as myself frequently. 10/29/2024 Essential hypertension (ICD-10 - I10) She began metoprolol tartrate 25 mg twice a day recently. 9. Today I have added Amlodipine 5 mg. Plan Of Treatment Medication Medication Name Sig Start Date Stop Date Notes Loratadine 10 MG TAKE 1 TABLET BY BRANDIE TH EVERY DAY ProAir HFA 108 (90 Base) MCG/ACT 2 puffs as needed Inhalation every 4 hrs 03/16/2021 Metoprolol Tartrate 25 MG 1 tablet with food Orally Twice a day 10/08/2024 amLODIPine Besylate 5 MG 1 tablet Orally Once a day for 30 days 10/29/2024 Anastrozole 1 MG TAKE 1 TABLET BY BRANDIE TH EVERY DAY Atorvastatin Calcium 10 MG TAKE 1 TABLET BY MOUTH EVERY DAY Citalopram Hydrobromide 10 MG TAKE 1 TAB LET BY MOUTH EVERY DAY Next Appt Details Follow Up: 3 Weeks, Reason: Office visit Provider Name:Natalio Willingham , 08/09/2025 04:00:00 PM, [address] [place] [address] [address], [place], [address], Provider Name:Natalio Willingham , 05/12/2026 02:30:00 PM, [address] [place] [address] [address], [place], [address], Progress Notes * Zackary ESPINO EDOB:[birth year] (59 yo F)Acc No.[id number]:10/29/2024 Progress Notes Patient: Zackary SALEH Provider: Melissa Willingham MD :1965 A ge:59 Y S ex:Female Date:10/29/2024 Address:[address] [place] [address] [address], [address], [place], [phone] Subjective: * Chief Complaints: * F racture right third fingerTobacco dependenceHypertensionDepressionGERDHyperlipidemiaCarcinoma right breast * HPI: C OVID-19 Screening: She returns for medical management of numerous medical issues.? She has recently undergone surgery on her right third finger where she had a comminuted displaced fracture. She is seeing the orthopedic surgeon regularly. The finger is bandaged and splinted but not casted. Recent x-rays show healing. She has had no findings on breast self-examination. Her blood pressure was stable today. She continues to smoke cigarettes although she is trying to stop. She is compliant with all of her medication including those for osteoporosis. She has an upcoming CT scan of the chest to follow a pulmonary nodule. Questions H ave you had any new onset fever, chills, cough, congestion, sore throat, shortness of breath, muscle aches? N o * ROS: G eneral/Constitutional: pain F racture right third finger, otherwise only normal aches and pains. C hills d enies. F atigue a [...] P sychiatric: Depressed mood w hich is moderate. * Medical History: * Surgical History: R ight breast Lumpectomy [id number] of radiation 06/06/20Repair complicated fracture right third finger September 2024 * Hospitalization/Major Diagno stic Procedure: N o history * Family History: F ather: 60 yrs, mouth cancer, diagnosed with Cancer. M other: alive 67 yrs, type II diabetes, hypertension, hyperlipidemia, arthritis, diagnosed with Hyperlipidemia, HTN. S pouse: alive. 1 sister(s) . 1 [...] and raising children. She was born in [place], [place]. She has been to [place] for [...] TAKE 1 TABLET BY MOUTH EVERY DAY Metoprolol Tartrate 25 MG Tablet 1 tablet with food Orally Twice a day Taking ProAir HFA 108 (90 Base) MCG/ACT [...] 1 TABLET BY MOUTH EVERY DAY Taking Metoprolol Tartrate 25 MG Tablet 1 tablet with food Orally Twice a day DiscontinuedClindamycin Phosphate 1 % Gel External Medication List reviewed and reconciled with the patientDiscontinued Clindamycin Phosphate 1 % Gel External Medication List reviewed and reconciled with the patient * Allergies: A moxicillinCodeine PhosphateLatexPenicillinno[Allergies Verified] Objective: * Vitals: H t: 68, Wt: 179, BMI:27.21, BP: 143/81, HR: 69, Temp: 97.7, Wt-k.19. * P ast Orders: Imaging:XR hand RT [...] LUNGS: c lear to auscultation . BREASTS: no masses palpable bilaterally, All scars healed. ABDOMEN: b owel sounds normal, no ascites, no organomegaly, no mass, overweight. RECTAL EXAM: n ot examined. MUSCULOSKELETAL: e xtremities unremarkable, no clubbing, cyanosis or edema, Right third finger bandaged and splinted. PERIPHERAL PULSES: n ormal. NEUROLOGIC: a lert and oriented, cranial nerves 2-12 grossly intact, deep tendon reflexes 2+ symmetrical, motor strength normal upper and lower extremities, sensory exam intact. PSYCH: a lert, oriented. Assessment: * Assessment: 1. M alignant neoplasm of lower-outer quadrant of right female breast - C50.511 (Primary) ? N otes :There is no sign of breast cancer in either breast at this time. There is no sign of a new primary or recurrence. Right axillas. Appearance is unchanged. There is a palpable muscle mass in the center of the axilla, but it is symmetrical with the left which is not tender. 2 . D epressive disorder, not elsewhere classified - F32.9 N otes :She has slowly been tapering the citalopram. Her depression is in remission and was not evident today. 3 . G liz-esophageal reflux disease without esophagitis - K21.9 ?Notes :Her esophageal reflux is well controlled with hefv-ows-kwonkbg medications. 4 . H yperlipidemia - E78.5 N otes :Comprehensive blood work with a fasting lipid profile was ordered prior to her next visit. She continues her efforts at weight loss and consumption of a healthy diet. 5 . T obacco dependence - F17.200 N otes :We have had another discussion of all the health consequences of smoking. She wants very much to stop smoking, but is concerned about gaining weight. I recommended she try the nicotine patches. She did not want to try anything else. 6 . O verweight (BMI 25.0-29.9) - E66.3 N otes :Her body mass index is 28 and her weight is stable. We have discussed diet and nutrition. We reviewed [facility] weight loss strategy. 7 . P ulmonary nodule - R91.1 N otes :The right lower lobe pulmonary nodule is thought to be stable and noncalcified measuring [address] scan of the chest has been ordered for July of this year. It has been stable since that was detected in January 2024. She has a long history of cigarette smoking as well as a recent diagnosis of early breast cancer. 8 . C losed displaced fracture of proximal phalanx of right middle finger, initial encounter - S69.849U N otes :Her surgery was successful and she is now recovering. She will follow up with orthopedics as well as myself frequently. 9 . E ssential hypertension - I10 N otes :She began metoprolol tartrate 25 mg twice a day recently. 9. Today I have added Amlodipine 5 mg. Plan: * Treatment: * Procedure Codes: * [...] tobacco use and urged to quit. 0 10/29/2024 Patient Lifestyle Goals P atient wants to quit Treatment Goals S et a quit date, Cut down by 1 cigarette a week Barriers S ocial smoker, Stress Self-Management Plan M clementine a plan to cut down number of cigarettes over time and set a date to work towards quitting * Follow Up: 3 Weeks (Reason: Office visit) * Images: * Sign off status: Completed true * Provider: Melissa Willingham MD Date: 0 10/29/2024 Generated for Tati ennis/So/eTransmitting on: 1 11:06 AM EDT History and Physical Notes [...] no masses palpable b ilaterally, All scars healed MUSCULOSKELETAL: extremities unremark able, no clubbing, cyanosis or edema, Right third finger bandaged and splinted LYMPH NODES: no enlarged lymph no shelby,spleen normal RECTAL EXAM: not examined PSYCH: alert, oriented ORAL CAVITY: normal, unremarkable
--- OUTSIDE RECORDS SUMMARY | 2024-11-30 05:00 | XMS_ITS ---
Author Organization Natalio Willingham III, MD Address [address] [place] [address] Care Team Providers Care Director Payment Name Role Phone Dr. Natalio Willingham III [...] Provider Diagnosis Natalio Willingham III, MD [address] [place] [address] [place] [address] 11/30/2024 Natalio Willingham Essential hypertensi on I10 [...] Her esophageal reflux is well controlled with leqt-ciy-uwntpmu medications. 11/30/2024 Tobacco dependence (ICD-10 - F17.200) [...] Provider Name:Natalio Willingham , 08/09/2025 04:00:00 PM, [address] [place] [address] [address], [place], [address], Provider Name:Natalio Willingham , 05/12/2026 02:30:00 PM, [address] [place] [address] [address], [place], [address], Progress Notes * Zackary ESPINO EDOB:[birth year] (59 yo F)Acc No.[id number]:11/30/2024 Progress Notes Patient: Zackary SALEH Provider: Melissa Willingham MD :1965 A ge:59 Y S ex:Female Date:11/30/2024 Address:[address] [place] [address], [address], [place], [place]-[id number] Subjective: * Chief Complaints: * O [...] * Surgical History: R ight breast Lumpectomy 1070-22-81Myegd of radiation 06/06/20Repair complicated fracture right third [...] and raising children. She was born in [place], [place]. She has been to [place] for [...] :Her esophageal reflux is well controlled with hgeb-suc-zmnrfsq medications. 6 . T obacco dependence - [...] 0 11/30/2024 Generated for Tati ennis/So/Francesco on: 11:05 AM EDT History and Physical Notes * [...]
--- OUTSIDE RECORDS SUMMARY | 2025-02-01 05:48 | XMS_ITS ---
Author Organization Natalio Willingham III, MD Address [address] [place] [place] [address] Care Team Providers Care Electrical Discharge Machine Operator Name Role Phone Dr. Natalio Willingham III Primary Care Provider REASON FOR VISIT Rx Request Social History Sex Assigned At : Social History Observation Description Sex Assigned At Female Encounters Encounter Location Date Provider Diagnosis Natalio Willingham III, MD [address] [place] [address] [place] [address] 02/01/2025 Natalio Willingham Plan Of Treatment Next Appt Details Provider Name:Natalio Willingham , 08/09/2025 04:00:00 PM, [address] [place] [address] [place], [address], Provider Name:Natalio Willingham , 05/12/2026 02:30:00 PM, [address] [place] [address] [place], [address], Progress Notes * Zackary ESPINO EDOB:[birth year] (59 yo F)Acc No.[id number]:02/01/2025 Patient: Hang JOSE CARLOSShaanZackary :1965 A ge:59 Y S ex:Female Address:[address], [place] [address] * true * Date: Generated for Tati ennis/So/Francesco on: 1 11:07 AM EDT
--- OUTSIDE RECORDS SUMMARY | 2025-02-01 10:27 | XMS_ITS ---
Author Organization Natalio Willingham III, MD Address [address] [place] [address] Care Team Providers Care Linoleum Floor Installer Name Role Phone Dr. Natalio Willingham III Primary Care Provider Medications Medication SIG (Take, Route, Frequency, Duration) Notes Start Date End Date Status Sulfamethoxazole-Trimetho prim 800-160 MG 1 tablet Orally twice a day for 10 days 02/01/2025 02/11/2025 Active Social History Sex Assigned At : Social History Observation Description Sex Assigned At Female Encounters Encounter Location Date Provider Diagnosis Natalio Willingham III, MD [address] [place] [address] [place] [address] 02/01/2025 Natalio Willingham Plan Of Treatment Medication Medication Name Sig Start Date Stop Date Notes Sulfamethoxazole-Trimethopri m 800-160 MG 1 tablet Orally twice a day for 10 days 02/01/2025 02/11/2025 Next Appt Details Provider Name:Natalio Willingham , 08/09/2025 04:00:00 PM, [address] [place] [address] [place], [address], Provider Name:Natalio Willingham , 05/12/2026 02:30:00 PM, [address] [place] [address] [place], [address], Progress Notes * Zackary ESPINO EDOB:[birth year] (59 yo F)Acc No.[id number]:02/01/2025 Patient: Zackary SALEH :1965 A ge:59 Y S ex:Female Address:[address] [place] [address], [address], [place] [address] * Refills Start Sulfamethoxazole-Trimethoprim Tablet, 800-160 MG, Orally, 20 Tablet, 1 tablet, twice a day, 10 days, Refills=0 * true * Date: Generated for Tati ennis/So/Alfonsosmitting on: 1 11:07 AM EDT
--- OUTSIDE RECORDS SUMMARY | 2025-03-04 12:45 | XMS_ITS ---
Author Organization Natalio Willingham III, MD Address [address] [place] [address] Care Team Providers Care Retail Office Manager Name Role Phone Dr. Natalio Willingham III Primary Care Provider [phone] REASON FOR VISIT Follow up Social History Sex Assigned At : Social History Observation Description Sex Assigned At Female Encounters Encounter Location Date Provider Diagnosis Natalio Willingham III, MD [address] [place] [address] [place] [address] 03/04/2025 Natalio Willingham Plan Of Treatment Next Appt Details Provider Name:Natalio Willingham , 08/09/2025 04:00:00 PM, [address] [place] [address] [place], [address], Provider Name:Natalio Willingham , 05/12/2026 02:30:00 PM, [address] [place] [address] [place], [address], Progress Notes * Zackary ESPINO EDOB:[birth year] (60 yo F)Acc No.[id number]:03/04/2025 Progress Notes Patient: Hang Zackary RODRIGUEZ Provider: Melissa Willingham MD :1965 A ge:59 Y S ex:Female Date:03/04/2025 Address:[address] [place] [address] [address], [address], [facility] Subjective: * Chief Complaints: * 1 . Follow up. * Medical History: Objective: * Vitals: Assessment: Plan: * Treatment: * Images: * The named appointment provid er may or may not be the originator of this progress note, and it is not deemed complete until electronically signed by the appointment provider. Sign off status: Pending * Provider: Melissa Willingham MD Date: 0 03/04/2025 Generated for Tati ennis/So/Tomransmitting on: 11:06 AM EDT
--- OUTSIDE RECORDS SUMMARY | 2025-03-09 07:00 | XMS_ITS ---
Author Organization Natalio Willingham III, MD Address [address] [place] [address] Care Team Providers Care Collection Officer Name Role Phone Dr. Natalio Willingham III Primary Care Provider [phone] Allergies Allergen (clinical drug ingredient) Drug/Non Drug Allergy documented on EMR Reaction Allergy Type Onset Date Status Penicillin Unknown Drug Allergy Active Latex Latex Unknown Allergy Active Codeine Phosphate Unknown Drug Allergy Active amoxicillin Amoxicillin Unknown Drug Allergy Act melisa REASON FOR VISIT Chronic cough for 1 month, Healing fractures Fingers right hand, History of Depression, Tobacco dependence, Lower outer quadrant right breast malignancy, Osteoporosis Medications Medication SIG (Take, Route, Frequency, Duration) Notes Start Date End Date Status amLODIPine Besylate 5 MG 1 tablet Orally Once a day 10/29/2024 Active Citalopram Hydrobromide 10 MG TAKE 1 TABLET BY MOUTH EVERY DAY Active Atorvastatin Calcium 10 MG TAKE 1 TABLET BY MOUTH EVERY DAY Active Anastrozole 1 MG TAKE 1 TABLET BY BRANDIE TH EVERY DAY Active Metoprolol Tartrate 25 MG 1 tablet with food Orally Once a day 10/08/2024 Active Loratadine 10 MG TAKE 1 [...] is a current smoker Vital Signs Temperature 97.3 degrees Fahrenheit 03/09/20 Blood pressure systolic 137 mm Hg 03/09/20 Blood pressure diastolic 81 mm Hg 025 Heart Rate 76 /min 03/09/2025 Height 68 in 03/09/2025 Weight 179 lbs 03/09/2025 BMI 27.21 kg/m2 03/09/2025 Encounters Encounter Location Date Provider Diagnosis Natalio Willingham III, MD [address] [place] [address] [place] [address] 03/09/2025 Natalio Willingham Hyperlipidemia E78.5 ; Malignant neoplasm of lower-outer quadrant of right female breast C50.511 ; Overweight (BMI 25.0-29.9) E66.3 ; Depressive disorder, not elsewhere classified F32.9 ; Gastro-esophageal reflux disease without esophagitis K21.9 ; Tobacco dependence F17.200 ; Closed displaced fracture of proximal phalanx of right middle finger, initial encounter S62.612A and Essential hypertension I10 Assessments Encounter Date Diagnosis (ICD Code) Assessment Notes Treat ment Notes Treatment Clinical Notes 03/09/2025 Hyperlipidemia (ICD-10 - E78.5) Her total cholesterol is 179 with LDL of 77. No change in her regimen was necessary today. We did discuss a weight reduction and low cholesterol diet. 03/09/2025 Malignant neoplasm o f lower-outer quadrant of [...] with the left which is not tender. 03/09/2025 Overweight (BMI 25.0-29.9) (ICD-10 - E66.3) Her body mass index is 27. We discussed her weight reduction strategy diet and nutrition. We made a plan to lose weight steadily and regularly until her BMI is normal. 03/09/2025 Depressive disorder, not elsewhere classified (ICD-10 - F32.9) She has slowly been tapering the citalopram. Her depression is in remission and was not evident today. 03/09/2025 Gastro-esophageal reflux disease without esophagitis (ICD-10 - K21.9) Her esophageal reflux is well controlled with iawk-rcy-eqqfeoc medications. 03/09/2025 Tobacco dependence (ICD-10 - F17.200) We have had another discussion of all the health consequences of smoking. She wants very much to stop smoking, but is concerned about gaining weight. I recommended she try the nicotine patches. She did not want to try anything else. 03/09/2025 Closed displaced fracture of proximal phalanx of right middle finger, initial encounter (ICD-10 - S62.612A) Her surgery was successful and she is now recovering. She will follow up with orthopedics as well as myself frequently. 03/09/2025 Essential hypertension (ICD-10 - I10) Her blood pressure is currently stable and no change in her regimen as necessary. We discussed weight loss and smoking cessation at length today. I recommended sodium restriction as well. Plan Of Treatment Medication Medication Name Sig Start Date Stop Date Notes amLODIPine Besylate 5 MG 1 tablet Orally Once a day 2024 Citalopram Hydrobromide 10 MG TAKE 1 TAB LET BY MOUTH EVERY DAY Atorvastatin Calcium 10 MG TAKE 1 TABLET BY MOUTH EVERY DAY Anastrozole 1 MG TAKE 1 TABLET BY BRANDIE TH EVERY DAY Metoprolol Tartrate 25 MG 1 tablet with food Orally Once a day 10/08/2024 Loratadine 10 MG TAKE 1 TABLET BY BRANDIE TH EVERY DAY ProAir HFA 108 (90 Base) MCG/ACT 2 puffs as needed Inhalation every 4 hrs 03/16/2021 Pending Test Test Name Order Date PROFILE, FASTING (COMPREHENSIVE METABOLI C) 03/09/2025 CBC w DIFF 03/09/2025 Lipid Panel 03/09/2025 Next Appt Details Follow Up: As Scheduled, Pippa son: Annual Exam Provider Name:Natalio Willingham , 08/09/2025 04:00:00 PM, [address] [place] [address] [address], [place], [address], Provider Name:Natalio Willingham , 05/12/2026 02:30:00 PM, [address] [place] [address] [place], [address], Progress Notes * Zackary ESPINO EDOB:[birth year] (59 yo F)Acc No.[id number]:03/09/2025 Progress Notes Patient: Zackary SALEH Provider: Melissa Willingham MD :1965 A ge:59 Y S ex:Female Date:03/09/2025 Address:[address], [address], [phone] Subjective: * Chief Complaints: * C hronic cough for 1 monthHealing fractures Fingers right handHistory of DepressionTobacco dependenceLower outer quadrant right breast malignancyOsteoporosis * HPI: C OVID-19 Screening: She returns for medical management. She complains of her chronic cough all day long for the last month. It is worse at night when she falls asleep she stays asleep. She is due to stop her anastrozole at the end of April 2025. The middle finger on her right hand is still healing. She lacks total range of motion but is still doing the exercises. The right hand and fingers are quite functional however.She has been doing breast self-examination with negative results. She denies any bone pain shortness of breath or weight loss. She continues to smoke 10 cigarettes daily. Once again we discussed weight reduction strategies and smoking cessation strategies as well.Blood work done March 02, 2025 showed white count 9.5 hematocrit 46.7 platelets 495 glucose 86 BUN 10 creatinine 0.66 total cholesterol 179 triglycerides 249 HDL 62 LDL 79. Questions H ave you had any new onset fever, chills, cough, congestion, sore throat, shortness of breath, muscle aches? N o * ROS: G eneral/Constitutional: pain T hird finger right hand. C hills d enies.?Fatigue a dmits. F [...] * Surgical History: R ight breast Lumpectomy 7687-65-20Eopqt of radiation 06/06/20Repair complicated fracture right third [...] and raising children. She was born in [place], [place]. She has been to [place] [...] MG Tablet 1 tablet with food Orally Once a day amLODIPine Besylate 5 MG Tablet [...] MG Tablet 1 tablet with food Orally Once a day Taking amLODIPine Besylate 5 MG Tablet 1 tablet Orally Once a day Medication List reviewed and reconciled with the patient * Allergies: A moxicillinCodeine PhosphateLatexPenicillinno[Allergies Verified] Objective: * Vitals: H t: 68, Wt: 179, BMI:27.21, BP: 137/81, HR: 76, Temp: 97.3, Wt-k.19. * Examination: G eneral Examination: GENERAL APPEARANCE: p leasant, well nourished, well developed, in no acute distress, calm and relaxed, overweight, , woman. HEAD: a traumatic, normocephalic. EYES: e [...] breath sounds throughout. BREASTS: no masses palpable bilaterally. ABDOMEN: b owel [...] mood depressed. ? Assessment: * Assessment: 1. M alignant neoplasm [...] left which is not tender. 2 . H yperlipidemia - E78.5 N otes :Her total cholesterol is 179 with LDL of 77. No change in her regimen was necessary today.? We did discuss a weight reduction and low cholesterol diet. 3 . O verweight (BMI 25.0-29.9) - E66.3 N otes :Her body mass index is 27. We discussed her weight reduction strategy diet and nutrition.? We made a plan to lose weight steadily and regularly until her BMI is normal. 4 . D epressive disorder, not elsewhere classified - F32.9 N otes :She has slowly been tapering the citalopram. Her depression is in remission and was not evident today. 5 . G liz-esophageal reflux disease without esophagitis - K21.9 ?Notes :Her esophageal reflux is well controlled with dzxy-yfw-hrkzqcm medications. 6 . T obacco dependence - F17.200 N otes :We have had another discussion of all the health consequences of smoking. She wants very much to stop smoking, but is concerned about gaining weight. I recommended she try the nicotine patches. She did not want to try anything else. 7 . C losed displaced fracture of proximal phalanx of right middle finger, initial encounter - S62.612A N otes :Her surgery was successful and she is now recovering. She will follow up with orthopedics as well as myself frequently. 8 . E ssential hypertension - I10 N otes :Her blood pressure is currently stable and no change in her regimen as necessary. We discussed weight loss and smoking cessation at length today. I recommended sodium restriction as well. Plan: * Treatment: 2. O verweight (BMI 25.0-29.9) L AB: PROFILE, FASTING (COMPREHENSIVE METABOLIC) L AB: CBC w DIFF L AB: Lipid Panel 3. O thers Continue ProAir HFA Aerosol Solution, [...] TABLET BY MOUTH EVERY DAY; C ontinue amLODIPine Besylate Tablet, 5 MG, 1 tablet, Orally, Once a day; C ontinue Metoprolol Tartrate Tablet, 25 MG, 1 tablet with food, Orally, Once a day. ? * Procedure [...] tobacco use and urged to quit. 0 03/10/2025 Patient Lifestyle Goals P atient wants to quit Treatment Goals S et a quit date, Cut down by 1 cigarette a week Barriers S tress, Social smoker Self-Management Plan M clementine a plan to cut down number of cigarettes over time and set a date to work towards quitting * Follow Up: A s Scheduled (Reason: Annual Exam) * Images: * Sign off status: Completed true * Provider: Melissa Willingham MD Date: 0 03/09/2025 Generated for Tati ennis/So/Alfonsosmitting on: 1 11:06 AM EDT History and Physical Notes * HPI (History of Present Illness) Category Sub-Category Detail Notes COVID-19 Screening Questions Have you had any new onset fever, chills, cough, congestion, sore throat, shortness of breath, muscle aches?: No Examination Category Sub-Category Detail Notes General Examination GENERAL APPEARANCE: pleasant , well nourished, well developed, in no acute distress, calm and relaxed, overweight, , woman HEAD: atraumatic, normocep halic EYES: eomi, [...]
--- OUTSIDE RECORDS SUMMARY | 2025-05-10 11:00 | XMS_ITS ---
Author Organization Natalio Willingham III, MD Address [address] [place] [address] Care Team Providers Care Marketing Director Name Role Phone Dr. Natalio Willingham III Primary Care Provider [phone] Allergies Allergen (clinical drug ingredient) Drug/Non Drug [...] Date Provider Diagnosis Natalio Willingham III, MD [address] [place] [address] [place] [address] 05/10/2025 Natalio Willingham Hyperlipidemia E78.5 ; Malignant [...] Her esophageal reflux is well controlled with qzql-yid-vhngprj medications. Plan Of Treatment Medication Medication Name [...] Provider Name:Natalio Willingham , 08/09/2025 04:00:00 PM, [address] [place] [address] [address], [place], [address], Provider Name:Natalio Willingham , 05/12/2026 02:30:00 PM, [address] [facility] [address], [place], [address], Progress Notes * Zackary ESPINO EDOB:[birth year] (60 yo F)Acc No.[id number]:05/10/2025 Progress Notes Patient: Zackary SALEH Provider: Melissa Willingham MD :1965 A ge:60 Y S ex:Female Date:05/10/2025 Address:[address], [id number] Subjective: * Chief Complaints: * A nnual [...] * Surgical History: R ight breast Lumpectomy [id number] of radiation 06/06/20Repair complicated fracture right third [...] and raising children. She was born in [place], [place]. She has been to [place] for [...] :Her esophageal reflux is well controlled with cmvj-xmw-sxilibv medications. Plan: * Treatment: 2. O verweight [...] 05/10/2025 Generated for Silviai loli/So/eTransmitting on: 1 11:06 AM EDT History and [...]
--- NOTE | 2025-07-14 09:41 | A.OFFVIS_ITS ---
Vital Signs 07/14/25 09:47 Height 5 ft 7.5 in Weight 177 lb 6 oz BMI 27.4 BP 169/79 H Blood Pressure Location Lt brachial Position Sitting Pulse 113 H Intake Visit Reasons: 6 month follow up/Breast exam Intake Note: This patient presents for a yearly follow-up breast examination assessment. Pt c/o; reports no breast complaints at this time. DI: 07/05/2025: Breast US 06/07/2025: MM Screening Examination Grader Required: No Accompanied by: Self / Same As Patient Allergies codeine (CODEINE) Allergy (Severe, Verified 07/14/25 09:48) AGITATION, mentally unstable amoxicillin (AMOXICILLIN) Allergy (Intermediate, Verified 07/14/25 09:48) RASH latex (LATEX) Allergy (Intermediate, Verified 07/14/25 09:48) RASH seasonal Allergy (Unknown, Uncoded 07/14/25 09:48) Unknown SEASONAL ALLERGIES Allergy (Unknown, Uncoded 07/14/25 09:48) WHEEZING HPI HPI 6 month follow up/Breast exam: Details: She is here for follow-up for her history of right breast invasive ductal carcinoma. The had a T2 N0 cancer in 2019 treated with lumpectomy and radiation. She has completed a anastrozole treatment. She had a mammogram done May,. This was unremarkable but she was ordered to undergone ultrasound because of her complains of a ?pain? on the medial aspect of her right breast after she was wearing a wire bra during a wedding. This ultrasound was unremarkable as well. She otherwise denies any new complaints. [facility] Medical History History of breast cancer (~2019) Mitral valve prolapse Hypercholesterolemia GERD (gastroesophageal reflux disease) Nicotine dependence, cigarettes, uncomplicated Depression Surgical History History of lumpectomy of right breast History of colonoscopy Family History Mother Breast cancer, Onset Age: 75 Maternal Grandmother Breast cancer Father Throat cancer Mouth cancer Social History Are you a primary cattle care worker to a significant other at home: No Do you presently have visiting nurse or other home services: No Alcohol intake: current Alcohol intake frequency: 0-2 drinks per day Alcohol type: wine Comment: medicated Patient Tobacco Use Status: Current someday Tobacco user Tobacco use type: Cigarette Years Smoked: onset 17yo, 1/2ppd x 41yrs - 20PYH Current occupational status: employed 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 Review of Systems Const Denies chills and Denies fever(s) Card Denies chest pain, Denies dyspnea and Denies dyspnea on exertion Resp Denies cough, Denies dyspnea and Denies dyspnea on exertion GI Denies hematochezia and Denies change in bowel habits Denies hematuria Musc Denies back pain and Denies limited range of motion Neuro Denies focal weakness and Denies convulsions Psych Denies depression and Denies mood swings Physical Exam Const General: comfortable and no acute distress Orientation/consciousness: patient oriented x3 Neck Neck: Yes no lymphadenopathy Chest Other: No palpable breast masses, no axillary lymphadenopathy, scar on the right breast without any palpable mass Resp Auscultation: clear to auscultation bilaterally Cardio Rhythm: regular rhythm GI Palpation (GI): Soft to palpation, nontender and no guarding Neuro General: patient oriented x3 Assessment & Plan Assessment & Plan (1) History of breast cancer: Onset Date: ~2019 Comment: (Invasive Ductal Carcinoma of Right Breast - T2N0 - s/p Lumpectomy - 03/2020 + Radiation 06/2020) Code(s): Z85.3 - Personal history of malignant neoplasm of breast Category: Medical Plan: She continues to do well. Her mammogram and ultrasound from this year did not reveal any suspicious findings Current exam does not suggest any palpable mass or any recurrence She is now off anastrozole I will see her in the office after 1 year. She we will continue to have her yearly mammograms. Coding Level of Care Code Est Pt Level 3 (35652) Complex EM visit Add On G2211 Diagnoses History of breast cancer Z85.3
[2025-07-14 09:47] VITALS: BP 169/79; PULSE 113; BMI 27.4
--- OUTSIDE RECORDS SUMMARY | 2025-07-14 11:07 | XMS_ITS | Patient Health Record ---
Author Organization Natalio Willingham III, MD Address [address] [place] [address] Care Team Providers Care Quad Stayer Name Role Phone Dr. Natalio Willingham III Primary Care Provider [phone] Allergies Allergen (clinical drug ingredient) Drug/Non Drug [...] date:09/08/2024 09:49:44 AM Interpretation: Performing Lab: Notes/Report: [address] [address] XRay Report Signed Patient: Ayah Tillman MR#: [id number] 8 : 1965 Acct:[id number] Age/Sex: 59 / F ADM Date: 09/08/24 Loc: HO.ED Attending Dr: Ordering Physician: Generic ED Physician Date of Service: 09/08/24 Procedure(s): XR hand RT min 3V Accession Number(s): [id number] cc: Natalio Willingham MD; Generic ED Physician [...] 09/08/24 0855 DD/ 0840 TD/TT: 09/08/24 0845 Kettle Skimmer: [place] [address] XRay Report Signed Patient: Cristhian Tillman MR#: [id number] 8 : 1965 Acct:[id number] Age/Sex: 59 / F ADM Date: 09/08/24 Loc: HO.ED Attending Dr: Ordering Physician: Generic ED Physician Date of Service: 09/08/24 Procedure(s): XR hand RT min 3V Accession Number(s): [id number] cc: Natalio Willingham MD; Generic ED Physician [...] 09/08/24 0855 DD/ 0840 TD/TT: 09/08/24 0845 Kettle Skimmer: FL guidance in OR Reviewed date:09/30/2024 08:59:36 AM Interpretation: Performing Lab: Notes/Report: [address] [address] Fluoroscopy Report Signed Patient: Ayah Tillman MR#: [id number] 8 : 1965 Acct:[id number] Age/Sex: 59 / F ADM Date: 09/13/24 Loc: .[facility] Attending Dr: Li Olson MD Ordering Physician: Li Olson MD Date of Service: 09/13/24 Procedure(s): FL guidance in OR Accession Number(s): [id number] cc: Naatlio Willingham MD; Li Olson MD EXAMINATION: FLUOROSCOPY [...] 09/27/24 0832 DD/ 1510 TD/TT: 09/13/24 1700 Kettle Skimmer: [address] [address] Fluoroscopy Report Signed Patient: Cristhian Tillman MR#: [id number] 8 : 1965 Acct:[id number] Age/Sex: 59 / F ADM Date: 09/13/24 Loc: HO.SSS Attending Dr: Lucinda Olson MD Ordering Physician: Li Olson MD Date of Service: 09/13/24 Procedure(s): FL guidance in OR Accession Number(s): [id number] cc: Natalio Willingham MD; Li Olson MD [...] by: Abdirizak Hummel MD 09/27/2024 08:32 AM [facility] Dictated By: Abdirizak Hummel MD Signed By: <Electron ically signed by Abdirizak Hummel MD in OV> 09/27/24 0832 DD/ 1510 TD/TT: 09/13/24 1700 Kettle Skimmer: [facility] XR hand RT min 3V Reviewed date:09/14/2024 11:39:13 AM Interpretation: Performing Lab: Notes/Report: [facility] [address] [place] [address] XRay Report Signed Patient: Ayah Tillman MR#: [id number] 8 : 1965 Acct:[id number] Age/Sex: 59 / F ADM Date: 09/10/24 Loc: HO.HOSX Attending Dr: Calvin QUIROZ Ordering Physician: Calvin Shelton Date of Service: 09/10/24 Procedure(s): XR hand RT min 3V Accession Number(s): [id number] cc: Calvin Shelton; Natalio Willingham MD CLINICAL [...] in OV> 09/14/24729 DD/ 8 TD/TT: 09/14/24728 Kettle Skimmer: [facility] [address] [place] [address] [address] [place] [address] XRay Report Signed Patient: Cristhian Tillman MR#: [id number] 8 : 1965 Acct:[id number] Age/Sex: 59 / F ADM Date: 09/10/24 Loc: [facility] Attending Dr: Calvin QUIROZ Ordering Physician: Calvin Shelton Date of Service: 09/10/24 Procedure(s): XR hand RT min 3V Accession Number(s): [id number] cc: Calvin Shelton ; Natalio Willingham MD [...] in OV> 09/14/24729 DD/ 8 TD/TT: 09/14/24728 Kettle Skimmer: MM tomosynthesis screening B I Reviewed date:06/10/2025 10:34:28 AM Interpretation: Performing Lab: Notes/Report: [facility] [place] [address] Mammography Report Signed Patient: Ayah Tillman MR#: [id number] 8 : 1965 Acct:[id number] Age/Sex: 60 / F ADM Date: 06/07/25 Loc: HO.MAMMO Attending Dr: Natalio Willingham MD Ordering Physician: Natalio Willingham MD Results: 0Incompl ete: Needs Additional Imaging Evaluation Date of Service: 06/07/25 Follow Up: Additional Imagi ng Procedure(s): MM tomosynthesis screening BI Accession Number(s): [id number] cc: Natalio Willingham MD Reason For Exam: [...] 06/07/25 1546 DD/ 1521 TD/TT: 06/07/25 1540 Kettle Skimmer: [place] [facility]'[address] [place] [address] Mammography Report Signed Patient: Cristhian Tillman MR#: [id number] 8 : 1965 Acct:[id number] Age/Sex: 60 / F ADM Date: 06/07/25 Loc: HO.MAMMO Attending Dr: Natalio Willingham MD Ordering Physician: Natalio Willingham MD Results: 0Incompl ete: Needs Additiona l Imaging Evaluation Date of Service: Follow Up: Additional Imagi ng Procedure(s): MM eliana osynthesis screening BI Accession Number(s): [id number] cc: Natalio Willingham MD Reason For Exam: [...] 06/07/25 1546 DD/ 1521 TD/TT: 06/07/25 1540 Kettle Skimmer: US breast RT limited mamm on ly Reviewed date:07/06/2025 06:54:14 AM Interpretation: Performing Lab: Notes/Report: [facility] [address] [place] [address] Ultrasound Report Signed Patient: Ayah Tillman MR#: [id number] 8 : 1965 Acct:[id number] Age/Sex: 60 / F ADM Date: 07/05/25 Loc: HO.MAMMO Attending Dr: Natalio Willingham MD Ordering Physician: Natalio Willingham MD Date of Service: 07/05/25 Procedure(s): US Breast RT Limited Mamm Only Accession Number(s): [id number] cc: Natalio Willingham MD Reason for Exam: RT BR US FOR PALPABLE LUMP EXAMINATION: US DIAGNOSTIC ULTRASOUND BREAST, RIGHT CLINICAL INFORMATION: Callback from screening given patient's history of palpable lump in the medial breast near her lumpectomy scar. History of right breast lumpectomy for breast cancer in 2019.. COMPARISON: Screening mammogram on June 07, 2025. FINDINGS: Targeted ultrasound of the right breast was performed at the location of the palpable concern as indicated by the patient. The survey performed in the medial breast from 2:00 to 5:00 positions did not reveal suspicious sonographic findings. Results are provided to the patient at time of visit by the technologist. US/US Breast RT Limited Mamm Only IMPRESSION: Right: No suspicious sonographic findings to accounts for patient's palpable concern near the lumpectomy scar. Benign, no evidence of malignancy. Clinical follow-up is recommended. Otherwise, patient may return to routine screening mammogram in 12 months. ASSESSMENT: Category 2: Benign RECOMMENDATION: 1. Patient should be managed based on the clinical impression. 2. Otherwise, routine annual screening mammography. This patient's information was entered into a reminder system with a target due date for their next mammogram. Electronically signed by: Chester Prescott MD 07/05/2025 02:17 PM EDT RP Workstation: [employer] Dictated By: Chester Prescott MD Signed By: <Electronically signed by Chester Prescott MD in OV> 07/05/25 1417 DD/ 1231 TD/TT: 07/05/25 1232 Kettle Skimmer: [place] [facility] [address] [place] [address] Ultrasound Report Signed Patient: Cristhian Tillman MR#: [id number] 8 : 1965 Acct:[id number] Age/Sex: 60 / F ADM Date: 07/05/25 Loc: HO.MAMMO Attending Dr: Natalio Willingham MD Ordering Physician: Natalio Willingham MD Date of Service: 07/05/25 Procedure(s): US Lydia ast RT Limited Mamm Only Accession Number(s): [id number] cc: Natalio Willingham MD Reason for Exam: RT BR US FOR PALPABLE LUMP EXAMINATION: US DIAGNOSTIC ULTRAS OUND BREAST, RIGHT CLINICAL INFORMATION: Callback from screen ing given patient's history of palpable lump in the medial breast near h er lumpectomy scar. History of right breast lumpectomy for breas t cancer in 2019.. COMPARISON: Screening mammogram on June 07, 2025. FINDINGS: Targeted ultrasound of the right breast was performed at the location of the palpable conc [place] as indicated by the patient. The survey performed in the [facility] breast from 2:00 to 5:00 positions did not reveal suspicious so nographic findings. Results are provided to the patient at time of visit by the technologist. U S/US Breast RT Limited Mamm Only IMPRESSION: Right: No suspicious sonographic findings to accounts for patient's palpable concern tyrell r the lumpectomy scar. Benign, no evidence of malignancy. Clinical follow-up is recommended. Otherwise, patient may return to routine sc reening mammogram in 12 months. ASSESSMENT: Category 2: Benign RECOMMENDATION: 1. Patient should be managed based on the clinical impression. 2. Otherwise, routine a nnual screening mammography. This patient's infor mation was entered into a reminder system with a target due date for their next mammogram. Electronically rios d by: Chester Prescott MD 07/05/2025 02:17 PM EDT RP Dictated By: Chester Prescott MD Signed By: <Electron icallantoinette signed by Chester Prescott MD in OV> 07/05/25 1417 DD/ 1231 TD/TT: 07/05/25 1232 Kettle Skimmer: Reason For Referral No Information Medications Medication [...] Problem Status W/U Status Risk Notes Problem 026017480 Overweight (BMI 25.0-29.9) (E66.3) Active confirmed Her weight is stable and the overweight range. We discussed nutrition and diet today. We reviewed her weight loss strategy. Problem 26205634 Hyperlipidemia (E78.5) Active confirmed Her total cholesterol is 178 with an HDL of 72. No change in her regimen was necessary today. Problem 386265254 Pulmonary nodules (R91.8) Active confirmed The 2 nodule s in the right lung are large enough to be worrisome. A repeat CT scan has been scheduled for April 2024. Problem 709411257 Malignant neoplasm of lower-outer quadrant of right female breast (C50.511) Active confirmed She will complete her tamoxifen therapy next week and discontinue that medication. There was no sign of a new primary today. There was no sign of recurrence. Problem 509570914 Gastro-esophagea l reflux disease without esophagitis (K21.9) Active confirmed Her esophageal reflux is well controlled with mvry-mme-kehmh er medications. Problem 99691169 Essential hypertension (I10) Active confirmed Her blood pressure is currently stable and no change in her regimen as necessary. We discussed weight loss and smoking cessation at length today. I recommended sodium restriction as well. Problem 41611013 Tobacco dependence (F17.200) Active confirmed We have had another discussion of all the health consequences of smoking. She wants very much to stop smoking, but is concerned about gaining weight. I recommended she try the nicotine patches. She did not want to try anything else. Problem 861932542 Pulmonary nodule (R91.1) Active confirmed The right [...] diagnosis of early breast cancer. Problem Osteoporosis (12440530) Osteoporosis (M81.0) Active confirmed She is going to consider the use of alendronate. She will continue on vitamin D and calcium tablets. A repeat bone density will be done. She has 12 more months to go on her adjuvant endocrine anastrozole. Problem 77368865 Depressive disorder, not elsewhere classified (F32.9) Active confirmed She has slowly been tapering the citalopram. Her depression is in remission and was not evident today. Problem 224647043 BRCA1 negative (Z13.71) Active confirmed Problem 839465194 Closed displaced fracture of proximal phalanx of right middle finger, initial encounter (I76.335V) Active confirmed Her surgery was successful and [...] Date Provider Diagnosis Natalio Willingham III, MD [address] [place] [address] [place] [address] 09/13/2024 Natalio Willingham Elevated blood press ure reading R03.0 ; Closed displaced fracture of proximal phalanx of right middle finger, initial encounter S62.612A ; Depressive disorder, not elsewhere classified F32.9 ; Tobacco dependence F17.200 ; Gastro-esophageal reflux disease without esophagitis K21.9 ; Hyperlipidemia E78.5 ; Overweight E66.3 and Malignant neoplasm of lower-outer quadrant of right female breast C50.511 Natalio Willingham III, MD [address] [place] [address] [place] [address] 10/08/2024 Natalio Willingham Essential hypertensi on I10 ; Closed displaced fracture of proximal phalanx of right middle finger, initial encounter S62.612A ; Overweight (BMI 25.0-29.9) E66.3 ; Osteoporosis M81.0 ; Tobacco dependence F17.200 ; Hyperlipidemia E78.5 ; Depressive disorder, not elsewhere classified F32.9 and Gastro-esophageal reflux disease without esophagitis K21.9 Natalio Willingham III, MD [address] [place] [address] [place] [address] 10/29/2024 Natalio Willingham Malignant neoplasm o f [...] Essential hypertension I10 Natalio Willingham III, MD [address] [place] [address] [place] [address] 11/30/2024 Natalio Willingham Essential hypertensi on I10 ; Hyperlipidemia E78.5 ; Overweight (BMI 25.0-29.9) E66.3 ; Depressive disorder, not elsewhere classified F32.9 ; Gastro-esophageal reflux disease without esophagitis K21.9 ; Tobacco dependence F17.200 and Malignant neoplasm of lower-outer quadrant of right female breast C50.511 Natalio Willingham III, MD [address] [place] [address] [place] [address] 03/09/2025 Natalio Willingham Hyperlipidemia E78.5 ; Malignant neoplasm of lower-outer quadrant of right female breast C50.511 ; Overweight (BMI 25.0-29.9) E66.3 ; Depressive disorder, not elsewhere classified F32.9 ; Gastro-esophageal reflux disease without esophagitis K21.9 ; Tobacco dependence F17.200 ; Closed displaced fracture of proximal phalanx of right middle finger, initial encounter S62.612A and Essential hypertension I10 Natalio Willingham III, MD [address] [place] [address] [place] [address] 05/10/2025 Natalio Willingham Hyperlipidemia E78.5 ; Malignant neoplasm of lower-outer quadrant of right female breast C50.511 ; Overweight (BMI 25.0-29.9) E66.3 ; Tobacco dependence F17.200 ; Depressive disorder, not elsewhere classified F32.9 and Gastro-esophageal reflux disease without esophagitis K21.9 Natalio Willingham III, MD [address] [place] [address] [place] [address] 08/24/2024 Natalio Willingham III, MD [address] [place] [address] [place] [address] 09/01/2024 Natalio Willingham III, MD [address] [place] [address] [place] [address] 02/01/2025 Natalio Willingham III, MD [address] [place] [address] [place] [address] 02/01/2025 Natalio Willingham Assessments Encounter Date Diagnosis [...] today. There was no sign of recurrence. 09/13/2024 Depressive disorder, not elsewhere classified (ICD-10 - F32.9) She has slowly been tapering the citalopram. Her depression is in remission and was not evident today. 10/08/2024 Overweight (BMI 25.0-29.9) (ICD-10 - E66.3) Her body mass index is 28 and her weight is stable. We have discussed diet and nutrition. We reviewed [facility] weight loss strategy. 10/29/2024 Gastro-esophageal reflux disease without esophagitis (ICD-10 - K21.9) Her esophageal reflux is well controlled with nfmq-uee-rdkvexw medications. 11/30/2024 Overweight (BMI 25.0-29.9) (ICD-10 - [...] today. We reviewed her weight loss strategy. 09/13/2024 Tobacco dependence (ICD-10 - F17.200) We [...] Her esophageal reflux is well controlled with zikt-htc-cqqtqzn medications. 10/08/2024 Tobacco dependence (ICD-10 - F17.200) [...] Her esophageal reflux is well controlled with cfev-ekn-arlssrx medications. 03/09/2025 Gastro-esophageal reflux disease without esophagitis (ICD-10 - K21.9) Her esophageal reflux is well controlled with bhot-see-nozahzf medications. 05/10/2025 Depressive disorder, not elsewhere classified (ICD-10 - F32.9) She has slowly been tapering the citalopram. Her depression is in remission and was not evident today. 09/13/2024 Hyperlipidemia (ICD-10 - E78.5) Comprehensive blood [...] have discussed diet and nutrition. We reviewed [facility] weight loss strategy. 11/30/2024 Tobacco dependence (ICD-10 [...] Her esophageal reflux is well controlled with bqlb-mjd-ykuykvv medications. 09/13/2024 Overweight (ICD-10 - E66.3) Her body [...] with orthopedics as well as myself frequently. 09/13/2024 Malignant neoplasm o f lower-outer quadrant [...] Her esophageal reflux is well controlled with hzpb-geu-inycnej medications. 10/29/2024 Closed displaced fracture of proximal [...] Provider Name:Natalio Willingham , 08/09/2025 04:00:00 PM, [address] [place] [address] [address], [place], [address], Provider Name:Natalio Willingham , 05/12/2026 02:30:00 PM, [address] [place] [address] [address], [place], [address], Insurance Providers Payer Name Payer Address Payer Phone Subscriber Number Group Number Insured Name Patient Relationship to Insured Coverage Start Date Coverage End Date [facility] [address] [place], [place] [phone] [id number] Ayah Tillman Self - patient is the insured Medical (General) History Medical History History ICD Code anxiety/depression/PTSD lumbar spine disc disease 1995 overweight gerd occasional right uper extremities tremor s ? mitral valve prolapse abnormal mammograms tobacco dependence disorder 3 cm ER + [place]+ Her2 - invasive right [facility] cancer February 2020 Essential hypertension September 2024 Surgical History Surgery Date(Month/Year) Repair complicated fracture right third finger September 2024 Start of radiation 06/06/20 Right breast Lumpectomy 2020-03-15 Hospitalization History Reason Date(Month/Year) No history
== END 2025-07-14 10:00 | disposition home or self-care (01) ==
LOC: HO.HGS 09:36
PROVIDERS: PCP Internal Medicine Medical Oncology; Visit Provider Surgery
DX: Z85.3 Personal history of malignant neoplasm of breast (principal)
CPT/HCPCS: 99213